=== PATIENT | female | born 1950 | race Caucasian/White ===

== ENCOUNTER 2019-03-13 02:39 | Inpatient (IN) | payer OTHER ==
--- NOTE | 2019-03-13 03:45 | PDOC ---
History of Present Illness - General Stated Complaint: FALL Time Seen by Provider: 03/13/19 03:44 History Source: Patient - History of Present Illness Initial Comments: 03/13/19 06:04 Ms. Song is a 68 y/o woman with hx MS, HTN, RA, presenting from [facility] after 2x falls from her wheelchair. She reports that for the last several weeks she has been increasingly "sleepy", to the point that she will fall asleep while eating and her head will hit the plate of food. She reports that today at approx 9:30pm she was sitting in her wheelchair when she fell asleep and slid out of the chair. She reports that she remembers hitting the ground. She denies any palpitations, confusion, weakness before or after the fall. She reports an identical second episode at approx 0200, at which point she was brought to the ED for further evaluation. She reports that during the second fall she injured her second digit on her L hand, as well as injured her L knee. She denies any fevers, chills, dysuria, polyuria, weakness, confusion. Past History - Past Medical History Allergies/Adverse Reactions: Allergies Allergy/AdvReac Type Severity Reaction Status Date / Time omeprazole Allergy Verified 03/13/19 06:01 Penicillins Allergy Verified 03/13/19 06:01 Home Medications: Ambulatory Orders Acetaminophen [Tylenol .Extra-Strength -] 500 mg PO Q6H 03/13/19 Albuterol Sulfate Inhaler - [Ventolin HFA Inhaler -] 1 - 2 inh PO QID 03/13/19 Aspirin [ASA -] 81 mg PO DAILY 03/13/19 Dexlansoprazole [Dexilant] 60 mg PO DAILY 03/13/19 Docusate Sodium [Colace -] 100 mg PO TID 03/13/19 Furosemide [Lasix -] 60 mg PO DAILY 03/13/19 Levothyroxine [Synthroid -] 150 mcg PO DAILY 03/13/19 Nadolol [Corgard -] 40 mg PO DAILY 03/13/19 Oxycodone HCl/Acetaminophen [Endocet 10-325 mg Tablet] 1 each PO TID 03/13/19 Ropinirole HCl [Ropinirole ER] 8 mg PO DAILY 03/13/19 Salmeterol/Fluticasone [Advair 100Mcg/50Mcg -] 1 inh PO BID 03/13/19 Sertraline HCl [Zoloft] 200 mg PO HS 03/13/19 Acetaminophen [Tylenol .Regular Strength -] 650 mg PO Q6H PRN tablet 03/15/19 Sulfamethoxazole/Trimethoprim [Bactrim DS -] 1 each PO BID #10 tablet 03/15/19 Heparin - 5,000 unit SQ BID vial 03/16/19 Review of Systems - Review of Systems Able to Perform ROS?: Yes Comments:: ROS: GENERAL/CONSTITUTIONAL: Fatigue. No fever or chills. No weakness. HEAD, EYES, EARS, NOSE AND THROAT: No change in vision. No ear pain or discharge. No sore throat. CARDIOVASCULAR: No chest pain or shortness of breath RESPIRATORY: No cough, wheezing, or hemoptysis. GASTROINTESTINAL: No nausea, vomiting, diarrhea or constipation. GENITOURINARY: No dysuria, frequency, or change in urination. MUSCULOSKELETAL: No joint or muscle swelling or pain. No neck or back pain. SKIN: No rash NEUROLOGIC: No headache, vertigo, loss of consciousness, or change in strength/ sensation. ENDOCRINE: No increased thirst. No abnormal weight change HEMATOLOGIC/LYMPHATIC: No anemia, easy bleeding, or history of blood clots. ALLERGIC/IMMUNOLOGIC: No hives or skin allergy. *Physical Exam - Physical Exam Comments: PE: GENERAL: Awake, alert, and fully oriented, in no acute distress HEAD: No signs of trauma, normocephalic, atraumatic EYES: PERRLA, EOMI, sclera anicteric, conjunctiva clear ENT: Auricles normal inspection, hearing grossly normal, nares patent, oropharynx clear without exudates. Moist mucosa NECK: Mild midline tenderness to palpation. Normal ROM, supple, no lymphadenopathy, JVD, or masses LUNGS: No distress, speaks full sentences, clear to auscultation bilaterally HEART: Regular rate and rhythm, normal S1 and S2, no murmurs, rubs or gallops, peripheral pulses normal and equal bilaterally. ABDOMEN: Soft, nontender, normoactive bowel sounds. No guarding, no rebound. No masses EXTREMITIES : Normal inspection, Normal range of motion, no edema. No clubbing or cyanosis NEUROLOGICAL: Cranial nerves II through XII grossly intact. Normal speech, normal gait, no focal sensorimotor deficits SKIN: Warm, Dry, normal turgor, no rashes or lesions noted ED Treatment Course - LABORATORY CBC & Chemistry Diagram: 03/15/19 06:55 03/15/19 06:55 Medical Decision Making - Medical Decision Making 68 F with hx MS, HTN, RA presenting after multiple falls from wheelchair at home , no LOC, palpitations, only pain is baseline cervical spine tenderness, but reports worsening fatigue over the last several weeks. Differential includes UTI , ACS, ICH, electrolye abnormality. Plan: CBC CMP Cardiac Profile EKG CXR CT Head, CT neck UA Urine culture Dispo: Pending labs, imaging --- CBC, CMP wnl Troponin - negative EKG - negative for acute process CXR - negative for acute process CT head - negative CT C-spine pending Likely discharge home --- Patient signed out to day team --- CT c-spine notable for "spiculated lung mass, benign vs malignant". Given several weeks of worsening fatigue, falls x2 and new mass, plan for discussion with Dr. Torres and admit to hospital for further workup. --- Patient admitted. Discharge - Discharge Information Problems reviewed: Yes Clinical Impression/Diagnosis: Multiple lung nodules Condition: Guarded - Admission Yes - Follow up/Referral - Patient Discharge Instructions - Post Discharge Activity
--- NOTE | 2019-03-13 04:54 | PDOC ---
Attending Attestation - Resident Resident Name: RaspayalfannyNaveed - ED Attending Attestation I have performed the following: I have examined & evaluated the patient, The case was reviewed & discussed with the resident, I agree w/resident's findings & plan - HPI HPI: 03/13/19 06:17 see resident hpi - Physicial Exam PE: 03/13/19 06:17 agree with resident exam - Medical Decision Making 03/13/19 06:18 68-year-old female for evaluation after sliding out of her chair Labs CT scan an EKG done due to patient stating she feels more tired than usual Plan to discharge home pending results
[2019-03-13 04:56] LABS: EOS % 5.3 % (0-4.5); HEMOGLOBIN 11.4 GM/dL (10.7-15.3); LYMPH % 43.3 % (8-40); MCHC 33.4 g/dl (32.0-36.0); MEAN CELL VOLUME 89.6 fl (80-96); MEAN PLT VOLUME 6.9 fl (7.5-11.1); MONO % 7.8 % (3.8-10.2); NEUT % 42.6 % (42.8-82.8); PLATELET COUNT 283 K/MM3 (134-434); RBC 3.79 M/mm3 (3.60-5.2); RDW 13.4 % (11.6-15.6); WHITE BLOOD COUNT 5.4 K/mm3 (4.0-10.0)
[2019-03-13 05:27] LABS: ALBUMIN 3.5 g/dl (3.4-5.0); ALK PHOS 105 U/L (45-117); ANION GAP 4 MMOL/L (8-16); BILIRUBIN,TOTAL 0.2 mg/dL (0.2-1); BLOOD UREA NITROGEN 15.3 mg/dL (7-18); CALCIUM 8.8 mg/dL (8.5-10.1); CHLORIDE 98 mmol/L (98-107); CO2 33 mmol/L (21-32); CREATININE 0.8 mg/dL (0.55-1.3); GLUCOSE,RANDOM 91 mg/dL (74-106); POTASSIUM 4.9 mmol/L (3.5-5.1); SGOT/AST 14 U/L (15-37); SGPT/ALT 17 U/L (13-61); SODIUM 134 mmol/L (136-145)
--- NOTE | 2019-03-13 07:56 | PDOC ---
*Physical Exam - Vital Signs Last Vital Signs Temp Pulse Resp BP Pulse Ox 97.4 F L 60 18 117/65 97 03/13/19 04:00 03/13/19 04:00 03/13/19 04:00 03/13/19 04:00 03/13/19 04:00 ED Treatment Course - LABORATORY CBC & Chemistry Diagram: 03/13/19 04:45 03/13/19 04:45 - ADDITIONAL ORDERS Additional order review: Laboratory Results 03/13/19 04:45 Sodium 134 L Potassium 4.9 Chloride 98 Carbon Dioxide 33 H Anion Gap 4 L BUN 15.3 Creatinine 0.8 Est GFR (CKD-EPI)AfAm 88.42 Est GFR (CKD-EPI)NonAf 76.29 Random Glucose 91 Calcium 8.8 Total Bilirubin 0.2 AST 14 L ALT 17 Alkaline Phosphatase 105 Creatine Kinase 130 Troponin I < 0.02 Total Protein 7.0 Albumin 3.5 03/13/19 04:45 RBC 3.79 MCV 89.6 MCHC 33.4 RDW 13.4 MPV 6.9 L Neutrophils % 42.6 L Lymphocytes % 43.3 H Monocytes % 7.8 Eosinophils % 5.3 H Basophils % 1.0 Medical Decision Making - Medical Decision Making 03/13/19 07:[address] Callahan. CT neck concerning for 0.9 X 0.7 cm left upper lobe and 1 X 0.8 cm spiculated left upper lobe masses. Called Dr. Torres' s office to discuss admitting patient for further workup vs pursuing outpatient workup, will await call back. 03/13/19 08:[address] Torres, will admit for further inpatient workup of lung masses and Dr. Torres will see her inpatient. Discharge - Discharge Information Problems reviewed: Yes Clinical Impression/Diagnosis: Multiple lung nodules Condition: Guarded - Admission Yes - Follow up/Referral - Patient Discharge Instructions - Post Discharge Activity
[2019-03-13] MEDS ORDERED: LORazepam 1 MG TABLET PO ONE (08:19)
[2019-03-13] MEDS ORDERED: LORazepam 0.5 MG TABLET ONE (08:44)
[2019-03-13 09:35] LABS: EPI CELLS 1.3 /HPF (0-5/HPF); HYALINE CASTS 5 /lpf (0-8); PH,URINE 7.5 (5.0-8.0); URINE APPEARANCE CLOUDY; URINE BACTERIA 1121.1 /hpf (NEGATIVE); URINE BILIRUBIN NEGATIVE (NEGATIVE); URINE COLOR YELLOW; URINE GLUCOSE (UA) NEGATIVE (NEGATIVE); URINE KETONE NEGATIVE (NEGATIVE); URINE LEUK ESTERASE 2+ (NEGATIVE); URINE NITRITE POSITIVE (NEGATIVE); URINE PROTEIN NEGATIVE (NEGATIVE); URINE RBC 3 /hpf (0-4); URINE UROBILINOGEN 0.2 mg/dL (0.2-1.0); URINE WBC 22 /hpf (0-5)
--- NOTE | 2019-03-13 10:02 | EKG ---
Test Reason : Blood Pressure : / mmHG Vent. Rate : 054 BPM Atrial Rate : 054 BPM P-R Int : 164 ms QRS Dur : 072 ms QT Int : 448 ms P-R-T Axes : 091 048 059 degrees QTc Int : 424 ms POOR DATA QUALITY, INTERPRETATION MAY BE ADVERSELY AFFECTED SINUS BRADYCARDIA SEPTAL INFARCT , AGE UNDETERMINED ABNORMAL ECG NO PREVIOUS ECGS AVAILABLE Confirmed by MD MART, BARB ([id number]) on 03/13/2019 10:01:52 AM Referred By: Confirmed By:BARB CEVALLOS MD
[2019-03-13] MEDS ORDERED: NADOLOL 40 MG TABLET (FP) PO SCH ×2 (10:15→22:34)
[2019-03-13] MEDS ORDERED: FUROSEMIDE 20 MG TABLET (FP) PO SCH (10:15)
[2019-03-13] MEDS ORDERED: ROPINIROLE HCL 8 MG PO SCH (10:15)
[2019-03-13] MEDS ORDERED: LEVOTHYROXINE NA 150 MCG TABLET PO SCH (10:15)
--- NOTE | 2019-03-13 12:07 | CON.PULM ---
Consult Consult Specialty:: PULM/CCM Referred by:: BATSHEVA Reason for Consultation:: Abnormal CT Chest - History of Present Illness Chief Complaint: S/P Fall History of Present Illness: 68 F, 1.5 PPD since teenager, MS, HTN, and RA. Admitted via the ER due to fall x 2. She reports over the past few weeks, she had increasing malaise and feeling sleepy. No CP or SOB. She does have some occasional cough. No hemoptysis or night sweats. CT of the spine ordered and on lung windows noted to have 2 lesions in the pleural lining in the Left Upper Lobe, 6.5 mm and 6 mm. No travel history or sick contacts. - History Source History Provided By: Patient Limitations to Obtaining History: No Limitations - Past Medical History Pulmonary: Yes: Bronchitis, COPD. No: Asthma, Cancer, O2 Dependent, Pneumonia, Previously Intubated, Pulmonary Embolus, Pulmonary Fibrosis, Sleep Apnea - Alcohol/Substance Use Hx Alcohol Use: No - Smoking History Smoking history: Never smoked Have you smoked in the past 12 months: No Home Medications - Allergies Allergies/Adverse Reactions: Allergies Allergy/AdvReac Type Severity Reaction Status Date / Time omeprazole Allergy Verified 03/13/19 06:01 Penicillins Allergy Verified 03/13/19 06:01 - Home Medications Home Medications: Ambulatory Orders Acetaminophen [Tylenol -] 500 mg PO Q6H 03/13/19 Albuterol Sulfate Inhaler - [Ventolin Hfa Inhaler -] 1 - 2 inh PO QID 03/13/19 Aspirin [ASA -] 81 mg PO DAILY 03/13/19 Dexlansoprazole [Dexilant] 60 mg PO DAILY 03/13/19 Docusate Sodium [Colace -] 100 mg PO TID 03/13/19 Furosemide [Lasix -] 60 mg PO DAILY 03/13/19 Levothyroxine [Synthroid -] 150 mcg PO DAILY 03/13/19 Nadolol [Corgard -] 40 mg PO DAILY 03/13/19 Oxycodone HCl/Acetaminophen [Endocet 10-325 mg Tablet] 1 each PO TID 03/13/19 Ropinirole HCl [Ropinirole ER] 8 mg PO DAILY 03/13/19 Salmeterol/Fluticasone [Advair 100Mcg/50Mcg -] 1 inh PO BID 03/13/19 Sertraline HCl [Zoloft] 200 mg PO HS 03/13/19 Review of Systems - Review of Systems Constitutional: reports: Lethargy, Malaise. denies: Chills, Fever, Night Sweats Eyes: reports: No Symptoms HENT: reports: No Symptoms Neck: reports: No Symptoms Cardiovascular: denies: Chest Pain, Edema, Palpitations, Shortness of Breath Respiratory: reports: No Symptoms Gastrointestinal: reports: No Symptoms Genitourinary: reports: No Symptoms Breasts: reports: No Symptoms Reported Musculoskeletal: reports: No Symptoms Integumentary: reports: No Symptoms Neurological: reports: No Symptoms Endocrine: reports: No Symptoms Hematology/Lymphatic: reports: No Symptoms Psychiatric: reports: No Symptoms Physical Exam Vital Sings: Vital Signs Temperature 97.4 F L 03/13/19 09:20 Pulse Rate 54 L 03/13/19 09:20 Respiratory Rate 20 03/13/19 09:20 Blood Pressure 122/63 03/13/19 09:20 O2 Sat by Pulse Oximetry (%) 96 03/13/19 09:24 Constitutional: Yes: Thin Eyes: Yes: Conjunctiva Clear, EOM Intact HENT: Yes: Atraumatic, Normocephalic Neck: Yes: Supple, Trachea Midline Cardiovascular: Yes: Regular Rate and Rhythm Respiratory: Yes: Cough, Diminished, On Nasal O2, Rales, SOB, SOB on Exertion. No: Accessory Muscle Use, Stridor, Tachypnea, Wheezes ...Inspection: Yes: Kyphosis ...Clubbing: No Gastrointestinal: Yes: Normal Bowel Sounds, Soft Renal/: Yes: WNL Musculoskeletal: Yes: WNL Extremities: Yes: WNL Edema: No Peripheral Pulses WNL: Yes Integumentary: Yes: WNL Neurological: Yes: WNL, Alert, Oriented ...Motor Strength: WNL Psychiatric: Yes: WNL, Alert, Oriented Labs: CBC, BMP 03/13/19 04:45 03/13/19 04:45 Imaging - Results Chest X-ray: Report Reviewed, Image Reviewed Cat Scan: Report Reviewed, Image Reviewed Problem List - Problems (1) COPD (chronic obstructive pulmonary disease) Code(s): J44.9 - CHRONIC OBSTRUCTIVE PULMONARY DISEASE, UNSPECIFIED (2) Smoker Code(s): F17.200 - NICOTINE DEPENDENCE, UNSPECIFIED, UNCOMPLICATED (3) Multiple lung nodules Code(s): R91.8 - OTHER NONSPECIFIC ABNORMAL FINDING OF LUNG FIELD (4) Fall Code(s): W19.XXXA - UNSPECIFIED FALL, INITIAL ENCOUNTER Assessment/Plan Dedicated Chest CT to be ordered O2 as needed PFTs after discharge Smoking cessation was counseled Do not suspect PNA or respiratory tract infection VTE prophylaxis If the dedicated Chest CT only reveals these 2 APARNA lesions, according to updated Fleluizner 2017: [address] scan is recommended. Lesions likely under the diagnostic threshold for PET imaging. Will follow. Thank you. Dr Hernandez
[2019-03-13] MEDS: ASPIRIN 81 MG CHEWABLE TABLETS PO SCH (12:52)
[2019-03-13] MEDS: ACETAMINOPHEN 500 MG TABLET (FP) PO SCH ×3 (12:57→23:20)
[2019-03-13] MEDS: FLUTICASONE/SALMETEROL 100 MCG/50 MCG DISKUS IH SCH (12:57)
[2019-03-13] MEDS: ALBUTEROL SO4 8 GM HFA INHALER IH SCH ×2 (12:58→18:03)
[2019-03-13] MEDS: DOCUSATE SODIUM 100 MG CAPSULE (FP) PO SCH ×2 (14:41→22:07)
[2019-03-13 15:35] VITALS: BMI 16.1
[2019-03-13] MEDS: oxyCODONE HCL 5 MG TABLET PO PRN (18:10)
[2019-03-13] MEDS: ACETAMINOPHEN 325 MG TABLET (FP) PO PRN (18:11)
--- NOTE | 2019-03-13 18:26 | HP ---
Admitting History and Physical - Primary Care Physician PCP: Oli Torres - Admission Chief Complaint: Fall. Lung nodules History of Present Illness: Pt with Hx/o fall from wheelchair, s/p neck trauma, head injury, fell from the wheelchair again last night ( X 2) while asleep; unclear if she hit her head; pt with left 2-nd finger and knee injury. 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: Other (restless leg Sd) Pulmonary: Yes: Bronchitis, COPD Gastrointestinal: Yes: GERD Musculoskeletal: Yes: Other (MS) Rheumatology: Yes: Rheumatoid Arthritis (refusing to take medication) - Smoking History Smoking history: Current every day smoker Have you smoked in the past 12 months: Yes Aproximately how many cigarettes per day: 7 - Alcohol/Substance Use Hx Alcohol Use: No - Social History Usual Living Arrangement: Yes: Assisted Living Home Medications - Allergies Allergies/Adverse Reactions: Allergies Allergy/AdvReac Type Severity Reaction Status Date / Time omeprazole Allergy Verified 03/13/19 06:01 Penicillins Allergy Verified 03/13/19 06:01 - Home Medications Home Medications: Ambulatory Orders Acetaminophen [Tylenol -] 500 mg PO Q6H 03/13/19 Albuterol Sulfate Inhaler - [Ventolin Hfa Inhaler -] 1 - 2 inh PO QID 03/13/19 Aspirin [ASA -] 81 mg PO DAILY 03/13/19 Dexlansoprazole [Dexilant] 60 mg PO DAILY 03/13/19 Docusate Sodium [Colace -] 100 mg PO TID 03/13/19 Furosemide [Lasix -] 60 mg PO DAILY 03/13/19 Levothyroxine [Synthroid -] 150 mcg PO DAILY 03/13/19 Nadolol [Corgard -] 40 mg PO DAILY 03/13/19 Oxycodone HCl/Acetaminophen [Endocet 10-325 mg Tablet] 1 each PO TID 03/13/19 Ropinirole HCl [Ropinirole ER] 8 mg PO DAILY 03/13/19 Salmeterol/Fluticasone [Advair 100Mcg/50Mcg -] 1 inh PO BID 03/13/19 Sertraline HCl [Zoloft] 200 mg PO HS 03/13/19 Review of Systems - Review of Systems Constitutional: reports: Fever, Weakness. denies: Chills Eyes: denies: Blurred Vision, Double Vision, Recent Change in Vision HENT: denies: Difficult Swallowing, Ear Discharge, Throat Pain Neck: reports: Pain on Movement (old). denies: Decreased ROM Cardiovascular: reports: Edema, Palpitations. denies: Chest Pain Respiratory: denies: Cough, SOB Gastrointestinal: denies: Abdominal Pain, Nausea, Vomiting Genitourinary: denies: Burning, Dysuria Musculoskeletal: reports: Back Pain, Joint Pain (multiples) Integumentary: reports: Wound (legs, 3-rd right toe) Neurological: denies: Change in LOC, Change in Speech, Confusion, Numbness Endocrine: reports: Intolerance to Cold. denies: Excessive Sweating Hematology/Lymphatic: reports: Excessive Bleeding. denies: Easily Bruised Psychiatric: denies: Anxiety, Depression Physical Examination Vital Signs: Vital Signs Temperature 97.6 F 03/13/19 13:44 Pulse Rate 60 03/13/19 13:44 Respiratory Rate 20 03/13/19 13:44 Blood Pressure 102/43 L 03/13/19 13:44 O2 Sat by Pulse Oximetry (%) 96 03/13/19 09:24 Constitutional: Yes: No Distress, Calm Eyes: Yes: Conjunctiva Clear, EOM Intact HENT: Yes: Normocephalic. No: Epistaxis, Rhinnorhea Neck: Yes: Trachea Midline. No: Lymphadenopathy Cardiovascular: Yes: Regular Rate and Rhythm, S1, S2 Respiratory: Yes: Regular, Other (coarse BS bilat) Gastrointestinal: Yes: Normal Bowel Sounds, Soft. No: Tenderness ...Rectal Exam: Yes: Deferred Renal/: Yes: CVA Tenderness - Left, CVA Tenderness - Right Breast(s): Yes: Other (deferred) Extremities: No: Cool, Cyanosis Edema: No Neurological: Yes: Alert, Oriented, Other (motor and sensoory examination is symmetric in UE/ LE/ face) Psychiatric: Yes: Alert, Oriented Labs: CBC, BMP 03/13/19 04:45 03/13/19 04:45 Imaging - Results X-ray: Report Reviewed Cat Scan: Report Reviewed Problem List - Problems (1) Recurrent falls Code(s): R29.6 - REPEATED FALLS (2) Rheumatoid arthritis Code(s): M06.9 - RHEUMATOID ARTHRITIS, UNSPECIFIED (3) Multiple sclerosis Code(s): G35 - MULTIPLE SCLEROSIS (4) Multiple lung nodules Code(s): R91.8 - OTHER NONSPECIFIC ABNORMAL FINDING OF LUNG FIELD (5) Smoker Code(s): F17.200 - NICOTINE DEPENDENCE, UNSPECIFIED, UNCOMPLICATED (6) Hyponatremia Assessment/Plan: borderline Code(s): E87.1 - HYPO-OSMOLALITY AND HYPONATREMIA Assessment/Plan To f/u UCX , to R/O UTI Chest CT to r/o lung CA Pulmonary consult. PT evaluation Monitor for fall AM labs
[2019-03-13] MEDS: PANTOPRAZOLE 40 MG TABLET (FP) PO SCH (18:46)
[2019-03-13] MEDS: rOPINIRole HCL 1 MG TABLET (FP) PO SCH ×2 (22:07→22:54)
[2019-03-13] MEDS: SERTRALINE HCL 50 MG TABLET (FP) PO SCH (22:07)
[2019-03-13] MEDS: LORazepam 1 MG TABLET PO SCH (22:48)
[2019-03-14] MEDS: oxyCODONE HCL 5 MG TABLET PO PRN ×4 (00:12→18:40)
[2019-03-14] MEDS: ACETAMINOPHEN 325 MG TABLET (FP) PO PRN ×4 (00:13→18:42)
[2019-03-14] MEDS: FLUTICASONE/SALMETEROL 100 MCG/50 MCG DISKUS IH SCH ×3 (00:20→21:24)
[2019-03-14] MEDS: ALBUTEROL SO4 8 GM HFA INHALER IH SCH ×5 (00:56→21:17)
[2019-03-14] MEDS: ACETAMINOPHEN 500 MG TABLET (FP) PO SCH ×4 (05:26→23:16)
[2019-03-14] MEDS: FUROSEMIDE 20 MG TABLET (FP) PO SCH (06:13)
[2019-03-14] MEDS: LORazepam 1 MG TABLET PO SCH ×3 (06:15→21:25)
[2019-03-14] MEDS: DOCUSATE SODIUM 100 MG CAPSULE (FP) PO SCH ×3 (06:15→21:25)
[2019-03-14] MEDS: LEVOTHYROXINE NA 75 MCG TABLET (FP) PO SCH (06:16)
[2019-03-14] MEDS: rOPINIRole HCL 1 MG TABLET (FP) PO SCH ×3 (06:16→13:31)
[2019-03-14 08:13] LABS: BASO % 0.9 % (0-2.0); EOS % 3.4 % (0-4.5); HEMATOCRIT 32.4 % (32.4-45.2); HEMOGLOBIN 10.8 GM/dL (10.7-15.3); LYMPH % 23.8 % (8-40); MCH 30.2 pg (25.7-33.7); MCHC 33.5 g/dl (32.0-36.0); MEAN CELL VOLUME 90.2 fl (80-96); MONO % 7.4 % (3.8-10.2); NEUT % 64.5 % (42.8-82.8); PLATELET COUNT 279 K/MM3 (134-434); RBC 3.59 M/mm3 (3.60-5.2); RDW 13.6 % (11.6-15.6); WHITE BLOOD COUNT 5.2 K/mm3 (4.0-10.0)
[2019-03-14 08:51] LABS: BLOOD UREA NITROGEN 14.6 mg/dL (7-18); CALCIUM 8.1 mg/dL (8.5-10.1); CREATININE 0.8 mg/dL (0.55-1.3); POTASSIUM 4.7 mmol/L (3.5-5.1)
[2019-03-14] MEDS ORDERED: FLU VACCINE QUAD 60 MCG/0.5 ML (MDV 19-20) IM ONE (10:00)
[2019-03-14] MEDS ORDERED: PT OWN MED DRAWER 7, Y5N ONE (10:17)
[2019-03-14] MEDS: PANTOPRAZOLE 40 MG TABLET (FP) PO SCH (11:11)
[2019-03-14] MEDS: ASPIRIN 81 MG CHEWABLE TABLETS PO SCH (11:14)
--- NOTE | 2019-03-14 13:07 | PN ---
Progress Note, Physician History of Present Illness: pulmonary alert,comfortable,breathing better - Current Medication List Current Medications: Active Medications Acetaminophen (Tylenol -) 500 mg PO Q6H [facility] Last Admin: 03/14/19 11:30 Dose: Not Given Acetaminophen (Tylenol -) 650 mg PO Q6H PRN PRN Reason: PAIN LEVEL 6-10 Last Admin: 03/14/19 12:29 Dose: 650 mg Albuterol Sulfate (Ventolin Hfa Inhaler -) 2 puff IH RQID [facility] Last Admin: 03/14/19 12:25 Dose: 2 puff Aspirin (Asa -) 81 mg PO DAILY [facility] Last Admin: 03/14/19 11:14 Dose: 81 mg Docusate Sodium (Colace -) 100 mg PO TID [facility] Last Admin: 03/14/19 06:15 Dose: 100 mg Furosemide (Lasix -) 60 mg PO DAILY [facility] Last Admin: 03/14/19 06:13 Dose: Not Given Levothyroxine Sodium (Synthroid -) 150 mcg PO DAILY@0700 [facility] Last Admin: 03/14/19 06:16 Dose: 150 mcg Lorazepam (Ativan -) 1 mg PO TID [facility] Last Admin: 03/14/19 06:15 Dose: 1 mg Lorazepam (Ativan -) 0.5 mg PO [facility] Nadolol (Corgard -) 40 mg PO DAILY [facility] Oxycodone HCl (Roxicodone -) 10 mg PO Q6H PRN PRN Reason: PAIN LEVEL 6-10 Last Admin: 03/14/19 12:25 Dose: 10 mg Pantoprazole Sodium (Protonix -) 40 mg PO DAILY [facility] Last Admin: 03/14/19 11:11 Dose: 40 mg Ropinirole HCl (Requip -) 2 mg PO QID [facility] Last Admin: 03/14/19 10:22 Dose: Not Given Fluticasone/Salmeterol (Advair 100mcg/50mcg -) 1 puff IH BID [facility] Last Admin: 03/14/19 12:25 Dose: 1 puff Sertraline HCl (Zoloft -) 200 mg PO HS [facility] Last Admin: 03/13/19 22:07 Dose: 200 mg - Objective Vital Signs: Vital Signs Temperature 98.3 F 03/14/19 05:49 Pulse Rate 56 L 10/02/19 05:49 Respiratory Rate 18 03/14/19 05:49 Blood Pressure 115/54 L 03/14/19 05:49 O2 Sat by Pulse Oximetry (%) 97 03/13/19 21:00 Constitutional: Yes: Calm, Cachectic Eyes: Yes: WNL HENT: Yes: WNL Neck: Yes: WNL Cardiovascular: Yes: Regular Rate and Rhythm, S1, S2 Respiratory: Yes: Diminished Gastrointestinal: Yes: Normal Bowel Sounds, Soft Extremities: Yes: WNL Edema: No Labs: CBC, BMP 03/14/19 07:45 03/14/19 07:45 - ....Imaging Cat Scan: Report Reviewed, Image Reviewed (no nodules) Assessment/Plan Problem List - Problems (1) COPD (chronic obstructive pulmonary disease) Code(s): J44.9 - CHRONIC OBSTRUCTIVE PULMONARY DISEASE, UNSPECIFIED (2) Smoker Code(s): F17.200 - NICOTINE DEPENDENCE, UNSPECIFIED, UNCOMPLICATED (3) Multiple lung nodules Code(s): R91.8 - OTHER NONSPECIFIC ABNORMAL FINDING OF LUNG FIELD (4) Fall Code(s): W19.XXXA - UNSPECIFIED FALL, INITIAL ENCOUNTER Assessment/Plan O2 as needed PFTs after discharge Smoking cessation was counseled Do not suspect PNA or respiratory tract infection VTE prophylaxis yearly low dose chest ct for lung cancer screening DR GONZALEZ
--- NOTE | 2019-03-14 16:24 | CONSULT ---
Consult - text type - Consultation Consultation Note: NEUROLOGY CONSULTATION GREATLY APPRECIATED: Events reviewed and discussed with Dr. Torres and TITI Huerta. Patient examined by me. Pt seen at personal request for medication review. Well-known to me with Chronic Multiple Sclerosis, chronic ataxia and falls, Migraine headaches, severe restless limbs syndrome. PMH sig for hypothyroidism, COPD (still a smoker), Osteoarthritis, s/p Left Total shoulder. Chronic neck and LB pain. Maintained on Nadolol 40 mg daily for migraine prophylaxis, and Requip 2mg QID and 2 mg HS for RLS Also treated for depression and anxiety with sertraline 200 mg Hs. Admitted after two falls. Head CT (reviewed): Mild posterior atrophy with scattered periventricular lucencies.. CT of C spine: Moderate, Diffuse DJD C4-C7. WBC= 5.2 TSH= 2.69 UA WBC= 22 + UC > 100,000 LF neg bacilli MARY: Cor reg. No bruit. Neg L'Hermitte's. Various scabs to right leg. No evidence of head trauma. Care to wound on bottom. Wearing diaper. NEURO: Awake, alert, responsive. Preservative speech/ circumlocutious CNII-CNXII: Few beats of conjugate nystagmus all directions. Full garber. No facial. Motor: No drift or tremor. Strength normal. Decreased ERENDIRA's. Reflexes brisk throughout. R Babinski. Coordination: No FTN dystaxia. Sensation: Reduced vibration toes. Gait: deferred. 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 RLS Depression Worsened by Toxic-Metabolic Encephalopathy (UTI) Suggest: Antibiotics and hydration per ID Continue nadolol 40 mg po daily for migraine prophylaxis Increase Requip to 2 mg QID AND 2 mg HS. Orthostatic BP's Consider gradual reduction of SSRI as may worsen RLS-related symptoms. Buproprion XL is good substitute for both mood and smoking cessation. Pt eval for gait safety with walker Thank you very much, Jose Luis Winslow MD
[2019-03-14] MEDS: rOPINIRole HCL 2 MG TABLET (FP) PO SCH ×2 (18:45→21:25)
[2019-03-14] MEDS: SERTRALINE HCL 50 MG TABLET (FP) PO SCH (21:25)
[2019-03-14] MEDS ORDERED: rOPINIRole HCL 2 MG TABLET (FP) PO SCH (22:00)
[2019-03-14] MEDS ORDERED: LORazepam 0.5 MG TABLET PO SCH (22:00)
--- NOTE | 2019-03-14 23:47 | PN ---
Progress Note, Physician History of Present Illness: pt ww/o fever, chills, SOB, CP, palpitations, abd pain - Current Medication List Current Medications: Active Medications Acetaminophen (Tylenol -) 500 mg PO Q6H [facility] Last Admin: 03/14/19 23:16 Dose: Not Given Acetaminophen (Tylenol -) 650 mg PO Q6H PRN PRN Reason: PAIN LEVEL 6-10 Last Admin: 03/14/19 18:42 Dose: 650 mg Albuterol Sulfate (Ventolin Hfa Inhaler -) 2 puff IH RQID [facility] Last Admin: 03/14/19 21:17 Dose: Not Given Aspirin (Asa -) 81 mg PO DAILY [facility] Last Admin: 03/14/19 11:14 Dose: 81 mg Docusate Sodium (Colace -) 100 mg PO TID [facility] Last Admin: 03/14/19 21:25 Dose: 100 mg Furosemide (Lasix -) 60 mg PO DAILY [facility] Last Admin: 03/14/19 06:13 Dose: Not Given Levothyroxine Sodium (Synthroid -) 150 mcg PO DAILY@0700 [facility] Last Admin: 03/14/19 06:16 Dose: 150 mcg Lorazepam (Ativan -) 1 mg PO TID [facility] Last Admin: 03/14/19 21:25 Dose: 1 mg Lorazepam (Ativan -) 0.5 mg PO [facility] Nadolol (Corgard -) 40 mg PO DAILY [facility] Oxycodone HCl (Roxicodone -) 10 mg PO Q6H PRN PRN Reason: PAIN LEVEL 6-10 Last Admin: 03/14/19 18:40 Dose: 10 mg Pantoprazole Sodium (Protonix -) 40 mg PO DAILY [facility] Last Admin: 03/14/19 11:11 Dose: 40 mg Ropinirole HCl (Requip -) 2 mg PO 5XD [facility] Last Admin: 03/14/19 21:25 Dose: 2 mg Fluticasone/Salmeterol (Advair 100mcg/50mcg -) 1 puff IH BID [facility] Last Admin: 03/14/19 21:24 Dose: 1 puff Sertraline HCl (Zoloft -) 200 mg PO HS [facility] Last Admin: 03/14/19 21:25 Dose: 200 mg - Objective Vital Signs: Vital Signs Temperature 98.3 F 03/14/19 21:22 Pulse Rate 57 L 03/14/19 21:22 Respiratory Rate 18 03/14/19 21:22 Blood Pressure 105/61 03/14/19 21:22 O2 Sat by Pulse Oximetry (%) 97 03/13/19 21:00 Constitutional: Yes: No Distress, Calm Cardiovascular: Yes: Regular Rate and Rhythm, S1, S2 Respiratory: Yes: Regular, CTA Bilaterally, Other (coarse BS) Gastrointestinal: Yes: Normal Bowel Sounds, Soft Edema: No Neurological: Yes: Alert, Oriented Labs: CBC, BMP 03/14/19 07:45 03/14/19 07:45 Problem List - Problems (1) Recurrent falls Code(s): R29.6 - REPEATED FALLS (2) Rheumatoid arthritis Code(s): M06.9 - RHEUMATOID ARTHRITIS, UNSPECIFIED (3) Multiple sclerosis Code(s): G35 - MULTIPLE SCLEROSIS (4) Multiple lung nodules Code(s): R91.8 - OTHER NONSPECIFIC ABNORMAL FINDING OF LUNG FIELD (5) Smoker Code(s): F17.200 - NICOTINE DEPENDENCE, UNSPECIFIED, UNCOMPLICATED (6) Hyponatremia Code(s): E87.1 - HYPO-OSMOLALITY AND HYPONATREMIA (7) UTI (urinary tract infection) Code(s): N39.0 - URINARY TRACT INFECTION, SITE NOT SPECIFIED Assessment/Plan Start Bactim, f/u UCX Chest CT negative for lung CA Pulmonary, Neuro consults are appreciated. Monitor for fall AM labs
[2019-03-15] MEDS: SULFAMETHOXAZOLE/TRIMETHOPRIM 800MG/160MG D.S. TABLET PO SCH ×3 (01:48→22:29)
[2019-03-15] MEDS: ACETAMINOPHEN 500 MG TABLET (FP) PO SCH ×5 (04:29→22:38)
[2019-03-15] MEDS: DOCUSATE SODIUM 100 MG CAPSULE (FP) PO SCH ×3 (05:51→22:30)
[2019-03-15] MEDS: LORazepam 1 MG TABLET PO SCH ×3 (05:51→22:28)
[2019-03-15] MEDS: rOPINIRole HCL 2 MG TABLET (FP) PO SCH ×5 (05:51→22:32)
[2019-03-15] MEDS: oxyCODONE HCL 5 MG TABLET PO PRN ×2 (06:10→15:12)
[2019-03-15] MEDS: LEVOTHYROXINE NA 75 MCG TABLET (FP) PO SCH (06:10)
[2019-03-15] MEDS: ACETAMINOPHEN 325 MG TABLET (FP) PO PRN (06:11)
[2019-03-15 07:38] LABS: HEMATOCRIT 32.8 % (32.4-45.2); HEMOGLOBIN 11.1 GM/dL (10.7-15.3); MCH 30.5 pg (25.7-33.7); MCHC 33.7 g/dl (32.0-36.0); MEAN CELL VOLUME 90.4 fl (80-96); MEAN PLT VOLUME 7.1 fl (7.5-11.1); PLATELET COUNT 285 K/MM3 (134-434); RBC 3.63 M/mm3 (3.60-5.2); WHITE BLOOD COUNT 7.1 K/mm3 (4.0-10.0)
[2019-03-15 08:18] LABS: BLOOD UREA NITROGEN 17.2 mg/dL (7-18); CALCIUM 8.5 mg/dL (8.5-10.1); CREATININE 0.7 mg/dL (0.55-1.3); POTASSIUM 4.8 mmol/L (3.5-5.1)
[2019-03-15] MEDS ORDERED: PNEUMOC 13-VAL CONJ-DIP CRM/PF 0.5 ML DISP.SYRIN IM ONE (09:00)
--- NOTE | 2019-03-15 10:07 | PN ---
Progress Note (short form) - Note Progress Note: Feels OK. No CP or SOB. CT: atelectasis and scarring in the [place] / emphysema Intake & Output 03/12/19 03/13/19 03/14/19 03/15/19 23:59 23:59 23:59 23:59 Intake Total 200 985 Balance 200 985 Weight 103 lb Last Vital Signs Temp Pulse Resp BP Pulse Ox 97.7 F 68 18 111/53 L 97 03/15/19 06:00 03/15/19 06:00 03/15/19 06:00 03/15/19 06:00 03/14/19 21:00 Active Medications Acetaminophen (Tylenol -) 500 mg PO Q6H [facility] Last Admin: 03/15/19 04:29 Dose: Not Given Acetaminophen (Tylenol -) 650 mg PO Q6H PRN PRN Reason: PAIN LEVEL 6-10 Last Admin: 03/15/19 06:11 Dose: 325 mg Albuterol Sulfate (Ventolin Hfa Inhaler -) 2 puff IH RQID [facility] Last Admin: 03/14/19 21:17 Dose: Not Given Aspirin (Asa -) 81 mg PO DAILY [facility] Last Admin: 03/14/19 11:14 Dose: 81 mg Docusate Sodium (Colace -) 100 mg PO TID [facility] Last Admin: 03/15/19 05:51 Dose: 100 mg Furosemide (Lasix -) 60 mg PO DAILY [facility] Last Admin: 03/14/19 06:13 Dose: Not Given Levothyroxine Sodium (Synthroid -) 150 mcg PO DAILY@0700 [facility] Last Admin: 03/15/19 06:10 Dose: 150 mcg Lorazepam (Ativan -) 1 mg PO TID [facility] Last Admin: 03/15/19 05:51 Dose: 1 mg Lorazepam (Ativan -) 0.5 mg PO HS [facility] Nadolol (Corgard -) 40 mg PO DAILY [facility] Oxycodone HCl (Roxicodone -) 10 mg PO Q6H PRN PRN Reason: PAIN LEVEL 6-10 Last Admin: 03/15/19 06:10 Dose: 10 mg Pantoprazole Sodium (Protonix -) 40 mg PO DAILY [facility] Last Admin: 03/14/19 11:11 Dose: 40 mg Ropinirole HCl (Requip -) 2 mg PO 5XD [facility] Last Admin: 03/15/19 05:51 Dose: 2 mg Fluticasone/Salmeterol (Advair 100mcg/50mcg -) 1 puff IH BID [facility] Last Admin: 03/14/19 21:24 Dose: 1 puff Sertraline HCl (Zoloft -) 200 mg PO HS [facility] Last Admin: 03/14/19 21:25 Dose: 200 mg Trimethoprim/Sulfamethoxazole (Bactrim Ds -) 1 each PO BID [facility] Last Admin: 03/15/19 01:48 Dose: 1 each Constitutional: Yes: NAD, Cachectic Eyes: Yes: WNL HENT: Yes: WNL Neck: Yes: WNL Cardiovascular: Yes: Regular Rate and Rhythm, S1, S2 Respiratory: Yes: Diminished Gastrointestinal: Yes: Normal Bowel Sounds, Soft Extremities: Yes: WNL Edema: No Labs: Laboratory Results - last 24 hr 03/15/19 03/15/19 06:55 06:55 WBC 7.1 RBC 3.63 Hgb 11.1 Hct 32.8 MCV 90.4 MCH 30.5 MCHC 33.7 RDW 14.0 Plt Count 285 MPV 7.1 L Sodium 137 Potassium 4.8 Chloride 99 Carbon Dioxide 32 Anion Gap 6 L BUN 17.2 Creatinine 0.7 Est GFR (CKD-EPI)AfAm 103.91 Est GFR (CKD-EPI)NonAf 89.65 Random Glucose 65 L Calcium 8.5 Assessment/Plan Problem List - Problems (1) COPD (chronic obstructive pulmonary disease) Code(s): J44.9 - CHRONIC OBSTRUCTIVE PULMONARY DISEASE, UNSPECIFIED (2) Smoker Code(s): F17.200 - NICOTINE DEPENDENCE, UNSPECIFIED, UNCOMPLICATED (3) Multiple lung nodules Code(s): R91.8 - OTHER NONSPECIFIC ABNORMAL FINDING OF LUNG FIELD (4) Fall Code(s): W19.XXXA - UNSPECIFIED FALL, INITIAL ENCOUNTER Assessment/Plan PFTs after discharge Smoking cessation was counseled Do not suspect PNA or respiratory tract infection VTE prophylaxis yearly low dose chest CT for lung cancer screening No Pulmonary contraindication for DC Dr Hernandez Problem List - Problems (1) COPD (chronic obstructive pulmonary disease) Code(s): J44.9 - CHRONIC OBSTRUCTIVE PULMONARY DISEASE, UNSPECIFIED (2) Smoker Code(s): F17.200 - NICOTINE DEPENDENCE, UNSPECIFIED, UNCOMPLICATED (3) Multiple lung nodules Code(s): R91.8 - OTHER NONSPECIFIC ABNORMAL FINDING OF LUNG FIELD (4) Fall Code(s): W19.XXXA - UNSPECIFIED FALL, INITIAL ENCOUNTER
[2019-03-15] MEDS: ALBUTEROL SO4 8 GM HFA INHALER IH SCH ×4 (10:08→22:28)
[2019-03-15] MEDS: NADOLOL 20 MG TABLET (FP) PO SCH (10:08)
[2019-03-15] MEDS: FUROSEMIDE 20 MG TABLET (FP) PO SCH (10:08)
[2019-03-15] MEDS: ASPIRIN 81 MG CHEWABLE TABLETS PO SCH (10:10)
[2019-03-15] MEDS: PANTOPRAZOLE 40 MG TABLET (FP) PO SCH (10:10)
[2019-03-15] MEDS ORDERED: PT OWN MED DRAWER 7, Y5N ONE ×3 (10:23→18:35)
[2019-03-15] MEDS: FLUTICASONE/SALMETEROL 100 MCG/50 MCG DISKUS IH SCH ×2 (10:24→22:26)
--- NOTE | 2019-03-15 12:06 | DS ---
Physical Examination Vital Signs: Vital Signs Temperature 97.7 F 03/15/19 06:00 Pulse Rate 68 03/15/19 06:00 Respiratory Rate 18 03/15/19 06:00 Blood Pressure 111/53 L 03/15/19 06:00 O2 Sat by Pulse Oximetry (%) 97 03/14/19 21:00 Findings/Remarks: feeling better but generally weak seen by neuro and pulm plan DC to [place] - pt also considering now SNF, wants to d/w CM Constitutional: Yes: No Distress, Calm Eyes: Yes: Conjunctiva Clear HENT: Yes: Atraumatic Neck: Yes: Supple Cardiovascular: Yes: Regular Rate and Rhythm Respiratory: Yes: CTA Bilaterally Gastrointestinal: Yes: Soft. No: Tenderness Renal/: No: Hematuria Musculoskeletal: No: Joint Stiffness, Joint Swelling Extremities: No: Cold, Cool Edema: No Integumentary: No: Rash, Venous Stasis Changes Neurological: Yes: WNL, Alert, Oriented, Unsteady Gait ...Motor Strength: WNL Psychiatric: Yes: WNL, Alert, Oriented. No: Agitated, Suicidal Ideation Labs: CBC, BMP 03/15/19 06:55 03/15/19 06:55 Discharge Summary Problems reviewed: Yes Reason For Visit: LUNG MASS Current Active Problems COPD (chronic obstructive pulmonary disease) (Acute) Fall (Acute) Hyponatremia (Acute) Multiple lung nodules (Acute) Multiple sclerosis (Acute) Recurrent falls (Acute) Rheumatoid arthritis (Acute) Smoker (Acute) UTI (urinary tract infection) (Acute) Procedures: Principal: 68 YOF HTN OA DJD MS smoker anxiety and chronic pain sd admitted s/p fall out of the Other Procedures: seen by neurology, meds adjusted Hospital Course: improved with above; found to have UTI - started on ATB; lung mass chronic heavy smoker seen by pulm - f.u outpt chest CT and f/u with pulmonary Plan of Treatment: po ATB for UTI; meds per neurology f/u PCP neurology and pulmonary in 2-4 weeks of DC; falls pfx; pt is on chronic ativan and percocet, dw pt to [employer] taperi g them to off and switch to alternative medications, consider pain management and psych eval outpt; pt aware of risks (like and not limited to) of fall tolerance dependence constipation associated with ativan and percocet. stop tob advised Condition: Guarded - Instructions Diet, Activity, Other Instructions: f/u PCP neurology and pulm as advised falls PFX take meds as ordered RTER if worse or recurrent Referrals: Oli Torres MD [Primary Care Provider] - Jose Luis Winslow MD [Staff Physician] - Norbert Hernandez MD [Staff Physician] - Disposition: [facility] - Home Medications Comprehensive Discharge Medication List: Ambulatory Orders Acetaminophen [Tylenol -] 500 mg PO Q6H 03/13/19 Albuterol Sulfate Inhaler - [Ventolin Hfa Inhaler -] 1 - 2 inh PO QID 03/13/19 Aspirin [ASA -] 81 mg PO DAILY 03/13/19 Dexlansoprazole [Dexilant] 60 mg PO DAILY 03/13/19 Docusate Sodium [Colace -] 100 mg PO TID 03/13/19 Furosemide [Lasix -] 60 mg PO DAILY 03/13/19 Levothyroxine [Synthroid -] 150 mcg PO DAILY 03/13/19 Nadolol [Corgard -] 40 mg PO DAILY 03/13/19 Oxycodone HCl/Acetaminophen [Endocet 10-325 mg Tablet] 1 each PO TID 03/13/19 Ropinirole HCl [Ropinirole ER] 8 mg PO DAILY 03/13/19 Salmeterol/Fluticasone [Advair 100Mcg/50Mcg -] 1 inh PO BID 03/13/19 Sertraline HCl [Zoloft] 200 mg PO HS 03/13/19
[2019-03-15] MEDS: SERTRALINE HCL 50 MG TABLET (FP) PO SCH (22:33)
[2019-03-16] MEDS: oxyCODONE HCL 5 MG TABLET PO PRN ×2 (02:24→08:28)
[2019-03-16] MEDS: ACETAMINOPHEN 500 MG TABLET (FP) PO SCH ×3 (06:17→16:20)
[2019-03-16] MEDS: LEVOTHYROXINE NA 75 MCG TABLET (FP) PO SCH (06:18)
[2019-03-16] MEDS: LORazepam 1 MG TABLET PO SCH ×2 (06:18→13:25)
[2019-03-16] MEDS: DOCUSATE SODIUM 100 MG CAPSULE (FP) PO SCH ×2 (06:18→13:25)
[2019-03-16] MEDS: rOPINIRole HCL 2 MG TABLET (FP) PO SCH ×3 (06:19→13:25)
--- NOTE | 2019-03-16 07:44 | PN ---
Progress Note, Physician Chief Complaint: OOB to chair still deciding about going to [place] vs SNF - now said she prefers SNF because she needs PT d/w CM MIKE sent awaiting decision - Current Medication List Current Medications: Active Medications Acetaminophen (Tylenol -) 500 mg PO Q6H [facility] Last Admin: 03/16/19 06:17 Dose: 500 mg Acetaminophen (Tylenol -) 650 mg PO Q6H PRN PRN Reason: PAIN LEVEL 6-10 Last Admin: 03/15/19 06:11 Dose: 325 mg Albuterol Sulfate (Ventolin Hfa Inhaler -) 2 puff IH RQID [facility] Last Admin: 03/15/19 22:28 Dose: Not Given Aspirin (Asa -) 81 mg PO DAILY [facility] Last Admin: 03/15/19 10:10 Dose: 81 mg Docusate Sodium (Colace -) 100 mg PO TID [facility] Last Admin: 03/16/19 06:18 Dose: 100 mg Furosemide (Lasix -) 60 mg PO DAILY [facility] Last Admin: 03/15/19 10:08 Dose: 60 mg Levothyroxine Sodium (Synthroid -) 150 mcg PO DAILY@0700 [facility] Last Admin: 03/16/19 06:18 Dose: 150 mcg Lorazepam (Ativan -) 1 mg PO TID [facility] Last Admin: 03/16/19 06:18 Dose: 1 mg Lorazepam (Ativan -) 0.5 mg PO [facility] Nadolol (Corgard -) 40 mg PO DAILY [facility] Last Admin: 03/15/19 10:08 Dose: 40 mg Oxycodone HCl (Roxicodone -) 10 mg PO Q6H PRN PRN Reason: PAIN LEVEL 6-10 Last Admin: 03/16/19 02:24 Dose: 10 mg Pantoprazole Sodium (Protonix -) 40 mg PO DAILY [facility] Last Admin: 03/15/19 10:10 Dose: 40 mg Ropinirole HCl (Requip -) 2 mg PO 5XD [facility] Last Admin: 03/16/19 06:19 Dose: 2 mg Fluticasone/Salmeterol (Advair 100mcg/50mcg -) 1 puff IH BID [facility] Last Admin: 03/15/19 22:26 Dose: 1 puff Sertraline HCl (Zoloft -) 200 mg PO HS [facility] Last Admin: 03/15/19 22:33 Dose: 200 mg Trimethoprim/Sulfamethoxazole (Bactrim Ds -) 1 each PO BID [facility] Last Admin: 03/15/19 22:29 Dose: 1 each - Objective Vital Signs: Vital Signs Temperature 98.8 F 03/16/19 06:12 Pulse Rate 56 L 03/16/19 06:12 Respiratory Rate 18 03/16/19 06:12 Blood Pressure 96/49 L 03/16/19 06:12 O2 Sat by Pulse Oximetry (%) 95 03/15/19 21:00 Constitutional: Yes: No Distress, Calm Eyes: Yes: Conjunctiva Clear HENT: Yes: Atraumatic Neck: Yes: Supple Cardiovascular: Yes: Regular Rate and Rhythm Respiratory: Yes: CTA Bilaterally Gastrointestinal: Yes: Soft Genitourinary: No: Hematuria Extremities: No: Cold, Cool Edema: No Integumentary: No: Rash, Venous Stasis Changes Neurological: Yes: WNL, Alert, Oriented ...Motor Strength: WNL Psychiatric: Yes: WNL, Alert, Oriented. No: Agitated Labs: CBC, BMP 03/15/19 06:55 03/15/19 06:55 - ....Imaging Other: Report Reviewed Assessment/Plan 68 YOF s/p fall out of WC seen by neurology, PT and pulm (lung nodules, heavy smoker) stable awaiting DC to SNF vs [place] - pt said she now prefers SNFd/w CM f.u as advised
[2019-03-16] MEDS: ALBUTEROL SO4 8 GM HFA INHALER IH SCH ×3 (08:44→16:20)
[2019-03-16] MEDS: NADOLOL 20 MG TABLET (FP) PO SCH (09:58)
[2019-03-16] MEDS: PANTOPRAZOLE 40 MG TABLET (FP) PO SCH (10:00)
[2019-03-16] MEDS: ASPIRIN 81 MG CHEWABLE TABLETS PO SCH (10:00)
[2019-03-16] MEDS: FUROSEMIDE 20 MG TABLET (FP) PO SCH (10:00)
[2019-03-16] MEDS ORDERED: HEPARIN NA (PORCINE) 5,000 UNITS/ML 1ML VIAL SQ SCH (10:00)
[2019-03-16] MEDS: SULFAMETHOXAZOLE/TRIMETHOPRIM 800MG/160MG D.S. TABLET PO SCH (10:03)
[2019-03-16] MEDS: FLUTICASONE/SALMETEROL 100 MCG/50 MCG DISKUS IH SCH (10:05)
[2019-03-16 13:45] VITALS: TEMP 98.1
[2019-03-16 17:40] VITALS: BP 95/52; PULSE 64
== END 2019-03-16 16:26 | DRG 689 ==
LOC: JER 02:39 → JERBED 07:48 → J5S 10:10
PROVIDERS: ADMIT Specialist; ATTEND Specialist
DX: N39.0 Urinary tract infection, site not specified (principal); G93.41 Metabolic encephalopathy; E87.1 Hypo-osmolality and hyponatremia; R64 Cachexia; Z68.1 Body mass index [BMI] 19.9 or less, adult; J98.11 Atelectasis; B96.20 Unspecified Escherichia coli [E. coli] as the cause of diseases classified elsewhere; G35 Multiple sclerosis; I10 Essential (primary) hypertension; M06.9 Rheumatoid arthritis, unspecified; J44.9 Chronic obstructive pulmonary disease, unspecified; F17.200 Nicotine dependence, unspecified, uncomplicated; R91.8 Other nonspecific abnormal finding of lung field; W05.0XXA Fall from non-moving wheelchair, initial encounter; G25.81 Restless legs syndrome; K21.9 Gastro-esophageal reflux disease without esophagitis; R29.6 Repeated falls; G43.909 Migraine, unspecified, not intractable, without status migrainosus; F41.8 Other specified anxiety disorders; G89.4 Chronic pain syndrome
CPT/HCPCS: 36415; 70450-TC; 71045-TC-FY; 71250-TC; 72125-TC; 73130-TC-LT-FY; 73630-TC-RT-FY; 80048; 80053; 81003; 82550; 84439; 84443; 84484; 85025; 85027; 87086; 87186; 90670; 93005; 93010; 97116-GP; 97162-GP; 99285-25; G0008; G0009; J1644; Q2036

== ENCOUNTER 2019-03-17 01:14 | Inpatient (IN) | payer OTHER ==
--- NOTE | 2019-03-17 01:32 | PDOC ---
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 [facility] called when pt arrived and stated they didn't have the proper paperwork from case management stating she was medically cleared to be there; contacted Dr Torres and discovered that paperwork was sent to Rehab instead of Assisted Living facility since that's where pt was initially sent (although Dr Torres had thought she was going to the Assisted Living facility); Assisted Living facility unable to accept now even if proper paperwork is sent because they don't have a bilingual patient support caseworker at this time. Pt given option to go to rehab or come here and pt chose to come here for admission. Informed Dr Torres and he accepted admission, requests no further calls. Pt is frustrated but denies any new complaints. 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 Pt states it was her decision to go to rehab to help her improve walking (can't ambulate, requires wheelchair), but when arrived, did not like how she was treated and how she had to wait for doctor to see her tomorrow before she got her medications. Pt states she got her ativan today at 1300 and percocet today at unknown time, but hasn't had some of her medications like her inhalers or restless leg syndrome medications. Pt instead wants to go home now. Pt admitted from 03/13/19-03/16/19 (today), d/c to rehab on bactrim for UTI with f/u CT chest and pulmonology in 2-4 weeks. Denies changes in condition , new sx, falls, head injury, or trauma since d/c today. Endorses chronic intermittent headaches in bright light, chronic constipation on colace, generalized weakness same as when d/c, chronic incontinence wearing diaper, chronic neck and LBP on percocets, dx UTI on bactrim, and frequent falls due to MS (no new falls since d/c). Denies fever, chills, dizziness, numbness/tingling , focal weakness, vision changes, shortness of breath, cough, chest pain, palpitations, leg swelling, abdominal pain, blood in stool, diarrhea, nausea, vomiting, dysuria, hematuria, confusion. PCP - Melissa Winslow <Alexandrea Shen - Last Filed: 03/17/19 06:58> - General Stated Complaint: URINARY TRACK INFECTION Time Seen by Provider: 03/17/19 01:26 Past History <Marlene Segal - Last Filed: 03/17/19 02:02> - Past Medical History COPD: Yes HTN: Yes - Psycho Social/Smoking Cessation Hx Smoking History: Current every day smoker Have you smoked in the past 12 months: Yes Number of Cigarettes Smoked Daily: 7 Cigars Per Day: 0 'Breaking Loose' booklet given: 03/13/19 Hx Alcohol Use: No Drug/Substance Use Hx: No Hx Substance Use Treatment: No <Alexandrea Shen - Last Filed: 03/17/19 06:58> - Past Medical History Allergies/Adverse Reactions: Allergies Allergy/AdvReac Type Severity Reaction Status Date / Time omeprazole Allergy Verified 03/17/19 01:35 Penicillins Allergy Verified 03/17/19 01:35 Home Medications: Ambulatory Orders Acetaminophen [Tylenol .Extra-Strength -] 500 mg PO Q6H 03/13/19 Albuterol Sulfate Inhaler - [Ventolin HFA Inhaler -] 1 - 2 inh PO QID 03/13/19 Aspirin [ASA -] 81 mg PO DAILY 03/13/19 Dexlansoprazole [Dexilant] 60 mg PO DAILY 03/13/19 Docusate Sodium [Colace -] 100 mg PO TID 03/13/19 Furosemide [Lasix -] 60 mg PO DAILY 03/13/19 Levothyroxine [Synthroid -] 150 mcg PO DAILY 03/13/19 Nadolol [Corgard -] 40 mg PO DAILY 03/13/19 Oxycodone HCl/Acetaminophen [Endocet 10-325 mg Tablet] 1 each PO TID 03/13/19 Ropinirole HCl [Ropinirole ER] 8 mg PO DAILY 03/13/19 Salmeterol/Fluticasone [Advair 100Mcg/50Mcg -] 1 inh PO BID 03/13/19 Sertraline HCl [Zoloft] 200 mg PO HS 03/13/19 Acetaminophen [Tylenol .Regular Strength -] 650 mg PO Q6H PRN tablet 03/15/19 Sulfamethoxazole/Trimethoprim [Bactrim DS -] 1 each PO BID #10 tablet 03/15/19 Heparin - 5,000 unit SQ BID vial 03/16/19 Review of Systems - Review of Systems Comments:: 03/17/19 01:32 Constitutional: Negative for chills, fever, fatigue, diaphoresis. HENT: Negative for sore throat, rhinorrhea, congestion. Eyes: Negative for visual disturbance. Respiratory: Negative for shortness of breath, cough, and wheezing. Cardiovascular: Negative for chest pain, palpitations, and leg swelling. Gastrointestinal: Positive for constipation. Negative for abdominal pain, blood in stool, diarrhea, nausea, and vomiting. Genitourinary: Positive for urinary incontinence. Negative for dysuria, flank pain, and hematuria. Musculoskeletal: Positive for back and neck pain. Negative for myalgias. Skin: Positive for ecchymoses. Negative for rash. Neurological: Positive for inability to ambulate requiring wheelchair, headache. Negative for light-headedness, dizziness, vertigo, syncope, focal weakness, numbness. Psychiatric/Behavioral: Positive for anxiety and depression. Negative for SI/HI/ AVH, confusion. <Alexandrea Shen - Last Filed: 03/17/19 06:58> *Physical Exam - Vital Signs Last Vital Signs Temp Pulse Resp BP Pulse Ox 97.1 F L 68 20 99/56 L 97 03/17/19 01:36 03/17/19 01:36 03/17/19 01:36 03/17/19 01:36 03/17/19 01:36 <Marlene Segal - Last Filed: 03/17/19 02:02> - Physical Exam Comments: 03/17/19 01:32 Gen: Alert, NAD, comfortable-appearing. HEENT: PERRL, EOMI, MMM, NCAT, +lump over R eyebrow, poor dentition. No conjunctival pallor. Sclera are non-icteric. Oropharynx is clear. CV: Regular rate and rhythm. No murmurs, rubs, or gallops. PULM: No resp distress. CTAB, no wheezes, rales, or rhonchi. ABD: soft, NT/ND, no rebound tenderness or guarding, no CVA tenderness. BACK: +TTP of midline and paraspinal c-spine. No TTP of t/l-spine. No step-offs or deformities. MSK: No bony deformities. 2+ pulses in all extremities. NEURO: AAOx3. PERRL. No gross CN deficits. Bidirectional nystagmus (pt states chronic; present in hospital admission). Strength and sensation grossly intact throughout. EXTREMITIES: No cyanosis. No clubbing. No edema. No calf tenderness. PSYCH: Anxious mood and normal thought pattern. SKIN: Warm and dry. Normal capillary refill. No rashes. Multiple ecchymoses and scabs. No jaundice. 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 [facility] called when pt arrived and stated they didn't have the proper paperwork from case management stating she was medically cleared to be there; contacted Dr Torres and discovered that paperwork was sent to Rehab instead of Assisted Living facility since that's where pt was initially sent (although Dr Torres had thought she was going to the Assisted Living facility); Assisted Living facility unable to accept now even if proper paperwork is sent because they don't have a bilingual patient support caseworker at this time. Pt given option to go to rehab or come here and pt chose to come here for admission. Informed Dr Torres and he accepted admission, requests no further calls. Pt is frustrated but denies any new complaints. 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 Pt states it was her decision to go to rehab to help her improve walking (can't ambulate, requires wheelchair), but when arrived, did not like how she was treated and how she had to wait for doctor to see her tomorrow before she got her medications. Pt states she got her ativan today at 1300 and percocet today at unknown time, but hasn't had some of her medications like her inhalers or restless leg syndrome medications. Pt instead wants to go home now. Pt admitted from 03/13/19-03/16/19 (today), d/c to rehab on bactrim for UTI with f/u CT chest and pulmonology in 2-4 weeks. Denies changes in condition , new sx, falls, head injury, or trauma since d/c today. Endorses chronic intermittent headaches in bright light, chronic constipation on colace, generalized weakness same as when d/c, chronic incontinence wearing diaper, chronic neck and LBP on percocets, dx UTI on bactrim, and frequent falls due to MS (no new falls since d/c). Denies fever, chills, dizziness, numbness/tingling , focal weakness, vision changes, shortness of breath, cough, chest pain, palpitations, leg swelling, abdominal pain, blood in stool, diarrhea, nausea, vomiting, dysuria, hematuria, confusion. Per conversation with Dr Torres, Dr Torres states medically she was cleared to go home to Assisted Living today at discharge, but she first stated she wanted to go to rehab so that is why she was going to go, but then Dr Torres received a call today from the nurse saying she wanted to go back to Assisted Living in the end which he approved of so Dr Torres states he is confused and unsure of why she was sent to Rehab in the first place. Dr Torres was in accordance with plan to d/c pt home to [facility]. Hemodynamically stable, hypotensive but at baseline, afebrile, no new complaints or exam findings concerning for emergent condition or new condition since d/c today. Admitted to Dr Torres. 03/17/19 01:45 No bactrim since this AM. No Percocet since this AM. Will give her prescribed doses now. Admitted to Dr Torres, who requested to not be called again when she arrived. 03/17/19 04:25 Pt sleeping comfortable. Ate food. 03/17/19 06:48 Pt sleeping comfortably. <Alexandrea Shen - Last Filed: 03/17/19 06:58> Discharge <Marlene Segal - Last Filed: 03/17/19 02:02> - Discharge Information Problems reviewed: Yes - Admission Yes <Alexandrea Shen - Last Filed: 03/17/19 06:58> - Discharge Information Clinical Impression/Diagnosis: UTI (urinary tract infection), Recurrent falls, Need for follow-up by social worker psychiatric, Unable to ambulate Condition: Stable
[2019-03-17] MEDS ORDERED: SULFAMETHOXAZOLE/TRIMETHOPRIM 800MG/160MG D.S. TABLET PO ONE (01:44)
[2019-03-17] MEDS ORDERED: SULFAMETHOXAZOLE/TRIMETHOPRIM 800MG/160MG D.S. TABLET ONE (01:56)
--- NOTE | 2019-03-17 02:06 | PDOC ---
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 She notes she wants to return to [facility], but there has been issue with her placement upon discharge and confusion with paperwork/medical release. Patient denies any acute complaints at this time. PMD: Dr. Torres 03/17/19 02:03 - Physicial Exam PE: 03/17/19 02:03 Agree with the resident's HPI and PE as documented in the electronic medical record. NAD, well appearing, thin elderly female, EOMI, PERRL, MMM, nl conjunctiva, anicteric; neck supple. lungs clear, RRR, abdomen soft nontender. Back nontender. BANUELOS x4, no focal neuro deficits. No peripheral edema. normal color for ethnicity, WWP. - Medical Decision Making 03/17/19 02:04 Vital Signs Temp Pulse Resp BP Pulse Ox 97.1 F L 68 20 99/56 L 97 03/17/19 01:36 03/17/19 01:36 03/17/19 01:36 03/17/19 01:36 03/17/19 01:36 VS reviewed, soft BP but baseline. per Dr Torres, med cleared for assisted living, but paperwork sent to rehab, but refusing rehab when transferred there on previous discharge tonight. now back, social admit due to fall risk, UTI currently, coordination of care and placement unsafe for discharge as now bounceback admit to Dr Torres, home meds given. bactrim for current UTI no indication for labs at this time, no complaints.
[2019-03-17] MEDS ORDERED: PANTOPRAZOLE 40 MG TABLET (FP) PO SCH ×2 (10:00)
[2019-03-17] MEDS ORDERED: rOPINIRole HCL 2 MG TABLET (FP) PO SCH ×3 (10:00→22:00)
[2019-03-17] MEDS ORDERED: ROPINIROLE HCL 8 MG PO SCH (10:00)
[2019-03-17] MEDS: FLUTICASONE/SALMETEROL 100 MCG/50 MCG DISKUS IH SCH ×2 (10:25→22:18)
[2019-03-17] MEDS: SULFAMETHOXAZOLE/TRIMETHOPRIM 800MG/160MG D.S. TABLET PO SCH ×2 (10:26→22:19)
[2019-03-17] MEDS: FUROSEMIDE 20 MG TABLET (FP) PO SCH (10:26)
[2019-03-17] MEDS: HEPARIN NA (PORCINE) 5,000 UNITS/ML 1ML VIAL SQ SCH ×2 (10:26→22:19)
[2019-03-17] MEDS: rOPINIRole HCL 2 MG TABLET (FP) PO SCH ×4 (10:26→22:19)
[2019-03-17] MEDS: ASPIRIN 81 MG CHEWABLE TABLETS PO SCH (10:26)
[2019-03-17] MEDS: PANTOPRAZOLE 40 MG TABLET (FP) PO SCH (10:26)
[2019-03-17] MEDS: NADOLOL 40 MG TABLET (FP) PO SCH (10:26)
--- NOTE | 2019-03-17 12:22 | HP ---
Admitting History and Physical - Primary Care Physician PCP: Oli Torres - Admission Chief Complaint: refusal for rehab History of Present Illness: Pt from [facility] was DC yesterday to Rehab facility (after pt wanted to go to Rehab and was accepted to Rehab); pt didn't want to stay at Rehab and Rehab sent her back to our ER via EMS in the evening; ER resident called me to check if pt is medically stable for transferring pt back to [facility] (where pt wanted to go); I confirmed that pt is medically stable to be transferred back to [facility]. I received few more calls from the same ER resident regarding Mrs Song, all regarding transferring procedure to assisting [facility]. I called [facility] while Mrs Song was there, this morning, talked with food checkers and cashiers supervisor about her acceptance to [facility]; logging crew supervisor told me that cannot accept Mrs Song as no paper where submitted for readmission from our hospital during the day time, to be reviewed by their admission office; logging crew supervisor also told me that their admission office would not be opened until Tuesday and that Mr Song cannot return to [facility] over the weekend; she said that explained this to Mrs Brewer and only options no, in the middle of the night, are for patient to return to Rehab facility or to ER, per pt decision (at this point she was waiting for pt to decide). I spoke again with ER resident about my discussion with [facility] supervisor; she wanted to find out what would happened if pt returns to ER; I told her to talk with and decided with her ER attending before calling me back. I was called in AM that pt returned to ER and would be admitted. History Source: Patient, Significant Other (ER resident, [facility] supervisor.) - Past Medical History [employer]: Yes: Other (restless leg Sd) Pulmonary: Yes: Bronchitis, COPD Gastrointestinal: Yes: GERD Musculoskeletal: Yes: Other (MS) Rheumatology: Yes: Rheumatoid Arthritis (refusing to take medication) - Smoking History Smoking history: Current every day smoker Have you smoked in the past 12 months: Yes Aproximately how many cigarettes per day: 7 - Alcohol/Substance Use Hx Alcohol Use: No Home Medications - Allergies Allergies/Adverse Reactions: Allergies Allergy/AdvReac Type Severity Reaction Status Date / Time omeprazole Allergy Verified 03/17/19 01:35 Penicillins Allergy Verified 03/17/19 01:35 - Home Medications Home Medications: Ambulatory Orders Acetaminophen [Tylenol .Extra-Strength -] 500 mg PO Q6H 03/13/19 Albuterol Sulfate Inhaler - [Ventolin HFA Inhaler -] 1 - 2 inh PO QID 03/13/19 Aspirin [ASA -] 81 mg PO DAILY 03/13/19 Dexlansoprazole [Dexilant] 60 mg PO DAILY 03/13/19 Docusate Sodium [Colace -] 100 mg PO TID 03/13/19 Furosemide [Lasix -] 60 mg PO DAILY 03/13/19 Levothyroxine [Synthroid -] 150 mcg PO DAILY 03/13/19 Nadolol [Corgard -] 40 mg PO DAILY 03/13/19 Oxycodone HCl/Acetaminophen [Endocet 10-325 mg Tablet] 1 each PO TID 03/13/19 Ropinirole HCl [Ropinirole ER] 8 mg PO DAILY 03/13/19 Salmeterol/Fluticasone [Advair 100Mcg/50Mcg -] 1 inh PO BID 03/13/19 Sertraline HCl [Zoloft] 200 mg PO HS 03/13/19 Acetaminophen [Tylenol .Regular Strength -] 650 mg PO Q6H PRN tablet 03/15/19 Sulfamethoxazole/Trimethoprim [Bactrim DS -] 1 each PO BID #10 tablet 03/15/19 Heparin - 5,000 unit SQ BID vial 03/16/19 Review of Systems - Review of Systems Constitutional: denies: Chills Eyes: denies: Double Vision, Photophobia HENT: denies: Nasal Congestion, Throat Pain Neck: reports: Tenderness (old,) Cardiovascular: denies: Chest Pain, Edema, Palpitations Respiratory: denies: Cough, SOB, Wheezing Gastrointestinal: denies: Abdominal Pain, Nausea Genitourinary: denies: Burning, Discharge Musculoskeletal: reports: Back Pain, Joint Pain (old) Integumentary: denies: Bruising, Rash Neurological: denies: Change in LOC, Change in Speech, Confusion Endocrine: denies: Excessive Sweating, Intolerance to Cold Hematology/Lymphatic: denies: Easily Bruised, Excessive Bleeding Psychiatric: denies: Anxiety, Depression Physical Examination Vital Signs: Vital Signs Temperature 98.1 F 03/17/19 10:24 Pulse Rate 64 03/17/19 10:24 Respiratory Rate 20 03/17/19 10:24 Blood Pressure 97/47 L 03/17/19 10:24 O2 Sat by Pulse Oximetry (%) 98 03/17/19 10:24 Constitutional: Yes: No Distress, Calm Eyes: Yes: Conjunctiva Clear, EOM Intact HENT: No: Pharyngeal Erythema, Rhinnorhea Neck: Yes: Trachea Midline. No: Lymphadenopathy Cardiovascular: Yes: Regular Rate and Rhythm, S1, S2 Respiratory: Yes: Regular, Other (coarse BS bilat) Gastrointestinal: Yes: Normal Bowel Sounds, Soft. No: Tenderness ...Rectal Exam: Yes: Deferred Renal/: No: CVA Tenderness - Left, CVA Tenderness - Right Breast(s): Yes: Other (deferred) Edema: No Neurological: Yes: Alert, Oriented, Other (motor and sensory exam is symmetric in UE/ LE/ face.) Psychiatric: Yes: Alert, Oriented Problem List - Problems (1) Need for follow-up by transition social worker Code(s): Z09 - ENCNTR FOR F/U EXAM AFT TRTMT FOR COND OTH THAN ARNULFO NEOPLM (2) Recurrent falls Code(s): R29.6 - REPEATED FALLS (3) UTI (urinary tract infection) Code(s): N39.0 - URINARY TRACT INFECTION, SITE NOT SPECIFIED (4) COPD (chronic obstructive pulmonary disease) Code(s): J44.9 - CHRONIC OBSTRUCTIVE PULMONARY DISEASE, UNSPECIFIED (5) Multiple sclerosis Code(s): G35 - MULTIPLE SCLEROSIS (6) Rheumatoid arthritis Code(s): M06.9 - RHEUMATOID ARTHRITIS, UNSPECIFIED (7) Restless leg syndrome Code(s): G25.81 - RESTLESS LEGS SYNDROME Assessment/Plan Continue current meds. BERNARDO f/u. I spoke with Tuesday hospital BERNARDO; she confirmed that pt needs to stay in our hospital until Tuesday ( when admission office from [facility] will open and readmission papers can be submitted). I told pt and ER nurse about my discussion with BERNARDO.
[2019-03-17] MEDS: ALBUTEROL SO4 8 GM HFA INHALER IH SCH ×3 (12:45→22:18)
[2019-03-17] MEDS ORDERED: PATIENT'S OWN MEDICATION (NON-FORMULARY) (Oxycodone Hcl/Acetaminophen [Endocet 10-325 Mg T PO SCH (14:00)
[2019-03-17] MEDS: ACETAMINOPHEN 325 MG TABLET (FP) PO SCH ×2 (15:16→22:22)
[2019-03-17] MEDS: DOCUSATE SODIUM 100 MG CAPSULE (FP) PO SCH ×2 (15:16→22:19)
[2019-03-17] MEDS: oxyCODONE HCL 5 MG TABLET PO SCH ×2 (15:18→22:20)
[2019-03-17] MEDS: SERTRALINE HCL 50 MG TABLET (FP) PO SCH (22:19)
[2019-03-17] MEDS ORDERED: LORazepam 1 MG TABLET PO ONE (22:39)
[2019-03-18] MEDS: LEVOTHYROXINE NA 150 MCG TABLET PO SCH (06:35)
[2019-03-18] MEDS: oxyCODONE HCL 5 MG TABLET PO SCH ×3 (06:35→22:49)
[2019-03-18] MEDS: LORazepam 1 MG TABLET PO SCH ×4 (06:35→20:42)
[2019-03-18] MEDS: DOCUSATE SODIUM 100 MG CAPSULE (FP) PO SCH ×3 (06:35→22:51)
[2019-03-18] MEDS: rOPINIRole HCL 2 MG TABLET (FP) PO SCH ×5 (06:35→22:55)
[2019-03-18] MEDS: ACETAMINOPHEN 325 MG TABLET (FP) PO SCH ×3 (06:36→22:48)
[2019-03-18] MEDS ORDERED: NADOLOL 20 MG TABLET (FP) ONE (09:33)
[2019-03-18] MEDS: FLUTICASONE/SALMETEROL 100 MCG/50 MCG DISKUS IH SCH ×2 (09:50→22:55)
[2019-03-18] MEDS: ALBUTEROL SO4 8 GM HFA INHALER IH SCH ×4 (09:50→20:43)
[2019-03-18] MEDS: PANTOPRAZOLE 40 MG TABLET (FP) PO SCH (09:51)
[2019-03-18] MEDS: ASPIRIN 81 MG CHEWABLE TABLETS PO SCH (09:51)
[2019-03-18] MEDS: SULFAMETHOXAZOLE/TRIMETHOPRIM 800MG/160MG D.S. TABLET PO SCH ×2 (09:51→22:51)
[2019-03-18] MEDS: FUROSEMIDE 20 MG TABLET (FP) PO SCH (09:52)
[2019-03-18] MEDS: NADOLOL 40 MG TABLET (FP) PO SCH (09:52)
[2019-03-18] MEDS: HEPARIN NA (PORCINE) 5,000 UNITS/ML 1ML VIAL SQ SCH ×2 (09:52→22:51)
--- NOTE | 2019-03-18 15:56 | PN ---
Progress Note, Physician History of Present Illness: Pt w/o fever, SOB, CP, abd pain - Current Medication List Current Medications: Active Medications Acetaminophen (Tylenol -) 650 mg PO TID [facility] Last Admin: 03/18/19 13:44 Dose: 325 mg Albuterol Sulfate (Ventolin Hfa Inhaler -) 2 puff IH RQID [facility] Last Admin: 03/18/19 13:45 Dose: 2 puff Aspirin (Asa -) 81 mg PO DAILY [facility] Last Admin: 03/18/19 09:51 Dose: 81 mg Docusate Sodium (Colace -) 100 mg PO TID [facility] Last Admin: 03/18/19 13:43 Dose: 100 mg Furosemide (Lasix -) 60 mg PO DAILY [facility] Last Admin: 03/18/19 09:52 Dose: Not Given Heparin Sodium (Porcine) (Heparin -) 5,000 unit SQ BID [facility] Last Admin: 03/18/19 09:52 Dose: 5,000 unit Levothyroxine Sodium (Synthroid -) 150 mcg PO AM [facility] Last Admin: 03/18/19 06:35 Dose: 150 mcg Lorazepam (Ativan -) 1 mg PO 0700,1100,1600,2000 [facility] Last Admin: 03/18/19 11:17 Dose: 1 mg Nadolol (Corgard -) 40 mg PO DAILY [facility] Last Admin: 03/18/19 09:52 Dose: Not Given Oxycodone HCl (Roxicodone -) 10 mg PO TID [facility] Last Admin: 03/18/19 13:43 Dose: 10 mg Pantoprazole Sodium (Protonix -) 40 mg PO DAILY [facility] Last Admin: 03/18/19 09:51 Dose: 40 mg Ropinirole HCl (Requip -) 2 mg PO 5XD [facility] Last Admin: 03/18/19 13:47 Dose: 2 mg Fluticasone/Salmeterol (Advair 100mcg/50mcg -) 1 puff IH BID [facility] Last Admin: 03/18/19 09:50 Dose: 1 puff Sertraline HCl (Zoloft -) 200 mg PO HS [facility] Last Admin: 03/17/19 22:19 Dose: 200 mg Trimethoprim/Sulfamethoxazole (Bactrim Ds -) 1 each PO BID [facility] Last Admin: 03/18/19 09:51 Dose: 1 each - Objective Vital Signs: Vital Signs Temperature 99.1 F 03/18/19 15:03 Pulse Rate 65 03/18/19 15:03 Respiratory Rate 18 03/18/19 15:03 Blood Pressure 94/54 L 03/18/19 15:03 O2 Sat by Pulse Oximetry (%) 98 03/18/19 09:00 Constitutional: Yes: No Distress, Calm Cardiovascular: Yes: Regular Rate and Rhythm, S1, S2 Respiratory: Yes: Regular, CTA Bilaterally. No: Rales Gastrointestinal: Yes: Normal Bowel Sounds, Soft. No: Tenderness Edema: No Neurological: Yes: Alert, Oriented Problem List - Problems (1) Need for follow-up by social science manager Code(s): Z09 - ENCNTR FOR F/U EXAM AFT TRTMT FOR COND OTH KG CALVERT (2) Recurrent falls Code(s): R29.6 - REPEATED FALLS (3) UTI (urinary tract infection) Code(s): N39.0 - URINARY TRACT INFECTION, SITE NOT SPECIFIED (4) COPD (chronic obstructive pulmonary disease) Code(s): J44.9 - CHRONIC OBSTRUCTIVE PULMONARY DISEASE, UNSPECIFIED (5) Multiple sclerosis Code(s): G35 - MULTIPLE SCLEROSIS (6) Rheumatoid arthritis Code(s): M06.9 - RHEUMATOID ARTHRITIS, UNSPECIFIED (7) Restless leg syndrome Code(s): G25.81 - RESTLESS LEGS SYNDROME Assessment/Plan Continue current meds. To f/u with SW tomorrow
[2019-03-18] MEDS: SERTRALINE HCL 50 MG TABLET (FP) PO SCH (22:51)
[2019-03-19] MEDS ORDERED: PT OWN MED DRAWER 7, Y5N ONE ×4 (05:30→21:23)
[2019-03-19] MEDS: ACETAMINOPHEN 325 MG TABLET (FP) PO SCH ×3 (05:49→21:27)
[2019-03-19] MEDS: oxyCODONE HCL 5 MG TABLET PO SCH ×3 (05:51→22:42)
[2019-03-19] MEDS: DOCUSATE SODIUM 100 MG CAPSULE (FP) PO SCH ×3 (05:52→21:27)
[2019-03-19] MEDS: rOPINIRole HCL 2 MG TABLET (FP) PO SCH ×5 (05:53→21:35)
[2019-03-19] MEDS: LORazepam 1 MG TABLET PO SCH ×4 (06:46→21:26)
[2019-03-19] MEDS: LEVOTHYROXINE NA 150 MCG TABLET PO SCH (06:46)
[2019-03-19] MEDS ORDERED: NADOLOL 20 MG TABLET (FP) ONE (09:13)
--- NOTE | 2019-03-19 09:27 | DS ---
Physical Examination Vital Signs: Vital Signs Temperature 97.7 F 03/18/19 22:00 Pulse Rate 60 03/18/19 22:00 Respiratory Rate 16 03/18/19 22:00 Blood Pressure 79/53 L 03/18/19 22:00 O2 Sat by Pulse Oximetry (%) 98 03/18/19 21:00 Findings/Remarks: Pt w/o CP, SOB, palpitations, abd pain. Asking about Requip XL; pt is aware that this form of medication is not available from our pharmacy and this is why Dr Winslow adjusted Requip 2mg tablet to scheduled X 5 /day dose, from pervious admission.. Constitutional: Yes: No Distress, Calm Cardiovascular: Yes: Regular Rate and Rhythm, S1, S2 Respiratory: Yes: Regular, Other (coarse BS) Gastrointestinal: Yes: Normal Bowel Sounds, Soft. No: Tenderness Edema: No Neurological: Yes: Alert, Oriented Psychiatric: Yes: Alert, Oriented Discharge Summary Problems reviewed: Yes Reason For Visit: NEED FOR FOLLOW-UP BY CHILD SUPPORT SPECIALIST Current Active Problems Need for follow-up by social sciences professor (Acute) Recurrent falls (Acute) Restless leg syndrome (Acute) UTI (urinary tract infection) (Acute) Unable to ambulate (Acute) Hospital Course: Pt was [facility] to [facility] but she didn't want to stay there and returned to ER Tuesday evening; at that time [facility] admission office was closed as was over the weekend. Pt to to be transferred back to assisted living. Condition: Stable - Instructions Diet, Activity, Other Instructions: Resume prior diet. Resume prior medications. Patient would benefit from rehab program, gait strengthening. Disposition: HOME - Home Medications Comprehensive Discharge Medication List: Ambulatory Orders See patient discharge instructions.
[2019-03-19] MEDS: FUROSEMIDE 20 MG TABLET (FP) PO SCH (10:17)
[2019-03-19] MEDS: PANTOPRAZOLE 40 MG TABLET (FP) PO SCH (10:18)
[2019-03-19] MEDS: HEPARIN NA (PORCINE) 5,000 UNITS/ML 1ML VIAL SQ SCH ×2 (10:18→21:27)
[2019-03-19] MEDS: ASPIRIN 81 MG CHEWABLE TABLETS PO SCH (10:18)
[2019-03-19] MEDS: ALBUTEROL SO4 8 GM HFA INHALER IH SCH ×4 (10:18→21:27)
[2019-03-19] MEDS: SULFAMETHOXAZOLE/TRIMETHOPRIM 800MG/160MG D.S. TABLET PO SCH ×2 (10:18→21:25)
[2019-03-19] MEDS: FLUTICASONE/SALMETEROL 100 MCG/50 MCG DISKUS IH SCH ×2 (10:19→21:28)
[2019-03-19] MEDS: NADOLOL 40 MG TABLET (FP) PO SCH (10:19)
[2019-03-19] MEDS ORDERED: INSULIN (NOVOLOG) ASPART 100 UNITS/ML 10ML VIAL ONE (18:25)
[2019-03-19] MEDS: SERTRALINE HCL 50 MG TABLET (FP) PO SCH (21:25)
[2019-03-20] MEDS: ACETAMINOPHEN 325 MG TABLET (FP) PO SCH ×3 (06:12→22:44)
[2019-03-20] MEDS: DOCUSATE SODIUM 100 MG CAPSULE (FP) PO SCH ×3 (06:13→22:47)
[2019-03-20] MEDS: rOPINIRole HCL 2 MG TABLET (FP) PO SCH ×5 (06:13→22:45)
[2019-03-20] MEDS: oxyCODONE HCL 5 MG TABLET PO SCH ×2 (06:13→14:54)
[2019-03-20] MEDS: LEVOTHYROXINE NA 150 MCG TABLET PO SCH (06:13)
[2019-03-20] MEDS: FUROSEMIDE 20 MG TABLET (FP) PO SCH ×2 (08:00→10:23)
[2019-03-20] MEDS: LORazepam 1 MG TABLET PO SCH ×4 (08:01→22:45)
[2019-03-20] MEDS ORDERED: PT OWN MED DRAWER 7, Y5N ONE ×2 (09:08→19:14)
[2019-03-20] MEDS: ALBUTEROL SO4 8 GM HFA INHALER IH SCH ×4 (09:11→22:35)
[2019-03-20] MEDS ORDERED: NADOLOL 20 MG TABLET (FP) ONE (10:13)
[2019-03-20] MEDS: ASPIRIN 81 MG CHEWABLE TABLETS PO SCH ×2 (10:22→10:26)
[2019-03-20] MEDS: NADOLOL 40 MG TABLET (FP) PO SCH (10:23)
[2019-03-20] MEDS: FLUTICASONE/SALMETEROL 100 MCG/50 MCG DISKUS IH SCH ×2 (10:23→22:47)
[2019-03-20] MEDS: PANTOPRAZOLE 40 MG TABLET (FP) PO SCH (10:23)
[2019-03-20] MEDS: SULFAMETHOXAZOLE/TRIMETHOPRIM 800MG/160MG D.S. TABLET PO SCH ×2 (10:23→22:46)
[2019-03-20] MEDS: HEPARIN NA (PORCINE) 5,000 UNITS/ML 1ML VIAL SQ SCH ×2 (10:24→22:47)
[2019-03-20] MEDS: FUROSEMIDE 40 MG TABLET (FP) PO SCH (12:49)
--- NOTE | 2019-03-20 16:32 | CONSULT ---
Consult - text type - Consultation Consultation Note: NEUROLOGY CONSULTATION GREATLY APPRECIATED: Events reviewed. Pt last seen 03/14/19 in evaluation of medication regimen and falls, found to have UTI and sent home with PO antibiotics. Well-known to me with Chronic Multiple Sclerosis, chronic ataxia and falls, Migraine headaches, severe restless limbs syndrome. PMH sig for hypothyroidism, COPD (still a smoker), Osteoarthritis, s/p Left Total shoulder. Chronic neck and LB pain. On Nadolol 40 mg daily for migraine prophylaxis, and Requip 2mg QID and 2 mg HS for RLS. Now reporting she takes an additional Requip 8 mg ER=18mg total. Also treated for depression and anxiety with sertraline 200 mg Hs and Ativan 1 mg TID. Separate pain management includes Roxicodone 10 mg TID. Now notably with lower BP's and did not receive nadolol, today presenting with headache. MARY: BP 80-90s/50s. Cor reg. No bruit. Neg L'Hermitte's. Various scabs to right leg. No evidence of head trauma. Wearing diaper. NEURO: Awake, alert, responsive. Preservative speech/ circumlocutious CNII-CNXII: Few beats of conjugate nystagmus all directions. Full garber. No facial. Motor: No drift or tremor. Strength normal. Decreased ERENDIRA's. Reflexes brisk throughout. L Babinski. Coordination: No FTN dystaxia. Sensation: Normal vibration. Gait: deferred. 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 Severre Restless Leimbs Syndrome (RLS) Depression Worsened by recent UTI Suggest: Resume antibiotic therapy and IV fluids to rehydrate. Both nadolol, pramipexole and opioid therapy can reduce BP. Would continue Ropinerole 2 mg q 6hrs for now. Can increase when BP has stabilized. Pt has refused Depakote for migraine prophylaxis but could revisit if hypotension persists. Thank you very much, Jose Luis Winslow MD
[2019-03-20 17:39] VITALS: BMI 16.7
--- NOTE | 2019-03-20 18:17 | PN ---
Progress Note, Physician History of Present Illness: Pt w/o fever, SOB, CP, dizziness, abd pain. - Current Medication List Current Medications: Active Medications Acetaminophen (Tylenol -) 650 mg PO TID [facility] Last Admin: 03/20/19 14:52 Dose: 650 mg Albuterol Sulfate (Ventolin Hfa Inhaler -) 2 puff IH RQID [facility] Last Admin: 03/20/19 17:00 Dose: Not Given Aspirin (Asa -) 81 mg PO DAILY [facility] Last Admin: 03/20/19 10:26 Dose: Not Given Docusate Sodium (Colace -) 100 mg PO TID [facility] Last Admin: 03/20/19 14:52 Dose: 100 mg Furosemide (Lasix -) 40 mg PO DAILY [facility] Last Admin: 03/20/19 12:49 Dose: Not Given Heparin Sodium (Porcine) (Heparin -) 5,000 unit SQ BID [facility] Last Admin: 03/20/19 10:24 Dose: Not Given Levothyroxine Sodium (Synthroid -) 150 mcg PO AM [facility] Last Admin: 03/20/19 06:13 Dose: 150 mcg Lorazepam (Ativan -) 1 mg PO 0700,1100,1600,2000 [facility] Last Admin: 03/20/19 17:00 Dose: Not Given Nadolol (Corgard -) 40 mg PO DAILY [facility] Last Admin: 03/20/19 10:23 Dose: Not Given Oxycodone HCl (Roxicodone -) 10 mg PO TID [facility] Last Admin: 03/20/19 14:54 Dose: 10 mg Pantoprazole Sodium (Protonix -) 40 mg PO DAILY [facility] Last Admin: 03/20/19 10:23 Dose: 40 mg Ropinirole HCl (Requip -) 2 mg PO 5XD [facility] Last Admin: 03/20/19 14:59 Dose: 2 mg Fluticasone/Salmeterol (Advair 100mcg/50mcg -) 1 puff IH BID [facility] Last Admin: 03/20/19 10:23 Dose: 1 puff Sertraline HCl (Zoloft -) 200 mg PO HS [facility] Last Admin: 03/19/19 21:25 Dose: 200 mg Trimethoprim/Sulfamethoxazole (Bactrim Ds -) 1 each PO BID [facility] Last Admin: 03/20/19 10:23 Dose: 1 each - Objective Vital Signs: Vital Signs Temperature 98.4 F 03/20/19 15:32 Pulse Rate 63 03/20/19 16:47 Respiratory Rate 20 03/20/19 16:47 Blood Pressure 82/52 L 03/20/19 16:47 O2 Sat by Pulse Oximetry (%) 94 L 03/19/19 21:00 Constitutional: Yes: No Distress, Calm Cardiovascular: Yes: Regular Rate and Rhythm, S1, S2 Respiratory: Yes: Regular, CTA Bilaterally, Rales Gastrointestinal: Yes: Normal Bowel Sounds, Soft, Tenderness Edema: No Neurological: Yes: Alert, Oriented Problem List - Problems (1) Need for follow-up by social service liaison Code(s): Z09 - ENCNTR FOR F/U EXAM AFT TRTMT FOR COND OTH THAN ARNULFO CALVERT (2) Recurrent falls Code(s): R29.6 - REPEATED FALLS (3) UTI (urinary tract infection) Code(s): N39.0 - URINARY TRACT INFECTION, SITE NOT SPECIFIED (4) COPD (chronic obstructive pulmonary disease) Code(s): J44.9 - CHRONIC OBSTRUCTIVE PULMONARY DISEASE, UNSPECIFIED (5) Multiple sclerosis Code(s): G35 - MULTIPLE SCLEROSIS (6) Rheumatoid arthritis Code(s): M06.9 - RHEUMATOID ARTHRITIS, UNSPECIFIED (7) Restless leg syndrome Code(s): G25.81 - RESTLESS LEGS SYNDROME Assessment/Plan Neurology and Cardiology consults are appreciated;low BP probable secondary to combination of meds Pt's condition was reviewed with Dr. Keller. To change pain medication to PRN, pt agrees.
[2019-03-20 20:18] LABS: COCAINE, UR NEGATIVE ng/ml (CUTOFF=300); METHADONE, UR NEGATIVE ng/ml (CUTOFF=300); OPIATES, URI NEGATIVE ng/ml (CUTOFF=300); PHENCYCLIDINE,URINE NEGATIVE ng/ml (CUTOFF=25); URINE AMPHETAMINES NEGATIVE ng/ml (CUTOFF=500); URINE BARBITURATES NEGATIVE ng/ml (CUTOFF=200); URINE BENZODIAZEPINES NEGATIVE ng/ml (CUTOFF=200)
[2019-03-20] MEDS: SERTRALINE HCL 50 MG TABLET (FP) PO SCH (22:43)
[2019-03-20] MEDS ORDERED: oxyCODONE HCL 5 MG TABLET PO PRN (23:37)
--- NOTE | 2019-03-20 23:56 | CON.CARD ---
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 She notes she wants to return to [facility] for [facility], but there has been issue with her placement upon discharge and confusion with paperwork/medical release. Patient denies any acute complaints at this time. PMD: Dr. Torres Neurologist: Dr. Jose Luis Winslow. - History Source History Provided By: Patient, Medical Record Limitations to Obtaining History: No Limitations - Past Medical History [employer]: Yes: Other (multiple sclerosis; restless leg syndrome) Pulmonary: Yes: Bronchitis, COPD Gastrointestinal: Yes: GERD Reproductive: Yes: Postmenopausal ...: No Musculoskeletal: Yes: Other (MS) Rheumatology: Yes: Rheumatoid Arthritis (refusing to take medication) - Alcohol/Substance Use Hx Alcohol Use: No - Smoking History Smoking history: Current every day smoker Have you smoked in the past 12 months: Yes Aproximately how many cigarettes per day: 7 Home Medications - Allergies Allergies/Adverse Reactions: Allergies Allergy/AdvReac Type Severity Reaction Status Date / Time omeprazole Allergy Verified 03/17/19 01:35 Penicillins Allergy Verified 03/17/19 01:35 - Home Medications Home Medications: Ambulatory Orders Albuterol Sulfate Inhaler - [Ventolin HFA Inhaler -] 1 - 2 inh PO QID 03/13/19 Aspirin [ASA -] 81 mg PO DAILY 03/13/19 Dexlansoprazole [Dexilant] 60 mg PO DAILY 03/13/19 Docusate Sodium [Colace -] 100 mg PO TID 03/13/19 Furosemide [Lasix -] 60 mg PO DAILY 03/13/19 Levothyroxine [Synthroid -] 150 mcg PO DAILY 03/13/19 Nadolol [Corgard -] 40 mg PO DAILY 03/13/19 Oxycodone HCl/Acetaminophen [Endocet 10-325 mg Tablet] 1 each PO QID PRN MDD 4 03/13/19 Ropinirole HCl [Ropinirole ER] 8 mg PO DAILY 03/13/19 Salmeterol/Fluticasone [Advair 100Mcg/50Mcg -] 1 inh PO BID 03/13/19 Sertraline HCl [Zoloft] 200 mg PO HS 03/13/19 Ativan 1 PO QID 03/17/19 Bacitracin 1 applic TP BID 03/17/19 Bacitracin - 1 applic TP DAILY 03/17/19 Chlorhexidine Gluconate PO BID 03/17/19 Gauze Bandage [Versalon] 1 applic 03/17/19 Mag Hydrox/Aluminum Hyd/Simeth [Amalia-Lanta Liquid] 10 ml PO BID PRN 03/17/19 Miralax 119 gm Btl - 17 grams PO PRN 03/17/19 Polyethylene Glycol 3350 17 PO DAILY PRN 03/17/19 Ropinirole HCl PO QID 03/17/19 Ropinirole HCl [Requip -] PO HS PRN 03/17/19 Saline Nasal [place] 1 spray BID 03/17/19 Triamcinolone 0.1% Cream [Aristocort 0.1% Cream -] 1 applic TP DAILY PRN Zinc Oxide 1 applic TP DAILY 03/17/19 Acetaminophen [Tylenol .Regular Strength -] 650 mg PO Q12H PRN #0 tablet Sulfamethoxazole/Trimethoprim [Bactrim DS -] 1 each PO BID #2 tablet MDD 2 03/19 Family Medical History Family History: Denies Vital Signs: Vital Signs Temperature 98.4 F 03/20/19 22:38 Pulse Rate 58 L 03/20/19 22:38 Respiratory Rate 18 03/20/19 22:38 Blood Pressure 115/54 L 03/20/19 22:38 O2 Sat by Pulse Oximetry (%) 95 03/20/19 10:15 Constitutional: Yes: Anxious, Thin Eyes: Yes: WNL HENT: Yes: WNL Neck: Yes: Decreased ROM, Tenderness Respiratory: Yes: WNL Gastrointestinal: Yes: WNL Renal/: No: Anuria Cardiovascular: Yes: Regular Rate and Rhythm Heart Sounds: Yes: S1, S2 Murmur: Yes: Systolic Murmur, Grade 1 Musculoskeletal: Yes: Joint Stiffness, Muscle Pain, Muscle Weakness Extremities: Yes: Cool Edema: No Peripheral Pulses WNL: Yes Integumentary: Yes: WNL Neurological: Yes: Alert, Oriented, Weakness Psychiatric: Yes: Alert, Oriented, Other - Other Data Ejection Fraction %: LVEF > or = 40 % Imaging - Results Chest X-ray: Image Reviewed EKG: Image Reviewed Problem List - Problems (1) Hypotension Assessment/Plan: Multiple contributors to decreased BP, including dehydration, cachexia, sedentary lifestyle, medications, multiple sclerosis, hypoalbuminemia. F/u Is and Os Orthostatic vital signs. Encourage hydration. discontinue furosemide (no acute pulmonary or cardiac process). Code(s): I95.9 - HYPOTENSION, UNSPECIFIED (2) Recurrent falls Code(s): R29.6 - REPEATED FALLS (3) COPD (chronic obstructive pulmonary disease) Code(s): J44.9 - CHRONIC OBSTRUCTIVE PULMONARY DISEASE, UNSPECIFIED (4) Hyponatremia Code(s): E87.1 - HYPO-OSMOLALITY AND HYPONATREMIA (5) Multiple lung nodules Code(s): R91.8 - OTHER NONSPECIFIC ABNORMAL FINDING OF LUNG FIELD (6) Multiple sclerosis Code(s): G35 - MULTIPLE SCLEROSIS (7) Rheumatoid arthritis Code(s): M06.9 - RHEUMATOID ARTHRITIS, UNSPECIFIED (8) Smoker Code(s): F17.200 - NICOTINE DEPENDENCE, UNSPECIFIED, UNCOMPLICATED
[2019-03-21] MEDS: oxyCODONE HCL 5 MG TABLET PO SCH (00:22)
[2019-03-21] MEDS: LORazepam 1 MG TABLET PO SCH ×4 (07:13→21:16)
[2019-03-21] MEDS: LEVOTHYROXINE NA 150 MCG TABLET PO SCH (07:13)
[2019-03-21] MEDS: ACETAMINOPHEN 325 MG TABLET (FP) PO SCH ×3 (07:13→21:08)
[2019-03-21] MEDS: DOCUSATE SODIUM 100 MG CAPSULE (FP) PO SCH ×3 (07:13→21:07)
[2019-03-21] MEDS: rOPINIRole HCL 2 MG TABLET (FP) PO SCH ×5 (07:14→21:18)
--- NOTE | 2019-03-21 09:26 | PN ---
Progress Note, Physician History of Present Illness: Pt w/o SOB, CP, dizziness, abd pain. - Current Medication List Current Medications: Active Medications Acetaminophen (Tylenol -) 650 mg PO TID [facility] Last Admin: 03/21/19 07:13 Dose: 650 mg Albuterol Sulfate (Ventolin Hfa Inhaler -) 2 puff IH RQID [facility] Last Admin: 03/20/19 22:35 Dose: Not Given Aspirin (Asa -) 81 mg PO DAILY [facility] Last Admin: 03/20/19 10:26 Dose: Not Given Docusate Sodium (Colace -) 100 mg PO TID [facility] Last Admin: 03/21/19 07:13 Dose: 100 mg Furosemide (Lasix -) 40 mg PO DAILY [facility] Last Admin: 03/20/19 12:49 Dose: Not Given Heparin Sodium (Porcine) (Heparin -) 5,000 unit SQ BID [facility] Last Admin: 03/20/19 22:47 Dose: 5,000 unit Levothyroxine Sodium (Synthroid -) 150 mcg PO AM [facility] Last Admin: 03/21/19 07:13 Dose: 150 mcg Lorazepam (Ativan -) 1 mg PO 0700,1100,1600,2000 [facility] Last Admin: 03/21/19 07:13 Dose: 1 mg Nadolol (Corgard -) 40 mg PO DAILY [facility] Last Admin: 03/20/19 10:23 Dose: Not Given Oxycodone HCl (Roxicodone -) 10 mg PO TID PRN PRN Reason: PAIN LEVEL 6-10 Last Admin: 03/21/19 04:18 Dose: 10 mg Pantoprazole Sodium (Protonix -) 40 mg PO DAILY [facility] Last Admin: 03/20/19 10:23 Dose: 40 mg Ropinirole HCl (Requip -) 2 mg PO 5XD [facility] Last Admin: 03/21/19 07:14 Dose: 2 mg Fluticasone/Salmeterol (Advair 100mcg/50mcg -) 1 puff IH BID [facility] Last Admin: 03/20/19 22:47 Dose: 1 puff Sertraline HCl (Zoloft -) 200 mg PO HS [facility] Last Admin: 03/20/19 22:43 Dose: 200 mg Trimethoprim/Sulfamethoxazole (Bactrim Ds -) 1 each PO BID [facility] Last Admin: 03/20/19 22:46 Dose: 1 each - Objective Vital Signs: Vital Signs Temperature 97.6 F 03/21/19 07:50 Pulse Rate 60 03/21/19 07:50 Respiratory Rate 18 03/21/19 07:50 Blood Pressure 124/45 L 03/21/19 07:50 O2 Sat by Pulse Oximetry (%) 95 03/20/19 21:00 Constitutional: Yes: No Distress, Calm Cardiovascular: Yes: Regular Rate and Rhythm, S1, S2 Respiratory: Yes: Regular, CTA Bilaterally, Rales Gastrointestinal: Yes: Normal Bowel Sounds, Soft, Tenderness Edema: No Neurological: Yes: Alert, Oriented Problem List - Problems (1) Need for follow-up by social security benefits interviewer Code(s): Z09 - ENCNTR FOR F/U EXAM AFT TRTMT FOR COND OTH KG CALVERT (2) Recurrent falls Code(s): R29.6 - REPEATED FALLS (3) UTI (urinary tract infection) Code(s): N39.0 - URINARY TRACT INFECTION, SITE NOT SPECIFIED (4) COPD (chronic obstructive pulmonary disease) Code(s): J44.9 - CHRONIC OBSTRUCTIVE PULMONARY DISEASE, UNSPECIFIED (5) Multiple sclerosis Code(s): G35 - MULTIPLE SCLEROSIS (6) Rheumatoid arthritis Code(s): M06.9 - RHEUMATOID ARTHRITIS, UNSPECIFIED (7) Restless leg syndrome Code(s): G25.81 - RESTLESS LEGS SYNDROME Assessment/Plan Neurology and Cardiology consults are appreciated;low BP probable secondary to combination of meds Pt for ECHO today; to f/u with Cardio about medication adjustment. To f/u BP
[2019-03-21] MEDS: HEPARIN NA (PORCINE) 5,000 UNITS/ML 1ML VIAL SQ SCH ×2 (11:42→21:17)
[2019-03-21] MEDS ORDERED: PT OWN MED DRAWER 7, Y5N ONE ×2 (11:53→12:27)
[2019-03-21] MEDS: SULFAMETHOXAZOLE/TRIMETHOPRIM 800MG/160MG D.S. TABLET PO SCH ×2 (11:54→21:06)
[2019-03-21] MEDS: oxyCODONE HCL 5 MG TABLET PO PRN ×2 (11:54→18:38)
[2019-03-21] MEDS: PANTOPRAZOLE 40 MG TABLET (FP) PO SCH (11:57)
[2019-03-21] MEDS: ASPIRIN 81 MG CHEWABLE TABLETS PO SCH (11:57)
[2019-03-21] MEDS: NADOLOL 40 MG TABLET (FP) PO SCH (11:57)
[2019-03-21] MEDS: ALBUTEROL SO4 8 GM HFA INHALER IH SCH ×4 (11:58→21:05)
[2019-03-21] MEDS: FLUTICASONE/SALMETEROL 100 MCG/50 MCG DISKUS IH SCH ×2 (11:58→21:06)
[2019-03-21] MEDS: FUROSEMIDE 40 MG TABLET (FP) PO SCH (11:59)
--- NOTE | 2019-03-21 12:38 | PN ---
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 She notes she wants to return to [facility] for Assisted and Independent [facility], but there has been issue with her placement upon discharge and confusion with paperwork/medical release. Patient denies any acute complaints at this time. PMD: Dr. Torres Neurologist: Dr. Jose Luis Winslow. - Current Medication List Current Medications: Active Medications Acetaminophen (Tylenol -) 650 mg PO TID [facility] Last Admin: 03/21/19 07:13 Dose: 650 mg Albuterol Sulfate (Ventolin Hfa Inhaler -) 2 puff IH RQID [facility] Last Admin: 03/21/19 11:58 Dose: 2 puff Aspirin (Asa -) 81 mg PO DAILY [facility] Last Admin: 03/21/19 11:57 Dose: 81 mg Docusate Sodium (Colace -) 100 mg PO TID [facility] Last Admin: 03/21/19 07:13 Dose: 100 mg Furosemide (Lasix -) 40 mg PO DAILY [facility] Last Admin: 03/21/19 11:59 Dose: Not Given Heparin Sodium (Porcine) (Heparin -) 5,000 unit SQ BID [facility] Last Admin: 03/21/19 11:42 Dose: Not Given Levothyroxine Sodium (Synthroid -) 150 mcg PO AM [facility] Last Admin: 03/21/19 07:13 Dose: 150 mcg Lorazepam (Ativan -) 1 mg PO 0700,1100,1600,2000 [facility] Last Admin: 03/21/19 07:13 Dose: 1 mg Nadolol (Corgard -) 40 mg PO DAILY [facility] Last Admin: 03/21/19 11:57 Dose: Not Given Oxycodone HCl (Roxicodone -) 10 mg PO Q6H PRN PRN Reason: PAIN LEVEL 6-10 Last Admin: 03/21/19 11:54 Dose: 10 mg Pantoprazole Sodium (Protonix -) 40 mg PO DAILY [facility] Last Admin: 03/21/19 11:57 Dose: 40 mg Ropinirole HCl (Requip -) 2 mg PO 5XD [facility] Last Admin: 03/21/19 11:59 Dose: 2 mg Fluticasone/Salmeterol (Advair 100mcg/50mcg -) 1 puff IH BID [facility] Last Admin: 03/21/19 11:58 Dose: 1 puff Sertraline HCl (Zoloft -) 200 mg PO HS [facility] Last Admin: 03/20/19 22:43 Dose: 200 mg Trimethoprim/Sulfamethoxazole (Bactrim Ds -) 1 each PO BID [facility] Last Admin: 03/21/19 11:54 Dose: 1 each - Objective Vital Signs: Vital Signs Temperature 97.6 F 03/21/19 07:50 Pulse Rate 60 03/21/19 07:50 Respiratory Rate 18 03/21/19 07:50 Blood Pressure 124/45 L 03/21/19 07:50 O2 Sat by Pulse Oximetry (%) 95 03/20/19 21:00 Eyes: Yes: WNL, Conjunctiva Clear, EOM Intact HENT: Yes: WNL, Atraumatic, Normocephalic Neck: Yes: WNL, Supple, Trachea Midline Cardiovascular: Yes: WNL, Regular Rate and Rhythm Respiratory: Yes: WNL, Regular, CTA Bilaterally Gastrointestinal: Yes: WNL, Normal Bowel Sounds Genitourinary: Yes: WNL Musculoskeletal: Yes: WNL Extremities: Yes: WNL Edema: No Integumentary: Yes: WNL Neurological: Yes: WNL, Alert, Oriented ...Motor Strength: WNL Psychiatric: Yes: WNL Assessment/Plan 68 y.o white female with PMH of MS, HTN, RA, restless leg syndrome, migraines, chronic neck and back pain, 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 Plan Echo/ekg cont present rx cardiac membreno stable.
--- NOTE | 2019-03-21 15:44 | EKG ---
Test Reason : Blood Pressure : / mmHG Vent. Rate : 065 BPM Atrial Rate : 065 BPM P-R Int : 162 ms QRS Dur : 082 ms QT Int : 426 ms P-R-T Axes : 077 046 069 degrees QTc Int : 443 ms NORMAL SINUS RHYTHM NORMAL ECG WHEN COMPARED WITH ECG OF 13-MAR-2019 06:53, CRITERIA FOR SEPTAL INFARCT ARE NO LONGER PRESENT Confirmed by ESME CRUZ, BLAS ([id number]) on 03/21/2019 3:44:35 PM Referred By: Danelle GUERRERO Confirmed By:BLAS VICTORIA MD
--- NOTE | 2019-03-21 16:15 | ECHO ---
Name: ADIEL SWAN Exam:Adult Echocardiogram Study Date: 03/21/2019 01:57 PM Age: 68 yrs Reason For Study: EVALUATE LVF PRE DC Height: 67 in Weight: 107 lb BSA: 1.6 m2 MMode/2D Measurements & Calculations IVSd: 0.75 cm Ao root diam: 2.4 cm LVIDd: 4.2 cm LA dimension: 2.6 cm LVIDs: 3.1 cm LVPWd: 0.75 cm EDV(Teich): 80.2 ml LVOT diam: 2.1 cm ESV(Teich): 38.0 ml Doppler Measurements & Calculations MV E max shaka: 85.2 cm/sec Ao V2 max: 120.2 cm/sec MV A max shaka: 68.3 cm/sec Ao max P.8 mmHg MV E/A: 1.2 MV dec time: 0.20 sec DESIREE(V,D): 3.1 cm2 LV V1 max P.3 mmHg TR max shaka: 212.3 cm/sec LV V1 max: 104.1 cm/sec TR max P.1 mmHg Procedure A two-dimensional transthoracic echocardiogram with color flow Doppler was performed. Left Ventricle The left ventricular size, thickness and function are normal. The left ventricular ejection fraction is normal. The left ventricular wall motion is normal. Right Ventricle The right ventricle is normal in size and function. Atria Normal left and right atrial size and function. Mitral Valve There is mild mitral valve thickening. There is no mitral valve stenosis. There is trace to mild mitr al regurgitation. Tricuspid Valve There is mild tricuspid valve thickening. There is no tricuspid stenosis. There is Trace to mild tric uspid regurgitation. Right ventricular systolic pressure is normal. Aortic Valve The aortic valve is not well visualized. Hemodynamically significant valvular aortic stenosis cannot be excluded. No aortic regurgitation is present. Pulmonic Valve The pulmonic valve is not well visualized. Great Vessels The aortic root is normal size. Pericardium/Pleura There is no pericardial effusion. Interpretation Summary The left ventricular size, thickness and function are normal The left ventricular ejection fraction is normal. The left ventricular wall motion is normal. There is trace to mild mitral regurgitation. There is Trace to mild tricuspid regurgitation. Right ventricular systolic pressure is normal. MD Jericho Laboy 03/21/2019 04:14 PM
[2019-03-21] MEDS: SERTRALINE HCL 50 MG TABLET (FP) PO SCH (21:07)
[2019-03-22] MEDS: oxyCODONE HCL 5 MG TABLET PO PRN ×3 (01:48→15:52)
[2019-03-22] MEDS: LORazepam 1 MG TABLET PO SCH ×3 (06:12→16:52)
[2019-03-22] MEDS: DOCUSATE SODIUM 100 MG CAPSULE (FP) PO SCH ×2 (06:12→15:53)
[2019-03-22] MEDS: rOPINIRole HCL 2 MG TABLET (FP) PO SCH ×4 (06:12→18:37)
[2019-03-22] MEDS: LEVOTHYROXINE NA 150 MCG TABLET PO SCH (06:12)
[2019-03-22] MEDS: ACETAMINOPHEN 325 MG TABLET (FP) PO SCH ×2 (08:26→15:50)
[2019-03-22] MEDS ORDERED: FUROSEMIDE 40 MG TABLET (FP) PO SCH (10:43)
[2019-03-22] MEDS: ASPIRIN 81 MG CHEWABLE TABLETS PO SCH (11:52)
[2019-03-22] MEDS: PANTOPRAZOLE 40 MG TABLET (FP) PO SCH (11:53)
[2019-03-22] MEDS: FLUTICASONE/SALMETEROL 100 MCG/50 MCG DISKUS IH SCH (11:53)
[2019-03-22] MEDS: SULFAMETHOXAZOLE/TRIMETHOPRIM 800MG/160MG D.S. TABLET PO SCH ×2 (11:53→13:03)
[2019-03-22] MEDS: ALBUTEROL SO4 8 GM HFA INHALER IH SCH ×3 (11:54→17:01)
[2019-03-22] MEDS: HEPARIN NA (PORCINE) 5,000 UNITS/ML 1ML VIAL SQ SCH (12:04)
[2019-03-22] MEDS: NADOLOL 40 MG TABLET (FP) PO SCH (12:05)
--- NOTE | 2019-03-22 12:53 | PN ---
Progress Note, Physician Chief Complaint: in bed no new c/o; has chronic anxiety and chronic pain sd on chronic meds had echo seen by cardiology no change in her regimen - lasix and nadolol held b/ o low BP. - Current Medication List Current Medications: Active Medications Acetaminophen (Tylenol -) 650 mg PO TID [facility] Last Admin: 03/22/19 08:26 Dose: 650 mg Albuterol Sulfate (Ventolin Hfa Inhaler -) 2 puff IH RQID [facility] Last Admin: 03/22/19 12:05 Dose: Not Given Aspirin (Asa -) 81 mg PO DAILY [facility] Last Admin: 03/22/19 11:52 Dose: 81 mg Docusate Sodium (Colace -) 100 mg PO TID [facility] Last Admin: 03/22/19 06:12 Dose: 100 mg Furosemide (Lasix -) 40 mg PO DAILY [facility] Heparin Sodium (Porcine) (Heparin -) 5,000 unit SQ BID [facility] Last Admin: 03/22/19 12:04 Dose: Not Given Levothyroxine Sodium (Synthroid -) 150 mcg PO AM [facility] Last Admin: 03/22/19 06:12 Dose: 150 mcg Lorazepam (Ativan -) 1 mg PO 0700,1100,1600,2000 [facility] Last Admin: 03/22/19 11:53 Dose: 1 mg Nadolol (Corgard -) 40 mg PO DAILY [facility] Last Admin: 03/22/19 12:05 Dose: Not Given Oxycodone HCl (Roxicodone -) 10 mg PO Q6H PRN PRN Reason: PAIN LEVEL 6-10 Last Admin: 03/22/19 08:27 Dose: 10 mg Pantoprazole Sodium (Protonix -) 40 mg PO DAILY [facility] Last Admin: 03/22/19 11:53 Dose: 40 mg Ropinirole HCl (Requip -) 2 mg PO 5XD [facility] Last Admin: 03/22/19 12:04 Dose: 2 mg Fluticasone/Salmeterol (Advair 100mcg/50mcg -) 1 puff IH BID [facility] Last Admin: 03/22/19 11:53 Dose: 1 puff Sertraline HCl (Zoloft -) 200 mg PO HS [facility] Last Admin: 03/21/19 21:07 Dose: 200 mg Trimethoprim/Sulfamethoxazole (Bactrim Ds -) 1 each PO BID [facility] Last Admin: 03/21/19 21:06 Dose: 1 each - Objective Vital Signs: Vital Signs Temperature 98.4 F 03/22/19 08:00 Pulse Rate 59 L 03/22/19 08:00 Respiratory Rate 20 03/22/19 08:00 Blood Pressure 93/47 L 03/22/19 08:00 O2 Sat by Pulse Oximetry (%) 97 03/21/19 21:00 Constitutional: Yes: No Distress, Calm Eyes: Yes: Conjunctiva Clear HENT: Yes: Atraumatic Neck: Yes: Supple Cardiovascular: Yes: Regular Rate and Rhythm Respiratory: Yes: CTA Bilaterally Gastrointestinal: Yes: Soft. No: Tenderness Genitourinary: No: Hematuria Musculoskeletal: Yes: Joint Stiffness (OA DJD generalized). No: Joint Swelling Extremities: No: Cold, Cool Edema: No Neurological: Yes: WNL, Alert, Oriented ...Motor Strength: WNL Psychiatric: Yes: WNL, Alert, Oriented. No: Agitated, Suicidal Ideation - ....Imaging Other: Report Reviewed Assessment/Plan 68 YOF OA DJD RA anxiety depression smoker restless legs sd migraine CAVAZOS low BP admitted here after a fall last week seen at that time by neurology cleared for DC; regarding the DC disposition pt changed her mind few times during that admission, between going back to [place] vs SN[place] but finally she wanted and she asked to go to Rehab SNF for PT - THERE WAS NO CONFUSION REGARDING HER DC FROM - and pt was transferred to SNF in [facility] per her wish; pt said that when she got to [facility] she did not like how they treated her and she felt threatened so she called the police and her cash register operator from SNF and the SNF sent her back to [facility] since they did not have the form to transfer to [place] (both forms for [place] and for SNF where done during that admission but only the SNF was faxed since pt was transferred to SNF; the [place] form remained with [facility] / [facility]) now awaiting to be tranferred back to [place] per pt's wish; lasix and nadolol held; cleared by cardiology for DC; she seems AxOx3 able to understand and answer appropriately and she wants to go to [place]; d/w CM to arrange transfer back to [place]; [place] form done with CM d/w pt and staff pt to f/u as advised; falls PFX; stop tobacco pt is aware of possible SE of percocet and valium or xanax like falls tolerance dependence low BP constipation gastroparesis, to try to taper them to off or to use minimum possible
[2019-03-22] MEDS: FUROSEMIDE 40 MG TABLET (FP) PO SCH (13:03)
--- NOTE | 2019-03-22 15:33 | PN ---
Progress Note, Physician Chief Complaint: Pt A&Ox3; anxious; no dizziness or chest pain. 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 She notes she wants to return to [facility], but there has been issue with her placement upon discharge and confusion with paperwork/medical release. Patient denies any acute complaints at this time. PMD: Dr. Torres Neurologist: Dr. Jose Luis Winslow. - Current Medication List Current Medications: Active Medications Acetaminophen (Tylenol -) 650 mg PO TID [facility] Last Admin: 03/22/19 08:26 Dose: 650 mg Albuterol Sulfate (Ventolin Hfa Inhaler -) 2 puff IH RQID [facility] Last Admin: 03/22/19 12:05 Dose: Not Given Aspirin (Asa -) 81 mg PO DAILY [facility] Last Admin: 03/22/19 11:52 Dose: 81 mg Docusate Sodium (Colace -) 100 mg PO TID [facility] Last Admin: 03/22/19 06:12 Dose: 100 mg Heparin Sodium (Porcine) (Heparin -) 5,000 unit SQ BID [facility] Last Admin: 03/22/19 12:04 Dose: Not Given Levothyroxine Sodium (Synthroid -) 150 mcg PO AM [facility] Last Admin: 03/22/19 06:12 Dose: 150 mcg Lorazepam (Ativan -) 1 mg PO 0700,1100,1600,2000 [facility] Last Admin: 03/22/19 11:53 Dose: 1 mg Nadolol (Corgard -) 40 mg PO DAILY [facility] Last Admin: 03/22/19 12:05 Dose: Not Given Oxycodone HCl (Roxicodone -) 10 mg PO Q6H PRN PRN Reason: PAIN LEVEL 6-10 Last Admin: 03/22/19 08:27 Dose: 10 mg Pantoprazole Sodium (Protonix -) 40 mg PO DAILY [facility] Last Admin: 03/22/19 11:53 Dose: 40 mg Ropinirole HCl (Requip -) 2 mg PO 5XD [facility] Last Admin: 03/22/19 12:04 Dose: 2 mg Fluticasone/Salmeterol (Advair 100mcg/50mcg -) 1 puff IH BID [facility] Last Admin: 03/22/19 11:53 Dose: 1 puff Sertraline HCl (Zoloft -) 200 mg PO HS [facility] Last Admin: 03/21/19 21:07 Dose: 200 mg - Objective Vital Signs: Vital Signs Temperature 98.4 F 03/22/19 08:00 Pulse Rate 59 L 03/22/19 08:00 Respiratory Rate 20 03/22/19 08:00 Blood Pressure 93/47 L 03/22/19 08:00 O2 Sat by Pulse Oximetry (%) 98 03/22/19 09:00 Constitutional: Yes: Anxious, Thin Eyes: Yes: WNL HENT: Yes: WNL Neck: Yes: WNL Cardiovascular: Yes: S1, S2 Respiratory: Yes: WNL Gastrointestinal: Yes: WNL ...Rectal Exam: Yes: Deferred Genitourinary: No: Anuria Breast(s): Yes: WNL Musculoskeletal: Yes: Joint Stiffness (s/p left shoulder surgery) Extremities: Yes: Cool Edema: No Peripheral Pulses WNL: Yes Neurological: Yes: Alert, Oriented, Weakness Psychiatric: Yes: Alert, Oriented, Other (anxiety/depression/panic) Problem List - Problems (1) Hypotension Assessment/Plan: Furosemide discontinued. ECHO: normal LVEF; EKG: NSR; normal study. I would also recommend nadolol be stopped (after first consulting with neurologist to see if an alternative agent can be given for her headaches). Maintain hydration (and increase ovefrall nutrition; encourage weight gain). Code(s): I95.9 - HYPOTENSION, UNSPECIFIED (2) Recurrent falls Code(s): R29.6 - REPEATED FALLS (3) COPD (chronic obstructive pulmonary disease) Code(s): J44.9 - CHRONIC OBSTRUCTIVE PULMONARY DISEASE, UNSPECIFIED (4) Multiple sclerosis Code(s): G35 - MULTIPLE SCLEROSIS (5) Rheumatoid arthritis Code(s): M06.9 - RHEUMATOID ARTHRITIS, UNSPECIFIED
--- NOTE | 2019-03-22 15:49 | PN ---
Progress Note (short form) - Note Progress Note: Pt didn't receive Lasix and Nadolol for the last couple of days secondary to low BP. Pt's case was D/w Dr. Meyers, no need for Lasix (to be DC'ed); also recommended to consider stopping Nadolol if OK with Dr. Winslow. Dr. Winslow agrees with stopping Nadolol. To DC pt to Assisting Living Problem List - Problems (1) Need for follow-up by social work supervisor Code(s): Z09 - ENCNTR FOR F/U EXAM AFT TRTMT FOR COND OTH THAN ARNULFO NEOPLM (2) Recurrent falls Code(s): R29.6 - REPEATED FALLS (3) UTI (urinary tract infection) Code(s): N39.0 - URINARY TRACT INFECTION, SITE NOT SPECIFIED (4) COPD (chronic obstructive pulmonary disease) Code(s): J44.9 - CHRONIC OBSTRUCTIVE PULMONARY DISEASE, UNSPECIFIED (5) Multiple sclerosis Code(s): G35 - MULTIPLE SCLEROSIS (6) Rheumatoid arthritis Code(s): M06.9 - RHEUMATOID ARTHRITIS, UNSPECIFIED (7) Restless leg syndrome Code(s): G25.81 - RESTLESS LEGS SYNDROME
--- NOTE | 2019-03-22 16:01 | DS ---
Physical Examination Vital Signs: Vital Signs Temperature 97.9 F 03/22/19 14:00 Pulse Rate 72 03/22/19 14:00 Respiratory Rate 20 03/22/19 14:00 Blood Pressure 127/43 L 03/22/19 14:00 O2 Sat by Pulse Oximetry (%) 98 03/22/19 09:00 Findings/Remarks: See Today Progress Note for HPI, ROS, PE. Discharge Summary Problems reviewed: Yes Reason For Visit: NEED FOR FOLLOW-UP BY FRAME HAND Current Active Problems Hypotension (Acute) Need for follow-up by social science research assistant (Acute) Recurrent falls (Acute) Restless leg syndrome (Acute) UTI (urinary tract infection) (Acute) Unable to ambulate (Acute) Procedures: Principal: ECHO. ECG Hospital Course: Pt was transferred to [facility] but she didn't want to stay there and returned to ER Tuesday evening ( the same day). Tuesday evening [facility] admission office was closed as was over the weekend; pt needed to wait until Tuesday before being transferred to Assisted Living and was admitted. Pt was noticed to be hypotensive, asymptomatic; Lasix and Nadolol were held, Neurology and Cardiology were consulted. Pt had ECG, ECHO (normal LVS and LVF, trace to mild MR and TR, normal RVF) ; Lasix and Nadolol were discontinued per Cardiology and Neurology. Pt to be DC'ed abck to Assisted Living. Condition: Fair - Instructions Diet, Activity, Other Instructions: Resume prior diet. Patient would benefit from rehab program, gait strengthening. Referrals: Oli Torres MD [Primary Care Provider] - (in 1-2 weeks) Jose Luis Winslow MD [Staff Physician] - (in 1-2 weeks) Disposition: HOME - Home Medications Comprehensive Discharge Medication List: Ambulatory Orders Albuterol Sulfate Inhaler - [Ventolin HFA Inhaler -] 1 - 2 inh PO QID 03/13/19 Aspirin [ASA -] 81 mg PO DAILY 03/13/19 Dexlansoprazole [Dexilant] 60 mg PO DAILY 03/13/19 Docusate Sodium [Colace -] 100 mg PO TID 03/13/19 Levothyroxine [Synthroid -] 150 mcg PO DAILY 03/13/19 Oxycodone HCl/Acetaminophen [Endocet 10-325 mg Tablet] 1 each PO QID PRN MDD 4 03/13/19 Ropinirole HCl [Ropinirole ER] 8 mg PO DAILY 03/13/19 Salmeterol/Fluticasone [Advair 100Mcg/50Mcg -] 1 inh PO BID 03/13/19 Sertraline HCl [Zoloft] 200 mg PO HS 03/13/19 Ativan 1 PO QID 03/17/19 Bacitracin 1 applic TP BID 03/17/19 Bacitracin - 1 applic TP DAILY 03/17/19 Chlorhexidine Gluconate PO BID 03/17/19 Gauze Bandage [Versalon] 1 applic 03/17/19 Mag Hydrox/Aluminum Hyd/Simeth [Amalia-Lanta Liquid] 10 ml PO BID PRN 03/17/19 Polyethylene Glycol 3350 17 PO DAILY PRN 03/17/19 Ropinirole HCl PO QID 03/17/19 Ropinirole HCl [Requip -] PO HS PRN 03/17/19 Saline Nasal [place] 1 spray BID 03/17/19 Triamcinolone 0.1% Cream [Aristocort 0.1% Cream -] 1 applic TP DAILY PRN Zinc Oxide 1 applic TP DAILY 03/17/19 Acetaminophen [Tylenol .Regular Strength -] 650 mg PO Q12H PRN #0 tablet
[2019-03-22] MEDS ORDERED: PT OWN MED DRAWER 7, Y5N ONE (16:03)
[2019-03-22 18:32] VITALS: BP 102/57; PULSE 66; TEMP 97.4
== END 2019-03-22 19:47 | disposition home or self-care (01) | DRG 314 ==
LOC: JER 01:14 → JERBED 01:22 → J5S 14:32 → OBSVTOIN 03-18 16:48
PROVIDERS: ADMIT Specialist; ATTEND Specialist
DX: I95.9 Hypotension, unspecified (principal); E43 Unspecified severe protein-calorie malnutrition; N39.0 Urinary tract infection, site not specified; R64 Cachexia; Z68.1 Body mass index [BMI] 19.9 or less, adult; F41.9 Anxiety disorder, unspecified; J44.9 Chronic obstructive pulmonary disease, unspecified; I10 Essential (primary) hypertension; M19.90 Unspecified osteoarthritis, unspecified site; E03.9 Hypothyroidism, unspecified; G25.81 Restless legs syndrome; K21.9 Gastro-esophageal reflux disease without esophagitis; G35 Multiple sclerosis; M81.0 Age-related osteoporosis without current pathological fracture; F32.9 Major depressive disorder, single episode, unspecified; R29.6 Repeated falls; M06.9 Rheumatoid arthritis, unspecified; Z09 Encounter for follow-up examination after completed treatment for conditions other than malignant neoplasm; Z88.0 Allergy status to penicillin
CPT/HCPCS: 80307; 93005; 93010; 93306-TC; 99282-25; 99284-25; G0378; J1644

== ENCOUNTER 2019-04-12 18:47 | Inpatient (IN) | payer OTHER ==
--- NOTE | 2019-04-12 18:51 | PDOC ---
Rapid Medical Evaluation Chief Complaint: Wound Time Seen by Provider: 04/12/19 18:49 Medical Evaluation: Allergies Allergy/AdvReac Type Severity Reaction Status Date / Time omeprazole Allergy Verified 03/17/19 01:35 Penicillins Allergy Verified 03/17/19 01:35 04/12/19 18:49 I have performed a brief in-person evaluation of this patient. The patient presents with a chief complaint of: sent by Dr. Charbel Luna , cellulitis to foot, requesting admission for IV abx and wound care Pertinent physical exam findings: n/a I have ordered the following: R foot x-ray, labs The patient will proceed to the ED for further evaluation. Discharge Disposition - Diagnosis Cellulitis - Discharge Dispostion Condition at time of disposition: Stable - Referrals - Patient Instructions - Post Discharge Activity
--- NOTE | 2019-04-12 21:09 | PDOC ---
History of Present Illness - General Chief Complaint: Wound Stated Complaint: INFECTION TO RT FOOT 2ND TOE Time Seen by Provider: 04/12/19 18:49 History Source: Patient Exam Limitations: No Limitations - History of Present Illness Initial Comments: 04/12/19 21:06 Source: Patient, rodolfo PCP: Dr. Oli Torres Podiatry: Dr. 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 Charbel Luna) for admission and IV ABX for 2nd toe debridement to bone. Denies history of diabetes, reports that her toe pain has been going on for over a month including while she was hospitalized but she did not think to mention it. No systemic symptoms, denies chest pain, SOB, fevers, chills, nausea, vomiting, dysuria. All: Omeprazole, Penicillins Meds: per chart PMH: as above PSH: per chart Past History - Travel Traveled outside of the country in the last 30 days: No Close contact w/someone who was outside of country & ill: No - Past Medical History Allergies/Adverse Reactions: Allergies Allergy/AdvReac Type Severity Reaction Status Date / Time omeprazole Allergy Verified 03/17/19 01:35 Penicillins Allergy Verified 03/17/19 01:35 Home Medications: Ambulatory Orders Albuterol Sulfate Inhaler - [Ventolin HFA Inhaler -] 1 - 2 inh PO QID 03/13/19 Aspirin [ASA -] 81 mg PO DAILY 03/13/19 Dexlansoprazole [Dexilant] 60 mg PO DAILY 03/13/19 Docusate Sodium [Colace -] 100 mg PO TID 03/13/19 Levothyroxine [Synthroid -] 150 mcg PO DAILY 03/13/19 Oxycodone HCl/Acetaminophen [Endocet 10-325 mg Tablet] 1 each PO QID PRN MDD 4 03/13/19 Ropinirole HCl [Ropinirole ER] 8 mg PO DAILY 03/13/19 Salmeterol/Fluticasone [Advair 100Mcg/50Mcg -] 1 inh PO BID 03/13/19 Sertraline HCl [Zoloft] 200 mg PO HS 03/13/19 Ativan 1 PO QID 03/17/19 Bacitracin 1 applic TP BID 03/17/19 Bacitracin - 1 applic TP DAILY 03/17/19 Chlorhexidine Gluconate PO BID 03/17/19 Gauze Bandage [Versalon] 1 applic 03/17/19 Mag Hydrox/Aluminum Hyd/Simeth [Amalia-Lanta Liquid] 10 ml PO BID PRN 03/17/19 Polyethylene Glycol 3350 17 PO DAILY PRN 03/17/19 Ropinirole HCl PO QID 03/17/19 Ropinirole HCl [Requip -] PO HS PRN 03/17/19 Saline Nasal [place] 1 spray BID 03/17/19 Triamcinolone 0.1% Cream [Aristocort 0.1% Cream -] 1 applic TP DAILY PRN Zinc Oxide 1 applic TP DAILY 03/17/19 Acetaminophen [Tylenol .Regular Strength -] 650 mg PO Q12H PRN #0 tablet COPD: Yes HTN: Yes Psychiatric Problems: Yes (anxiety,depression) - Immunization History Td Vaccination: Yes TDAP Vaccination: Yes Immunization Up to Date: Yes - Psycho Social/Smoking Cessation Hx Smoking History: Never smoked Have you smoked in the past 12 months: No Number of Cigarettes Smoked Daily: 7 Cigars Per Day: 0 Information on smoking cessation initiated: No 'Breaking Loose' booklet given: 03/17/19 Hx Alcohol Use: No Drug/Substance Use Hx: No Substance Use Type: None Hx Substance Use Treatment: No Review of Systems - Review of Systems Able to Perform ROS?: Yes Is the patient limited French proficient: Yes *Physical Exam - Vital Signs Last Vital Signs Temp Pulse Resp BP Pulse Ox 97.9 F 89 16 126/80 98 04/12/19 18:50 04/12/19 18:50 04/12/19 18:50 04/12/19 18:50 04/12/19 18:50 - Physical Exam Comments: 04/12/19 21:08 Vitals reviewed, AFVSS Elderly woman, intermittently cooperative, cantankerous, no acute distress MMM, EOMI, NCAT, Trachea midline RRR, nl s1s2, no murmurs CTABL, normal WOB, full sentences, no wheezes Soft, nontender, nondistended WWP, no clubbing / cyanosis / edema 2+ radial pulses Patient complains of pain in her right foot, refuses exam due to recently debrided and dressed wound at podiatry Alert and oriented, CN grossly intact, MAEE ED Treatment Course - LABORATORY CBC & Chemistry Diagram: 04/12/19 21:40 04/12/19 21:40 Medical Decision Making - Medical Decision Making 04/12/19 21:08 68yo F with PMH 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 Charbel Luna) who was sent in for IV antibiotics after wound debridement reached bone. Patient initially seen in [facility], Labs and Xray ordered: -CBC, CMP, Lactate, PT/INR, BCx, EKG -R Foot Xray -1g Vancomycin -1g IV Tylenol 04/12/19 22:35 -CBC without leukocytosis -Afebrile with stable vitals -Lactate 1.1 -Electrolytes notable for mild hyponatremia of 133 Dispo: Admission to Med/Surg 04/12/19 22:40 -Sign out given to Dr. Torres who will admit the patient to his service -Diet ordered per patients insistence -Will require further imaging to r/o osteomyleitis of 3rd proximal phalanx or R foot 04/12/19 23:29 -Given Ropinirole HCL 2mg -10mg Oxycodone (in addition to 1g IV Tylenol earlier) -100mg Docusate Sodium 04/13/19 00:05 -Patient refused EKG, requests home Ativan Discharge - Discharge Information Problems reviewed: Yes Clinical Impression/Diagnosis: Cellulitis Qualifiers: Site of cellulitis: extremity Site of cellulitis of extremity: toe Laterality: right Qualified Code(s): L03.031 - Cellulitis of right toe Condition: Stable - Admission Yes - Follow up/Referral - Patient Discharge Instructions - Post Discharge Activity
[2019-04-12 21:59] LABS: BASO % 0.5 % (0-2.0); EOS % 3.1 % (0-4.5); HEMATOCRIT 31.3 % (32.4-45.2); HEMOGLOBIN 10.9 GM/dL (10.7-15.3); LYMPH % 29.6 % (8-40); MCH 32.2 pg (25.7-33.7); MCHC 34.7 g/dl (32.0-36.0); MEAN CELL VOLUME 92.7 fl (80-96); MEAN PLT VOLUME 7.5 fl (7.5-11.1); MONO % 4.9 % (3.8-10.2); NEUT % 61.9 % (42.8-82.8); PLATELET COUNT 287 K/MM3 (134-434); RBC 3.38 M/mm3 (3.60-5.2); RDW 15.3 % (11.6-15.6); WHITE BLOOD COUNT 6.2 K/mm3 (4.0-10.0)
[2019-04-12 22:15] LABS: INR 0.99 (0.83-1.09); PROTHROMBIN TIME (PATIENT) 11.7 SEC (9.7-13.0)
[2019-04-12] MEDS ORDERED: VANCOMYCIN 1 GM in D5W (PRE-DOCKED) 1,000 MG/250 ML IVPB ONE (22:18)
[2019-04-12] MEDS ORDERED: ACETAMINOPHEN 1000 MG/100 ML VIAL (NON FORMULARY) IVPB ONE (22:19)
[2019-04-12 22:30] LABS: ALBUMIN 3.9 g/dl (3.4-5.0); BILIRUBIN,TOTAL 0.2 mg/dL (0.2-1); BLOOD UREA NITROGEN 9.3 mg/dL (7-18); CREATININE 0.7 mg/dL (0.55-1.3); TOT PROT 7.5 g/dl (6.4-8.2)
[2019-04-12] MEDS ORDERED: VANCOMYCIN 1 GRAM (PRE-DOCKED) 1,000 MG/250 ML BAG IVPB ONE (23:11)
[2019-04-12] MEDS ORDERED: ACETAMINOPHEN INJECTION 100 ML IVPB ONE (23:11)
--- NOTE | 2019-04-12 23:24 | PDOC ---
Documentation entered by Janes Chakraborty SCRIBE, acting as scribe for Bernadine Rodarte MD. Bernadine Rodarte MD: This documentation has been prepared by the Mylene angel Xhesika, SCRIBE, under my direction and personally reviewed by me in its entirety. I confirm that the documentation accurately reflects all work, treatment, procedures, and medical decision making performed by me. Attending Attestation - Resident Resident Name: ColeDwaine - ED Attending Attestation I have performed the following: I have examined & evaluated the patient, The case was reviewed & discussed with the resident, I agree w/resident's findings & plan, Exceptions are as noted - HPI HPI: 04/12/19 22:10 The patient is a 68 year old female with a significant PMH of MS, HTN, RA, restless leg syndrome, migraines, chronic neck and back pain, chronic ataxia and falls (2/2 MS), hypothyroidism, OA, COPD, GERD, depression, and anxiety who presents to the emergency department sent by Dr. Charbel Luna (lab nurse) for admission, IV antibiotics, and wound care for 2nd toe debridement all the way to her bone. The patient denies chest pain, shortness of breath, headache and dizziness. Denies fever, chills, cough, nausea, vomiting, diarrhea and constipation. Allergies: Omeprazole, Penicillins Past surgical history: Left total shoulder replacement Social history: Current everyday smoker. Resident at [facility]. No ETOH or drug use. PCP: Dr. Torres - Physicial Exam PE: 04/12/19 22:17 GENERAL: The patient is in no acute distress. LUNGS: Breath sounds equal, clear to auscultation bilaterally. No wheezes, and no crackles. HEART: Regular rate and rhythm, normal S1 and S2 without murmur, rub or gallop. ABDOMEN: Soft, nontender, normoactive bowel sounds. EXTREMITIES: REFUSED ASSESSMENT OF HER FOOT NEUROLOGICAL: Cranial nerves II through XII grossly intact. Normal speech. No focal neurological deficits. MUSCULOSKELETAL: Back non-tender to palpation, no CVA tenderness SKIN: UNKNOWN 04/12/19 23:18 - Medical Decision Making 04/12/19 23:22 68 yo F presenting to the ER from the lab nurse office due to deep debridement which goes to bone Per lab nurse, pt needs IV abx 04/12/19 23:24 Laboratory Tests 04/12/19 04/12/19 04/12/19 21:40 21:40 21:40 WBC 6.2 Hgb 10.9 Hct 31.3 L Plt Count 287 INR BUN 9.3 Creatinine 0.7 Lactic Acid 1.1 04/12/19 21:40 WBC Hgb Hct Plt Count INR 0.99 BUN Creatinine Lactic Acid Will give Vancomycin Will admit to PMD
[2019-04-12] MEDS ORDERED: oxyCODONE HCL 5 MG TABLET PO ONE (23:27)
[2019-04-12] MEDS ORDERED: DOCUSATE SODIUM 100 MG CAPSULE (FP) PO ONE ×2 (23:27→23:41)
[2019-04-12] MEDS ORDERED: oxyCODONE HCL 5 MG TABLET ONE (23:41)
[2019-04-12] MEDS ORDERED: rOPINIRole HCL 2 MG TABLET (FP) PO SCH (23:56)
[2019-04-12] MEDS ORDERED: LORazepam 1 MG TABLET PO ONE (23:56)
[2019-04-13] MEDS ORDERED: LORazepam 0.5 MG TABLET ONE (00:35)
[2019-04-13] MEDS ORDERED: ACETAMINOPHEN 325 MG TABLET (FP) PO PRN (00:37)
[2019-04-13] MEDS: LEVOTHYROXINE NA 150 MCG TABLET PO SCH (06:30)
[2019-04-13] MEDS: LORazepam 1 MG TABLET PO SCH ×4 (06:30→21:00)
[2019-04-13] MEDS: oxyCODONE HCL 5 MG TABLET PO PRN ×2 (06:32→15:23)
[2019-04-13 07:51] LABS: HEMATOCRIT 30.2 % (32.4-45.2); HEMOGLOBIN 10.2 GM/dL (10.7-15.3); MCH 31.1 pg (25.7-33.7); MCHC 33.8 g/dl (32.0-36.0); MEAN CELL VOLUME 91.9 fl (80-96); MEAN PLT VOLUME 6.9 fl (7.5-11.1); PLATELET COUNT 251 K/MM3 (134-434); RBC 3.29 M/mm3 (3.60-5.2); RDW 14.9 % (11.6-15.6); WHITE BLOOD COUNT 5.5 K/mm3 (4.0-10.0)
[2019-04-13 08:24] LABS: ALBUMIN 2.9 g/dl (3.4-5.0); BILIRUBIN,TOTAL 0.2 mg/dL (0.2-1); BLOOD UREA NITROGEN 8.5 mg/dL (7-18); CALCIUM 8.3 mg/dL (8.5-10.1); CREATININE 0.7 mg/dL (0.55-1.3); POTASSIUM 4.4 mmol/L (3.5-5.1); TOT PROT 6.1 g/dl (6.4-8.2)
[2019-04-13] MEDS: ALBUTEROL SO4 8 GM HFA INHALER IH PRN (11:29)
--- NOTE | 2019-04-13 14:27 | EKG ---
Test Reason : Blood Pressure : / mmHG Vent. Rate : 070 BPM Atrial Rate : 070 BPM P-R Int : 168 ms QRS Dur : 076 ms QT Int : 396 ms P-R-T Axes : 080 037 036 degrees QTc Int : 427 ms NORMAL SINUS RHYTHM CANNOT RULE OUT SEPTAL INFARCT ABNORMAL ECG Confirmed by MARQUIS DIAZ MD ([id number]) on 04/13/2019 2:27:21 PM Referred By: Confirmed By:MARQUIS DIAZ MD
--- NOTE | 2019-04-13 14:36 | CON.ID ---
Consult Consult Specialty:: infectious disease Referred by:: dr ghotra Reason for Consultation:: left toe infection - History of Present Illness Chief Complaint: left toe infection History of Present Illness: 68 yo female admitted from [facility] with infected toe she was seen at her podiatrists office and she reports she had an abscess drained- now with open wound, erythema, exposed bone tried to reach transverse abdominal muscle nurse dr mendosa- office is closed have called him - he has sent a culture that should be available on Tuesday she complains of a groin rash and wesars a diaper nonambulatory most of the time uses a walker it is unclear how long she has had the ulcer pen allergy from childhood- doesn't know what over ten years ago, was living in an [facility] and then moved to the assisted living center pmd dr ghotra neurologist dr moore - History Source History Provided By: Patient Limitations to Obtaining History: No Limitations - Past Medical History 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: Other (multiple sclerosis; restless leg syndrome) Pulmonary: Yes: Bronchitis, COPD Gastrointestinal: Yes: GERD Musculoskeletal: Yes: Other (MS) Rheumatology: Yes: Rheumatoid Arthritis (refusing to take medication) - Past Surgical History Past Surgical History: Yes: Tonsillectomy Additional Surgical History: left shoulder replacement - Alcohol/Substance Use Hx Alcohol Use: No - Smoking History Smoking history: Never smoked Have you smoked in the past 12 months: No Aproximately how many cigarettes per day: 7 - Social History Usual Living Arrangement: Assisted Living ADL: Support Services Occupation: Place of : [employer] [facility] History of Recent Travel: No Home Medications - Allergies Allergies/Adverse Reactions: Allergies Allergy/AdvReac Type Severity Reaction Status Date / Time omeprazole Allergy Verified 03/17/19 01:35 Penicillins Allergy Verified 03/17/19 01:35 - Home Medications Home Medications: Ambulatory Orders Albuterol Sulfate Inhaler - [Ventolin HFA Inhaler -] 1 - 2 inh PO QID 03/13/19 Aspirin [ASA -] 81 mg PO DAILY 03/13/19 Dexlansoprazole [Dexilant] 60 mg PO DAILY 03/13/19 Docusate Sodium [Colace -] 100 mg PO TID 03/13/19 Levothyroxine [Synthroid -] 150 mcg PO DAILY 03/13/19 Oxycodone HCl/Acetaminophen [Endocet 10-325 mg Tablet] 1 each PO QID PRN MDD 4 03/13/19 Ropinirole HCl [Ropinirole ER] 8 mg PO DAILY 03/13/19 Salmeterol/Fluticasone [Advair 100Mcg/50Mcg -] 1 inh PO BID 03/13/19 Sertraline HCl [Zoloft] 200 mg PO HS 03/13/19 Ativan 1 PO QID 03/17/19 Bacitracin 1 applic TP BID 03/17/19 Bacitracin - 1 applic TP DAILY 03/17/19 Chlorhexidine Gluconate PO BID 03/17/19 Gauze Bandage [Versalon] 1 applic 03/17/19 Mag Hydrox/Aluminum Hyd/Simeth [Amalia-Lanta Liquid] 10 ml PO BID PRN 03/17/19 Polyethylene Glycol 3350 17 PO DAILY PRN 03/17/19 Ropinirole HCl PO QID 03/17/19 Ropinirole HCl [Requip -] PO HS PRN 03/17/19 Saline Nasal [place] 1 spray BID 03/17/19 Triamcinolone 0.1% Cream [Aristocort 0.1% Cream -] 1 applic TP DAILY PRN Zinc Oxide 1 applic TP DAILY 03/17/19 Acetaminophen [Tylenol .Regular Strength -] 650 mg PO Q12H PRN #0 tablet Family Medical History Family History: Unremarkable Review of Systems - Review of Systems Constitutional: reports: No Symptoms. denies: Chills, Fever Eyes: reports: No Symptoms HENT: reports: No Symptoms Neck: reports: No Symptoms Cardiovascular: reports: No Symptoms. denies: Chest Pain Respiratory: denies: Cough, SOB Gastrointestinal: reports: No Symptoms Genitourinary: reports: No Symptoms Physical Exam Vital Signs: Vital Signs Temperature 98.5 F 04/13/19 02:53 Pulse Rate 75 04/13/19 02:53 Respiratory Rate 18 04/13/19 02:53 Blood Pressure 127/65 04/13/19 02:53 O2 Sat by Pulse Oximetry (%) 97 04/13/19 02:53 looks much older then stated age Constitutional: Yes: Well Nourished, Thin Eyes: Yes: Conjunctiva Clear HENT: Yes: Other (poor dentition) Neck: Yes: Supple Cardiovascular: Yes: Regular Rate and Rhythm Respiratory: Yes: Regular, CTA Bilaterally Gastrointestinal: Yes: Normal Bowel Sounds, Soft, Other (inguinal rash, perirectal erythema, no skin breakdown) ...Rectal Exam: Yes: Deferred Extremities: Yes: Other (seconde toe with ulcer to bone. +erythema, abrasions on knees from prior falls) Psychiatric: Yes: Alert, Oriented Labs: CBC, BMP 04/13/19 06:40 04/13/19 06:40 Problem List - Problems (1) Toe ulcer Code(s): L97.509 - NON-PRESSURE CHRONIC ULCER OTH PRT UNSP FOOT W UNSP SEVERITY (2) Nimo rash of groin Code(s): B37.89 - OTHER SITES OF CANDIDIASIS (3) Penicillin allergy Code(s): Z88.0 - ALLERGY STATUS TO PENICILLIN Assessment/Plan r/o osteomyelitis podiatry to see f/u cultures need to call transverse abdominal muscle nurse on Tuesday needs podiatry consult cellulitis pen allergy continue vancomycin adjusted for weight add cefepime until cultures are back esr/crp podiatry to see lotrimin rash
[2019-04-13] MEDS ORDERED: DEXTROSE 5%-WATER - 50 ML IVPB ONE ×2 (15:16→20:29)
[2019-04-13] MEDS ORDERED: CEFEPIME HCL 1 GM VIAL (RESTRICTED TO ID) ONE ×2 (15:16→20:29)
[2019-04-13] MEDS: CEFEPIME 1 GM in DEXTROSE 5%-WATER - 50 ML IVPB SCH ×2 (15:44→21:01)
[2019-04-13] MEDS ORDERED: TRIAMCINOLONE ACET 0.1% CREAM 15 GM TUBE TP PRN (15:47)
[2019-04-13] MEDS ORDERED: rOPINIRole HCL 2 MG TABLET (FP) PO PRN (15:47)
[2019-04-13 15:55] VITALS: BMI 16.5
[2019-04-13] MEDS: ASPIRIN 81 MG CHEWABLE TABLETS PO SCH (16:05)
[2019-04-13] MEDS: DOCUSATE SODIUM 100 MG CAPSULE (FP) PO SCH ×2 (16:06→21:00)
[2019-04-13] MEDS: ZINC OXIDE 20% TOPICAL OINTMENT 30 GM TUBE TP SCH (16:24)
[2019-04-13] MEDS ORDERED: PT OWN MED DRAWER 7, Y5N ONE (16:28)
[2019-04-13] MEDS: rOPINIRole HCL 2 MG TABLET (FP) PO PRN (17:33)
[2019-04-13] MEDS: VANCOMYCIN 750 MG in DEXTROSE 5%-WATER - 250 ML IVPB SCH (17:51)
[2019-04-13] MEDS ORDERED: rOPINIRole HCL 2 MG TABLET (FP) PO SCH ×2 (18:00→22:00)
[2019-04-13] MEDS ORDERED: rOPINIRole HCL 2 MG TABLET (FP) PO ONE (18:00)
--- NOTE | 2019-04-13 19:18 | HP ---
Admitting History and Physical - Primary Care Physician PCP: Oli Torres - Admission Chief Complaint: toe infection History of Present Illness: Pt was seen in the office by her regulatory product manager, Dr. Castle, had R 2-nd toe bebridement, noticed to be infected and was sent to ER for admission and IV abtx. 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: Other (multiple sclerosis; restless leg syndrome) Pulmonary: Yes: Bronchitis, COPD Gastrointestinal: Yes: GERD Musculoskeletal: Yes: Other (MS) Rheumatology: Yes: Rheumatoid Arthritis (refusing to take medication) - Past Surgical History Past Surgical History: Yes: Tonsillectomy - Smoking History Smoking history: Current every day smoker (6 cigarettes/day) Have you smoked in the past 12 months: Yes Aproximately how many cigarettes per day: 6 - Alcohol/Substance Use Hx Alcohol Use: No - Social History ADL: Support Services Occupation: History of Recent Travel: No Home Medications - Allergies Allergies/Adverse Reactions: Allergies Allergy/AdvReac Type Severity Reaction Status Date / Time omeprazole Allergy Verified 03/17/19 01:35 Penicillins Allergy Verified 03/17/19 01:35 - Home Medications Home Medications: Ambulatory Orders Albuterol Sulfate Inhaler - [Ventolin HFA Inhaler -] 1 - 2 inh PO PRN 03/13/19 Aspirin [ASA -] 81 mg PO DAILY 03/13/19 Docusate Sodium [Colace -] 300 mg PO TID 03/13/19 Levothyroxine [Synthroid -] 150 mcg PO DAILY 03/13/19 Oxycodone HCl/Acetaminophen [Endocet 10-325 mg Tablet] 1 each PO QID PRN MDD 4 03/13/19 Ropinirole HCl [Ropinirole ER] 8 mg PO HS 03/13/19 Salmeterol/Fluticasone [Advair 100Mcg/50Mcg -] 1 inh PO BID 03/13/19 Sertraline HCl [Zoloft] 200 mg PO HS 03/13/19 Ativan 1 mg PO QID 03/17/19 Mag Hydrox/Aluminum Hyd/Simeth [Amalia-Lanta Liquid] 10 ml PO BID PRN 03/17/19 Polyethylene Glycol 3350 17 grams PO DAILY PRN 03/17/19 Ropinirole HCl 2 mg PO QID 03/17/19 Ropinirole HCl [Requip -] 2 mg PO HS PRN 03/17/19 Saline Nasal [place] 1 spray BID 03/17/19 Triamcinolone 0.1% Cream [Aristocort 0.1% Cream -] 1 applic TP PRN PRN 03/17/19 Zinc Oxide 1 applic TP DAILY 03/17/19 Acetaminophen 500 mg PO QID 04/13/19 Review of Systems - Review of Systems Constitutional: denies: Chills, Fever Eyes: denies: Blurred Vision, Double Vision HENT: denies: Ear Discharge, Nasal Congestion, Throat Pain Neck: denies: Pain on Movement, Stiffness Cardiovascular: reports: Palpitations. denies: Chest Pain, Edema Respiratory: denies: Cough, Hemoptysis, Wheezing Gastrointestinal: reports: Vomiting. denies: Abdominal Pain, Nausea Genitourinary: denies: Burning, Discharge, Dysuria Musculoskeletal: reports: Back Pain, Joint Pain (multiple locations) Integumentary: reports: Other (right foot, 2-nd toe) Neurological: denies: Change in LOC, Change in Speech, Confusion Endocrine: denies: Excessive Sweating, Intolerance to Cold Hematology/Lymphatic: reports: Excessive Bleeding. denies: Easily Bruised Psychiatric: reports: Depression. denies: Altered Sleep Pattern Physical Examination Vital Signs: Vital Signs Temperature 98.8 F 04/13/19 18:18 Pulse Rate 96 H 04/13/19 18:18 Respiratory Rate 20 04/13/19 18:18 Blood Pressure 99/74 04/13/19 18:18 O2 Sat by Pulse Oximetry (%) 98 04/13/19 09:00 Constitutional: Yes: No Distress, Calm Eyes: Yes: Conjunctiva Clear, EOM Intact HENT: Yes: Normocephalic, Rhinnorhea. No: Pharyngeal Erythema Neck: Yes: Trachea Midline, Decreased ROM Cardiovascular: Yes: Regular Rate and Rhythm, S1, S2 Respiratory: Yes: Regular, Other (coarse BS bilat) Gastrointestinal: Yes: Normal Bowel Sounds, Soft. No: Hepatomegaly, Splenomegaly, Tenderness ...Rectal Exam: Yes: Deferred Renal/: Yes: CVA Tenderness - Right. No: CVA Tenderness - Left Musculoskeletal: Yes: Back Pain Extremities: Yes: Other (rifht 2-nd toe: + 4 mm ulcer, + pus, + expose bone) Edema: LLE: Trace, RLE: Trace Integumentary: Yes: Venous Stasis Changes Neurological: Yes: Alert, Oriented, Other (symmetric sensory and motor examination in UE/ LE) Psychiatric: Yes: Alert, Oriented Labs: CBC, BMP 04/13/19 06:40 04/13/19 06:40 Imaging - Results X-ray: Report Reviewed Problem List - Problems (1) Toe infection Code(s): L08.9 - LOCAL INFECTION OF THE SKIN AND SUBCUTANEOUS TISSUE, UNSP (2) Toe ulcer Code(s): L97.509 - NON-PRESSURE CHRONIC ULCER OTH PRT UNSP FOOT W UNSP SEVERITY (3) COPD (chronic obstructive pulmonary disease) Code(s): J44.9 - CHRONIC OBSTRUCTIVE PULMONARY DISEASE, UNSPECIFIED (4) Multiple sclerosis Code(s): G35 - MULTIPLE SCLEROSIS (5) Restless leg syndrome Code(s): G25.81 - RESTLESS LEGS SYNDROME (6) Rheumatoid arthritis Code(s): M06.9 - RHEUMATOID ARTHRITIS, UNSPECIFIED Assessment/Plan IV abtx. ID consult. Podiatry consult Neuro consult. AM labs
[2019-04-13] MEDS: PANTOPRAZOLE 40 MG TABLET (FP) PO SCH (20:58)
[2019-04-13] MEDS: SERTRALINE HCL 50 MG TABLET (FP) PO SCH (20:59)
[2019-04-13] MEDS: FLUTICASONE/SALMETEROL 100 MCG/50 MCG DISKUS IH SCH (21:00)
[2019-04-13] MEDS: MUPIROCIN 2% TOPICAL OINTMENT 22 GM TUBE TP SCH (21:00)
[2019-04-13] MEDS: CLOTRIMAZOLE 1% CREAM 15 GM TUBE TP SCH (21:04)
[2019-04-13] MEDS: rOPINIRole HCL 2 MG TABLET (FP) PO SCH (21:05)
[2019-04-13] MEDS: NYSTATIN 100,000 UNIT/GM TOPICAL CREAM 15 GM TUBE TP SCH (21:28)
[2019-04-13] MEDS: SODIUM CHLORIDE NASAL SPRAY 44 ML BOTTLE NS SCH (21:28)
[2019-04-14] MEDS: oxyCODONE HCL 5 MG TABLET PO PRN ×3 (01:00→18:45)
[2019-04-14] MEDS: DOCUSATE SODIUM 100 MG CAPSULE (FP) PO SCH ×3 (05:51→22:43)
[2019-04-14] MEDS: LORazepam 1 MG TABLET PO SCH ×4 (06:00→22:44)
[2019-04-14] MEDS: LEVOTHYROXINE NA 150 MCG TABLET PO SCH (06:00)
[2019-04-14 07:07] LABS: HEMATOCRIT 30.3 % (32.4-45.2); HEMOGLOBIN 10.1 GM/dL (10.7-15.3); MCH 30.7 pg (25.7-33.7); MCHC 33.4 g/dl (32.0-36.0); MEAN CELL VOLUME 91.8 fl (80-96); MEAN PLT VOLUME 6.9 fl (7.5-11.1); PLATELET COUNT 239 K/MM3 (134-434); RDW 14.7 % (11.6-15.6)
[2019-04-14 07:14] LABS: ALBUMIN 2.9 g/dl (3.4-5.0); BILIRUBIN,TOTAL 0.3 mg/dL (0.2-1); BLOOD UREA NITROGEN 13.9 mg/dL (7-18); CALCIUM 8.1 mg/dL (8.5-10.1); CREATININE 0.6 mg/dL (0.55-1.3); POTASSIUM 4.6 mmol/L (3.5-5.1)
--- NOTE | 2019-04-14 08:09 | CONSULT ---
Consult - text type - Consultation Consultation Note: Podiatry Consultation: 68 year old female presents for admission, sent by her Pricing Analyst, for cellulitis right second digit. Patient had debridement procedure done in the office by Dr. Luna, wound cx obtained, concern was for a cellulitis with possible exposed bone which prompted admission. Patient from [facility]. Denies F/V/N/C/SOB/CP. Does not recall how long the ulcer has been present. PMHx: bronchitis, COPD, MS, restless leg sx, rheumatoid arthritis, gerd, tobacco use Meds: noted ALL: omeprazole, PCN [place]: R foot: pedal pulses weakly palpable, TG wnl, CFT brisk to toes. There is a dorsal PIPJ pressure ulcer of the second digit, exposed proximal phalanx, tender to palpation, (++) digital erythema, digital edema, mild serous drainage , no deep purulence, no soft tissue crepitus. Severe contracture of second digit at PIPJ and MTPJ. Blood CX: pending Imp: 68 year old female with right second digit ulcer, cellulitis, evaluate for osteomyelitis 1. IV abx per infectious disease 2. Local care 3. Recommend MRI R foot to evaluate for osteomyelitis second digit 4. Recommend new DUDLEY/PVR vascular studies. Patient states that she has been patient of Dr. Plaza in the past, had vascular studies maybe one year ago or more. 5. If MRI (+) she would benefit from an arthroplasty of the second digit ( hammer toe repair) for bone biopsy. This would address the biomechanical deformity and be able to salvage the digit. I will reach out to Dr. Luna regarding tx options. 6. Will follow. Thank you for the courtesy of this consultation. Tay Higgins DPM
[2019-04-14] MEDS ORDERED: DEXTROSE 5%-WATER - 50 ML IVPB ONE ×2 (08:27→20:51)
[2019-04-14] MEDS ORDERED: CEFEPIME HCL 1 GM VIAL (RESTRICTED TO ID) ONE ×2 (08:27→20:51)
[2019-04-14 09:05] LABS: ERYTHROCYTE SEDIMENTATION RATE 20 mm/hr (0-30)
[2019-04-14] MEDS: CEFEPIME 1 GM in DEXTROSE 5%-WATER - 50 ML IVPB SCH ×2 (10:45→22:44)
[2019-04-14] MEDS: rOPINIRole HCL 2 MG TABLET (FP) PO SCH ×4 (10:46→22:45)
[2019-04-14] MEDS: PANTOPRAZOLE 40 MG TABLET (FP) PO SCH (10:46)
[2019-04-14] MEDS: ASPIRIN 81 MG CHEWABLE TABLETS PO SCH (10:46)
[2019-04-14] MEDS: FLUTICASONE/SALMETEROL 100 MCG/50 MCG DISKUS IH SCH ×2 (10:47→22:46)
[2019-04-14] MEDS: CLOTRIMAZOLE 1% CREAM 15 GM TUBE TP SCH ×2 (10:50→23:00)
[2019-04-14] MEDS: MUPIROCIN 2% TOPICAL OINTMENT 22 GM TUBE TP SCH ×2 (10:54→22:56)
[2019-04-14] MEDS: NYSTATIN 100,000 UNIT/GM TOPICAL CREAM 15 GM TUBE TP SCH ×2 (10:56→23:00)
[2019-04-14] MEDS: SODIUM CHLORIDE NASAL SPRAY 44 ML BOTTLE NS SCH ×2 (10:57→23:00)
[2019-04-14] MEDS: ZINC OXIDE 20% TOPICAL OINTMENT 30 GM TUBE TP SCH (10:58)
--- NOTE | 2019-04-14 13:15 | PN ---
Progress Note, Physician History of Present Illness: Pt w/o fever, chills, SOB, CP, abd pain. She feels that RLS is not controlled - Current Medication List Current Medications: Active Medications Acetaminophen (Tylenol -) 650 mg PO Q12H PRN PRN Reason: PAIN LEVEL 6-10 Albuterol Sulfate (Ventolin Hfa Inhaler -) 2 puff IH Q6H PRN PRN Reason: SHORTNESS OF BREATH Last Admin: 04/13/19 11:29 Dose: 2 puff Aspirin (Asa -) 81 mg PO DAILY [facility] Last Admin: 04/14/19 10:46 Dose: 81 mg Clotrimazole (Lotrimin 1% Cream -) 1 applic TP BID [facility] Last Admin: 04/14/19 10:50 Dose: 1 applic Docusate Sodium (Colace -) 300 mg PO TID [facility] Last Admin: 04/14/19 05:51 Dose: 300 mg Vancomycin HCl 750 mg/ (Dextrose) 250 mls @ 150 mls/hr IVPB Q24H [facility]; Protocol Last Admin: 04/13/19 17:51 Dose: 150 mls/hr Cefepime HCl 1 gm/ Dextrose 50 mls @ 100 mls/hr IVPB BID [facility]; Protocol Last Admin: 04/14/19 10:45 Dose: 100 mls/hr Levothyroxine Sodium (Synthroid -) 150 mcg PO DAILY@0700 [facility] Last Admin: 04/14/19 06:00 Dose: 150 mcg Lorazepam (Ativan -) 1 mg PO 0700,1100,1600,2200 [facility] Last Admin: 04/14/19 11:04 Dose: 1 mg Multi-Ingredient Ointment (Zinc Oxide) 1 applic TP DAILY [facility] Last Admin: 04/14/19 10:58 Dose: 1 appful Mupirocin (Bactroban 2% Ointment -) 1 applic TP BID [facility] Last Admin: 04/14/19 10:54 Dose: 1 applic Nystatin (Mycostatin Cream -) 1 applic TP BID [facility] Last Admin: 04/14/19 10:56 Dose: 1 applic Oxycodone HCl (Roxicodone -) 10 mg PO Q6H PRN PRN Reason: PAIN LEVEL 6-10 Last Admin: 04/14/19 11:03 Dose: 10 mg Pantoprazole Sodium (Protonix -) 40 mg PO DAILY [facility] Last Admin: 04/14/19 10:46 Dose: 40 mg Ropinirole HCl (Requip -) 2 mg PO QID [facility] Last Admin: 04/14/19 10:46 Dose: 2 mg Ropinirole HCl (Requip -) 2 mg PO HS PRN PRN Reason: restless legs Fluticasone/Salmeterol (Advair 100mcg/50mcg -) 1 puff IH BID [facility] Last Admin: 04/14/19 10:47 Dose: 1 puff Sertraline HCl (Zoloft -) 200 mg PO HS [facility] Last Admin: 04/13/19 20:59 Dose: 200 mg Sodium Chloride ([place] Nasal [place] -) 1 spray NS BID [facility] Last Admin: 04/14/19 10:57 Dose: 1 spray Triamcinolone Acetonide (Aristocort 0.1% Cream -) 1 applic TP DAILY PRN PRN Reason: FOR ITCHING - Objective Vital Signs: Vital Signs Temperature 99.2 F 04/14/19 10:00 Pulse Rate 82 04/14/19 10:00 Respiratory Rate 18 04/14/19 10:00 Blood Pressure 86/53 L 04/14/19 10:00 O2 Sat by Pulse Oximetry (%) 98 04/14/19 09:00 Constitutional: Yes: No Distress, Calm Cardiovascular: Yes: Regular Rate and Rhythm, S1, S2 Respiratory: Yes: Regular, CTA Bilaterally Gastrointestinal: Yes: Normal Bowel Sounds, Soft. No: Tenderness Extremities: Yes: Other (right 2-nd toe w clean dressing) Edema: No Labs: CBC, BMP 04/14/19 06:05 04/14/19 06:05 INR, PTT INR 0.99 (0.83-1.09) 04/12/19 21:40 Problem List - Problems (1) Toe infection Code(s): L08.9 - LOCAL INFECTION OF THE SKIN AND SUBCUTANEOUS TISSUE, UNSP (2) Toe ulcer Code(s): L97.509 - NON-PRESSURE CHRONIC ULCER OTH PRT UNSP FOOT W UNSP SEVERITY (3) COPD (chronic obstructive pulmonary disease) Code(s): J44.9 - CHRONIC OBSTRUCTIVE PULMONARY DISEASE, UNSPECIFIED (4) Multiple sclerosis Code(s): G35 - MULTIPLE SCLEROSIS (5) Restless leg syndrome Code(s): G25.81 - RESTLESS LEGS SYNDROME (6) Rheumatoid arthritis Code(s): M06.9 - RHEUMATOID ARTHRITIS, UNSPECIFIED Assessment/Plan IV abtx. ID, Podiatry consults are appreciated. Vasc Sx consult Readjust Requip Neuro consult. AM labs
--- NOTE | 2019-04-14 13:28 | PN ---
Progress Note (short form) - Note Progress Note: doing well no complaints Vital Signs Period Temp Pulse Resp BP Sys/Holman Pulse Ox Last 24 Hr 97.8 F-99.2 F 67-96 18-20 86-122/53-74 98-98 cor-rrr lungs clear abd soft,nt ext dressing on toe CBC, BMP 04/14/19 06:05 04/14/19 06:05 Microbiology 04/12/19 21:30 Blood - Peripheral Venous Blood Culture - Preliminary NO GROWTH OBTAINED AFTER 24 HOURS, INCUBATION TO CONTINUE FOR 4 DAYS. 04/12/19 21:30 Blood - Peripheral Venous Blood Culture - Preliminary NO GROWTH OBTAINED AFTER 24 HOURS, INCUBATION TO CONTINUE FOR 4 DAYS. Current Medications Acetaminophen (Tylenol -) 650 mg PO Q12H PRN PRN Reason: PAIN LEVEL 6-10 Albuterol Sulfate (Ventolin Hfa Inhaler -) 2 puff IH Q6H PRN PRN Reason: SHORTNESS OF BREATH Last Admin: 04/13/19 11:29 Dose: 2 puff Aspirin (Asa -) 81 mg PO DAILY [facility] Last Admin: 04/14/19 10:46 Dose: 81 mg Clotrimazole (Lotrimin 1% Cream -) 1 applic TP BID [facility] Last Admin: 04/14/19 10:50 Dose: 1 applic Docusate Sodium (Colace -) 300 mg PO TID [facility] Last Admin: 04/14/19 05:51 Dose: 300 mg Vancomycin HCl 750 mg/ (Dextrose) 250 mls @ 150 mls/hr IVPB Q24H [facility]; Protocol Last Admin: 04/13/19 17:51 Dose: 150 mls/hr Cefepime HCl 1 gm/ Dextrose 50 mls @ 100 mls/hr IVPB BID [facility]; Protocol Last Admin: 04/14/19 10:45 Dose: 100 mls/hr Levothyroxine Sodium (Synthroid -) 150 mcg PO DAILY@0700 [facility] Last Admin: 04/14/19 06:00 Dose: 150 mcg Lorazepam (Ativan -) 1 mg PO 0700,1100,1600,2200 [facility] Last Admin: 04/14/19 11:04 Dose: 1 mg Multi-Ingredient Ointment (Zinc Oxide) 1 applic TP DAILY [facility] Last Admin: 04/14/19 10:58 Dose: 1 appful Mupirocin (Bactroban 2% Ointment -) 1 applic TP BID [facility] Last Admin: 04/14/19 10:54 Dose: 1 applic Nystatin (Mycostatin Cream -) 1 applic TP BID [facility] Last Admin: 04/14/19 10:56 Dose: 1 applic Oxycodone HCl (Roxicodone -) 10 mg PO Q6H PRN PRN Reason: PAIN LEVEL 6-10 Last Admin: 04/14/19 11:03 Dose: 10 mg Pantoprazole Sodium (Protonix -) 40 mg PO DAILY [facility] Last Admin: 04/14/19 10:46 Dose: 40 mg Ropinirole HCl (Requip -) 2 mg PO QID [facility] Last Admin: 04/14/19 10:46 Dose: 2 mg Ropinirole HCl (Requip -) 2 mg PO HS PRN PRN Reason: restless legs Fluticasone/Salmeterol (Advair 100mcg/50mcg -) 1 puff IH BID [facility] Last Admin: 04/14/19 10:47 Dose: 1 puff Sertraline HCl (Zoloft -) 200 mg PO HS [facility] Last Admin: 04/13/19 20:59 Dose: 200 mg Sodium Chloride ([place] Nasal [place] -) 1 spray NS BID [facility] Last Admin: 04/14/19 10:57 Dose: 1 spray Triamcinolone Acetonide (Aristocort 0.1% Cream -) 1 applic TP DAILY PRN PRN Reason: FOR ITCHING a/p ulcer second toe- r/o osteo MRI will get cultures from housing property manager office on Tuesday continue vanco/cefepime fungal rash- continue antifungal cream penicillin allergy noted Problem List - Problems (1) Toe ulcer Code(s): L97.509 - NON-PRESSURE CHRONIC ULCER OTH PRT UNSP FOOT W UNSP SEVERITY (2) Nimo rash of groin Code(s): B37.89 - OTHER SITES OF CANDIDIASIS (3) Penicillin allergy Code(s): Z88.0 - ALLERGY STATUS TO PENICILLIN
[2019-04-14] MEDS ORDERED: rOPINIRole HCL 2 MG TABLET (FP) PO SCH ×3 (15:00→23:00)
[2019-04-14] MEDS ORDERED: PT OWN MED DRAWER 7, Y5N ONE ×2 (16:41→20:50)
--- NOTE | 2019-04-14 16:58 | CONSULT ---
Consult - text type - Consultation Consultation Note: NEUROLOGY CONSULTATION is greatly appreciated: This 68 yo RH woman with hypothyroidism, COPD, OA, depression and anxiety is well-known to me with chronic Multiple Sclerosis, ataxia, multiple falls migraine headaches and severe Restless Legs syndrome. Now in assisted living and essentially W/C bound. Incontinent of urine and recently hospitalized for hypotension and UTI. Now admitted for surgical correction of hammer toe. On requip 2 mg QID and 4 mg qhs for RLS and nadolol 40 mg for migraine prophylaxis. MARY: Neck supple. No external head trauma. Ecchymosis left knee. Bandage R toe. NEURO: MS/speech: Pressured but normal CN II-XII sig for gaze-directed nystagmus Motor: No drit. normal strength. Brisk reflexes. Left Babinski. No FTN dystaxia Reduced vibration to the ankles Transfers using bed, W/C IMP: Unchanged neuro exam c/w chronic MS Migraine headaches Severe RLS. Suggest: Continue nadolol 40 mg for migraine prophylaxis Continue Ropinerol 2 mg q 6hrs (resume prior dose upon discharge) Mobilize OOB to chair Check Fe++, TIBC, Ferritin Thank davidy very much, Jose Luis Winslow MD
[2019-04-14] MEDS: VANCOMYCIN 750 MG in DEXTROSE 5%-WATER - 250 ML IVPB SCH (17:45)
[2019-04-14] MEDS: SERTRALINE HCL 50 MG TABLET (FP) PO SCH (22:44)
[2019-04-14] MEDS: rOPINIRole HCL 2 MG TABLET (FP) PO PRN (22:45)
[2019-04-15] MEDS: oxyCODONE HCL 5 MG TABLET PO PRN ×3 (04:09→23:10)
[2019-04-15 06:09] LABS: HEMATOCRIT 30.7 % (32.4-45.2); HEMOGLOBIN 10.9 GM/dL (10.7-15.3); MCH 32.8 pg (25.7-33.7); MCHC 35.5 g/dl (32.0-36.0); MEAN CELL VOLUME 92.4 fl (80-96); MEAN PLT VOLUME 7.3 fl (7.5-11.1); PLATELET COUNT 257 K/MM3 (134-434); RBC 3.33 M/mm3 (3.60-5.2); RDW 14.9 % (11.6-15.6); WHITE BLOOD COUNT 5.1 K/mm3 (4.0-10.0)
[2019-04-15] MEDS: DOCUSATE SODIUM 100 MG CAPSULE (FP) PO SCH ×3 (06:52→22:23)
[2019-04-15] MEDS: LORazepam 1 MG TABLET PO SCH ×4 (06:52→22:23)
[2019-04-15] MEDS: LEVOTHYROXINE NA 150 MCG TABLET PO SCH (06:52)
[2019-04-15 07:18] LABS: ALBUMIN 3.1 g/dl (3.4-5.0); BILIRUBIN,TOTAL 0.6 mg/dL (0.2-1); BLOOD UREA NITROGEN 13.5 mg/dL (7-18); CALCIUM 8.5 mg/dL (8.5-10.1); CREATININE 0.6 mg/dL (0.55-1.3); POTASSIUM 4.3 mmol/L (3.5-5.1); TOT PROT 6.5 g/dl (6.4-8.2)
[2019-04-15] MEDS ORDERED: DEXTROSE 5%-WATER - 50 ML IVPB ONE ×2 (08:32→20:49)
[2019-04-15] MEDS ORDERED: CEFEPIME HCL 1 GM VIAL (RESTRICTED TO ID) ONE ×2 (08:32→20:49)
[2019-04-15] MEDS: CEFEPIME 1 GM in DEXTROSE 5%-WATER - 50 ML IVPB SCH ×2 (09:46→22:23)
[2019-04-15] MEDS: rOPINIRole HCL 2 MG TABLET (FP) PO SCH ×4 (09:46→22:22)
[2019-04-15] MEDS: ASPIRIN 81 MG CHEWABLE TABLETS PO SCH (09:47)
[2019-04-15] MEDS: PANTOPRAZOLE 40 MG TABLET (FP) PO SCH (09:47)
[2019-04-15] MEDS: NYSTATIN 100,000 UNIT/GM TOPICAL CREAM 15 GM TUBE TP SCH ×2 (09:48→23:13)
[2019-04-15] MEDS: ZINC OXIDE 20% TOPICAL OINTMENT 30 GM TUBE TP SCH (09:48)
[2019-04-15] MEDS: FLUTICASONE/SALMETEROL 100 MCG/50 MCG DISKUS IH SCH ×2 (09:49→22:35)
[2019-04-15] MEDS: SODIUM CHLORIDE NASAL SPRAY 44 ML BOTTLE NS SCH ×2 (09:49→22:35)
[2019-04-15] MEDS: CLOTRIMAZOLE 1% CREAM 15 GM TUBE TP SCH ×2 (09:50→23:13)
[2019-04-15] MEDS: MUPIROCIN 2% TOPICAL OINTMENT 22 GM TUBE TP SCH ×2 (09:50→22:23)
--- NOTE | 2019-04-15 13:44 | PN ---
Progress Note (short form) - Note Progress Note: c/o restless legs, reuqesting med adjustment Vital Signs Period Temp Pulse Resp BP Sys/Holman Pulse Ox Last 24 Hr 97.8 F-98.2 F 68-91 16-20 105-123/62-74 98 cor-rrr lungs clear abd soft,nt ext erythema of the toe resolved!, ulcer is clean CBC, BMP 04/15/19 05:33 04/15/19 05:33 Microbiology 04/12/19 21:30 Blood - Peripheral Venous Blood Culture - Preliminary NO GROWTH OBTAINED AFTER 48 HOURS, INCUBATION TO CONTINUE FOR 3 DAYS. 04/12/19 21:30 Blood - Peripheral Venous Blood Culture - Preliminary NO GROWTH OBTAINED AFTER 48 HOURS, INCUBATION TO CONTINUE FOR 3 DAYS. 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
--- NOTE | 2019-04-15 14:42 | CONSULT ---
Consult Consult Specialty:: Vascular Surgery - History of Present Illness History of Present Illness: 68 year old woman with MS, rheumatoid arthritis has wound of right 2nd te with possible bone involvement. She has no history of arterial disease. She does not walk much due to arthritis, neck pain and restless leg syndrome. 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; restless leg syndrome) Pulmonary: Yes: Bronchitis, COPD Gastrointestinal: Yes: GERD Musculoskeletal: Yes: Other (MS) Rheumatology: Yes: Rheumatoid Arthritis (refusing to take medication) - Past Surgical History Past Surgical History: Yes: Tonsillectomy Additional Surgical History: left shoulder replacement - Alcohol/Substance Use Hx Alcohol Use: No - Smoking History Smoking history: Current every day smoker (6 cigarettes/day) Have you smoked in the past 12 months: Yes Aproximately how many cigarettes per day: 6 - Social History Usual Living Arrangement: Assisted Living ADL: Support Services Occupation: History of Recent Travel: No Home Medications - Allergies Allergies/Adverse Reactions: Allergies Allergy/AdvReac Type Severity Reaction Status Date / Time omeprazole Allergy Verified 03/17/19 01:35 Penicillins Allergy Verified 03/17/19 01:35 - Home Medications Home Medications: Ambulatory Orders Albuterol Sulfate Inhaler - [Ventolin HFA Inhaler -] 1 - 2 inh PO PRN 03/13/19 Aspirin [ASA -] 81 mg PO DAILY 03/13/19 Docusate Sodium [Colace -] 300 mg PO TID 03/13/19 Levothyroxine [Synthroid -] 150 mcg PO DAILY 03/13/19 Oxycodone HCl/Acetaminophen [Endocet 10-325 mg Tablet] 1 each PO QID PRN MDD 4 03/13/19 Ropinirole HCl [Ropinirole ER] 8 mg PO HS 03/13/19 Salmeterol/Fluticasone [Advair 100Mcg/50Mcg -] 1 inh PO BID 03/13/19 Sertraline HCl [Zoloft] 200 mg PO HS 03/13/19 Ativan 1 mg PO QID 03/17/19 Mag Hydrox/Aluminum Hyd/Simeth [Amalia-Lanta Liquid] 10 ml PO BID PRN 03/17/19 Polyethylene Glycol 3350 17 grams PO DAILY PRN 03/17/19 Ropinirole HCl 2 mg PO QID 03/17/19 Ropinirole HCl [Requip -] 2 mg PO HS PRN 03/17/19 Saline Nasal [place] 1 spray BID 03/17/19 Triamcinolone 0.1% Cream [Aristocort 0.1% Cream -] 1 applic TP PRN PRN 03/17/19 Zinc Oxide 1 applic TP DAILY 03/17/19 Acetaminophen 500 mg PO QID 04/13/19 Physical Exam Vital Signs: Vital Signs Temperature 98.2 F 04/15/19 13:32 Pulse Rate 91 H 04/15/19 13:32 Respiratory Rate 20 04/15/19 13:32 Blood Pressure 123/74 04/15/19 13:32 O2 Sat by Pulse Oximetry (%) 98 04/14/19 21:00 Constitutional: Yes: Thin Extremities: Yes: Other (Feet warm, toes curled. Dry eschar right 2nd toe.) Edema: No Peripheral Pulses WNL: No (Palpable femoral, none distal) Labs: CBC, BMP 04/15/19 05:33 04/15/19 05:33 Problem List - Problems (1) Toe ulcer Assessment/Plan: Right toe ulcer at pressure point. Patient is smoker and lack of palpable pulses raises raises question of arterial disease. Arterial Duplex and Doppler studies ordered. Further recommendations after testing. Problems reviewed: Yes Code(s): L97.509 - NON-PRESSURE CHRONIC ULCER OTH PRT UNSP FOOT W UNSP SEVERITY Qualifiers: Laterality: right Non-pressure ulcer stage: with necrosis of bone Qualified Code(s): L97.514 - Non-pressure chronic ulcer of other part of right foot with necrosis of bone
--- NOTE | 2019-04-15 15:55 | PN ---
Progress Note, Physician History of Present Illness: Pt w/o fever, chills, SOB, CP, abd pain. - Current Medication List Current Medications: Active Medications Acetaminophen (Tylenol -) 650 mg PO Q12H PRN PRN Reason: PAIN LEVEL 6-10 Albuterol Sulfate (Ventolin Hfa Inhaler -) 2 puff IH Q6H PRN PRN Reason: SHORTNESS OF BREATH Last Admin: 04/13/19 11:29 Dose: 2 puff Aspirin (Asa -) 81 mg PO DAILY [facility] Last Admin: 04/15/19 09:47 Dose: 81 mg Clotrimazole (Lotrimin 1% Cream -) 1 applic TP BID [facility] Last Admin: 04/15/19 09:50 Dose: 1 applic Docusate Sodium (Colace -) 300 mg PO TID [facility] Last Admin: 04/15/19 13:44 Dose: 300 mg Vancomycin HCl 750 mg/ (Dextrose) 250 mls @ 150 mls/hr IVPB Q24H [facility]; Protocol Last Admin: 04/14/19 17:45 Dose: 150 mls/hr Cefepime HCl 1 gm/ Dextrose 50 mls @ 100 mls/hr IVPB BID [facility]; Protocol Last Admin: 04/15/19 09:46 Dose: 100 mls/hr Levothyroxine Sodium (Synthroid -) 150 mcg PO DAILY@0700 [facility] Last Admin: 04/15/19 06:52 Dose: 150 mcg Lorazepam (Ativan -) 1 mg PO 0700,1100,1600,2200 [facility] Last Admin: 04/15/19 12:17 Dose: 1 mg Multi-Ingredient Ointment (Zinc Oxide) 1 applic TP DAILY [facility] Last Admin: 04/15/19 09:48 Dose: 1 appful Mupirocin (Bactroban 2% Ointment -) 1 applic TP BID [facility] Last Admin: 04/15/19 09:50 Dose: 1 applic Nystatin (Mycostatin Cream -) 1 applic TP BID [facility] Last Admin: 04/15/19 09:48 Dose: 1 applic Oxycodone HCl (Roxicodone -) 10 mg PO Q6H PRN PRN Reason: PAIN LEVEL 6-10 Last Admin: 04/15/19 13:43 Dose: 10 mg Pantoprazole Sodium (Protonix -) 40 mg PO DAILY [facility] Last Admin: 04/15/19 09:47 Dose: 40 mg Ropinirole HCl (Requip -) 2 mg PO HS PRN PRN Reason: restless legs Last Admin: 04/14/19 22:45 Dose: 2 mg Ropinirole HCl (Requip -) 2 mg PO QID [facility] Last Admin: 04/15/19 13:40 Dose: 2 mg Fluticasone/Salmeterol (Advair 100mcg/50mcg -) 1 puff IH BID [facility] Last Admin: 04/15/19 09:49 Dose: 1 puff Sertraline HCl (Zoloft -) 200 mg PO HS [facility] Last Admin: 04/14/19 22:44 Dose: 200 mg Sodium Chloride ([place] Nasal [place] -) 1 spray NS BID [facility] Last Admin: 04/15/19 09:49 Dose: 1 spray Triamcinolone Acetonide (Aristocort 0.1% Cream -) 1 applic TP DAILY PRN PRN Reason: FOR ITCHING - Objective Vital Signs: Vital Signs Temperature 98.2 F 04/15/19 13:32 Pulse Rate 91 H 04/15/19 13:32 Respiratory Rate 20 04/15/19 13:32 Blood Pressure 123/74 04/15/19 13:32 O2 Sat by Pulse Oximetry (%) 98 04/15/19 09:00 Constitutional: Yes: No Distress, Calm Cardiovascular: Yes: Regular Rate and Rhythm, S1, S2 Respiratory: Yes: Regular, CTA Bilaterally. No: Rales Gastrointestinal: Yes: Normal Bowel Sounds, Soft. No: Tenderness Edema: No Neurological: Yes: Alert, Oriented Labs: CBC, BMP 04/15/19 05:33 04/15/19 05:33 INR, PTT INR 0.99 (0.83-1.09) 04/12/19 21:40 Problem List - Problems (1) Toe infection Code(s): L08.9 - LOCAL INFECTION OF THE SKIN AND SUBCUTANEOUS TISSUE, UNSP (2) Toe ulcer Code(s): L97.509 - NON-PRESSURE CHRONIC ULCER OTH PRT UNSP FOOT W UNSP SEVERITY Qualifiers: Laterality: right Non-pressure ulcer stage: with necrosis of bone Qualified Code(s): L97.514 - Non-pressure chronic ulcer of other part of right foot with necrosis of bone (3) COPD (chronic obstructive pulmonary disease) Code(s): J44.9 - CHRONIC OBSTRUCTIVE PULMONARY DISEASE, UNSPECIFIED (4) Multiple sclerosis Code(s): G35 - MULTIPLE SCLEROSIS (5) Restless leg syndrome Code(s): G25.81 - RESTLESS LEGS SYNDROME (6) Rheumatoid arthritis Code(s): M06.9 - RHEUMATOID ARTHRITIS, UNSPECIFIED (7) Hyponatremia Assessment/Plan: borderline; to monitor Code(s): E87.1 - HYPO-OSMOLALITY AND HYPONATREMIA Assessment/Plan IV abtx. ID, Podiatry,Neuro, Vascular Sx consults are appreciated. AM labs Pt's care was d/w pt's nurse.
[2019-04-15] MEDS ORDERED: PT OWN MED DRAWER 7, Y5N ONE ×2 (16:38→20:49)
[2019-04-15] MEDS: VANCOMYCIN 750 MG in DEXTROSE 5%-WATER - 250 ML IVPB SCH (17:14)
[2019-04-15] MEDS: SERTRALINE HCL 50 MG TABLET (FP) PO SCH (22:22)
[2019-04-15] MEDS: rOPINIRole HCL 2 MG TABLET (FP) PO PRN (22:22)
[2019-04-16] MEDS: ACETAMINOPHEN 325 MG TABLET (FP) PO PRN ×3 (06:00→18:22)
[2019-04-16] MEDS: oxyCODONE HCL 5 MG TABLET PO PRN ×3 (06:00→18:22)
[2019-04-16] MEDS: LEVOTHYROXINE NA 150 MCG TABLET PO SCH (06:01)
[2019-04-16] MEDS: DOCUSATE SODIUM 100 MG CAPSULE (FP) PO SCH ×3 (06:01→22:48)
[2019-04-16] MEDS: LORazepam 1 MG TABLET PO SCH ×4 (06:01→22:52)
[2019-04-16 07:58] LABS: BILIRUBIN,TOTAL 0.3 mg/dL (0.2-1); BLOOD UREA NITROGEN 18.8 mg/dL (7-18); CALCIUM 8.2 mg/dL (8.5-10.1); CREATININE 0.6 mg/dL (0.55-1.3); POTASSIUM 4.7 mmol/L (3.5-5.1); TOT PROT 6.2 g/dl (6.4-8.2)
--- NOTE | 2019-04-16 09:44 | PN ---
Progress Note (short form) - Note Progress Note: VASCULAR SURGERY Dr. Plaza's consult reviewed. No acute events per RN notes. Remains afebrile. AVSS. LE Arterial Duplex: moderate atherosclerotic disease with abnormal flow bilaterally. Problem List - Problems (1) Toe infection Assessment/Plan: 68 yo female with ulcer/eschar to right toe. Current everyday smoker. Lacks LE palpable pulses raises raises question of arterial disease. Arterial Doppler studies ordered 04/15 but not performed yet. Further recommendations when all imaging completed. Cont care per primary team Fall precautions per hospital policy (patient has been non-compliant) Above plan discussed with Dr. Plaza and agrees. Code(s): L08.9 - LOCAL INFECTION OF THE SKIN AND SUBCUTANEOUS TISSUE, UNSP (2) COPD (chronic obstructive pulmonary disease) Code(s): J44.9 - CHRONIC OBSTRUCTIVE PULMONARY DISEASE, UNSPECIFIED (3) Multiple sclerosis Code(s): G35 - MULTIPLE SCLEROSIS (4) Rheumatoid arthritis Code(s): M06.9 - RHEUMATOID ARTHRITIS, UNSPECIFIED (5) Unable to ambulate Code(s): R26.2 - DIFFICULTY IN WALKING, NOT ELSEWHERE CLASSIFIED (6) Restless leg syndrome Code(s): G25.81 - RESTLESS LEGS SYNDROME
[2019-04-16] MEDS ORDERED: CEFEPIME HCL 1 GM VIAL (RESTRICTED TO ID) ONE ×2 (10:12→21:09)
[2019-04-16] MEDS ORDERED: DEXTROSE 5%-WATER - 50 ML IVPB ONE ×2 (10:12→21:09)
[2019-04-16] MEDS ORDERED: PT OWN MED DRAWER 7, Y5N ONE ×2 (10:12→21:09)
[2019-04-16] MEDS: CEFEPIME 1 GM in DEXTROSE 5%-WATER - 50 ML IVPB SCH ×2 (10:13→22:48)
[2019-04-16] MEDS: ASPIRIN 81 MG CHEWABLE TABLETS PO SCH (10:14)
[2019-04-16] MEDS: PANTOPRAZOLE 40 MG TABLET (FP) PO SCH (10:14)
[2019-04-16] MEDS: rOPINIRole HCL 2 MG TABLET (FP) PO SCH ×4 (10:15→23:00)
[2019-04-16] MEDS: MUPIROCIN 2% TOPICAL OINTMENT 22 GM TUBE TP SCH ×3 (10:17→23:06)
[2019-04-16] MEDS: FLUTICASONE/SALMETEROL 100 MCG/50 MCG DISKUS IH SCH ×2 (10:17→22:55)
[2019-04-16] MEDS: CLOTRIMAZOLE 1% CREAM 15 GM TUBE TP SCH ×3 (10:18→22:47)
[2019-04-16] MEDS: NYSTATIN 100,000 UNIT/GM TOPICAL CREAM 15 GM TUBE TP SCH ×3 (10:18→22:49)
[2019-04-16] MEDS: SODIUM CHLORIDE NASAL SPRAY 44 ML BOTTLE NS SCH ×2 (10:19→22:54)
[2019-04-16] MEDS: ZINC OXIDE 20% TOPICAL OINTMENT 30 GM TUBE TP SCH ×2 (10:19→18:55)
--- NOTE | 2019-04-16 12:50 | PN ---
Progress Note (short form) - Note Progress Note: Podiatry F/U: Seen/evaluated at bedside NAD. Denies F/V/N/C/SOB/CP. Afebrile. MRI completed this am. AZ: R foot: pedal pulses nonpalpable, TG wnl. There is a right second digit pressure ulcer, bone palpated, no purulence, no fluctuance, improving digital erythema, moderate digital edema, no soft tissue crepitus, no streaking cellulitis, no lymphadenopathy. MRI R foot: pending report Imp: 68 year old PVD, active smoker with right second digit pressure ulcer, ? osteomyelitis 1. IV abx per infectious disease 2. Continue local care 3. Vascular workup in progress 4. May need 2nd digit arthroplasty with bone biopsy. Will be on standby. Tay Higgins DPM
--- NOTE | 2019-04-16 14:08 | PN ---
Progress Note (short form) - Note Progress Note: reviewed cultures from podiatry office- PRELIM- no culture results as of yet will call in am Vital Signs Period Temp Pulse Resp BP Sys/Holman Pulse Ox Last 24 Hr 98 F-98.8 F 78-86 16-18 92-128/52-72 98-98 less erythema of the toe, ulcer is dry CBC, BMP 04/15/19 05:33 04/16/19 06:15 Microbiology 04/12/19 21:30 Blood - Peripheral Venous Blood Culture - Preliminary NO GROWTH OBTAINED AFTER 72 HOURS, INCUBATION TO CONTINUE FOR 2 DAYS. 04/12/19 21:30 Blood - Peripheral Venous Blood Culture - Preliminary NO GROWTH OBTAINED AFTER 72 HOURS, INCUBATION TO CONTINUE FOR 2 DAYS. 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
[2019-04-16] MEDS: VANCOMYCIN 750 MG in DEXTROSE 5%-WATER - 250 ML IVPB SCH (17:14)
--- NOTE | 2019-04-16 18:51 | PN ---
Progress Note, Physician History of Present Illness: Pt w/o fever, chills, SOB, CP, abd pain, foot or toe pain. - Current Medication List Current Medications: Active Medications Acetaminophen (Tylenol -) 650 mg PO Q6H PRN PRN Reason: PAIN LEVEL 6-10 Last Admin: 04/16/19 18:22 Dose: 650 mg Albuterol Sulfate (Ventolin Hfa Inhaler -) 2 puff IH Q6H PRN PRN Reason: SHORTNESS OF BREATH Last Admin: 04/13/19 11:29 Dose: 2 puff Aspirin (Asa -) 81 mg PO DAILY [facility] Last Admin: 04/16/19 10:14 Dose: 81 mg Clotrimazole (Lotrimin 1% Cream -) 1 applic TP BID [facility] Last Admin: 04/16/19 10:18 Dose: 1 applic Docusate Sodium (Colace -) 300 mg PO TID [facility] Last Admin: 04/16/19 13:19 Dose: 300 mg Vancomycin HCl 750 mg/ (Dextrose) 250 mls @ 150 mls/hr IVPB Q24H [facility]; Protocol Last Admin: 04/16/19 17:14 Dose: 150 mls/hr Cefepime HCl 1 gm/ Dextrose 50 mls @ 100 mls/hr IVPB BID [facility]; Protocol Last Admin: 04/16/19 10:13 Dose: 100 mls/hr Levothyroxine Sodium (Synthroid -) 150 mcg PO DAILY@0700 [facility] Last Admin: 04/16/19 06:01 Dose: 150 mcg Lorazepam (Ativan -) 1 mg PO 0700,1100,1600,2200 [facility] Last Admin: 04/16/19 17:13 Dose: 1 mg Multi-Ingredient Ointment (Zinc Oxide) 1 applic TP DAILY [facility] Last Admin: 04/16/19 10:19 Dose: 1 appful Mupirocin (Bactroban 2% Ointment -) 1 applic TP BID [facility] Last Admin: 04/16/19 10:17 Dose: 1 applic Nystatin (Mycostatin Cream -) 1 applic TP BID [facility] Last Admin: 04/16/19 10:18 Dose: 1 applic Oxycodone HCl (Roxicodone -) 10 mg PO Q6H PRN PRN Reason: PAIN LEVEL 6-10 Last Admin: 04/16/19 18:22 Dose: 10 mg Pantoprazole Sodium (Protonix -) 40 mg PO DAILY [facility] Last Admin: 04/16/19 10:14 Dose: 40 mg Ropinirole HCl (Requip -) 2 mg PO HS PRN PRN Reason: restless legs Last Admin: 04/15/19 22:22 Dose: 2 mg Ropinirole HCl (Requip -) 2 mg PO QID [facility] Last Admin: 04/16/19 17:15 Dose: 2 mg Fluticasone/Salmeterol (Advair 100mcg/50mcg -) 1 puff IH BID [facility] Last Admin: 04/16/19 10:17 Dose: 1 puff Sertraline HCl (Zoloft -) 200 mg PO HS [facility] Last Admin: 04/15/19 22:22 Dose: 200 mg Sodium Chloride ([place] Nasal [place] -) 1 spray NS BID [facility] Last Admin: 04/16/19 10:19 Dose: 1 spray Triamcinolone Acetonide (Aristocort 0.1% Cream -) 1 applic TP DAILY PRN PRN Reason: FOR ITCHING - Objective Vital Signs: Vital Signs Temperature 97.5 F L 04/16/19 14:40 Pulse Rate 75 04/16/19 14:40 Respiratory Rate 20 04/16/19 14:40 Blood Pressure 111/63 04/16/19 14:40 O2 Sat by Pulse Oximetry (%) 98 04/16/19 08:49 Constitutional: Yes: No Distress, Calm Cardiovascular: Yes: Regular Rate and Rhythm, S1, S2 Respiratory: Yes: Regular, CTA Bilaterally. No: Rales Gastrointestinal: Yes: Normal Bowel Sounds, Soft. No: Tenderness Extremities: Yes: Other (right 2-nd toe: + 5 mm ulcer, no drainage) Edema: No Neurological: Yes: Alert, Oriented Labs: CBC, BMP 04/15/19 05:33 04/16/19 06:15 INR, PTT INR 0.99 (0.83-1.09) 04/12/19 21:40 - ....Imaging MRI: Report Reviewed Problem List - Problems (1) Toe infection Code(s): L08.9 - LOCAL INFECTION OF THE SKIN AND SUBCUTANEOUS TISSUE, UNSP (2) Toe ulcer Code(s): L97.509 - NON-PRESSURE CHRONIC ULCER OTH PRT UNSP FOOT W UNSP SEVERITY Qualifiers: Laterality: right Non-pressure ulcer stage: with necrosis of bone Qualified Code(s): L97.514 - Non-pressure chronic ulcer of other part of right foot with necrosis of bone (3) COPD (chronic obstructive pulmonary disease) Code(s): J44.9 - CHRONIC OBSTRUCTIVE PULMONARY DISEASE, UNSPECIFIED (4) Multiple sclerosis Code(s): G35 - MULTIPLE SCLEROSIS (5) Restless leg syndrome Code(s): G25.81 - RESTLESS LEGS SYNDROME (6) Rheumatoid arthritis Code(s): M06.9 - RHEUMATOID ARTHRITIS, UNSPECIFIED (7) Hyponatremia Code(s): E87.1 - HYPO-OSMOLALITY AND HYPONATREMIA Assessment/Plan IV abtx. ID, Podiatry,Neuro, Vascular Sx consults are appreciated. Probable OM of R 2-nd toe AM labs Pt's care was d/w pt's nurse.
[2019-04-16] MEDS: SERTRALINE HCL 50 MG TABLET (FP) PO SCH (22:48)
[2019-04-16] MEDS: rOPINIRole HCL 2 MG TABLET (FP) PO PRN (23:13)
[2019-04-17] MEDS: rOPINIRole HCL 2 MG TABLET (FP) PO PRN ×2 (00:55→23:15)
[2019-04-17] MEDS ORDERED: PANTOPRAZOLE 40 MG TABLET (FP) PO ONE (01:15)
[2019-04-17] MEDS: oxyCODONE HCL 5 MG TABLET PO PRN ×4 (01:43→20:32)
[2019-04-17] MEDS: ACETAMINOPHEN 325 MG TABLET (FP) PO PRN ×4 (01:44→20:34)
[2019-04-17] MEDS: LEVOTHYROXINE NA 150 MCG TABLET PO SCH (07:02)
[2019-04-17] MEDS: DOCUSATE SODIUM 100 MG CAPSULE (FP) PO SCH ×3 (07:02→21:58)
[2019-04-17] MEDS: LORazepam 1 MG TABLET PO SCH ×4 (07:08→22:00)
[2019-04-17 07:32] LABS: HEMATOCRIT 30.1 % (32.4-45.2); MCH 30.4 pg (25.7-33.7); MCHC 33.2 g/dl (32.0-36.0); MEAN CELL VOLUME 91.6 fl (80-96); PLATELET COUNT 259 K/MM3 (134-434); RBC 3.29 M/mm3 (3.60-5.2); WHITE BLOOD COUNT 3.9 K/mm3 (4.0-10.0)
[2019-04-17 07:48] LABS: ALBUMIN 2.9 g/dl (3.4-5.0); BILIRUBIN,TOTAL 0.3 mg/dL (0.2-1); BLOOD UREA NITROGEN 17.3 mg/dL (7-18); CALCIUM 8.3 mg/dL (8.5-10.1); CREATININE 0.6 mg/dL (0.55-1.3); POTASSIUM 4.5 mmol/L (3.5-5.1); TOT PROT 6.2 g/dl (6.4-8.2)
--- NOTE | 2019-04-17 08:00 | PN ---
Progress Note (short form) - Note Progress Note: awaiting doppler read, will follow.
[2019-04-17] MEDS ORDERED: CEFEPIME HCL 1 GM VIAL (RESTRICTED TO ID) ONE ×2 (09:36→21:28)
[2019-04-17] MEDS ORDERED: DEXTROSE 5%-WATER - 50 ML IVPB ONE ×2 (09:37→21:28)
[2019-04-17] MEDS: NYSTATIN 100,000 UNIT/GM TOPICAL CREAM 15 GM TUBE TP SCH ×2 (09:49→23:00)
[2019-04-17] MEDS: MUPIROCIN 2% TOPICAL OINTMENT 22 GM TUBE TP SCH ×2 (09:49→23:00)
[2019-04-17] MEDS: CLOTRIMAZOLE 1% CREAM 15 GM TUBE TP SCH ×2 (09:49→23:00)
[2019-04-17] MEDS: ZINC OXIDE 20% TOPICAL OINTMENT 30 GM TUBE TP SCH (09:49)
[2019-04-17] MEDS: CEFEPIME 1 GM in DEXTROSE 5%-WATER - 50 ML IVPB SCH ×2 (09:50→21:43)
[2019-04-17] MEDS: rOPINIRole HCL 2 MG TABLET (FP) PO SCH ×4 (09:51→21:59)
[2019-04-17] MEDS: FLUTICASONE/SALMETEROL 100 MCG/50 MCG DISKUS IH SCH ×2 (09:51→23:00)
[2019-04-17] MEDS: SODIUM CHLORIDE NASAL SPRAY 44 ML BOTTLE NS SCH ×2 (09:51→22:04)
[2019-04-17] MEDS: ASPIRIN 81 MG CHEWABLE TABLETS PO SCH (09:52)
[2019-04-17] MEDS: PANTOPRAZOLE 40 MG TABLET (FP) PO SCH (09:52)
--- NOTE | 2019-04-17 09:59 | PN ---
Progress Note (short form) - Note Progress Note: Arterial Doppler study shows normal flow in right leg with DUDLEY 0.9. There is evidence for left femoral artery occlusive disease with moderate flow deficit to ankle, DUDLEY 0.7. There is no indication for vascular intervention at this time. Podiatric wound care/surgery as needed. Problem List - Problems (1) Toe ulcer Code(s): L97.509 - NON-PRESSURE CHRONIC ULCER OTH PRT UNSP FOOT W UNSP SEVERITY Qualifiers: Laterality: right Non-pressure ulcer stage: with necrosis of bone Qualified Code(s): L97.514 - Non-pressure chronic ulcer of other part of right foot with necrosis of bone
[2019-04-17] MEDS ORDERED: PT OWN MED DRAWER 7, Y5N ONE (14:37)
--- NOTE | 2019-04-17 17:24 | PN ---
Progress Note (short form) - Note Progress Note: Podiatry F/U: Seen/evaluated at bedside NAD. Pain controlled, denies F/V/N/C/SOB/CP. Afebrile. MRI completed. AZ: R foot: pedal pulses nonpalpable, TG wnl. Dorsal 2nd digit PIPJ pressure ulcer with palpable bone, no purulence, digital erythema and edema noted, no soft tissue crepitus, no streaking cellulitis. Mild tenderness to palpation. MRI: (+) osteomyelitis 2nd proximal phalanx Imp: 68 year old female with right second digit pressure ulcer and osteomyelitis 1. IV abx per ID 2. Continue local care 3. Discussed treatment options with patient. May need second digit arthroplasty with bone biopsy. 4. Will follow Tay Higgins DPM
[2019-04-17] MEDS: VANCOMYCIN 750 MG in DEXTROSE 5%-WATER - 250 ML IVPB SCH (18:40)
--- NOTE | 2019-04-17 20:26 | PN ---
Progress Note, Physician History of Present Illness: Pt w/o fever, chills, SOB, CP, abd pain, foot or toe pain. - Current Medication List Current Medications: Active Medications Acetaminophen (Tylenol -) 650 mg PO Q6H PRN PRN Reason: PAIN LEVEL 6-10 Last Admin: 04/17/19 14:23 Dose: 650 mg Albuterol Sulfate (Ventolin Hfa Inhaler -) 2 puff IH Q6H PRN PRN Reason: SHORTNESS OF BREATH Last Admin: 04/13/19 11:29 Dose: 2 puff Aspirin (Asa -) 81 mg PO DAILY [facility] Last Admin: 04/17/19 09:52 Dose: 81 mg Clotrimazole (Lotrimin 1% Cream -) 1 applic TP BID [facility] Last Admin: 04/17/19 09:49 Dose: Not Given Docusate Sodium (Colace -) 300 mg PO TID [facility] Last Admin: 04/17/19 14:23 Dose: 300 mg Vancomycin HCl 750 mg/ (Dextrose) 250 mls @ 150 mls/hr IVPB Q24H [facility]; Protocol Last Admin: 04/17/19 18:40 Dose: 150 mls/hr Cefepime HCl 1 gm/ Dextrose 50 mls @ 100 mls/hr IVPB BID [facility]; Protocol Last Admin: 04/17/19 09:50 Dose: 100 mls/hr Levothyroxine Sodium (Synthroid -) 150 mcg PO DAILY@0700 [facility] Last Admin: 04/17/19 07:02 Dose: 150 mcg Lorazepam (Ativan -) 1 mg PO 0700,1100,1600,2200 [facility] Last Admin: 04/17/19 17:11 Dose: 1 mg Multi-Ingredient Ointment (Zinc Oxide) 1 applic TP DAILY [facility] Last Admin: 04/17/19 09:49 Dose: Not Given Mupirocin (Bactroban 2% Ointment -) 1 applic TP BID [facility] Last Admin: 04/17/19 09:49 Dose: Not Given Nystatin (Mycostatin Cream -) 1 applic TP BID [facility] Last Admin: 04/17/19 09:49 Dose: Not Given Oxycodone HCl (Roxicodone -) 10 mg PO Q6H PRN PRN Reason: PAIN LEVEL 6-10 Last Admin: 04/17/19 14:23 Dose: 10 mg Pantoprazole Sodium (Protonix -) 40 mg PO DAILY [facility] Last Admin: 04/17/19 09:52 Dose: 40 mg Ropinirole HCl (Requip -) 2 mg PO HS PRN PRN Reason: restless legs Last Admin: 04/17/19 00:55 Dose: 2 mg Ropinirole HCl (Requip -) 2 mg PO QID [facility] Last Admin: 04/17/19 17:12 Dose: 2 mg Fluticasone/Salmeterol (Advair 100mcg/50mcg -) 1 puff IH BID [facility] Last Admin: 04/17/19 09:51 Dose: 1 puff Sertraline HCl (Zoloft -) 200 mg PO HS [facility] Last Admin: 04/16/19 22:48 Dose: 200 mg Sodium Chloride ([place] Nasal [place] -) 1 spray NS BID [facility] Last Admin: 04/17/19 09:51 Dose: 1 spray Triamcinolone Acetonide (Aristocort 0.1% Cream -) 1 applic TP DAILY PRN PRN Reason: FOR ITCHING - Objective Vital Signs: Vital Signs Temperature 98 F 04/17/19 19:47 Pulse Rate 83 04/17/19 19:47 Respiratory Rate 18 04/17/19 19:47 Blood Pressure 113/64 04/17/19 19:47 O2 Sat by Pulse Oximetry (%) 99 04/17/19 09:00 Constitutional: Yes: No Distress, Calm Cardiovascular: Yes: Regular Rate and Rhythm, S1, S2 Respiratory: Yes: Regular, CTA Bilaterally. No: Rales Gastrointestinal: Yes: Normal Bowel Sounds, Soft. No: Tenderness Edema: No Neurological: Yes: Alert, Oriented Labs: CBC, BMP 04/17/19 06:50 04/17/19 06:30 INR, PTT INR 0.99 (0.83-1.09) 04/12/19 21:40 Problem List - Problems (1) Toe infection Code(s): L08.9 - LOCAL INFECTION OF THE SKIN AND SUBCUTANEOUS TISSUE, UNSP (2) Toe ulcer Code(s): L97.509 - NON-PRESSURE CHRONIC ULCER OTH PRT UNSP FOOT W UNSP SEVERITY Qualifiers: Laterality: right Non-pressure ulcer stage: with necrosis of bone Qualified Code(s): L97.514 - Non-pressure chronic ulcer of other part of right foot with necrosis of bone (3) COPD (chronic obstructive pulmonary disease) Code(s): J44.9 - CHRONIC OBSTRUCTIVE PULMONARY DISEASE, UNSPECIFIED (4) Multiple sclerosis Code(s): G35 - MULTIPLE SCLEROSIS (5) Restless leg syndrome Code(s): G25.81 - RESTLESS LEGS SYNDROME (6) Rheumatoid arthritis Code(s): M06.9 - RHEUMATOID ARTHRITIS, UNSPECIFIED (7) Hyponatremia Code(s): E87.1 - HYPO-OSMOLALITY AND HYPONATREMIA (8) Osteomyelitis Code(s): M86.9 - OSTEOMYELITIS, UNSPECIFIED Assessment/Plan IV abtx. ID, Podiatry,Neuro, Vascular Sx consults are appreciated. Would CX is pending; to f/u with ID id pt needs PICC line. To f/u with Podiatry is pt would be scheduled for surgery. AM labs Pt's care was d/w pt's nurse.
[2019-04-17] MEDS: SERTRALINE HCL 50 MG TABLET (FP) PO SCH (21:58)
[2019-04-18] MEDS: oxyCODONE HCL 5 MG TABLET PO PRN ×4 (03:33→23:02)
[2019-04-18] MEDS: ACETAMINOPHEN 325 MG TABLET (FP) PO PRN ×4 (03:34→23:03)
[2019-04-18] MEDS: DOCUSATE SODIUM 100 MG CAPSULE (FP) PO SCH ×3 (05:43→22:33)
[2019-04-18] MEDS: LORazepam 1 MG TABLET PO SCH ×4 (06:35→22:33)
[2019-04-18] MEDS: LEVOTHYROXINE NA 150 MCG TABLET PO SCH (06:35)
[2019-04-18 07:29] LABS: ALBUMIN 3.3 g/dl (3.4-5.0); BILIRUBIN,TOTAL 0.2 mg/dL (0.2-1); BLOOD UREA NITROGEN 18.3 mg/dL (7-18); CALCIUM 8.5 mg/dL (8.5-10.1); CREATININE 0.7 mg/dL (0.55-1.3); POTASSIUM 5.1 mmol/L (3.5-5.1)
[2019-04-18] MEDS ORDERED: CEFEPIME HCL 1 GM VIAL (RESTRICTED TO ID) ONE (08:24)
[2019-04-18] MEDS ORDERED: DEXTROSE 5%-WATER - 50 ML IVPB ONE (08:25)
[2019-04-18] MEDS: CLOTRIMAZOLE 1% CREAM 15 GM TUBE TP SCH ×2 (09:29→22:54)
[2019-04-18] MEDS: FLUTICASONE/SALMETEROL 100 MCG/50 MCG DISKUS IH SCH ×2 (09:29→22:39)
[2019-04-18] MEDS: ZINC OXIDE 20% TOPICAL OINTMENT 30 GM TUBE TP SCH (09:30)
[2019-04-18] MEDS: NYSTATIN 100,000 UNIT/GM TOPICAL CREAM 15 GM TUBE TP SCH ×2 (09:30→22:54)
[2019-04-18] MEDS: ALBUTEROL SO4 8 GM HFA INHALER IH PRN (09:31)
[2019-04-18] MEDS: SODIUM CHLORIDE NASAL SPRAY 44 ML BOTTLE NS SCH ×2 (09:31→22:59)
[2019-04-18] MEDS: PANTOPRAZOLE 40 MG TABLET (FP) PO SCH (09:32)
[2019-04-18] MEDS: ASPIRIN 81 MG CHEWABLE TABLETS PO SCH (09:32)
[2019-04-18] MEDS: CEFEPIME 1 GM in DEXTROSE 5%-WATER - 50 ML IVPB SCH (09:32)
[2019-04-18] MEDS: MUPIROCIN 2% TOPICAL OINTMENT 22 GM TUBE TP SCH ×2 (09:32→22:39)
[2019-04-18] MEDS: rOPINIRole HCL 2 MG TABLET (FP) PO SCH ×4 (09:33→22:33)
--- NOTE | 2019-04-18 16:50 | PN ---
Progress Note (short form) - Note Progress Note: Podiatry F/U: Seen/evaluated at bedside NAD. Pain controlled, denies F/V/N/C/SOB/CP. Afebrile. Discussed surgical intervention with the patient. AZ: R foot: pedal pulses nonpalpable, TG wnl. Dorsal 2nd digit PIPJ pressure ulcer with palpable bone, no purulence, digital erythema and edema noted, no soft tissue crepitus, no streaking cellulitis. Mild tenderness to palpation. MRI: (+) osteomyelitis 2nd proximal phalanx Imp: 68 year old female with right second digit pressure ulcer and osteomyelitis evaluated and reviewed Patient placed on schedule for tomorrow for OR for right 2nd digit arthroplasty ; biopsy; and closure of wound Will be NPO past midnight pending time in OR but likely around 2 PM if available discused with patient and she understands NPO past midnight OR tomorrow.
--- NOTE | 2019-04-18 17:16 | PN ---
Progress Note (short form) - Note Progress Note: podiatry note reviewed for OR in am antibioitcs held Vital Signs Period Temp Pulse Resp BP Sys/Holman Pulse Ox Last 24 Hr 98 F-98.8 F 80-88 18-22 93-115/55-64 99-99 toe ulcer is dry, no edema, minimal erythema CBC, BMP 04/17/19 06:50 04/18/19 06:30 Microbiology 04/12/19 21:30 Blood - Peripheral Venous Blood Culture - Final NO GROWTH AFTER 5 DAYS INCUBATION 04/12/19 21:30 Blood - Peripheral Venous Blood Culture - Final NO GROWTH AFTER 5 DAYS INCUBATION a/p ulcer second toe- r/o osteo mri c/w osteo of the toe called dr mendosa's office, they will fax abscess culture results in am fungal rash- continue antifungal cream-improving penicillin allergy noted Problem List - Problems (1) Toe ulcer Code(s): L97.509 - NON-PRESSURE CHRONIC ULCER OTH PRT UNSP FOOT W UNSP SEVERITY Qualifiers: Laterality: right Non-pressure ulcer stage: with necrosis of bone Qualified Code(s): L97.514 - Non-pressure chronic ulcer of other part of right foot with necrosis of bone (2) Nimo rash of groin Code(s): B37.89 - OTHER SITES OF CANDIDIASIS (3) Penicillin allergy Code(s): Z88.0 - ALLERGY STATUS TO PENICILLIN
--- NOTE | 2019-04-18 22:08 | PN ---
Progress Note, Physician History of Present Illness: Pt w/o fever, chills, runnong nose, sore throat, SOB, palpitations, CP, leg edema, nausea, vomiting, , abd pain, burning with urination, foot or toe pain. - Current Medication List Current Medications: Active Medications Acetaminophen (Tylenol -) 650 mg PO Q6H PRN PRN Reason: PAIN LEVEL 6-10 Last Admin: 04/18/19 17:17 Dose: 650 mg Albuterol Sulfate (Ventolin Hfa Inhaler -) 2 puff IH Q6H PRN PRN Reason: SHORTNESS OF BREATH Last Admin: 04/18/19 09:31 Dose: 2 puff Aspirin (Asa -) 81 mg PO DAILY [facility] Last Admin: 04/18/19 09:32 Dose: 81 mg Clotrimazole (Lotrimin 1% Cream -) 1 applic TP BID [facility] Last Admin: 04/18/19 09:29 Dose: 1 applic Docusate Sodium (Colace -) 300 mg PO TID [facility] Last Admin: 04/18/19 13:35 Dose: 300 mg Vancomycin HCl 750 mg/ (Dextrose) 250 mls @ 150 mls/hr IVPB Q24H [facility]; Protocol Last Admin: 04/17/19 18:40 Dose: 150 mls/hr Cefepime HCl 1 gm/ Dextrose 50 mls @ 100 mls/hr IVPB BID [facility]; Protocol Last Admin: 04/18/19 09:32 Dose: 100 mls/hr Levothyroxine Sodium (Synthroid -) 150 mcg PO DAILY@0700 [facility] Last Admin: 04/18/19 06:35 Dose: 150 mcg Lorazepam (Ativan -) 1 mg PO 0700,1100,1600,2200 [facility] Last Admin: 04/18/19 16:42 Dose: 1 mg Multi-Ingredient Ointment (Zinc Oxide) 1 applic TP DAILY [facility] Last Admin: 04/18/19 09:30 Dose: 1 appful Mupirocin (Bactroban 2% Ointment -) 1 applic TP BID [facility] Last Admin: 04/18/19 09:32 Dose: 1 applic Nystatin (Mycostatin Cream -) 1 applic TP BID [facility] Last Admin: 04/18/19 09:30 Dose: 1 applic Oxycodone HCl (Roxicodone -) 10 mg PO Q6H PRN PRN Reason: PAIN LEVEL 6-10 Last Admin: 04/18/19 17:18 Dose: 10 mg Pantoprazole Sodium (Protonix -) 40 mg PO DAILY [facility] Last Admin: 04/18/19 09:32 Dose: 40 mg Ropinirole HCl (Requip -) 2 mg PO HS PRN PRN Reason: restless legs Last Admin: 04/17/19 23:15 Dose: 2 mg Ropinirole HCl (Requip -) 2 mg PO QID [facility] Last Admin: 04/18/19 17:20 Dose: 2 mg Fluticasone/Salmeterol (Advair 100mcg/50mcg -) 1 puff IH BID [facility] Last Admin: 04/18/19 09:29 Dose: 1 puff Sertraline HCl (Zoloft -) 200 mg PO HS [facility] Last Admin: 04/17/19 21:58 Dose: 200 mg Sodium Chloride ([place] Nasal [place] -) 1 spray NS BID [facility] Last Admin: 04/18/19 09:31 Dose: 1 spray Triamcinolone Acetonide (Aristocort 0.1% Cream -) 1 applic TP DAILY PRN PRN Reason: FOR ITCHING - Objective Vital Signs: Vital Signs Temperature 97.9 F 04/18/19 18:00 Pulse Rate 83 04/18/19 18:00 Respiratory Rate 20 04/18/19 18:00 Blood Pressure 101/59 L 04/18/19 18:00 O2 Sat by Pulse Oximetry (%) 99 04/18/19 09:00 Constitutional: Yes: No Distress, Calm Eyes: Yes: Conjunctiva Clear, EOM Intact HENT: Yes: Normocephalic. No: Rhinnorhea Cardiovascular: Yes: Regular Rate and Rhythm, S1, S2 Respiratory: Yes: Regular, CTA Bilaterally. No: Rales Gastrointestinal: Yes: Normal Bowel Sounds, Soft. No: Hepatomegaly, Splenomegaly, Tenderness Extremities: Yes: Other (right 2-nd toe 6 mm ulcer) Edema: No Neurological: Yes: Alert, Oriented Labs: CBC, BMP 04/17/19 06:50 04/18/19 06:30 INR, PTT INR 0.99 (0.83-1.09) 04/12/19 21:40 Problem List - Problems (1) Toe infection Code(s): L08.9 - LOCAL INFECTION OF THE SKIN AND SUBCUTANEOUS TISSUE, UNSP (2) Toe ulcer Code(s): L97.509 - NON-PRESSURE CHRONIC ULCER OTH PRT UNSP FOOT W UNSP SEVERITY Qualifiers: Laterality: right Non-pressure ulcer stage: with necrosis of bone Qualified Code(s): L97.514 - Non-pressure chronic ulcer of other part of right foot with necrosis of bone (3) COPD (chronic obstructive pulmonary disease) Code(s): J44.9 - CHRONIC OBSTRUCTIVE PULMONARY DISEASE, UNSPECIFIED (4) Multiple sclerosis Code(s): G35 - MULTIPLE SCLEROSIS (5) Restless leg syndrome Code(s): G25.81 - RESTLESS LEGS SYNDROME (6) Rheumatoid arthritis Code(s): M06.9 - RHEUMATOID ARTHRITIS, UNSPECIFIED (7) Hyponatremia Code(s): E87.1 - HYPO-OSMOLALITY AND HYPONATREMIA (8) Osteomyelitis Code(s): M86.9 - OSTEOMYELITIS, UNSPECIFIED Assessment/Plan IV abtx. ID, Podiatry,Neuro, Vascular Sx consults are appreciated. Would CX is pending; to f/u with ID id pt needs PICC line. Pt's condition was reviewed w Dr Higgins today Pt is scheduled for foot Sx tomorrow. I reviewed pt's recent ECHO, c/w normal LV structure and function, no wall motion abnormalities, normal RVF. Pt w/o signs or symptoms for cardiac decompensation. Pt without absolute contraindication for foot surgery. NPO except meds; IVF AM labs Pt's care was d/w pt's nurse. Time spent for managing pt's care: over 40 minutes.
[2019-04-18] MEDS ORDERED: SODIUM CHLORIDE 1,000 ML IV SCH (22:30)
[2019-04-18] MEDS ORDERED: PT OWN MED DRAWER 7, Y5N ONE (22:31)
[2019-04-18] MEDS: SERTRALINE HCL 50 MG TABLET (FP) PO SCH (22:33)
[2019-04-18] MEDS: rOPINIRole HCL 2 MG TABLET (FP) PO PRN (22:34)
[2019-04-19] MEDS: ACETAMINOPHEN 325 MG TABLET (FP) PO PRN ×3 (06:15→22:01)
[2019-04-19] MEDS: oxyCODONE HCL 5 MG TABLET PO PRN ×3 (06:15→22:01)
[2019-04-19] MEDS: LEVOTHYROXINE NA 150 MCG TABLET PO SCH (06:16)
[2019-04-19] MEDS: LORazepam 1 MG TABLET PO SCH ×4 (06:16→22:00)
[2019-04-19] MEDS: DOCUSATE SODIUM 100 MG CAPSULE (FP) PO SCH ×4 (06:16→22:00)
[2019-04-19 08:04] LABS: HEMATOCRIT 29.2 % (32.4-45.2); HEMOGLOBIN 9.7 GM/dL (10.7-15.3); MCH 30.7 pg (25.7-33.7); MCHC 33.3 g/dl (32.0-36.0); MEAN CELL VOLUME 92.2 fl (80-96); MEAN PLT VOLUME 6.7 fl (7.5-11.1); PLATELET COUNT 255 K/MM3 (134-434); RBC 3.16 M/mm3 (3.60-5.2)
[2019-04-19 08:20] LABS: INR 1.02 (0.83-1.09)
[2019-04-19 08:22] LABS: ACTIVATED PTT 34.5 SECONDS (25.2-36.5)
[2019-04-19 09:16] LABS: ALBUMIN 3.1 g/dl (3.4-5.0); BILIRUBIN,TOTAL 0.2 mg/dL (0.2-1); BLOOD UREA NITROGEN 21.6 mg/dL (7-18); CALCIUM 8.5 mg/dL (8.5-10.1); CREATININE 0.7 mg/dL (0.55-1.3); POTASSIUM 5.3 mmol/L (3.5-5.1); TOT PROT 6.2 g/dl (6.4-8.2)
[2019-04-19] MEDS: CLOTRIMAZOLE 1% CREAM 15 GM TUBE TP SCH ×2 (10:12→22:07)
[2019-04-19] MEDS: ASPIRIN 81 MG CHEWABLE TABLETS PO SCH (10:13)
[2019-04-19] MEDS: PANTOPRAZOLE 40 MG TABLET (FP) PO SCH (10:13)
[2019-04-19] MEDS: ALBUTEROL SO4 8 GM HFA INHALER IH PRN (10:14)
[2019-04-19] MEDS: MUPIROCIN 2% TOPICAL OINTMENT 22 GM TUBE TP SCH ×2 (10:14→22:07)
[2019-04-19] MEDS: FLUTICASONE/SALMETEROL 100 MCG/50 MCG DISKUS IH SCH ×2 (10:14→22:06)
[2019-04-19] MEDS: SODIUM CHLORIDE NASAL SPRAY 44 ML BOTTLE NS SCH ×2 (10:15→22:07)
[2019-04-19] MEDS: ZINC OXIDE 20% TOPICAL OINTMENT 30 GM TUBE TP SCH (10:16)
[2019-04-19] MEDS: rOPINIRole HCL 2 MG TABLET (FP) PO SCH ×4 (10:17→22:00)
[2019-04-19] MEDS: NYSTATIN 100,000 UNIT/GM TOPICAL CREAM 15 GM TUBE TP SCH ×2 (10:18→22:07)
[2019-04-19] MEDS ORDERED: PROPOFOL 20 ML ONE (13:47)
[2019-04-19] MEDS ORDERED: MIDAZOLAM HCL 2 MG/2 ML SINGLE DOSE VIAL ONE (13:47)
[2019-04-19] MEDS ORDERED: ROCURONIUM BROMIDE 50 MG/5 ML SYRINGE ONE (13:51)
[2019-04-19] MEDS ORDERED: SUCCINYLCHOLINE CHLORIDE 200 MG/10 ML SYRINGE ONE (13:51)
[2019-04-19] MEDS ORDERED: LIDOCAINE HCL 2% (50ML VIAL) INF ONE (15:23)
[2019-04-19] MEDS ORDERED: BACITRACIN 15 GM TUBE TOPICAL OINTMENT ONE (15:49)
--- NOTE | 2019-04-19 16:03 | OP ---
Operative Note - Note: Operative Date: 04/19/19 Pre-Operative Diagnosis: Righ 2nd digit osteomyelitis Operation: Right 2nd digit arthroplasty // bone biopsy Findings: see dictation Post-Operative Diagnosis: Same as Pre-op Surgeon: Zafar Mayberry Anesthesia: Local, MAC Specimens Removed: 1) Wound culture. 2) 2nd digit phalanx head - Micro. 3) 2nd digit proximal margin - Micro. 4) 2nd digit proximal margin - path Estimated Blood Loss (mls): 0 Operative Report Dictated: No
[2019-04-19] MEDS ORDERED: SODIUM CHLORIDE 1,000 ML IV SCH (16:53)
[2019-04-19] MEDS ORDERED: TRIAMCINOLONE ACET 0.1% CREAM 15 GM TUBE TP PRN (16:53)
--- NOTE | 2019-04-19 17:03 | PN ---
Progress Note (short form) - Note Progress Note: podiatry note reviewed s/p second digit arthroplasty and bone biopsy Vital Signs Period Temp Pulse Resp BP Sys/Holman Pulse Ox Last 24 Hr 97.9 F-98.6 F 66-83 20-22 87-126/57-69 99-100 dressing intact on foot CBC, BMP 04/19/19 07:41 04/19/19 07:41 Microbiology 04/12/19 21:30 Blood - Peripheral Venous Blood Culture - Final NO GROWTH AFTER 5 DAYS INCUBATION 04/12/19 21:30 Blood - Peripheral Venous Blood Culture - Final NO GROWTH AFTER 5 DAYS INCUBATION a/p ulcer second toe- mri c/w osteo of the toe abscess culture with MRSA and pseudomonas resume vanco/cefepime await pathology suspect will need picc line and half-way iv antibiotics fungal rash- continue antifungal cream-improving penicillin allergy noted Problem List - Problems (1) Toe ulcer Code(s): L97.509 - NON-PRESSURE CHRONIC ULCER OTH PRT UNSP FOOT W UNSP SEVERITY Qualifiers: Laterality: right Non-pressure ulcer stage: with necrosis of bone Qualified Code(s): L97.514 - Non-pressure chronic ulcer of other part of right foot with necrosis of bone (2) Nimo rash of groin Code(s): B37.89 - OTHER SITES OF CANDIDIASIS (3) Penicillin allergy Code(s): Z88.0 - ALLERGY STATUS TO PENICILLIN
[2019-04-19] MEDS ORDERED: LORazepam 1 MG TABLET PO ONE (18:30)
--- NOTE | 2019-04-19 18:57 | PN ---
Progress Note, Physician History of Present Illness: Pt is s/p surgery Pt w/o fever, chills, SOB, palpitations, CP, abd pain. - Current Medication List Current Medications: Active Medications Acetaminophen (Tylenol -) 650 mg PO Q6H PRN PRN Reason: PAIN LEVEL 6-10 Albuterol Sulfate (Ventolin Hfa Inhaler -) 2 puff IH Q6H PRN PRN Reason: SHORTNESS OF BREATH Aspirin (Asa -) 81 mg PO DAILY [facility] Clotrimazole (Lotrimin 1% Cream -) 1 applic TP BID [facility] Docusate Sodium (Colace -) 300 mg PO TID [facility] Cefepime HCl 1 gm/ Dextrose 100 mls @ 100 mls/hr IVPB BID [facility]; Protocol Sodium Chloride (Normal Saline -) 1,000 mls @ 50 mls/hr IV ASDIR [facility] Stop: 04/19/19 22:17 Last Admin: 04/19/19 18:47 Dose: 50 mls/hr Vancomycin HCl 750 mg/ (Dextrose) 250 mls @ 166.667 mls/hr IVPB Q24H [facility]; Protocol Levothyroxine Sodium (Synthroid -) 150 mcg PO DAILY@0700 [facility] Lorazepam (Ativan -) 1 mg PO 0700,1100,1600,2200 [facility] Multi-Ingredient Ointment (Zinc Oxide) 1 applic TP DAILY [facility] Mupirocin (Bactroban 2% Ointment -) 1 applic TP BID [facility] Nystatin (Mycostatin Cream -) 1 applic TP BID [facility] Oxycodone HCl (Roxicodone -) 10 mg PO Q6H PRN PRN Reason: PAIN LEVEL 6-10 Pantoprazole Sodium (Protonix -) 40 mg PO DAILY [facility] Ropinirole HCl (Requip -) 2 mg PO HS PRN PRN Reason: restless legs Ropinirole HCl (Requip -) 2 mg PO QID [facility] Last Admin: 04/19/19 18:46 Dose: 2 mg Fluticasone/Salmeterol (Advair 100mcg/50mcg -) 1 puff IH BID [facility] Sertraline HCl (Zoloft -) 200 mg PO HS [facility] Sodium Chloride ([place] Nasal [place] -) 1 spray NS BID [facility] Triamcinolone Acetonide (Aristocort 0.1% Cream -) 1 applic TP DAILY PRN PRN Reason: FOR ITCHING - Objective Vital Signs: Vital Signs Temperature 97.5 F L 04/19/19 18:00 Pulse Rate 66 04/19/19 18:00 Respiratory Rate 20 04/19/19 18:00 Blood Pressure 115/55 L 04/19/19 18:00 O2 Sat by Pulse Oximetry (%) 100 04/19/19 09:00 Constitutional: Yes: No Distress, Calm Cardiovascular: Yes: Regular Rate and Rhythm, S1, S2 Respiratory: Yes: Regular, CTA Bilaterally. No: Rales Gastrointestinal: Yes: Normal Bowel Sounds, Soft. No: Tenderness Extremities: Yes: Other (right foot with clean dressing) Edema: No Neurological: Yes: Alert, Oriented Labs: CBC, BMP 04/19/19 07:41 04/19/19 07:41 INR, PTT INR 1.02 (0.83-1.09) 04/19/19 07:41 Problem List - Problems (1) Toe infection Code(s): L08.9 - LOCAL INFECTION OF THE SKIN AND SUBCUTANEOUS TISSUE, UNSP (2) Toe ulcer Code(s): L97.509 - NON-PRESSURE CHRONIC ULCER OTH PRT UNSP FOOT W UNSP SEVERITY Qualifiers: Laterality: right Non-pressure ulcer stage: with necrosis of bone Qualified Code(s): L97.514 - Non-pressure chronic ulcer of other part of right foot with necrosis of bone (3) COPD (chronic obstructive pulmonary disease) Code(s): J44.9 - CHRONIC OBSTRUCTIVE PULMONARY DISEASE, UNSPECIFIED (4) Multiple sclerosis Code(s): G35 - MULTIPLE SCLEROSIS (5) Restless leg syndrome Code(s): G25.81 - RESTLESS LEGS SYNDROME (6) Rheumatoid arthritis Code(s): M06.9 - RHEUMATOID ARTHRITIS, UNSPECIFIED (7) Hyponatremia Code(s): E87.1 - HYPO-OSMOLALITY AND HYPONATREMIA (8) Osteomyelitis Code(s): M86.9 - OSTEOMYELITIS, UNSPECIFIED (9) Leukopenia Assessment/Plan: to monitor Code(s): D72.819 - DECREASED WHITE BLOOD CELL COUNT, UNSPECIFIED (10) Hyperkalemia Assessment/Plan: borderline, to monitor in AM Code(s): E87.5 - HYPERKALEMIA Assessment/Plan IV abtx per ID ID, Podiatry,Neuro, Vascular Sx consults are appreciated. Resume PO meds AM labs Pt's care was d/w pt's nurse.
[2019-04-19] MEDS ORDERED: PT OWN MED DRAWER 7, Y5N ONE ×2 (19:42→21:27)
[2019-04-19] MEDS: VANCOMYCIN 750 MG in DEXTROSE 5%-WATER - 250 ML IVPB SCH (20:00)
[2019-04-19] MEDS ORDERED: DEXTROSE 5%-WATER 100 ML IVPB ONE (21:27)
[2019-04-19] MEDS ORDERED: CEFEPIME HCL 1 GM VIAL (RESTRICTED TO ID) ONE (21:27)
[2019-04-19] MEDS: rOPINIRole HCL 2 MG TABLET (FP) PO PRN (22:00)
[2019-04-19] MEDS: SERTRALINE HCL 50 MG TABLET (FP) PO SCH (22:00)
[2019-04-19] MEDS ORDERED: MORPHINE SULFATE 2 MG/ML VIAL IVPUSH PRN (22:01)
[2019-04-19] MEDS: CEFEPIME 1 GM in DEXTROSE 5%-WATER 100 ML IVPB SCH (22:58)
[2019-04-20] MEDS ORDERED: PT OWN MED DRAWER 7, Y5N ONE ×7 (00:28→20:58)
[2019-04-20] MEDS: DOCUSATE SODIUM 100 MG CAPSULE (FP) PO SCH ×3 (05:57→21:14)
[2019-04-20] MEDS: LORazepam 1 MG TABLET PO SCH ×4 (06:03→21:15)
[2019-04-20] MEDS: LEVOTHYROXINE NA 150 MCG TABLET PO SCH (06:03)
[2019-04-20] MEDS: ACETAMINOPHEN 325 MG TABLET (FP) PO PRN ×3 (06:05→22:34)
[2019-04-20] MEDS: oxyCODONE HCL 5 MG TABLET PO PRN ×3 (06:06→22:34)
[2019-04-20] MEDS: rOPINIRole HCL 2 MG TABLET (FP) PO PRN ×2 (06:12→21:14)
[2019-04-20 08:18] LABS: HEMATOCRIT 30.6 % (32.4-45.2); HEMOGLOBIN 10.2 GM/dL (10.7-15.3); MCH 30.9 pg (25.7-33.7); MCHC 33.5 g/dl (32.0-36.0); MEAN CELL VOLUME 92.2 fl (80-96); MEAN PLT VOLUME 6.9 fl (7.5-11.1); PLATELET COUNT 276 K/MM3 (134-434); RBC 3.31 M/mm3 (3.60-5.2); RDW 14.5 % (11.6-15.6); WHITE BLOOD COUNT 4.3 K/mm3 (4.0-10.0)
[2019-04-20 08:38] LABS: ALBUMIN 3.1 g/dl (3.4-5.0); BILIRUBIN,TOTAL 0.3 mg/dL (0.2-1); BLOOD UREA NITROGEN 16.1 mg/dL (7-18); CALCIUM 8.6 mg/dL (8.5-10.1); CREATININE 0.7 mg/dL (0.55-1.3); POTASSIUM 4.9 mmol/L (3.5-5.1); TOT PROT 6.6 g/dl (6.4-8.2)
[2019-04-20] MEDS ORDERED: DEXTROSE 5%-WATER 100 ML IVPB ONE ×2 (09:23→20:58)
[2019-04-20] MEDS ORDERED: CEFEPIME HCL 1 GM VIAL (RESTRICTED TO ID) ONE ×2 (09:23→20:58)
[2019-04-20] MEDS: CEFEPIME 1 GM in DEXTROSE 5%-WATER 100 ML IVPB SCH ×2 (09:29→21:19)
[2019-04-20] MEDS: ASPIRIN 81 MG CHEWABLE TABLETS PO SCH (09:31)
[2019-04-20] MEDS: PANTOPRAZOLE 40 MG TABLET (FP) PO SCH (09:31)
[2019-04-20] MEDS: FLUTICASONE/SALMETEROL 100 MCG/50 MCG DISKUS IH SCH ×2 (09:33→21:16)
[2019-04-20] MEDS: NYSTATIN 100,000 UNIT/GM TOPICAL CREAM 15 GM TUBE TP SCH ×2 (09:35→21:18)
[2019-04-20] MEDS: CLOTRIMAZOLE 1% CREAM 15 GM TUBE TP SCH ×2 (09:35→21:19)
[2019-04-20] MEDS: SODIUM CHLORIDE NASAL SPRAY 44 ML BOTTLE NS SCH ×2 (09:36→21:17)
[2019-04-20] MEDS: rOPINIRole HCL 2 MG TABLET (FP) PO SCH ×4 (09:37→21:20)
[2019-04-20] MEDS: ZINC OXIDE 20% TOPICAL OINTMENT 30 GM TUBE TP SCH ×2 (09:37→09:40)
[2019-04-20] MEDS: MUPIROCIN 2% TOPICAL OINTMENT 22 GM TUBE TP SCH ×2 (09:43→21:20)
--- NOTE | 2019-04-20 12:06 | PN ---
Progress Note (short form) - Note Progress Note: Podiatry F/U: Seen/evaluated at bedside NAD. One day s/p right 2nd digit arthrplasty and bone biopsy. AZ: R foot: pedal pulses nonpalpable, TG wnl. second digit with mild post op erythema noted, wound closed with sutures noted, no streaking, mild POP, no drainage MRI: (+) osteomyelitis 2nd proximal phalanx Imp: 68 year old female with right second digit pressure ulcer and osteomyelitis ; s/p 2nd digit arthroplasty evaluated and reviewed Follow cultures Will likely need intermediate project manager IV ax and PICC placed ; bone quality was very poor Wound dressing changed and can be left c/d/i will need f/u as outpatient wbat with surgical shoe stable from pod standpoint once cultures return.
--- NOTE | 2019-04-20 13:07 | OP ---
DATE OF OPERATION: 04/19/2019 PREOPERATIVE DIAGNOSES: 1. Right foot 2nd digit osteomyelitis. 2. Right foot 2nd digit hammer toe. POSTOPERATIVE DIAGNOSES: 1. Right foot 2nd digit osteomyelitis. 2. Right foot 2nd digit hammer toe. PROCEDURE PERFORMED: Right foot 2nd digit arthroplasty and bone biopsy. SURGEON: Zafar Mayberry DPM ANESTHESIA: IV sedation with local injections. INDICATIONS: This patient is a 68-year-old female with the above-mentioned diagnoses. Patient failed all forms of conservative treatment at this time and requires further surgical intervention for the conditions listed above. After careful explanation of risks and benefits for the procedure, the consent was signed. All concerns were addressed at this time , n.p.o. status was verified and preoperative antibiotics were given. OPERATIVE PROCEDURE: Patient was brought to the operating room. Placed on the operating table in supine position. Pneumatic ankle tourniquet was utilized at 250 mmHg in a supramalleolar position. After induction of IV sedation, a local injection of 13 mL of 2% lidocaine plain was injected into the patient's right 2nd digit in digital block-type fashion without complications. Following local anesthetic, her right foot was prepped and draped in the normal sterile manner and procedure began. PROCEDURE NUMBER 1: Right foot 2nd digit arthroplasty and bone biopsy. At this time, attention was directed to the dorsal aspect of the patient's right 2nd digit where there was noted to be a roughly 0.5 x 0.5-cm ulceration that had bone exposed. At this time, utilizing a number-15 blade, an ellipse-type incision was then made over the proximal interphalangeal joint of the 2nd digit, encompassing the width of the ulceration. The ulcer was then excised out and the skin was removed, exposing the proximal interphalangeal joint. It was noted that the extensor tendon had become ruptured from the infection that had been there prior, but there were some remnants left which allowed for repair in the end. At this time, the medial and collateral ligaments were freed from the head of the proximal phalanx. With the use of a sagittal saw, the head of the proximal phalanx was removed and passed from the operative field. This head of the proximal phalanx was sent for microbiology. At this time, a small section of bone proximal to this was then removed with the sagittal saw and was sectioned in two pieces, one for proximal margin microbiology and the other for proximal margin pathology. At this time, the wound was flushed with copious amounts of normal sterile saline. The extensor tendon was repaired with 4-0 Vicryl and the skin was closed with 4-0 nylon and the ulceration was closed in the end without complication. At this time, the attention was directed proximally to the extensor ferrer where utilizing a number-15 blade, a small stab incision was made and the extensor tendon was released to allow for de-contraction of the metatarsophalangeal joint and the hammering of the digit. This incision was then closed with one 4-0 nylon stitch without complications. POSTOPERATIVE CONDITION: Patient tolerated anesthesia and procedure well, was transferred to the recovery room with vital signs stable and neurovascular status intact to the right foot. This patient will be followed on the floor, as previously discussed with the patient. ANN BRADY/[id number]
[2019-04-20] MEDS: VANCOMYCIN 750 MG in DEXTROSE 5%-WATER - 250 ML IVPB SCH (16:37)
--- NOTE | 2019-04-20 19:33 | PN ---
Progress Note, Physician History of Present Illness: Pt w/o fever, chills, SOB, palpitations, CP, abd pain. - Current Medication List Current Medications: Active Medications Acetaminophen (Tylenol -) 650 mg PO Q6H PRN PRN Reason: PAIN LEVEL 6-10 Last Admin: 04/20/19 16:45 Dose: 650 mg Albuterol Sulfate (Ventolin Hfa Inhaler -) 2 puff IH Q6H PRN PRN Reason: SHORTNESS OF BREATH Aspirin (Asa -) 81 mg PO DAILY [facility] Last Admin: 04/20/19 09:31 Dose: 81 mg Clotrimazole (Lotrimin 1% Cream -) 1 applic TP BID [facility] Last Admin: 04/20/19 09:35 Dose: 1 applic Docusate Sodium (Colace -) 300 mg PO TID [facility] Last Admin: 04/20/19 13:16 Dose: 300 mg Cefepime HCl 1 gm/ Dextrose 100 mls @ 100 mls/hr IVPB BID [facility]; Protocol Last Admin: 04/20/19 09:29 Dose: 100 mls/hr Vancomycin HCl 750 mg/ (Dextrose) 250 mls @ 166.667 mls/hr IVPB Q24H [facility]; Protocol Last Admin: 04/20/19 16:37 Dose: 166.667 mls/hr Levothyroxine Sodium (Synthroid -) 150 mcg PO DAILY@0700 [facility] Last Admin: 04/20/19 06:03 Dose: 150 mcg Lorazepam (Ativan -) 1 mg PO 0700,1100,1600,2200 [facility] Last Admin: 04/20/19 16:37 Dose: 1 mg Morphine Sulfate (Morphine Sulfate) 2 mg IVPUSH ONCE PRN PRN Reason: PAIN LEVEL 6-10 Stop: 04/20/19 22:00 Last Admin: 04/20/19 13:45 Dose: 2 mg Multi-Ingredient Ointment (Zinc Oxide) 1 applic TP DAILY [facility] Last Admin: 04/20/19 09:40 Dose: 1 applic Mupirocin (Bactroban 2% Ointment -) 1 applic TP BID [facility] Last Admin: 04/20/19 09:43 Dose: Not Given Nystatin (Mycostatin Cream -) 1 applic TP BID [facility] Last Admin: 04/20/19 09:35 Dose: 1 applic Oxycodone HCl (Roxicodone -) 10 mg PO Q6H PRN PRN Reason: PAIN LEVEL 6-10 Last Admin: 04/20/19 16:36 Dose: 10 mg Pantoprazole Sodium (Protonix -) 40 mg PO DAILY [facility] Last Admin: 04/20/19 09:31 Dose: 40 mg Ropinirole HCl (Requip -) 2 mg PO HS PRN PRN Reason: restless legs Last Admin: 04/20/19 06:12 Dose: 2 mg Ropinirole HCl (Requip -) 2 mg PO QID [facility] Last Admin: 04/20/19 17:50 Dose: 2 mg Fluticasone/Salmeterol (Advair 100mcg/50mcg -) 1 puff IH BID [facility] Last Admin: 04/20/19 09:33 Dose: 1 puff Sertraline HCl (Zoloft -) 200 mg PO HS [facility] Last Admin: 04/19/19 22:00 Dose: 200 mg Sodium Chloride ([place] Nasal [place] -) 1 spray NS BID [facility] Last Admin: 04/20/19 09:36 Dose: 1 sprays Triamcinolone Acetonide (Aristocort 0.1% Cream -) 1 applic TP DAILY PRN PRN Reason: FOR ITCHING - Objective Vital Signs: Vital Signs Temperature 97.9 F 04/20/19 16:30 Pulse Rate 72 04/20/19 16:30 Respiratory Rate 18 04/20/19 16:30 Blood Pressure 120/75 04/20/19 16:30 O2 Sat by Pulse Oximetry (%) 99 04/20/19 09:00 Constitutional: Yes: No Distress, Calm Cardiovascular: Yes: Regular Rate and Rhythm, S1, S2 Respiratory: Yes: Regular, CTA Bilaterally. No: Rales Gastrointestinal: Yes: Normal Bowel Sounds, Soft. No: Tenderness Extremities: Yes: Other (clean dressing) Neurological: Yes: Alert, Oriented Labs: CBC, BMP 04/20/19 07:25 04/20/19 07:25 INR, PTT INR 1.02 (0.83-1.09) 04/19/19 07:41 Problem List - Problems (1) Toe infection Code(s): L08.9 - LOCAL INFECTION OF THE SKIN AND SUBCUTANEOUS TISSUE, UNSP (2) Toe ulcer Code(s): L97.509 - NON-PRESSURE CHRONIC ULCER OTH PRT UNSP FOOT W UNSP SEVERITY Qualifiers: Laterality: right Non-pressure ulcer stage: with necrosis of bone Qualified Code(s): L97.514 - Non-pressure chronic ulcer of other part of right foot with necrosis of bone (3) COPD (chronic obstructive pulmonary disease) Code(s): J44.9 - CHRONIC OBSTRUCTIVE PULMONARY DISEASE, UNSPECIFIED (4) Multiple sclerosis Code(s): G35 - MULTIPLE SCLEROSIS (5) Restless leg syndrome Code(s): G25.81 - RESTLESS LEGS SYNDROME (6) Rheumatoid arthritis Code(s): M06.9 - RHEUMATOID ARTHRITIS, UNSPECIFIED (7) Hyponatremia Code(s): E87.1 - HYPO-OSMOLALITY AND HYPONATREMIA (8) Osteomyelitis Code(s): M86.9 - OSTEOMYELITIS, UNSPECIFIED (9) Leukopenia Code(s): D72.819 - DECREASED WHITE BLOOD CELL COUNT, UNSPECIFIED (10) Hyperkalemia Assessment/Plan: normal Code(s): E87.5 - HYPERKALEMIA (11) Anemia Assessment/Plan: stable H/H Code(s): D64.9 - ANEMIA, UNSPECIFIED Assessment/Plan Post op day1 IV abtx per ID ID, Podiatry,Neuro, Vascular Sx consults are appreciated. To f/u CX AM labs Pt's care was d/w pt's nurse.
[2019-04-20] MEDS: SERTRALINE HCL 50 MG TABLET (FP) PO SCH (21:15)
[2019-04-21] MEDS ORDERED: PT OWN MED DRAWER 7, Y5N ONE ×4 (06:06→21:39)
[2019-04-21] MEDS: DOCUSATE SODIUM 100 MG CAPSULE (FP) PO SCH ×3 (06:13→22:04)
[2019-04-21] MEDS: LEVOTHYROXINE NA 150 MCG TABLET PO SCH (06:13)
[2019-04-21] MEDS: ACETAMINOPHEN 325 MG TABLET (FP) PO PRN ×2 (06:13→13:26)
[2019-04-21] MEDS: oxyCODONE HCL 5 MG TABLET PO PRN ×3 (06:14→22:05)
[2019-04-21] MEDS: LORazepam 1 MG TABLET PO SCH ×4 (06:14→22:06)
[2019-04-21 07:56] LABS: HEMATOCRIT 33.6 % (32.4-45.2); HEMOGLOBIN 11.1 GM/dL (10.7-15.3); MCH 30.6 pg (25.7-33.7); MCHC 32.9 g/dl (32.0-36.0); MEAN PLT VOLUME 7.1 fl (7.5-11.1); PLATELET COUNT 290 K/MM3 (134-434); RBC 3.61 M/mm3 (3.60-5.2); RDW 14.9 % (11.6-15.6); WHITE BLOOD COUNT 3.6 K/mm3 (4.0-10.0)
[2019-04-21 08:27] LABS: ALBUMIN 3.1 g/dl (3.4-5.0); BILIRUBIN,TOTAL 0.4 mg/dL (0.2-1); BLOOD UREA NITROGEN 17.3 mg/dL (7-18); CALCIUM 8.8 mg/dL (8.5-10.1); CREATININE 0.6 mg/dL (0.55-1.3); POTASSIUM 5.2 mmol/L (3.5-5.1); TOT PROT 6.6 g/dl (6.4-8.2)
[2019-04-21] MEDS ORDERED: DEXTROSE 5%-WATER 100 ML IVPB ONE ×2 (09:42→21:39)
[2019-04-21] MEDS ORDERED: CEFEPIME HCL 1 GM VIAL (RESTRICTED TO ID) ONE ×2 (09:42→21:39)
[2019-04-21] MEDS: CEFEPIME 1 GM in DEXTROSE 5%-WATER 100 ML IVPB SCH ×2 (09:47→22:07)
[2019-04-21] MEDS: ASPIRIN 81 MG CHEWABLE TABLETS PO SCH (09:48)
[2019-04-21] MEDS: rOPINIRole HCL 2 MG TABLET (FP) PO SCH ×4 (09:48→22:04)
[2019-04-21] MEDS: PANTOPRAZOLE 40 MG TABLET (FP) PO SCH (09:48)
[2019-04-21] MEDS: FLUTICASONE/SALMETEROL 100 MCG/50 MCG DISKUS IH SCH ×2 (10:42→22:06)
[2019-04-21] MEDS: SODIUM CHLORIDE NASAL SPRAY 44 ML BOTTLE NS SCH ×2 (10:44→22:07)
[2019-04-21] MEDS: MUPIROCIN 2% TOPICAL OINTMENT 22 GM TUBE TP SCH ×2 (10:45→22:06)
[2019-04-21] MEDS: NYSTATIN 100,000 UNIT/GM TOPICAL CREAM 15 GM TUBE TP SCH ×2 (10:46→22:07)
[2019-04-21] MEDS: ZINC OXIDE 20% TOPICAL OINTMENT 30 GM TUBE TP SCH (10:46)
[2019-04-21] MEDS: CLOTRIMAZOLE 1% CREAM 15 GM TUBE TP SCH ×2 (10:46→22:07)
--- NOTE | 2019-04-21 11:58 | PN ---
Progress Note, Physician Chief Complaint: in bed no pain no SOB afebrile - Current Medication List Current Medications: Active Medications Acetaminophen (Tylenol -) 650 mg PO Q6H PRN PRN Reason: PAIN LEVEL 6-10 Last Admin: 04/21/19 06:13 Dose: 650 mg Albuterol Sulfate (Ventolin Hfa Inhaler -) 2 puff IH Q6H PRN PRN Reason: SHORTNESS OF BREATH Aspirin (Asa -) 81 mg PO DAILY [facility] Last Admin: 04/21/19 09:48 Dose: 81 mg Clotrimazole (Lotrimin 1% Cream -) 1 applic TP BID [facility] Last Admin: 04/21/19 10:46 Dose: 1 applic Docusate Sodium (Colace -) 300 mg PO TID [facility] Last Admin: 04/21/19 06:13 Dose: 300 mg Cefepime HCl 1 gm/ Dextrose 100 mls @ 100 mls/hr IVPB BID [facility]; Protocol Last Admin: 04/21/19 09:47 Dose: 100 mls/hr Vancomycin HCl 750 mg/ (Dextrose) 250 mls @ 166.667 mls/hr IVPB Q24H [facility]; Protocol Last Admin: 04/20/19 16:37 Dose: 166.667 mls/hr Levothyroxine Sodium (Synthroid -) 150 mcg PO DAILY@0700 [facility] Last Admin: 04/21/19 06:13 Dose: 150 mcg Lorazepam (Ativan -) 1 mg PO 0700,1100,1600,2200 [facility] Last Admin: 04/21/19 10:47 Dose: 1 mg Multi-Ingredient Ointment (Zinc Oxide) 1 applic TP DAILY [facility] Last Admin: 04/21/19 10:46 Dose: 1 applic Mupirocin (Bactroban 2% Ointment -) 1 applic TP BID [facility] Last Admin: 04/21/19 10:45 Dose: 1 applic Nystatin (Mycostatin Cream -) 1 applic TP BID [facility] Last Admin: 04/21/19 10:46 Dose: 1 applic Oxycodone HCl (Roxicodone -) 10 mg PO Q6H PRN PRN Reason: PAIN LEVEL 6-10 Last Admin: 04/21/19 06:14 Dose: 10 mg Pantoprazole Sodium (Protonix -) 40 mg PO DAILY [facility] Last Admin: 04/21/19 09:48 Dose: 40 mg Ropinirole HCl (Requip -) 2 mg PO HS PRN PRN Reason: restless legs Last Admin: 04/20/19 21:14 Dose: 2 mg Ropinirole HCl (Requip -) 2 mg PO QID [facility] Last Admin: 04/21/19 09:48 Dose: 2 mg Fluticasone/Salmeterol (Advair 100mcg/50mcg -) 1 puff IH BID [facility] Last Admin: 04/21/19 10:42 Dose: 1 puff Sertraline HCl (Zoloft -) 200 mg PO HS [facility] Last Admin: 04/20/19 21:15 Dose: 200 mg Sodium Chloride ([place] Nasal [place] -) 1 spray NS BID [facility] Last Admin: 04/21/19 10:44 Dose: 1 sprays Triamcinolone Acetonide (Aristocort 0.1% Cream -) 1 applic TP DAILY PRN PRN Reason: FOR ITCHING - Objective Vital Signs: Vital Signs Temperature 98.4 F 04/21/19 07:54 Pulse Rate 64 04/21/19 07:54 Respiratory Rate 20 04/21/19 07:54 Blood Pressure 147/66 04/21/19 07:54 O2 Sat by Pulse Oximetry (%) 99 04/20/19 21:00 Constitutional: Yes: No Distress Eyes: Yes: Conjunctiva Clear HENT: Yes: Atraumatic Neck: Yes: Supple Cardiovascular: Yes: Regular Rate and Rhythm Respiratory: Yes: CTA Bilaterally Gastrointestinal: Yes: Soft. No: Tenderness Genitourinary: No: Hematuria Musculoskeletal: No: Joint Stiffness, Joint Swelling Extremities: Yes: Other (s/p R toe surgery). No: Cold, Cool Edema: No Integumentary: No: Rash, Venous Stasis Changes Neurological: Yes: Alert ...Motor Strength: WNL Psychiatric: Yes: Alert Labs: CBC, BMP 04/21/19 06:44 04/21/19 06:44 INR, PTT INR 1.02 (0.83-1.09) 04/19/19 07:41 - ....Imaging Other: Report Reviewed Assessment/Plan 68 YOF COPD anxiety depression OA DJD Parkinson WC bound s/p R r 2nd toe surgery for hammertoes / wounds, osteomyelitis IV ATB per ID podiatry f/u pain meds prn falls decubs DVT pfx d/w pt and staff
[2019-04-21] MEDS: VANCOMYCIN 750 MG in DEXTROSE 5%-WATER - 250 ML IVPB SCH (17:10)
[2019-04-21] MEDS: SERTRALINE HCL 50 MG TABLET (FP) PO SCH (22:04)
[2019-04-21] MEDS: rOPINIRole HCL 2 MG TABLET (FP) PO PRN (22:05)
[2019-04-22] MEDS: oxyCODONE HCL 5 MG TABLET PO PRN ×3 (03:30→16:57)
[2019-04-22] MEDS: LORazepam 1 MG TABLET PO SCH ×4 (06:00→21:29)
[2019-04-22] MEDS: LEVOTHYROXINE NA 150 MCG TABLET PO SCH (06:00)
[2019-04-22] MEDS: DOCUSATE SODIUM 100 MG CAPSULE (FP) PO SCH ×3 (06:00→21:30)
[2019-04-22] MEDS ORDERED: DEXTROSE 5%-WATER 100 ML IVPB ONE (08:43)
[2019-04-22] MEDS ORDERED: CEFEPIME HCL 1 GM VIAL (RESTRICTED TO ID) ONE (08:43)
--- NOTE | 2019-04-22 09:12 | PN ---
Progress Note, Physician Chief Complaint: has some neck pain woth moving, h/o LBP OA DJD no other c/o - Current Medication List Current Medications: Active Medications Acetaminophen (Tylenol -) 650 mg PO Q6H PRN PRN Reason: PAIN LEVEL 6-10 Last Admin: 04/21/19 13:26 Dose: 650 mg Albuterol Sulfate (Ventolin Hfa Inhaler -) 2 puff IH Q6H PRN PRN Reason: SHORTNESS OF BREATH Aspirin (Asa -) 81 mg PO DAILY [facility] Last Admin: 04/21/19 09:48 Dose: 81 mg Clotrimazole (Lotrimin 1% Cream -) 1 applic TP BID [facility] Last Admin: 04/21/19 22:07 Dose: 1 applic Docusate Sodium (Colace -) 300 mg PO TID [facility] Last Admin: 04/22/19 06:00 Dose: 300 mg Cefepime HCl 1 gm/ Dextrose 100 mls @ 100 mls/hr IVPB BID [facility]; Protocol Last Admin: 04/21/19 22:07 Dose: 100 mls/hr Vancomycin HCl 750 mg/ (Dextrose) 250 mls @ 166.667 mls/hr IVPB Q24H [facility]; Protocol Last Admin: 04/21/19 17:10 Dose: 166.667 mls/hr Levothyroxine Sodium (Synthroid -) 150 mcg PO DAILY@0700 [facility] Last Admin: 04/22/19 06:00 Dose: 150 mcg Lorazepam (Ativan -) 1 mg PO 0700,1100,1600,2200 [facility] Last Admin: 04/22/19 06:00 Dose: 1 mg Multi-Ingredient Ointment (Zinc Oxide) 1 applic TP DAILY [facility] Last Admin: 04/21/19 10:46 Dose: 1 applic Mupirocin (Bactroban 2% Ointment -) 1 applic TP BID [facility] Last Admin: 04/21/19 22:06 Dose: 1 applic Nystatin (Mycostatin Cream -) 1 applic TP BID [facility] Last Admin: 04/21/19 22:07 Dose: 1 applic Oxycodone HCl (Roxicodone -) 10 mg PO Q6H PRN PRN Reason: PAIN LEVEL 6-10 Last Admin: 04/22/19 03:30 Dose: 10 mg Pantoprazole Sodium (Protonix -) 40 mg PO DAILY [facility] Last Admin: 04/21/19 09:48 Dose: 40 mg Ropinirole HCl (Requip -) 2 mg PO HS PRN PRN Reason: restless legs Last Admin: 04/21/19 22:05 Dose: 2 mg Ropinirole HCl (Requip -) 2 mg PO QID [facility] Last Admin: 04/21/19 22:04 Dose: 2 mg Fluticasone/Salmeterol (Advair 100mcg/50mcg -) 1 puff IH BID [facility] Last Admin: 04/21/19 22:06 Dose: 1 puff Sertraline HCl (Zoloft -) 200 mg PO HS [facility] Last Admin: 04/21/19 22:04 Dose: 200 mg Sodium Chloride ([place] Nasal [place] -) 1 spray NS BID [facility] Last Admin: 04/21/19 22:07 Dose: 1 sprays Triamcinolone Acetonide (Aristocort 0.1% Cream -) 1 applic TP DAILY PRN PRN Reason: FOR ITCHING - Objective Vital Signs: Vital Signs Temperature 98.3 F 04/22/19 07:36 Pulse Rate 65 04/22/19 07:36 Respiratory Rate 20 04/22/19 07:36 Blood Pressure 182/70 H 04/22/19 07:36 O2 Sat by Pulse Oximetry (%) 99 04/21/19 09:00 Constitutional: Yes: No Distress Eyes: Yes: Conjunctiva Clear HENT: Yes: Atraumatic Neck: Yes: Supple Cardiovascular: Yes: Regular Rate and Rhythm Respiratory: Yes: CTA Bilaterally Gastrointestinal: Yes: Soft. No: Tenderness Genitourinary: No: Hematuria Musculoskeletal: No: Joint Stiffness, Joint Swelling Extremities: Yes: Other (R 2nd toe surgery wounds dressed). No: Cold, Cool Edema: No Integumentary: No: Rash, Venous Stasis Changes Neurological: Yes: Alert ...Motor Strength: WNL Psychiatric: Yes: Alert. No: Agitated, Suicidal Ideation Labs: CBC, BMP 04/21/19 06:44 04/21/19 06:44 INR, PTT INR 1.02 (0.83-1.09) 04/19/19 07:41 - ....Imaging Other: Report Reviewed Assessment/Plan 68 YOF COPD anxiety depression OA DJD Parkinson WC bound s/p R r 2nd toe surgery for hammertoes / wounds, osteomyelitis IV ATB per ID podiatry f/u pain meds prn falls decubs DVT pfx d/w pt and staff
[2019-04-22] MEDS: PANTOPRAZOLE 40 MG TABLET (FP) PO SCH (09:24)
[2019-04-22] MEDS: ASPIRIN 81 MG CHEWABLE TABLETS PO SCH (09:24)
[2019-04-22] MEDS: rOPINIRole HCL 2 MG TABLET (FP) PO SCH ×4 (09:25→21:30)
[2019-04-22] MEDS: FLUTICASONE/SALMETEROL 100 MCG/50 MCG DISKUS IH SCH ×2 (09:26→21:31)
[2019-04-22] MEDS: SODIUM CHLORIDE NASAL SPRAY 44 ML BOTTLE NS SCH ×2 (09:26→21:30)
[2019-04-22] MEDS: ALBUTEROL SO4 8 GM HFA INHALER IH PRN ×2 (09:27→21:31)
[2019-04-22] MEDS: MUPIROCIN 2% TOPICAL OINTMENT 22 GM TUBE TP SCH ×2 (09:27→21:29)
[2019-04-22] MEDS: CLOTRIMAZOLE 1% CREAM 15 GM TUBE TP SCH ×2 (09:28→21:30)
[2019-04-22] MEDS: CEFEPIME 1 GM in DEXTROSE 5%-WATER 100 ML IVPB SCH (09:28)
[2019-04-22] MEDS: NYSTATIN 100,000 UNIT/GM TOPICAL CREAM 15 GM TUBE TP SCH ×2 (09:29→21:30)
[2019-04-22] MEDS: ZINC OXIDE 20% TOPICAL OINTMENT 30 GM TUBE TP SCH (09:29)
[2019-04-22] MEDS: HEPARIN NA (PORCINE) 5,000 UNITS/ML 1ML VIAL SQ SCH ×2 (10:32→21:30)
[2019-04-22] MEDS: ACETAMINOPHEN 325 MG TABLET (FP) PO PRN ×2 (10:33→15:51)
--- NOTE | 2019-04-22 14:41 | PN ---
Progress Note (short form) - Note Progress Note: odiatry F/U: Seen/evaluated at bedside NAD. s/p right 2nd digit arthrplasty and bone biopsy. Complaint of neck pain. AZ: R foot: pedal pulses nonpalpable, TG wnl. second digit with no edema, erythema resolved, wound closed with sutures noted, no streaking, mild POP, no drainage, no signs of actue infection MRI: (+) osteomyelitis 2nd proximal phalanx path: MRSA on proximal margin Imp: 68 year old female with right second digit pressure ulcer and osteomyelitis ; s/p 2nd digit arthroplasty evaluated and reviewed Stable from surgical and podiatry standpoint for d/c planning Can keep dressing c/d/i will need f/u in the wound care center upon d/c With Dr. Ronaldo haji per ID; will need PICC likely will follow
[2019-04-22] MEDS: VANCOMYCIN 750 MG in DEXTROSE 5%-WATER - 250 ML IVPB SCH (16:58)
[2019-04-22] MEDS ORDERED: PT OWN MED DRAWER 7, Y5N ONE (20:59)
[2019-04-22] MEDS: SERTRALINE HCL 50 MG TABLET (FP) PO SCH (21:30)
[2019-04-22] MEDS: rOPINIRole HCL 2 MG TABLET (FP) PO PRN (21:31)
[2019-04-23] MEDS: ACETAMINOPHEN 325 MG TABLET (FP) PO PRN ×3 (07:05→21:31)
[2019-04-23] MEDS: DOCUSATE SODIUM 100 MG CAPSULE (FP) PO SCH ×3 (07:05→21:30)
[2019-04-23] MEDS: LORazepam 1 MG TABLET PO SCH ×4 (07:05→21:41)
[2019-04-23] MEDS: LEVOTHYROXINE NA 150 MCG TABLET PO SCH (07:05)
[2019-04-23] MEDS: oxyCODONE HCL 5 MG TABLET PO PRN ×3 (07:06→21:30)
[2019-04-23 08:06] LABS: BASO % 1.8 % (0-2.0); EOS % 7.8 % (0-4.5); HEMATOCRIT 30.8 % (32.4-45.2); HEMOGLOBIN 10.3 GM/dL (10.7-15.3); LYMPH % 38.7 % (8-40); MCH 30.8 pg (25.7-33.7); MCHC 33.5 g/dl (32.0-36.0); MEAN CELL VOLUME 91.8 fl (80-96); MEAN PLT VOLUME 7.1 fl (7.5-11.1); MONO % 9.8 % (3.8-10.2); NEUT % 41.9 % (42.8-82.8); PLATELET COUNT 313 K/MM3 (134-434); RBC 3.36 M/mm3 (3.60-5.2); RDW 14.9 % (11.6-15.6); WHITE BLOOD COUNT 3.3 K/mm3 (4.0-10.0)
[2019-04-23 08:43] LABS: ALBUMIN 3.1 g/dl (3.4-5.0); BILIRUBIN,TOTAL 0.2 mg/dL (0.2-1); BLOOD UREA NITROGEN 18.8 mg/dL (7-18); CALCIUM 8.6 mg/dL (8.5-10.1); CREATININE 0.6 mg/dL (0.55-1.3); TOT PROT 6.4 g/dl (6.4-8.2)
--- NOTE | 2019-04-23 09:18 | PN ---
Progress Note, Physician Chief Complaint: awake alert still with neck pain Xrays d/w pt OA DJD seen by neuro dr Winslow c/o restless legs sd; pt on long acting requip at home but here is on regulasr dose per H formulary, will ask neuro for input - Current Medication List Current Medications: Active Medications Acetaminophen (Tylenol -) 650 mg PO Q6H PRN PRN Reason: PAIN LEVEL 6-10 Last Admin: 04/23/19 07:05 Dose: 650 mg Albuterol Sulfate (Ventolin Hfa Inhaler -) 2 puff IH Q6H PRN PRN Reason: SHORTNESS OF BREATH Last Admin: 04/22/19 21:31 Dose: 2 puff Aspirin (Asa -) 81 mg PO DAILY [facility] Last Admin: 04/22/19 09:24 Dose: 81 mg Clotrimazole (Lotrimin 1% Cream -) 1 applic TP BID [facility] Last Admin: 04/22/19 21:30 Dose: 1 applic Docusate Sodium (Colace -) 300 mg PO TID [facility] Last Admin: 04/23/19 07:05 Dose: 300 mg Heparin Sodium (Porcine) (Heparin -) 5,000 unit SQ BID [facility] Last Admin: 04/22/19 21:30 Dose: 5,000 unit Vancomycin HCl 750 mg/ (Dextrose) 250 mls @ 166.667 mls/hr IVPB Q24H [facility]; Protocol Last Admin: 04/22/19 16:58 Dose: 166.667 mls/hr Levothyroxine Sodium (Synthroid -) 150 mcg PO DAILY@0700 [facility] Last Admin: 04/23/19 07:05 Dose: 150 mcg Lorazepam (Ativan -) 1 mg PO 0700,1100,1600,2200 [facility] Last Admin: 04/23/19 07:05 Dose: 1 mg Multi-Ingredient Ointment (Zinc Oxide) 1 applic TP DAILY [facility] Last Admin: 04/22/19 09:29 Dose: 1 applic Mupirocin (Bactroban 2% Ointment -) 1 applic TP BID [facility] Last Admin: 04/22/19 21:29 Dose: 1 applic Nystatin (Mycostatin Cream -) 1 applic TP BID [facility] Last Admin: 04/22/19 21:30 Dose: 1 applic Oxycodone HCl (Roxicodone -) 10 mg PO Q6H PRN PRN Reason: PAIN LEVEL 6-10 Last Admin: 04/23/19 07:06 Dose: 10 mg Pantoprazole Sodium (Protonix -) 40 mg PO DAILY [facility] Last Admin: 04/22/19 09:24 Dose: 40 mg Ropinirole HCl (Requip -) 2 mg PO HS PRN PRN Reason: restless legs Last Admin: 04/22/19 21:31 Dose: 2 mg Ropinirole HCl (Requip -) 2 mg PO QID [facility] Last Admin: 04/22/19 21:30 Dose: 2 mg Fluticasone/Salmeterol (Advair 100mcg/50mcg -) 1 puff IH BID [facility] Last Admin: 04/22/19 21:31 Dose: 1 puff Sertraline HCl (Zoloft -) 200 mg PO HS [facility] Last Admin: 04/22/19 21:30 Dose: 200 mg Sodium Chloride ([place] Nasal [place] -) 1 spray NS BID [facility] Last Admin: 04/22/19 21:30 Dose: 1 sprays Triamcinolone Acetonide (Aristocort 0.1% Cream -) 1 applic TP DAILY PRN PRN Reason: FOR ITCHING - Objective Vital Signs: Vital Signs Temperature 98.2 F 04/23/19 06:00 Pulse Rate 64 04/23/19 06:00 Respiratory Rate 20 04/23/19 08:44 Blood Pressure 118/66 04/23/19 06:00 O2 Sat by Pulse Oximetry (%) 97 04/23/19 08:44 Constitutional: Yes: Anxious Eyes: Yes: Conjunctiva Clear HENT: Yes: Atraumatic Neck: Yes: Supple Cardiovascular: Yes: Regular Rate and Rhythm Respiratory: Yes: Diminished Gastrointestinal: Yes: Soft. No: Tenderness Genitourinary: No: Hematuria Musculoskeletal: No: Joint Swelling Extremities: No: Cold, Cool Edema: No Integumentary: No: Rash, Venous Stasis Changes Wound/Incision: Yes: Dressing Dry and Intact (R foot) Neurological: Yes: WNL, Alert, Oriented ...Motor Strength: WNL Psychiatric: Yes: WNL, Alert, Oriented. No: Agitated, Suicidal Ideation Labs: CBC, BMP 04/23/19 06:40 04/23/19 06:40 INR, PTT INR 1.02 (0.83-1.09) 04/19/19 07:41 - ....Imaging Other: Report Reviewed Assessment/Plan 68 YOF COPD anxiety depression OA DJD Parkinson WC bound s/p R r 2nd toe surgery for hammertoes / wounds, osteomyelitis IV ATB per ID - further management per ID podiatry f/u wound care; neurology f/u for RLSd and neck pain pain meds prn falls decubs DVT pfx d/w pt and staff
[2019-04-23] MEDS: FLUTICASONE/SALMETEROL 100 MCG/50 MCG DISKUS IH SCH ×2 (10:12→21:32)
[2019-04-23] MEDS: SODIUM CHLORIDE NASAL SPRAY 44 ML BOTTLE NS SCH ×2 (10:12→21:33)
[2019-04-23] MEDS: CLOTRIMAZOLE 1% CREAM 15 GM TUBE TP SCH ×2 (10:13→21:35)
[2019-04-23] MEDS: ASPIRIN 81 MG CHEWABLE TABLETS PO SCH (10:14)
[2019-04-23] MEDS: HEPARIN NA (PORCINE) 5,000 UNITS/ML 1ML VIAL SQ SCH ×2 (10:14→21:37)
[2019-04-23] MEDS: MUPIROCIN 2% TOPICAL OINTMENT 22 GM TUBE TP SCH ×3 (10:14→21:35)
[2019-04-23] MEDS: PANTOPRAZOLE 40 MG TABLET (FP) PO SCH (10:14)
[2019-04-23] MEDS: NYSTATIN 100,000 UNIT/GM TOPICAL CREAM 15 GM TUBE TP SCH ×2 (10:15→21:35)
[2019-04-23] MEDS: ZINC OXIDE 20% TOPICAL OINTMENT 30 GM TUBE TP SCH (10:16)
[2019-04-23] MEDS: rOPINIRole HCL 2 MG TABLET (FP) PO SCH ×4 (10:16→21:32)
[2019-04-23] MEDS: VANCOMYCIN 750 MG in DEXTROSE 5%-WATER - 250 ML IVPB SCH (16:32)
--- NOTE | 2019-04-23 17:14 | PATH ---
Surgical Pathology Report Patient Name: ADIEL SWAN Med. Rec. #: [id number] /Age/Gender: 1950 (Age: 68) / F Account: [id number] Location: [facility] MED/SURG Taken: 04/19/2019 Received: 04/20/2019 Reported: 04/23/2019 Physicians: Maribel Gamino DPM Specimen(s) Received 2ND DIGIT PROXIMAL MARGIN, RIGHT FOOT Clinical History Osteomyelitis second digit right foot Final Diagnosis FOOT, RIGHT, SECOND DIGIT, PROXIMAL MARGIN, BONE BIOPSY: BONE WITH ACUTE AND CHRONIC OSTEOMYELITIS, FOCAL GRANULATION TISSUE FORMATION, BONE REMODELING, AND REACTIVE CHANGES. Electronically Signed Malinda Mullins M.D. Gross Description Received in formalin labeled "right foot second digit proximal margin," is a 0.9 x 0.4 x 0.1 cm ewing-yellow portion of bone. The specimen is submitted in toto in one cassette, following decalcification. /04/20/2019 [facility]04/20/2019
[2019-04-23] MEDS ORDERED: PT OWN MED DRAWER 7, Y5N ONE (21:09)
[2019-04-23] MEDS: SERTRALINE HCL 50 MG TABLET (FP) PO SCH (21:30)
[2019-04-23] MEDS: rOPINIRole HCL 2 MG TABLET (FP) PO PRN (21:32)
[2019-04-24] MEDS ORDERED: PT OWN MED DRAWER 7, Y5N ONE ×3 (06:07→14:45)
[2019-04-24] MEDS: ACETAMINOPHEN 325 MG TABLET (FP) PO PRN ×3 (06:25→21:58)
[2019-04-24] MEDS: LEVOTHYROXINE NA 150 MCG TABLET PO SCH (06:25)
[2019-04-24] MEDS: oxyCODONE HCL 5 MG TABLET PO PRN ×3 (06:26→22:01)
[2019-04-24] MEDS: DOCUSATE SODIUM 100 MG CAPSULE (FP) PO SCH ×3 (06:26→22:04)
[2019-04-24] MEDS: LORazepam 1 MG TABLET PO SCH ×4 (06:29→22:04)
[2019-04-24] MEDS: MUPIROCIN 2% TOPICAL OINTMENT 22 GM TUBE TP SCH ×2 (09:50→23:28)
[2019-04-24] MEDS: HEPARIN NA (PORCINE) 5,000 UNITS/ML 1ML VIAL SQ SCH ×2 (09:50→22:06)
[2019-04-24] MEDS: ASPIRIN 81 MG CHEWABLE TABLETS PO SCH (09:50)
[2019-04-24] MEDS: CLOTRIMAZOLE 1% CREAM 15 GM TUBE TP SCH ×2 (09:50→22:13)
[2019-04-24] MEDS: NYSTATIN 100,000 UNIT/GM TOPICAL CREAM 15 GM TUBE TP SCH ×2 (09:50→22:13)
[2019-04-24] MEDS: rOPINIRole HCL 2 MG TABLET (FP) PO SCH ×3 (09:51→17:01)
[2019-04-24] MEDS: ZINC OXIDE 20% TOPICAL OINTMENT 30 GM TUBE TP SCH (09:52)
[2019-04-24] MEDS: SODIUM CHLORIDE NASAL SPRAY 44 ML BOTTLE NS SCH ×2 (09:53→22:07)
[2019-04-24] MEDS: PANTOPRAZOLE 40 MG TABLET (FP) PO SCH (09:53)
[2019-04-24] MEDS: FLUTICASONE/SALMETEROL 100 MCG/50 MCG DISKUS IH SCH ×2 (09:54→22:07)
--- NOTE | 2019-04-24 11:53 | PN ---
Progress Note (short form) - Note Progress Note: NEUROLOGY PROGRESS: Events reviewed and discussed with Dr. Jasmin Torres. S/p second digit arthroplasty and bone biopsy and on empiric IV Vancomycin. Currently on Requip 2 mg QID, (first dose 10 am) and 2 mg Hs prn. Also on oxycodone 10 mg QID. Still complaining of "restlessness" fredis in early am hours and mid afternoon, requesting more requip. Chronic asymptomatic hypotension 90-100 systolic BP. Has been off nadolol 40 mg po qd since admission for migraine headache prophylaxis. Since C/O of radiating "sharp" neck pains from R neck into hemicranium. Some relief with use of "collar" and ROM per Wendie. Xray of C spine ordered and revealed arthritic changes. MARY: - LHermitte's. Sl reduced neck ROM. R foot in bandange with surrounding erythema. NEURO: Awake, responsive with preseverative speech. EOM's full without nystagmus. Strength normal. Decreased ERENDIRA's. Brisk reflexes throughout. Normal vibration. Impression: Chronic MS Severe Restless Limbs syndrome Migraine Headaches Cervical Spondylosis Suggest: Change ropinirole to 2 mg @ 6-10-2-6 and 4 mg at 10 PM standing. Continue oxycodone on PRN basis only. Orthostatic BP's Avoid constrictive device such as cervical collar. Provide bedside gentle ROM of neck. Suggest change nadolol 20 mg qd to depakote 250 mg HS for migraine prophylaxis Thank you very much, Jose Luis Winslow MD
--- NOTE | 2019-04-24 16:21 | PN ---
Progress Note (short form) - Note Progress Note: Podiatry F/U: Seen/evaluated at bedside NAD. Pain controlled, denies F/V/N/C/SOB/CP. Afebrile. S/p R 2nd digit arthroplasty with bone biopsy. Frustrated that she is still in the hospital. [place]: R foot: dressing C/D/I, no active bleeding, no bandage strikethrough. Sutures well coapted at second digit, no dehiscence noted. Resolving erythema and edema to the second digit. No purulent drainage, no fluctuance, no streaking cellulitis, no signs of active infection. No ischemic changes. Moderate tenderness to palpation of the second digit. OR Cx: MRSA OR Path: proximal margin (+) osteomyelitis Imp: 68 year old female s/p right second digit arthroplasty with bone biopsy 1. IV abx per infectious disease 2. DSD R foot 3. Continue local care 4. Will follow in wound healing center. Podiatry stable for discharge. Tay Higgins DPM
[2019-04-24] MEDS: VANCOMYCIN 750 MG in DEXTROSE 5%-WATER - 250 ML IVPB SCH (16:53)
[2019-04-24] MEDS ORDERED: INSULIN (NOVOLOG) ASPART 100 UNITS/ML 10ML VIAL ONE (17:10)
--- NOTE | 2019-04-24 20:38 | PN ---
Progress Note, Physician History of Present Illness: Pt w/o fever, chills, SOB, palpitations, CP, abd pain. - Current Medication List Current Medications: Active Medications Acetaminophen (Tylenol -) 650 mg PO Q6H PRN PRN Reason: PAIN LEVEL 6-10 Last Admin: 04/24/19 14:26 Dose: 650 mg Albuterol Sulfate (Ventolin Hfa Inhaler -) 2 puff IH Q6H PRN PRN Reason: SHORTNESS OF BREATH Last Admin: 04/22/19 21:31 Dose: 2 puff Aspirin (Asa -) 81 mg PO DAILY [facility] Last Admin: 04/24/19 09:50 Dose: 81 mg Clotrimazole (Lotrimin 1% Cream -) 1 applic TP BID [facility] Last Admin: 04/24/19 09:50 Dose: 1 applic Divalproex Sodium (Depakote *Er* -) 250 mg PO HS [facility] Docusate Sodium (Colace -) 300 mg PO TID [facility] Last Admin: 04/24/19 14:25 Dose: 300 mg Heparin Sodium (Porcine) (Heparin -) 5,000 unit SQ BID [facility] Last Admin: 04/24/19 09:50 Dose: 5,000 unit Vancomycin HCl 750 mg/ (Dextrose) 250 mls @ 166.667 mls/hr IVPB Q24H [facility]; Protocol Last Admin: 04/24/19 16:53 Dose: 166.667 mls/hr Levothyroxine Sodium (Synthroid -) 150 mcg PO DAILY@0700 [facility] Last Admin: 04/24/19 06:25 Dose: 150 mcg Lorazepam (Ativan -) 1 mg PO 0700,1100,1600,2200 [facility] Last Admin: 04/24/19 16:52 Dose: 1 mg Multi-Ingredient Ointment (Zinc Oxide) 1 applic TP DAILY [facility] Last Admin: 04/24/19 09:52 Dose: 1 applic Mupirocin (Bactroban 2% Ointment -) 1 applic TP BID [facility] Last Admin: 04/24/19 09:50 Dose: Not Given Nystatin (Mycostatin Cream -) 1 applic TP BID [facility] Last Admin: 04/24/19 09:50 Dose: 1 applic Oxycodone HCl (Roxicodone -) 10 mg PO Q6H PRN PRN Reason: PAIN LEVEL 6-10 Last Admin: 04/24/19 14:26 Dose: 10 mg Pantoprazole Sodium (Protonix -) 40 mg PO DAILY [facility] Last Admin: 04/24/19 09:53 Dose: 40 mg Ropinirole HCl (Requip -) 4 mg PO HS [facility] Ropinirole HCl (Requip -) 2 mg PO 0600,1000,1400,1800 [facility] Fluticasone/Salmeterol (Advair 100mcg/50mcg -) 1 puff IH BID [facility] Last Admin: 04/24/19 09:54 Dose: 1 puff Sertraline HCl (Zoloft -) 200 mg PO HS [facility] Last Admin: 04/23/19 21:30 Dose: 200 mg Sodium Chloride ([place] Nasal [place] -) 1 spray NS BID [facility] Last Admin: 04/24/19 09:53 Dose: 1 sprays Triamcinolone Acetonide (Aristocort 0.1% Cream -) 1 applic TP DAILY PRN PRN Reason: FOR ITCHING - Objective Vital Signs: Vital Signs Temperature 98.8 F 04/24/19 20:02 Pulse Rate 112 H 04/24/19 20:02 Respiratory Rate 22 H 04/24/19 20:02 Blood Pressure 106/66 04/24/19 20:02 O2 Sat by Pulse Oximetry (%) 99 04/24/19 19:15 Constitutional: Yes: No Distress, Calm Cardiovascular: Yes: Regular Rate and Rhythm, S1, S2 Respiratory: Yes: Regular, CTA Bilaterally. No: Rales Gastrointestinal: Yes: Normal Bowel Sounds, Soft. No: Tenderness Extremities: Yes: Other (clean dressing, no drainage) Edema: No Neurological: Yes: Alert, Oriented Labs: CBC, BMP 04/23/19 06:40 04/23/19 06:40 INR, PTT INR 1.02 (0.83-1.09) 04/19/19 07:41 Problem List - Problems (1) Toe infection Assessment/Plan: + MRSA Code(s): L08.9 - LOCAL INFECTION OF THE SKIN AND SUBCUTANEOUS TISSUE, UNSP (2) Toe ulcer Code(s): L97.509 - NON-PRESSURE CHRONIC ULCER OTH PRT UNSP FOOT W UNSP SEVERITY Qualifiers: Laterality: right Non-pressure ulcer stage: with necrosis of bone Qualified Code(s): L97.514 - Non-pressure chronic ulcer of other part of right foot with necrosis of bone (3) COPD (chronic obstructive pulmonary disease) Code(s): J44.9 - CHRONIC OBSTRUCTIVE PULMONARY DISEASE, UNSPECIFIED (4) Multiple sclerosis Code(s): G35 - MULTIPLE SCLEROSIS (5) Restless leg syndrome Code(s): G25.81 - RESTLESS LEGS SYNDROME (6) Rheumatoid arthritis Code(s): M06.9 - RHEUMATOID ARTHRITIS, UNSPECIFIED (7) Hyponatremia Code(s): E87.1 - HYPO-OSMOLALITY AND HYPONATREMIA (8) Osteomyelitis Code(s): M86.9 - OSTEOMYELITIS, UNSPECIFIED (9) Leukopenia Code(s): D72.819 - DECREASED WHITE BLOOD CELL COUNT, UNSPECIFIED (10) Hyperkalemia Code(s): E87.5 - HYPERKALEMIA (11) Anemia Code(s): D64.9 - ANEMIA, UNSPECIFIED Assessment/Plan IV abtx per ID; to f/u regarding further Rx ID, Podiatry,Neuro, Vascular Sx consults are appreciated. To f/u CX Pt's condition was discussed at large and pt's night nurse at bedside; all questions were answered. DC planning
[2019-04-24] MEDS ORDERED: DIVALPROEX NA *ER* EXTEND REL 250 MG TABLET.SA PO SCH (22:00)
[2019-04-24] MEDS ORDERED: rOPINIRole HCL 2 MG TABLET (FP) PO SCH (22:00)
[2019-04-24] MEDS: SERTRALINE HCL 50 MG TABLET (FP) PO SCH (22:03)
[2019-04-25] MEDS ORDERED: PT OWN MED DRAWER 7, Y5N ONE ×2 (06:16→09:22)
[2019-04-25] MEDS: DOCUSATE SODIUM 100 MG CAPSULE (FP) PO SCH ×2 (06:25→14:07)
[2019-04-25] MEDS: LORazepam 1 MG TABLET PO SCH ×3 (06:25→16:04)
[2019-04-25] MEDS: LEVOTHYROXINE NA 150 MCG TABLET PO SCH (06:25)
[2019-04-25] MEDS: rOPINIRole HCL 2 MG TABLET (FP) PO SCH ×4 (06:25→17:16)
[2019-04-25] MEDS: ACETAMINOPHEN 325 MG TABLET (FP) PO PRN ×2 (06:25→17:16)
[2019-04-25] MEDS: oxyCODONE HCL 5 MG TABLET PO PRN (06:26)
[2019-04-25] MEDS: MUPIROCIN 2% TOPICAL OINTMENT 22 GM TUBE TP SCH (09:26)
[2019-04-25] MEDS: HEPARIN NA (PORCINE) 5,000 UNITS/ML 1ML VIAL SQ SCH (09:28)
[2019-04-25] MEDS: PANTOPRAZOLE 40 MG TABLET (FP) PO SCH (09:28)
[2019-04-25] MEDS: ASPIRIN 81 MG CHEWABLE TABLETS PO SCH (09:28)
[2019-04-25] MEDS: FLUTICASONE/SALMETEROL 100 MCG/50 MCG DISKUS IH SCH (09:30)
[2019-04-25] MEDS: SODIUM CHLORIDE NASAL SPRAY 44 ML BOTTLE NS SCH (09:30)
--- NOTE | 2019-04-25 09:56 | PN ---
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- wound healing well s/p second digit arthroplasty and bone biopsy Vital Signs Period Temp Pulse Resp BP Sys/Holman Pulse Ox Last 24 Hr 97.7 F-98.8 F 65-112 20-22 98-123/55-69 99-99 cor-rrr lungs clear abd soft,nt ext dressing left foot CBC, BMP 04/23/19 06:40 04/23/19 06:40 Microbiology 04/19/19 15:58 Bone Gram Stain - Final 04/19/19 15:58 Bone Tissue Culture - Final Mr S Aureus Mr S Aureus#2 04/19/19 15:58 Bone Anaerobic Culture - Final 04/19/19 15:58 Foot - Right Gram Stain - Final 04/19/19 15:58 Foot - Right Wound Culture - Final Mr S Aureus 04/19/19 15:58 Bone Gram Stain - Final 04/19/19 15:58 Bone Tissue Culture - Final Presumptive Mrsa (Pbp2a Pos) 04/19/19 15:58 Bone Anaerobic Culture - Final NO ANAEROBES WERE ISOLATED 04/12/19 21:30 Blood - Peripheral Venous Blood Culture - Final NO GROWTH AFTER 5 DAYS INCUBATION 04/12/19 21:30 Blood - Peripheral Venous Blood Culture - Final NO GROWTH AFTER 5 DAYS INCUBATION a/p osteomyelitis MRSA ulcer second toe- s/p arthroplasty mri c/w osteo of the toe bone biopsy with postivie lmargins still wants to smoke bone culture MRSA will need 5 more weeks of vancomycin- needs picc line will need weekly labs and vancomycin level monitoring at the SNF d/w patient d/w podiatry penicillin allergy noted Problem List - Problems (1) Toe ulcer Code(s): L97.509 - NON-PRESSURE CHRONIC ULCER OTH PRT UNSP FOOT W UNSP SEVERITY Qualifiers: Laterality: right Non-pressure ulcer stage: with necrosis of bone Qualified Code(s): L97.514 - Non-pressure chronic ulcer of other part of right foot with necrosis of bone (2) Nimo rash of groin Code(s): B37.89 - OTHER SITES OF CANDIDIASIS (3) Penicillin allergy Code(s): Z88.0 - ALLERGY STATUS TO PENICILLIN
[2019-04-25] MEDS: CLOTRIMAZOLE 1% CREAM 15 GM TUBE TP SCH (11:24)
[2019-04-25] MEDS: NYSTATIN 100,000 UNIT/GM TOPICAL CREAM 15 GM TUBE TP SCH (11:24)
[2019-04-25] MEDS: ZINC OXIDE 20% TOPICAL OINTMENT 30 GM TUBE TP SCH (11:24)
[2019-04-25] MEDS ORDERED: oxyCODONE HCL 5 MG TABLET PO PRN (11:38)
[2019-04-25] MEDS ORDERED: ACETAMINOPHEN 325 MG TABLET (FP) PO PRN (11:38)
--- NOTE | 2019-04-25 13:37 | DS ---
Physical Examination Vital Signs: Vital Signs Temperature 97.7 F 04/25/19 07:17 Pulse Rate 70 04/25/19 07:17 Respiratory Rate 20 04/25/19 07:17 Blood Pressure 123/69 04/25/19 07:17 O2 Sat by Pulse Oximetry (%) 99 04/24/19 22:30 Findings/Remarks: Pt w/o fever. cough, CP, abd pain. diarrhea Constitutional: Yes: No Distress, Calm Cardiovascular: Yes: Regular Rate and Rhythm, S1, S2 Respiratory: Yes: Regular, CTA Bilaterally. No: Rales Gastrointestinal: Yes: Normal Bowel Sounds, Soft. No: Tenderness Extremities: Yes: Other (clean dressing) Edema: No Neurological: Yes: Alert, Oriented Labs: CBC, BMP 04/23/19 06:40 04/23/19 06:40 Discharge Summary Problems reviewed: Yes Reason For Visit: CELLULITIS/WOUND ABSCESS Current Active Problems Anemia (Acute) Nimo rash of groin (Acute) Cellulitis (Acute) Hyperkalemia (Acute) Hyponatremia (Acute) Leukopenia (Acute) Osteomyelitis (Acute) Penicillin allergy (Acute) Toe infection (Acute) Toe ulcer (Acute) Procedures: Principal: Right foot MRI. Right leg arterial US. C spine XR (+ slight forward subluxation of C3-C4, DJD) Hospital Course: Pt with known COPD, MS, Restless leg syndrome, RA( refusing Rheum follow-up and treatment) was sent from Resource Conservation [facility] office for infection in the 2-nd toe of right leg. Pt was started on IV abtx; Pt was seen by ID ( Dr Cabrera/ [place]), Podiatry ( Dr Higgins/ [place]), Vascular Sx (Dr Plaza). Pt underwent right foot surgery with Dr Mayberry; Biopsy returned + for MRSA; ID recommended Vanco for 5 more weeks. Pt to be DC'ed to Rehab. Plan of Treatment: IV Vanco Weekly CBC, CMP Follow up with Dr Higgins at Wound care center next week Condition: Stable - Instructions Referrals: Oli Torres MD [Primary Care Provider] - - Home Medications Comprehensive Discharge Medication List: Ambulatory Orders Albuterol Sulfate Inhaler - [Ventolin HFA Inhaler -] 1 - 2 inh PO PRN 03/13/19 Aspirin [ASA -] 81 mg PO DAILY 03/13/19 Docusate Sodium [Colace -] 300 mg PO TID 03/13/19 Levothyroxine [Synthroid -] 150 mcg PO DAILY 03/13/19 Oxycodone HCl/Acetaminophen [Endocet 10-325 mg Tablet] 1 each PO QID PRN MDD 4 03/13/19 Ropinirole HCl [Ropinirole ER] 8 mg PO HS 03/13/19 Salmeterol/Fluticasone [Advair 100Mcg/50Mcg -] 1 inh PO BID 03/13/19 Sertraline HCl [Zoloft] 200 mg PO HS 03/13/19 Ativan 1 mg PO QID 03/17/19 Mag Hydrox/Aluminum Hyd/Simeth [Amalia-L[place] Liquid] 10 ml PO BID PRN 03/17/19 Polyethylene Glycol 3350 17 grams PO DAILY PRN 03/17/19 Ropinirole HCl 2 mg PO QID 03/17/19 Ropinirole HCl [Requip -] 2 mg PO HS PRN 03/17/19 Saline Nasal Solo 1 spray BID 03/17/19 Triamcinolone 0.1% Cream [Aristocort 0.1% Cream -] 1 applic TP PRN PRN 03/17/19 Zinc Oxide 1 applic TP DAILY 03/17/19 Acetaminophen 500 mg PO QID 04/13/19
[2019-04-25] MEDS ORDERED: VANCOMYCIN 1 GM in D5W (PRE-DOCKED) 1,000 MG/250 ML IVPB SCH (15:00)
[2019-04-25 17:40] VITALS: BP 101/68; PULSE 87; TEMP 98
== END 2019-04-25 18:08 | DRG 579 ==
LOC: JER 18:47 → JERBED 22:53 → J7W 04-13 02:08 → J8W 04-19 22:28
PROVIDERS: ADMIT Specialist; ATTEND Specialist
PROC: 0QBQ0ZX Excision of Right Toe Phalanx, Open Approach, Diagnostic (ICD-10-PCS; 2019-04-19)
PROC: 0SQP0ZZ Repair Right Toe Phalangeal Joint, Open Approach (ICD-10-PCS; principal; 2019-04-19 12:30)
PROC: 02HV33Z Insertion of Infusion Device into Superior Vena Cava, Percutaneous Approach (ICD-10-PCS; 2019-04-25)
PROC: B548ZZA Ultrasonography of Superior Vena Cava, Guidance (ICD-10-PCS; 2019-04-25)
DX: L03.031 Cellulitis of right toe (principal); E43 Unspecified severe protein-calorie malnutrition; E87.1 Hypo-osmolality and hyponatremia; B37.89 Other sites of candidiasis; M86.8X7 Other osteomyelitis, ankle and foot; L97.519 Non-pressure chronic ulcer of other part of right foot with unspecified severity; R27.0 Ataxia, unspecified; J44.9 Chronic obstructive pulmonary disease, unspecified; I10 Essential (primary) hypertension; F41.9 Anxiety disorder, unspecified; M54.5 Low back pain; Z88.0 Allergy status to penicillin; M54.2 Cervicalgia; G25.81 Restless legs syndrome; G43.909 Migraine, unspecified, not intractable, without status migrainosus; E03.9 Hypothyroidism, unspecified; K21.9 Gastro-esophageal reflux disease without esophagitis; F32.9 Major depressive disorder, single episode, unspecified; F17.210 Nicotine dependence, cigarettes, uncomplicated; L97.509 Non-pressure chronic ulcer of other part of unspecified foot with unspecified severity; G35 Multiple sclerosis; M06.9 Rheumatoid arthritis, unspecified; I73.9 Peripheral vascular disease, unspecified; M20.41 Other hammer toe(s) (acquired), right foot; E87.5 Hyperkalemia; M47.892 Other spondylosis, cervical region; D64.9 Anemia, unspecified; B95.62 Methicillin resistant Staphylococcus aureus infection as the cause of diseases classified elsewhere
CPT/HCPCS: 36415; 36569; 72050-TC-FY; 73630-TC-RT-FY; 73718-TC-RT; 77001-TC-FY; 80053; 83605; 85025; 85027; 85610; 85651; 85730; 86140; 87040; 87070; 87075; 87186; 87205; 88305-TC; 88311-TC; 93005; 93010; 93923; 93925-TC; 99283-25; C1751; G0480; J0131; J1644; J7030

== ENCOUNTER → 2019-05-07 | Day surgery (SDC) | payer OTHER | END | disposition home or self-care (01) | LOC: JRADIR 13:11 | PROVIDERS: ATTEND Internal Medicine | PROC: 02HV33Z Insertion of Infusion Device into Superior Vena Cava, Percutaneous Approach (ICD-10-PCS; principal; 2019-05-07) | PROC: B518ZZA Fluoroscopy of Superior Vena Cava, Guidance (ICD-10-PCS; 2019-05-07) | DX: M86.9 Osteomyelitis, unspecified (principal) | CPT/HCPCS: 36569; 36573; 75820-TC-FY; 75827-TC-FY; 77001-TC-FY; C1751 ==

== ENCOUNTER 2019-07-16 00:59 | Emergency (ER) | payer OTHER ==
[2019-07-16 02:08] VITALS: BMI 17.5
--- NOTE | 2019-07-16 02:30 | PDOC ---
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 Pt reports she was sitting in her wheelchair with her legs crossed at the ankles and fell forward. She landed on her knees and hit her arm and mid back but is unsure what she hit them on. She denies dizziness, LOC, or head injury. She was able to crawl to an emergency button and help arrived soon after. She reports another fall a week ago, hitting her left knee. She has chronic neck pain from arthritis and reports it does not feel worse than usual. She denies fever, chills, shortness of breath, or chest pain. PCP: Oli Torres Neuro: Goldy <Marge Moore - Last Filed: 07/16/19 06:32> <Micki Dunaway - Last Filed: 07/16/19 06:38> - General Chief Complaint: Pain, Acute Stated Complaint: FALL Time Seen by Provider: 07/16/19 01:41 Past History - Past Medical History Anemia: No Cancer: No Cardiac Disorders: No CVA: No COPD: Yes CHF: No Dementia: No Diabetes: No GI Disorders: No Disorders: No HTN: No Liver Disease: No Psychiatric Problems: Yes (anxiety,depression) Seizures: No Thyroid Disease: No Other medical history: MS, OA, RA - Surgical History Abdominal Surgery: No Appendectomy: No Cardiac Surgery: No Cholecystectomy: No - Immunization History Td Vaccination: Yes TDAP Vaccination: Yes Immunization Up to Date: Yes - Psycho Social/Smoking Cessation Hx Smoking History: Current every day smoker Have you smoked in the past 12 months: Yes Number of Cigarettes Smoked Daily: 7 Cigars Per Day: 0 Information on smoking cessation initiated: No 'Breaking Loose' booklet given: 03/17/19 Hx Alcohol Use: No Drug/Substance Use Hx: No Substance Use Type: None Hx Substance Use Treatment: No <Marge Moore - Last Filed: 07/16/19 06:32> <Micki Dunaway - Last Filed: 07/16/19 06:38> - Past Medical History Allergies/Adverse Reactions: Allergies Allergy/AdvReac Type Severity Reaction Status Date / Time omeprazole Allergy Verified 03/17/19 01:35 Penicillins Allergy Verified 03/17/19 01:35 Home Medications: Ambulatory Orders Albuterol Sulfate Inhaler - [Ventolin HFA Inhaler -] 1 - 2 inh PO PRN 03/13/19 Aspirin [ASA -] 81 mg PO DAILY 03/13/19 Levothyroxine [Synthroid -] 125 mcg PO DAILY 03/13/19 Salmeterol/Fluticasone [Advair 100Mcg/50Mcg -] 1 inh PO BID 03/13/19 Ativan 1 mg PO QID PRN 03/17/19 Acetaminophen [Tylenol .Regular Strength -] 650 mg PO Q6H PRN tablet 04/25/19 Ropinirole HCl [Requip -] 2 mg PO 0600,1000,1400,1800 tablet 04/25/19 Ropinirole HCl [Requip -] 4 mg PO HS tablet 04/25/19 oxyCODONE HCL [Roxicodone -] 10 mg PO Q6H PRN 7 Days #28 tablet MDD 4 04/25/19 Famotidine [Pepcid -] 40 mg PO DAILY 07/16/19 Sertraline HCl 100 mg PO DAILY 07/16/19 Review of Systems - Review of Systems Constitutional: No: Chills, Fever HEENTM: No: Blurred Vision Respiratory: No: Shortness of Breath Cardiac (ROS): No: Chest Pain ABD/GI: No: Nausea, Vomiting Musculoskeletal: Yes: Back Pain, Joint Pain, Neck Pain Neurological: No: Headache, Dizziness <Cheramie,Marge - Last Filed: 07/16/19 06:32> *Physical Exam - Vital Signs Last Vital Signs Temp Pulse Resp BP Pulse Ox 97.8 F 79 16 108/97 97 07/16/19 01:25 07/16/19 01:25 07/16/19 01:25 07/16/19 01:25 07/16/19 01:25 - Physical Exam General Appearance: Yes: Appropriately Dressed, Thin. No: Apparent Distress HEENT: positive: EOMI, EMILY, Other (wears glasses) Neck: positive: Trachea midline Respiratory/Chest: positive: Wheezing (b/l anterior expiratory). negative: Chest Tender Cardiovascular: positive: Regular Rhythm, Regular Rate Gastrointestinal/Abdominal: positive: Normal Bowel Sounds. negative: Tender Musculoskeletal: positive: Other (no tenderness to palpation on back). negative : Vertebral Tenderness Extremity: positive: Tender (b/l knee tenderness to palpation anteriorly with abrasions at distal aspect of knees, scab on proximal aspect of left knee), Other (pelvis stable, extensor mechanisms intact b/l knees) Integumentary: positive: Dry, Warm, Erythema (right lower extremity) Neurologic: positive: Fully Oriented, Alert, Normal Mood/Affect, Motor Strength 5/5 (shell grader strength, shoulder abduction, elbow flexion and extension; knee flexion and extension, plantar and dorsiflexion) <Marge Moore - Last Filed: 07/16/19 06:32> - Vital Signs Last Vital Signs Temp Pulse Resp BP Pulse Ox 97.7 F 74 18 111/64 95 07/16/19 05:55 07/16/19 05:55 07/16/19 05:55 07/16/19 05:55 07/16/19 05:55 <Micki Dunaway - Last Filed: 07/16/19 06:38> ED Treatment Course - Medications Given in the ED: ED Medications Discontinued Medications Generic Name Dose Route Start Last Admin Trade Name Freq PRN Reason Stop Dose Admin Acetaminophen 1,000 mg 07/16/19 02:47 07/16/19 03:36 Ofirmev Injection - IVPB 07/16/19 02:48 Not Given ONCE ONE Acetaminophen 975 mg 07/16/19 03:31 07/16/19 03:49 Tylenol - PO 07/16/19 03:32 975 mg ONCE ONE Administration Oxycodone HCl 10 mg 07/16/19 03:01 07/16/19 03:48 Roxicodone - PO 07/16/19 03:02 10 mg ONCE ONE Administration <Micki Dunaway - Last Filed: 07/16/19 06:38> Medical Decision Making - Medical Decision Making 07/16/19 03:10 Pt is a 68y/o female with RA, OA, MS, hypothyroidism, anxiety, depression, and 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 Pt reports she was sitting in her wheelchair with her legs crossed at the ankles and fell forward. She landed on her knees and hit her arm and mid back but is unsure what she hit them on. ddx: mechanical fall orders: Ofirmev, oxycodone 10mg 07/16/19 06:32 d/c with return to home by ambulette <Marge Moore - Last Filed: 07/16/19 06:32> Discharge - Discharge Information Problems reviewed: Yes <TeresaMarge - Last Filed: 07/16/19 06:32> <Micki Dunaway - Last Filed: 07/16/19 06:38> - Discharge Information Clinical Impression/Diagnosis: Knee abrasion Qualifiers: Encounter type: initial encounter Laterality: right Qualified Code(s): S80.211A - Abrasion, right knee, initial encounter Fall Qualifiers: Encounter type: initial encounter Qualified Code(s): W19.XXXA - Unspecified fall, initial encounter Disposition: HOME - Follow up/Referral Referrals: Alcon Rosales MD [Primary Care Provider] - - Patient Discharge Instructions Patient Printed Discharge Instructions: How to Prevent Falls Additional Instructions: You were seen in the emergency room after a fall. You were given medication to help with your pain. You are stable and may return home. Please follow up with Dr. Torres if your knee pain does not improve. You may use ice on your knees to help with pain. Use ice 10 minutes every hour while you are awake. Continue to take your pain medication. Return to the Emergency Department for any new/worsening/concerning symptoms. - Post Discharge Activity
[2019-07-16] MEDS ORDERED: ACETAMINOPHEN 1000 MG/100 ML VIAL (NON FORMULARY) IVPB ONE (02:47)
[2019-07-16] MEDS ORDERED: oxyCODONE HCL 5 MG TABLET PO ONE (03:01)
[2019-07-16] MEDS ORDERED: ACETAMINOPHEN 500 MG TABLET (FP) PO ONE (03:31)
[2019-07-16] MEDS ORDERED: oxyCODONE HCL 5 MG TABLET ONE (03:38)
[2019-07-16] MEDS ORDERED: ACETAMINOPHEN 325 MG TABLET (FP) ONE (03:38)
--- NOTE | 2019-07-16 05:12 | PDOC ---
Attending Attestation - Resident Resident Name: Marge Moore - ED Attending Attestation I have performed the following: I have examined & evaluated the patient, The case was reviewed & discussed with the resident, I agree w/resident's findings & plan, Exceptions are as noted - HPI HPI: 07/16/19 05:09 68yoF hx of MS, RA presnets after fall out of wheelchair. Pt states that she often almost falls, but today actually fell because her legs were crossed and she could not get them uncrossed. Denies head strike, no LOC. - Physicial Exam PE: 07/16/19 05:11 nad, well appearing RRR ctabl soft ntnd from all joints,+ abrasion to R knee. A&O x 3 - Medical Decision Making 07/16/19 05:11 68yoF w/ fall out of wheelchair, no e/o acute traumatic injuries. - ekg - pain control - reeval and dispo
[2019-07-16 06:03] VITALS: BP 111/64; PULSE 74; TEMP 97.7
== END 2019-07-16 06:45 | disposition home or self-care (01) ==
LOC: JER 00:59
PROC: 3E033GC Introduction of Other Therapeutic Substance into Peripheral Vein, Percutaneous Approach (ICD-10-PCS; principal; 2019-07-16)
DX: S80.211A Abrasion, right knee, initial encounter (principal); W05.0XXA Fall from non-moving wheelchair, initial encounter; Z91.81 History of falling; Y93.89 Activity, other specified; Y92.122 Bedroom in nursing home as the place of occurrence of the external cause; Y99.8 Other external cause status; M06.9 Rheumatoid arthritis, unspecified; G35 Multiple sclerosis; F41.9 Anxiety disorder, unspecified; F32.9 Major depressive disorder, single episode, unspecified; M19.90 Unspecified osteoarthritis, unspecified site; Z86.14 Personal history of Methicillin resistant Staphylococcus aureus infection; Z88.0 Allergy status to penicillin; Z88.8 Allergy status to other drugs, medicaments and biological substances
CPT/HCPCS: 96374; 99282-25

== ENCOUNTER 2019-07-19 14:03 | Emergency (ER) | payer OTHER ==
[2019-07-19 14:18] VITALS: BP 113/63; PULSE 83; TEMP 98.5; BMI 18.6
--- NOTE | 2019-07-19 14:53 | PDOC ---
History of Present Illness - General Chief Complaint: Injury Stated Complaint: FALL Time Seen by Provider: 07/19/19 14:43 - History of Present Illness Initial Comments: Wendie Song is a 68yo woman with a PMH of RA, OA, MS, hypothyroidism, anxiety, depression, and MRSA right foot osteomyelitis who presents with left rib pain and left hip pain after two falls earlier in the week. She states that she has frequent mechanical falls "every 2 days" and usually uses a walker or wheelchair. On Tuesday, she had a fall that she states was her typical mechanical fall. Tuesday, she fell but says that she does not remember the fall. She was talking to her sister on the phone, and she says that the last thing she remember before the fall is eating a sandwich while talking. She does not remember falling and is not sure if she might have fainted. Since then, she has had pain in the left lateral hip and left posterior ribs. She says that "no one did anything" at her facility, but she went to her PT session today and the therapist was concerned about her symptoms. Other than the pain, she denies any focal neurological deficits, inability to stand/ambulate, cough, difficulty breathing, or other symptoms. She takes percocet daily but has not needed any additional pain medications this week. Past History - Past Medical History Allergies/Adverse Reactions: Allergies Allergy/AdvReac Type Severity Reaction Status Date / Time omeprazole Allergy Verified 07/19/19 14:18 Penicillins Allergy Verified 07/19/19 14:18 Home Medications: Ambulatory Orders Albuterol Sulfate Inhaler - [Ventolin HFA Inhaler -] 1 - 2 inh PO PRN 03/13/19 Aspirin [ASA -] 81 mg PO DAILY 03/13/19 Levothyroxine [Synthroid -] 125 mcg PO DAILY 03/13/19 Salmeterol/Fluticasone [Advair 100Mcg/50Mcg -] 1 inh PO BID 03/13/19 Ativan 1 mg PO QID PRN 03/17/19 Acetaminophen [Tylenol .Regular Strength -] 650 mg PO Q6H PRN tablet 04/25/19 Ropinirole HCl [Requip -] 2 mg PO 0600,1000,1400,1800 tablet 04/25/19 Ropinirole HCl [Requip -] 4 mg PO HS tablet 04/25/19 oxyCODONE HCL [Roxicodone -] 10 mg PO Q6H PRN 7 Days #28 tablet MDD 4 04/25/19 Famotidine [Pepcid -] 40 mg PO DAILY 07/16/19 Sertraline HCl 100 mg PO DAILY 07/16/19 Anemia: No Cancer: No Cardiac Disorders: No CVA: No COPD: Yes CHF: No Dementia: No Diabetes: No GI Disorders: No Disorders: No HTN: No Liver Disease: No Psychiatric Problems: Yes (anxiety,depression) Seizures: No Thyroid Disease: No - Surgical History Abdominal Surgery: No Appendectomy: No Cardiac Surgery: No Cholecystectomy: No - Immunization History Td Vaccination: Yes TDAP Vaccination: Yes Immunization Up to Date: Yes - Psycho Social/Smoking Cessation Hx Smoking History: Never smoked Have you smoked in the past 12 months: Yes Number of Cigarettes Smoked Daily: 7 Cigars Per Day: 0 'Breaking Loose' booklet given: 03/17/19 Hx Alcohol Use: No Drug/Substance Use Hx: No Substance Use Type: None Hx Substance Use Treatment: No Review of Systems - Review of Systems Comments:: General: No fevers, no chills, no weight or appetite change, no malaise HEENT: No changes in vision, no changes in hearing, no congestion, no sore throat CV: No chest pain, no palpitations, no LE edema Pulm: No SOB, no cough, no wheezing GI: No nausea or vomiting, no change in bowel habits, no melena : No frequency, no urgency, no dysuria Musc: See HPI, frequent falls Skin: No rash, no lesions, no erythema Endo: No excessive thirst, no heat/cold intolerance Heme: No unusual bruising or bleeding, no swollen glands Neuro: ? syncope, no numbness/tingling, no focal weakness Vasc: No claudication Psych: No recent change in mood, no SI or HI *Physical Exam - Vital Signs Last Vital Signs Temp Pulse Resp BP Pulse Ox 98.5 F 83 16 113/63 99 07/19/19 14:16 07/19/19 14:16 07/19/19 14:16 07/19/19 14:16 07/19/19 14:16 - Physical Exam General: Comfortable, no acute distress HEENT: Atraumatic, PERRL, EOMI, MMM, voice normal, normal neck ROM. No posterior neck tenderness Cards: RRR, no murmur appreciated. Left posterior rib tenderness Pulm: Comfortable on room air, clear to auscultation bilaterally Back: No midline tenderness, no step-offs or deformities Abd: Soft, nontender, nondistended Ext: Atraumatic. No LE edema. ROM intact. Moves all extremities, strength equal bilaterally Skin: Normal color, no rashes or lesions. No erythema, edema, or bruising Neuro: A&Ox3, CN grossly intact, normal speech, motor/sensory grossly intact and symmetric Psych: Mood appropriate to situation ED Treatment Course - LABORATORY CBC & Chemistry Diagram: 07/19/19 15:30 07/19/19 15:30 Medical Decision Making - Medical Decision Making 07/19/19 14:53 Wendie Song is a 68yo woman with a PMH of RA, OA, MS, hypothyroidism, anxiety, depression, and MRSA right foot osteomyelitis who presents with left rib pain and left hip pain after two falls earlier in the week. The fall on Tuesday she reports was mechanical, but she is not sure whether she fainted on Tuesday as she does not remember the fall. - Rib and hip pain, no visible injury on exam but TTP. Most likely injuries secondary to recurrent falls. Unlikely that hip is fractured as pt is still able to stand. Possible rib fracture v contusion - CT head and CT c-spine due to multiple falls. Eval for fracture or bleed - Unclear whether pt had syncopal event. CBC, CMP, trop, EKG to evaluate 07/19/19 18:00 - Labs reviewed. No concerning abnormalities - Xrays and CT's completed. Xrays note chronic trauma, chronically deformed hip. No acute fractures or injury noted on any imaging - EKG w/ HR 73, normal axis, normal intervals, no t-wave or ST changes. - Plan to d/c home to follow up with her PMD. Discussed with Dr Maurilio Martinez PGY2 Discharge - Discharge Information Problems reviewed: Yes Clinical Impression/Diagnosis: Recurrent falls, Rib pain on left side Condition: Stable Disposition: HOME - Admission No - Follow up/Referral Referrals: Oli Torres MD [Primary Care Provider] - - Patient Discharge Instructions Additional Instructions: Discharge Instructions: You were seen in the emergency department for rib pain following a fall. You do not have any broken bones. Your blood tests and EKG did not show any concerns. You did not take your evening medications. Make sure you take any medications that you normally take in the afternoon or at night. Home Care and Follow Up: - You may use over the counter medications as needed for pain at home. 650- 1000mg acetaminophen (Tylenol) or 600mg ibuprofen (Motrin or Advil) can be used every 6-8 hours. If needed for continued pain, these medications may be alternated every 3-4 hours. For example, if you take ibuprofen at 9am, you may take acetaminophen at noon, ibuprofen at 3pm, etc. - It is strongly recommended that you take ibuprofen with food to help prevent stomach irritation. - You may buy a numbing patch that contains lidocaine (the patch is 4-5% lidocaine) that can be placed over the areas of greatest pain. The lidocaine patch may be placed for 12 hours then removed for 12 hours. - Try using an ice pack for 20 minutes every hour or a heating pad for additional pain control. These should NOT be used over the lidocaine patch, but you may place them over the areas of pain while the patch is off. - Do not stop moving around. As much as you can tolerate, continue to do light exercise and stretching exercises. Increase your activity level as much as you can tolerate daily. - Your xray showed constipation. Make sure you are using your colace and Miralax at home 1-2 times per day. - If your pain does not improve over the next week, please see your regular doctor for follow up. - Seek immediate medical care if you have significant worsening of your symptoms , you are unable to stand, you have redness or swelling over your injuries, you develop a cough or fever, you have shortness of breath, or you have any other medical emergency. - Post Discharge Activity
[2019-07-19] MEDS ORDERED: LIDOCAINE 5% TOPICAL PATCH TP ONE (15:06)
[2019-07-19 15:44] LABS: BASO % 1.3 % (0-2.0); EOS % 5.6 % (0-4.5); HEMATOCRIT 32.7 % (32.4-45.2); HEMOGLOBIN 10.7 GM/dL (10.7-15.3); LYMPH % 22.2 % (8-40); MCH 30.3 pg (25.7-33.7); MCHC 32.8 g/dl (32.0-36.0); MEAN CELL VOLUME 92.3 fl (80-96); MEAN PLT VOLUME 7.4 fl (7.5-11.1); NEUT % 62.9 % (42.8-82.8); PLATELET COUNT 235 K/MM3 (134-434); RBC 3.54 M/mm3 (3.60-5.2); RDW 13.6 % (11.6-15.6); WHITE BLOOD COUNT 5.8 K/mm3 (4.0-10.0)
[2019-07-19 16:13] LABS: ALBUMIN 3.3 g/dl (3.4-5.0); ALK PHOS 86 U/L (45-117); ANION GAP 4 MMOL/L (8-16); BILIRUBIN,TOTAL 0.2 mg/dL (0.2-1); BLOOD UREA NITROGEN 17.1 mg/dL (7-18); CALCIUM 8.6 mg/dL (8.5-10.1); CHLORIDE 100 mmol/L (98-107); CO2 31 mmol/L (21-32); CREATININE 0.8 mg/dL (0.55-1.3); GLUCOSE,RANDOM 92 mg/dL (74-106); POTASSIUM 4.7 mmol/L (3.5-5.1); SGOT/AST 17 U/L (15-37); SGPT/ALT 14 U/L (13-61); SODIUM 135 mmol/L (136-145); TOT PROT 7.2 g/dl (6.4-8.2)
--- NOTE | 2019-07-19 16:19 | PDOC ---
Documentation entered by Pavithra Pascal SCRIBE, acting as scribe for Medhat Thorpe MD. Medhat Thorpe MD: This documentation has been prepared by the Naida angel Brenda, SCRIBE, under my direction and personally reviewed by me in its entirety. I confirm that the documentation accurately reflects all work, treatment, procedures, and medical decision making performed by me. Attending Attestation - Resident Resident Name: MichelleImani - ED Attending Attestation I have performed the following: I have examined & evaluated the patient, The case was reviewed & discussed with the resident, I agree w/resident's findings & plan, Exceptions are as noted - HPI HPI: 07/19/19 15:40 The patient is a 68 year old female with a significant PMH of RA, OA, MS, hypothyroidism, anxiety, depression, osetomyelitis and MRSA on right foot (s/p amputation) who presents to the ED from [facility] for evaluation of unwitnessed fall. Patient reports that the last thing she remembers was taking a bite out of her sandwich, then she was on the floor. Patient reports initially no pain and no symptoms. She now states that is having left rib pain along with right hip pain. She notes that she usually falls , and she fell twice this week however, in her prior falls she has been able to remember, on the contrary she does not remember this one. The patient denies chest pain, shortness of breath, headache and dizziness. Denies fever, chills, nausea, vomiting, diarrhea and constipation. Denies dysuria, frequency, urgency and hematuria. Allergies: amoprazole and penicillins Social history: No reported hx of tobacco use, alcohol use or illicit drug use. - Physicial Exam PE: 07/19/19 15:47 Vitals: Triage Vital signs reviewed General Appearance: no acute distress, well nourished well developed, Head: Atraumatic, normocephalic Eyes: Pupils equal reactive round, extraocular movement intact Neck: Supple;No Nuchal rigidity Chest Wall: Nontender Cardiac: Regular rate and rhythm, no murmurs, no rubs, no gallops, Lungs: Clear to auscultation bilateral, good air movement bilaterally, Abdomen: (+) Left hip tenderness. Soft, nondistended, normal bowel sounds, nontender to palpation Rectal: Exam deferred Extremities: (+) Left hip tenderness. No cyanosis, clubbing, or edema Skin: Warm and dry, no rashes or lesions, no petechiae Neuro: AOX3; Cranial Nerves 2-12 grossly c intact, Strength intact to all extremities, Sensation intact to all extremities Psych: normal mood, normal affect - Medical Decision Making 07/19/19 18:36 History of multiple falls fall the other day with hip and rib pain Imaging negative for acute pathology labs within normal limits Findings, need for follow-up and strict return instructions discussed with patient.
[2019-07-19] MEDS ORDERED: LIDOCAINE 5% TOPICAL PATCH ONE (16:52)
[2019-07-19] MEDS ORDERED: LIDOCAINE PATCH REMOVAL MC SCH (22:00)
--- NOTE | 2019-07-20 15:38 | EKG ---
Test Reason : Blood Pressure : / mmHG Vent. Rate : 073 BPM Atrial Rate : 073 BPM P-R Int : 168 ms QRS Dur : 070 ms QT Int : 400 ms P-R-T Axes : 080 -14 046 degrees QTc Int : 440 ms NORMAL SINUS RHYTHM WHEN COMPARED WITH ECG OF 13-APR-2019 01:37, CRITERIA FOR SEPTAL INFARCT ARE NO LONGER PRESENT Confirmed by MARQUIS DIAZ MD ([id number]) on 07/20/2019 3:38:24 PM Referred By: Confirmed By:MARQUIS DIAZ MD
== END 2019-07-19 21:47 | disposition home or self-care (01) ==
LOC: JER 14:03
DX: R07.81 Pleurodynia (principal); M06.9 Rheumatoid arthritis, unspecified; E03.9 Hypothyroidism, unspecified; F41.8 Other specified anxiety disorders; Z86.14 Personal history of Methicillin resistant Staphylococcus aureus infection
CPT/HCPCS: 36415; 70450-TC; 71101-TC-LT-FY; 72125-TC; 73523-TC-FY; 80053; 82550; 84484; 85025; 93005; 93010; 99283-25

== ENCOUNTER 2019-08-18 02:37 | Emergency (ER) | payer OTHER ==
[2019-08-18 02:48] VITALS: BP 127/77; PULSE 73; TEMP 97.2; BMI 17.4
--- NOTE | 2019-08-18 02:50 | PDOC ---
History of Present Illness - General Chief Complaint: Back Pain Stated Complaint: BACK PAIN Time Seen by Provider: 08/18/19 02:47 - History of Present Illness Initial Comments: 08/18/19 02:48 68 yo F with h/o RA, OA, MS, hypothyroidism, anxiety, depression, r foot osetomyelitis who p/w right frontal head injury s/p mechanical fall. Patient arrives EMS from [facility] for right head injury following fall from wheelchair 1 hour [employer]. Patient states that she fell asleep in wheelchair and slid out of wheelchair onto carpeted floor, hitting the right side of her head with absent LOC. Denies CAVAZOS. On ground for minutes before up with assistance to wheelchair. Karen AC Patient denies CAVAZOS, vision change, palpitations, cough, wheezing, orthopena, PND, leg swelling/pain, N/V, F,C, CP, SOB, urinary complaints, hematuria, BPR, abdominal pain, diarrhea, constipation, lightheadedness, weakness, sensory changes. PMHx: as noted above ROS: as noted SHx: Denies Etoh, IVDA. + tobacco use Allergies: PCN Past History - Past Medical History Allergies/Adverse Reactions: Allergies Allergy/AdvReac Type Severity Reaction Status Date / Time omeprazole Allergy Verified 08/18/19 02:46 Penicillins Allergy Verified 08/18/19 02:46 Home Medications: Ambulatory Orders Albuterol Sulfate Inhaler - [Ventolin HFA Inhaler -] 1 - 2 inh PO PRN 03/13/19 Aspirin [ASA -] 81 mg PO DAILY 03/13/19 Levothyroxine [Synthroid -] 125 mcg PO DAILY 03/13/19 Salmeterol/Fluticasone [Advair 100Mcg/50Mcg -] 1 inh PO BID 03/13/19 Ativan 1 mg PO QID PRN 03/17/19 Acetaminophen [Tylenol .Regular Strength -] 650 mg PO Q6H PRN tablet 04/25/19 Ropinirole HCl [Requip -] 2 mg PO 0600,1000,1400,1800 tablet 04/25/19 Ropinirole HCl [Requip -] 4 mg PO HS tablet 04/25/19 oxyCODONE HCL [Roxicodone -] 10 mg PO Q6H PRN 7 Days #28 tablet MDD 4 04/25/19 Famotidine [Pepcid -] 40 mg PO DAILY 07/16/19 Sertraline HCl 100 mg PO DAILY 07/16/19 Anemia: No Cancer: No Cardiac Disorders: No CVA: No COPD: Yes CHF: No Dementia: No Diabetes: No GI Disorders: No Disorders: No HTN: No Liver Disease: No Psychiatric Problems: Yes (anxiety,depression) Seizures: No Thyroid Disease: No - Surgical History Abdominal Surgery: No Appendectomy: No Cardiac Surgery: No Cholecystectomy: No - Immunization History Td Vaccination: Yes TDAP Vaccination: Yes Immunization Up to Date: Yes - Psycho Social/Smoking Cessation Hx Smoking History: Never smoked Have you smoked in the past 12 months: Yes Number of Cigarettes Smoked Daily: 7 Cigars Per Day: 0 'Breaking Loose' booklet given: 03/17/19 Hx Alcohol Use: No Drug/Substance Use Hx: No Substance Use Type: None Hx Substance Use Treatment: No Review of Systems - Review of Systems Comments:: 08/18/19 02:49 GENERAL/CONSTITUTIONAL: No fever or chills. No weakness. HEAD, EYES, EARS, NOSE AND THROAT: No change in vision. No ear pain or di scharge. No sore throat. CARDIOVASCULAR: No chest pain or shortness of breath RESPIRATORY: No cough, wheezing, or hemoptysis. GASTROINTESTINAL: No nausea, vomiting, diarrhea or constipation. GENITOURINARY: No dysuria, frequency, or change in urination. MUSCULOSKELETAL: No joint or muscle swelling or pain. No neck or back pain. SKIN: No rash NEUROLOGIC: No headache, vertigo, loss of consciousness, or change in strength/sensation. ENDOCRINE: No increased thirst. No abnormal weight change HEMATOLOGIC/LYMPHATIC: No anemia, easy bleeding, or history of blood clots. ALLERGIC/IMMUNOLOGIC: No hives or skin allergy. *Physical Exam - Physical Exam 08/18/19 02:49 GENERAL: Awake, alert, and fully oriented, in no acute distress HEAD: No signs of trauma, normocephalic, atraumatic EYES: PERRLA, EOMI, sclera anicteric, conjunctiva clear ENT: Auricles normal inspection, hearing grossly normal, nares patent, oropharynx clear without exudates. Moist mucosa NECK: Normal ROM, supple, no lymphadenopathy, JVD, or masses LUNGS: No distress, speaks full sentences, clear to auscultation bilaterally HEART: Regular rate and rhythm, normal S1 and S2, no murmurs, rubs or gallops, peripheral pulses normal and equal bilaterally. ABDOMEN: Soft, nontender, normoactive bowel sounds. No guarding, no rebound. No masses EXTREMITIES : Normal inspection, Normal range of motion, no edema. No clubbing or cyanosis NEUROLOGICAL: Cranial nerves II through XII grossly intact. Normal speech, no focal sensorimotor deficits SKIN: Warm, Dry, normal turgor, no rashes or lesions noted BACK: Neg midline or paraspinal ttp, step-off, or bony deformity ED Treatment Course - RADIOLOGY Radiology Studies Ordered: 08/18/19 05:08 Patient Information: : 1950 Order Type: Preliminary Name: SOSA CHUN Sex: F Study Description: CT HEAD Modality: CT Location: [facility] Referring Physician: DAISY BANKS Comments: Dorita Romero MD wrote on Aug 18, 2019 at 04:57 AM: Referring Physician: DAISY BANKS Patient Name: ADIEL SWAN THIS IS A PRELIMINARY REPORT FROM [facility] DATE OF SERVICE: 2019-08-18 04:09:11 IMAGES: [id number] EXAM: HEAD CT WITHOUT CONTRAST HISTORY: Fall. COMPARISON: CT head of 03/13/2019. FINDINGS: Stable intracranial volume loss, again seen most prominently in the parietal lobes. No midline shift. Stable mild chronic microangiopathic ischemic changes in the white matter. No evidence of intracranial hemorrhage or any obvious signs of acute infarction. No abnormal acute extra-axial fluid collections. Stable intracranial atherosclerosis. Intact osseous calvarium. Clear mastoids and middle ear cavities. Stable minimal mucosal thickening in the right maxillary sinus. CONFIDENTIALITY NOTICE: This information is intended only for the use of the recipient(s) named above. If you are not the intended recipient, or a person responsible for delivering it to the intended recipient, you are hereby notified that any disclosure, copying, distribution or use of any of the information contained in or attached to this transmission is STRICTLY PROHIBITED. If you have received this transmission in error, please immediately notify Imaging [employer] and destroy the original transmission and its attachments wit hout saving them in any manner [address] [facility] [employer] [facility] [address] [place] [address] Phone: [phone] Fax: Email: [email or web address] Web: [email or web address] Patient Information: : 1950 Order Type: Preliminary Name: SOSA CHUN Sex: F Study Description: CT HEAD Modality: CT Location: [facility] Referring Physician: DAISY BANKS IMPRESSION: No acute traumatic intracranial or osseous abnormality. Stable findings as noted above. One or more of the following dose reduction techniques were used: automated exposure control, adjustment of the mA and/or kV according to patient size, use of iterative reconstructive technique. THIS DOCUMENT HAS BEEN ELECTRONICALLY SIGNED Dorita Romero MD 08/18/2019 04:55 EST MMissyD. Please call Imaging [employer] [phone] with questions. Dorita Romero MD Clinicians - Please contact Imaging [employer] with further questions at [phone] Patients - Please contact your Ordering Provider with questions Patient Information: : 1950 Order Type: Preliminary Name: SOSA CHUN Sex: F Study Description: CT CERVICAL SPINE Modality: CT Location: [facility] Referring Physician: DAISY BANKS Comments: Dorita Romero MD wrote on Aug 18, 2019 at 05:03 AM: Referring Physician: DAISY BANKS Patient Name: ADIEL SWAN THIS IS A PRELIMINARY REPORT FROM [facility] DATE OF SERVICE: 2019-08-18 03:56:39 IMAGES: [id number] EXAM: CERVICAL SPINE CT W/O CONTR HISTORY: Fall. COMPARISON: CT cervical spine without contrast of 03/13/2019. FINDINGS: No acute fractures or dislocations. Mild anterolisthesis of C3 over C4 again seen. Multilevel degenerative changes with stenosis again seen. Evaluation of intraspinal contents limited on CT scan. Prevertebral soft tissues within normal limits. Patent airway. Atherosclerotic calcifications in the carotids again noted. Biapical pleural/parenchymal scarring again seen. CONFIDENTIALITY NOTICE: This information is intended only for the use of the recipient(s) named above. If you are not the intended recipient, or a person responsible for delivering it to the intended recipient, you are hereby notified that any disclosure, copying, distribution or use of any of the information contained in or attached to this transmission is STRICTLY PROHIBITED. If you have received this transmission in error, please immediately notify Imaging [employer] Developer and destroy the original transmission and its attachments without saving them in any manner [address] [facility] [address] [place] [address] Phone: [phone] Fax: Email: [email or web address] Web: [email or web address] Patient Information: : 1950 Order Type: Preliminary Name: SOSA CHUN Sex: F Study Description: CT CERVICAL SPINE Modality: CT Location: [facility] Referring Physician: DAISY BANKS IMPRESSION: No acute traumatic osseous abnormality. Stable findings as noted above. One or more of the following dose reduction techniques were used: automated exposure control, adjustment of the mA and/or kV according to patient size, use of iterative reconstructive technique. THIS DOCUMENT HAS BEEN ELECTRONICALLY SIGNED Dorita Romero MD 08/18/2019 05:02 COLEEN Jarvis. Please call Imaging [employer] Developer [phone] with questions. Dorita Romero MD Clinicians - Please contact Imaging [employer] Developer with further questions at [phone] Patients - Please contact your Ordering Provider with questions. Medical Decision Making - Medical Decision Making 08/18/19 03:31 68 yo F with h/o RA, OA, MS, hypothyroidism, anxiety, depression, r foot osetomyelitis BIBEMs with right frontal head injury s/p mechanical fall from wheelchair onto carpeted floor, with absent LOC. Vitals wnl, AF, A&Ox3, GCS 15. Physical exam unremarkable. Patient neurologically intact. Absent evidence basilar skull frx. C-spine non tender. No obvious bony deformity or ttp necessitating emergent imaging. Denies AC use. CTH r/o hemmorhage, hematoma, or skull frx. Will reassess. ED course: 08/18/19 05:08 CTH, CT C-SPINE: Unremarkable 08/18/19 05:09 Stable for d/c to facility Discharge - Discharge Information Problems reviewed: Yes Clinical Impression/Diagnosis: Closed head injury Qualifiers: Encounter type: initial encounter Qualified Code(s): S09.90XA - Unspecified injury of head, initial encounter Condition: Stable - Admission No - Follow up/Referral Referrals: Alcon Rosales MD [Primary Care Provider] - - Patient Discharge Instructions Patient Printed Discharge Instructions: DI for Closed Head Injury Additional Instructions: Please return to the emergency department with any new or worsening symptoms or concerns. Please follow up with your primary care physician within 72 hours. You can take Acetaminophen 650 mg every 6-8 hours as needed for pain - Post Discharge Activity
--- NOTE | 2019-08-18 04:04 | PDOC ---
Attending Attestation - Resident Resident Name: Tom Majanoson - ED Attending Attestation I have performed the following: I have examined & evaluated the patient, The case was reviewed & discussed with the resident, I agree w/resident's findings & plan - HPI HPI: 08/19/19 01:04 68 yo F with h/o RA, OA, MS, hypothyroidism, anxiety, depression, r foot osetomyelitis who p/w right frontal head injury s/p mechanical fall. Patient arrives EMS from [facility] for right head injury following fall from wheelchair 1 hour [employer]. Patient states that she fell asleep in wheelchair and slid out of wheelchair onto carpeted floor, hitting the right side of her head with absent LOC. Denies CAVAZOS. On ground for minutes before up with assistance to wheelchair. Karen AC Patient denies CAVAZOS, vision change, palpitations, cough, wheezing, orthopena, PND, leg swelling/pain, N/V, F,C, CP, SOB, urinary complaints, hematuria, BPR, abdominal pain, diarrhea, constipation, lightheadedness, weakness, sensory changes. PMHx: as noted above ROS: as noted SHx: Denies Etoh, IVDA. + tobacco use Allergies: PCN - Physicial Exam PE: 08/19/19 01:05 Agree with resident exam. - Medical Decision Making 08/18/19 05:07 Patient Name: ADIEL SWAN THIS IS A PRELIMINARY REPORT FROM [facility] DATE OF SERVICE: 2019-08-18 03:56:39 IMAGES: [id number] EXAM: CERVICAL SPINE CT W/O CONTR HISTORY: Fall. COMPARISON: CT cervical spine without contrast of 03/13/2019. FINDINGS: No acute fractures or dislocations. Mild anterolisthesis of C3 over C4 again seen. Multilevel degenerative changes with stenosis again seen. Patient Name: ADIEL SWAN THIS IS A PRELIMINARY REPORT FROM [facility] DATE OF SERVICE: 2019-08-18 04:09:11 IMAGES: [id number] EXAM: HEAD CT WITHOUT CONTRAST HISTORY: Fall. COMPARISON: CT head of 03/13/2019. FINDINGS: Stable intracranial volume loss, again seen most prominently in the parietal lobes. No midline shift. Stable mild chronic microangiopathic ischemic changes in the white matter. No ev idence of intracranial hemorrhage or any obvious signs of acute infarction. No abnormal acute extra-axial fluid collections. Stable intracranial atherosclerosis. Intact osseous calvarium. Clear mastoids and middle ear cavities. Stable minimal mucosal thickening in the right maxillary sinus
== END 2019-08-18 06:13 | disposition home or self-care (01) ==
LOC: JER 02:37
DX: S09.8XXA Other specified injuries of head, initial encounter (principal); W05.0XXA Fall from non-moving wheelchair, initial encounter; Y93.89 Activity, other specified; Y92.128 Other place in nursing home as the place of occurrence of the external cause; Y99.8 Other external cause status; J44.9 Chronic obstructive pulmonary disease, unspecified; M06.9 Rheumatoid arthritis, unspecified; M19.90 Unspecified osteoarthritis, unspecified site; G35 Multiple sclerosis; F41.9 Anxiety disorder, unspecified; F32.9 Major depressive disorder, single episode, unspecified; M86.9 Osteomyelitis, unspecified; Z88.0 Allergy status to penicillin; Z88.8 Allergy status to other drugs, medicaments and biological substances
CPT/HCPCS: 70450-TC; 72125-TC; 99284-25

== ENCOUNTER 2020-01-15 02:26 | Emergency (ER) | payer OTHER ==
[2020-01-15 02:45] VITALS: BMI 17.2
--- NOTE | 2020-01-15 02:46 | PDOC ---
History of Present Illness - General Chief Complaint: Injury Stated Complaint: FALL Time Seen by Provider: 01/15/20 02:42 History Source: Patient Exam Limitations: No Limitations - History of Present Illness Initial Comments: 01/15/20 02:43 This is a 69-year-old female who comes in from a local prison after she fell. Patient hit her head when she fell. Patient was transferring from her wheelchair to the bed when she fell. Patient denies any other injuries. Allergies: as per nursing notes Past Medical History: none Social history: Patient is retired, lives in a prison Surgical history: None General: No fevers or chills, no weakness, no weight loss HEENT: No change in vision. No sore throat,. No ear pain CardioVascular: no chest discomfort. No shortness of breath Respiratory:No cough, or wheezing. Gastrointestinal: no nausea, vomiting, diarrhea or constipation, No rectal bleeding Genitourinary: No dysuria, hematuria, or frequency Musculoskeletal rheumatoid arthritis with chronic pain Neurologic: No headache, vertigo, dizziness or loss of consciousness Psychiatric: nor depression Skin: No rashes or easy bruising Endocrine: no increased thirst or abnormal weight change Allergic: no skin or latex allergy All other systems reviewed and normal Exam: General: Well-nourished well-developed individual, no acute distress HEENT: Throat: Normal, tonsils normal, no erythema or exudate Neck: Supple, no meningeal signs, no lymphadenopathy Eyes::Pupils equal reactive and round, extraocular motion intact Chest: Nontender to palpation Cardiac: S1-S2 normal, regular rate and rhythm, no murmurs rubs or gallops Respiratory: Lungs clear to auscultation bilateral Abdomen: Soft, nondistended, normal bowel sounds, there is no tenderness on palpation diffusely Extremities: Warm, dry, no cyanosis, clubbing, or edema Skin: No rashes Neuro: Alert and oriented x3, CN II - XII intact, nonfocal exam with normal strength, normal sensation, normal reflexes, normal gait, Psych: Normal mood and affect 01/15/20 02:45 Assessment and plan: This is a 69-year-old female brought in from a prison who fell and hit her head. Patient had a head CT that was negative for any acute pathology chest CT was via verbal report from the imaging on-call radiologist. He said he had not received all of the images but all of the axial images did not show any acute pathology so patient was discharged home. Past History - Medical History Allergies/Adverse Reactions: Allergies Allergy/AdvReac Type Severity Reaction Status Date / Time omeprazole Allergy Verified 01/15/20 02:30 Penicillins Allergy Verified 01/15/20 02:30 Home Medications: Ambulatory Orders Aspirin 81 mg PO DAILY 01/15/20 Divalproex Sodium [Depakote] 500 mg PO BID 01/15/20 Docusate Sodium [Colace] 300 mg PO DAILY 01/15/20 Levothyroxine [Synthroid -] 150 mcg PO DAILY 01/15/20 Lorazepam [Ativan] 1 mg PO QID 01/15/20 Mag Hydrox/Aluminum Hyd/Simeth [Almacone-2 Liquid] 200 ml PO TID 01/15/20 Oxycodone HCl/Acetaminophen [Endocet 10-325 mg Tablet] 1 each PO QID 01/15/20 Pantoprazole Sodium [Protonix] 40 mg PO DAILY 01/15/20 Polyethylene Glycol 3350 [Miralax (For Daily Use) -] 17 gm PO DAILY 01/15/20 Ropinirole HCl [Ropinirole ER] 2 mg PO QID 01/15/20 Ropinirole HCl [Ropinirole ER] 4 mg PO HS 01/15/20 Salmeterol/Fluticasone [Advair 100Mcg/50Mcg -] 1 inh PO BID 01/15/20 Sertraline HCl 200 mg PO HS 01/15/20 Anemia: No Cancer: No Cardiac Disorders: No CVA: No COPD: Yes CHF: No Dementia: No Diabetes: No GI Disorders: No Disorders: No HTN: No Liver Disease: No Psychiatric Problems: Yes (anxiety,depression) Seizures: No Thyroid Disease: No - Surgical History Abdominal Surgery: No Appendectomy: No Cardiac Surgery: No Cholecystectomy: No - Immunization History Td Vaccination: Yes TDAP Vaccination: Yes Immunization Up to Date: Yes - Psycho-Social/Smoking History Smoking History: Never smoked Have you smoked in the past 12 months: Yes Number of Cigarettes Smoked Daily: 7 Cigars Per Day: 0 'Breaking Loose' booklet given: 03/17/19 Discharge - Discharge Information Problems reviewed: Yes Clinical Impression/Diagnosis: Recurrent falls Fall Qualifiers: Encounter type: initial encounter Qualified Code(s): W19.XXXA - Unspecified fall, initial encounter Condition: Stable Disposition: HOME - Admission No - Follow up/Referral Referrals: Oli Torres MD [Primary Care Provider] - - Patient Discharge Instructions Additional Instructions: Return to the emergency department immediately with ANY new, persistent or worsening symptoms. Continue any medications as previously prescribed by your physician. You should follow up with your primary doctor as soon as possible regarding today's emergency department visit. . Please make sure your doctor reviews the results of your emergency evaluation. Thank you for coming to the Emergency Department today for your care. It was a pleasure to see you today. Please note that your evaluation is INCOMPLETE until you follow-up with your doctor. - Post Discharge Activity
[2020-01-15 02:50] VITALS: TEMP 97.7
[2020-01-15 05:44] VITALS: BP 156/86; PULSE 76
== END 2020-01-15 05:52 | disposition home or self-care (01) ==
LOC: FER 02:26
DX: R29.6 Repeated falls (principal); W19.XXXA Unspecified fall, initial encounter
CPT/HCPCS: 70450-TC; 99284-25

== ENCOUNTER 2020-07-30 09:22 | Day surgery (SDC) | payer OTHER ==
[2020-07-29 10:32] VITALS: BMI 16.4
[2020-07-30] MEDS ORDERED: PROPOFOL 20 ML ONE ×2 (12:11)
[2020-07-30 13:22] VITALS: PULSE 70; TEMP 97.8
[2020-07-30 14:01] VITALS: BP 121/65
== END 2020-07-30 14:04 | disposition home or self-care (01) ==
LOC: FASU-ENDO 09:22
PROVIDERS: ATTEND Internal Medicine Gastroenterology
PROC: 0DBL8ZX Excision of Transverse Colon, Via Natural or Artificial Opening Endoscopic, Diagnostic (ICD-10-PCS; 2020-07-30)
PROC: 0DBP8ZX Excision of Rectum, Via Natural or Artificial Opening Endoscopic, Diagnostic (ICD-10-PCS; principal; 2020-07-30 12:30)
DX: D12.3 Benign neoplasm of transverse colon (principal); D12.8 Benign neoplasm of rectum; K64.1 Second degree hemorrhoids; K64.8 Other hemorrhoids
CPT/HCPCS: 88305-TC

== ENCOUNTER 2021-01-07 10:31 | Emergency (ER) | payer OTHER ==
[2021-01-07 10:57] VITALS: TEMP 97.9; BMI 17.5
[2021-01-07 13:40] VITALS: BP 111/60; PULSE 68
== END 2021-01-07 15:29 | disposition home or self-care (01) ==
LOC: JER 10:31
DX: S50.311A Abrasion of right elbow, initial encounter (principal); S40.211A Abrasion of right shoulder, initial encounter; W06.XXXA Fall from bed, initial encounter; Y92.122 Bedroom in nursing home as the place of occurrence of the external cause
CPT/HCPCS: 70450-TC; 72125-TC; 99284-25

== ENCOUNTER 2021-06-18 18:06 | Inpatient (IN) | payer OTHER ==
[2021-06-18] MEDS ORDERED: ACETAMINOPHEN 1000 MG/100 ML BAG IVPB ONE (19:14)
[2021-06-18] MEDS ORDERED: ACETAMINOPHEN INJECTION 100 ML IVPB ONE (19:37)
[2021-06-18] MEDS ORDERED: DEXAMETHASONE SOD PHOSPHATE 10 MG/1 ML VIAL IVPUSH ONE (20:49)
[2021-06-18] MEDS ORDERED: ALBUTEROL SO4 2.5/IPRATROPIUM 0.5 INH SOL 3 ML VIAL.NEB. NEB ONE ×2 (20:57→21:00)
[2021-06-18 20:59] LABS: BASO % 0.1 % (0-2.0); EOS % 0.1 % (0-4.5); HEMATOCRIT 36.5 % (32.4-45.2); HEMOGLOBIN 12.1 GM/dL (10.7-15.3); LYMPH % 5.1 % (8-40); MCH 31.6 pg (25.7-33.7); MCHC 33.1 g/dl (32.0-36.0); MEAN CELL VOLUME 95.3 fl (80-96); MEAN PLT VOLUME 8.2 fl (7.5-11.1); MONO % 5.4 % (3.8-10.2); NEUT % 89.3 % (42.8-82.8); PLATELET COUNT 131 10^3/uL (134-434); RBC 3.83 M/mm3 (3.60-5.2); RDW 13.5 % (11.6-15.6); WHITE BLOOD COUNT 7.7 K/mm3 (4.0-10.0)
[2021-06-18] MEDS ORDERED: DEXAMETHASONE SOD PHOSPHATE 10 MG/1 ML VIAL ONE (21:00)
[2021-06-18 21:15] LABS: CHLORIDE 103 mmol/L (98-107); SODIUM 139 mmol/L (136-145)
[2021-06-18 21:16] LABS: INR 1.09 (0.83-1.09); PROTHROMBIN TIME (PATIENT) 12.6 SEC (9.7-13.0)
[2021-06-18 21:17] LABS: ALBUMIN 3.2 g/dl (3.4-5.0); ANION GAP 5 MMOL/L (8-16); BLOOD UREA NITROGEN 18.7 mg/dL (7-18); CALCIUM 8.7 mg/dL (8.5-10.1); CO2 31 mmol/L (21-32)
[2021-06-18 21:18] LABS: GLUCOSE,RANDOM 94 mg/dL (74-106)
[2021-06-18 21:19] LABS: ACTIVATED PTT 31.1 SECONDS (25.2-36.5)
[2021-06-18 21:20] LABS: SGPT/ALT 15 U/L (13-61)
[2021-06-18 21:21] LABS: CREATININE 0.8 mg/dL (0.55-1.3); SGOT/AST 15 U/L (15-37)
[2021-06-18 21:22] LABS: BILIRUBIN,TOTAL 0.3 mg/dL (0.2-1); TOT PROT 7.3 g/dl (6.4-8.2)
[2021-06-18 21:23] LABS: ALK PHOS 76 U/L (45-117)
[2021-06-18 22:08] LABS: VENOUS BASE EXCESS 6.8 mmol/L (-2-2); VENOUS O2 SATURATION 67.8 % (70-80); VENOUS PCO2 47.8 mmHg (38-52); VENOUS PH 7.446 (7.310-7.410)
[2021-06-18] MEDS ORDERED: AZITHROMYCIN 500 MG TABLET PO ONE (22:40)
[2021-06-18] MEDS ORDERED: AZITHROMYCIN 250 MG TABLET ONE (22:56)
[2021-06-18] MEDS ORDERED: SODIUM CHLORIDE 0.9% 500 ML INFUS.BAG IV ONE (23:25)
[2021-06-19 00:50] LABS: EPI CELLS >36 /uL (0-25.1); HYALINE CASTS 2 /uL (0-3.1); URINE APPEARANCE CLEAR; URINE BACTERIA >9,000 /uL (0-1359); URINE BILIRUBIN NEGATIVE (NEGATIVE); URINE COLOR YELLOW; URINE GLUCOSE (UA) NEGATIVE (NEGATIVE); URINE KETONE NEGATIVE (NEGATIVE); URINE LEUK ESTERASE 1+ (NEGATIVE); URINE NITRITE POSITIVE (NEGATIVE); URINE PROTEIN NEGATIVE (NEGATIVE); URINE RBC 17 /uL (0-23.9); URINE UROBILINOGEN 0.2 mg/dL (0.2-1.0); URINE WBC 41 /uL (0-25.8)
[2021-06-19] MEDS ORDERED: ALBUTEROL SO4 HFA INHALER IH PRN (01:12)
[2021-06-19] MEDS ORDERED: SODIUM CHLORIDE 1,000 ML IV SCH (01:30)
[2021-06-19] MEDS ORDERED: LEVOTHYROXINE NA 150 MCG TABLET PO SCH (07:00)
[2021-06-19 07:55] LABS: BASO % 0.1 % (0-2.0); HEMOGLOBIN 10.1 GM/dL (10.7-15.3); LYMPH % 10.4 % (8-40); MCH 31.3 pg (25.7-33.7); MCHC 32.7 g/dl (32.0-36.0); MEAN CELL VOLUME 95.9 fl (80-96); MEAN PLT VOLUME 8.5 fl (7.5-11.1); MONO % 5.9 % (3.8-10.2); NEUT % 83.6 % (42.8-82.8); PLATELET COUNT 115 10^3/uL (134-434); RBC 3.24 M/mm3 (3.60-5.2); RDW 13.3 % (11.6-15.6); WHITE BLOOD COUNT 11.4 K/mm3 (4.0-10.0)
[2021-06-19 08:23] LABS: CHLORIDE 109 mmol/L (98-107); SODIUM 142 mmol/L (136-145)
[2021-06-19 08:30] LABS: CALCIUM 8.2 mg/dL (8.5-10.1)
[2021-06-19 08:31] LABS: ALBUMIN 2.6 g/dl (3.4-5.0); ANION GAP 5 MMOL/L (8-16); BLOOD UREA NITROGEN 16.8 mg/dL (7-18); CO2 28 mmol/L (21-32); GLUCOSE,RANDOM 95 mg/dL (74-106)
[2021-06-19 08:34] LABS: CREATININE 0.7 mg/dL (0.55-1.3); SGOT/AST 9 U/L (15-37); SGPT/ALT 13 U/L (13-61)
[2021-06-19 08:35] LABS: BILIRUBIN,TOTAL 0.4 mg/dL (0.2-1); TOT PROT 6.1 g/dl (6.4-8.2)
[2021-06-19 08:37] LABS: ALK PHOS 60 U/L (45-117)
[2021-06-19] MEDS ORDERED: PT OWN MED DRAWER 7, Y5N ONE ×3 (09:31→23:00)
[2021-06-19] MEDS: DOCUSATE SODIUM 100 MG CAPSULE (FP) PO SCH (09:36)
[2021-06-19] MEDS: ASCORBIC ACID 500 MG TABLET (FP) PO SCH (09:37)
[2021-06-19] MEDS: ASPIRIN COATED 81 MG TABLET.EC PO SCH (09:37)
[2021-06-19] MEDS: FAMOTIDINE 20 MG TABLET PO SCH ×2 (09:37→22:54)
[2021-06-19] MEDS ORDERED: PATIENT'S OWN MEDICATION (NON-FORMULARY) (Oxycodone Hcl/Acetaminophen [Endocet 10-325 Mg T PO PRN (09:59)
[2021-06-19] MEDS ORDERED: POLYETHYLENE GLYCOL (HEALTHYLAX) 3350 17 GM PACKET PO PRN (09:59)
[2021-06-19] MEDS ORDERED: ALUMINUM HYD PO PRN (09:59)
[2021-06-19] MEDS ORDERED: MAG HYDROX PO PRN (09:59)
[2021-06-19] MEDS ORDERED: [UNRECOGNIZED DRUG - OTHER] PO PRN (09:59)
[2021-06-19] MEDS ORDERED: SIMETH PO PRN (09:59)
[2021-06-19] MEDS ORDERED: FLUTICASONE/SALMETEROL 100 MCG/50 MCG DISKUS IH SCH (10:00)
[2021-06-19] MEDS: oxyCODONE HCL 5 MG TABLET PO PRN ×3 (10:13→22:57)
[2021-06-19] MEDS: DIVALPROEX SODIUM 500 MG TABLET E.C. PO SCH ×2 (10:16→22:54)
[2021-06-19] MEDS: SILVER SULFADIAZINE 1% TOP CREAM 400 GM JAR TP SCH ×2 (10:16→22:55)
[2021-06-19] MEDS ORDERED: MAG HYDROX/AL HYDROX/SIMETH 30 ML UNIT-DOSE CUP PO PRN (10:32)
[2021-06-19] MEDS: BUDESONIDE/FORMETEROL FUMARATE 160/4.5 mcg INHALER IH SCH ×2 (13:54→22:55)
[2021-06-19] MEDS: PANTOPRAZOLE 40 MG TABLET PO SCH (13:55)
[2021-06-19] MEDS: ALBUTEROL SO4 HFA INHALER IH SCH ×2 (16:08→22:54)
[2021-06-19] MEDS: LORazepam 1 MG TABLET PO PRN ×2 (16:09→22:54)
[2021-06-19] MEDS ORDERED: LABETALOL HCL 5 MG/1 ML (100MG/20 ML VIAL) IVPUSH ONE (16:50)
[2021-06-19] MEDS ORDERED: LABETALOL HCL 5 MG/1 ML (100MG/20 ML VIAL) ONE (16:51)
[2021-06-19] MEDS ORDERED: ROPINIROLE HCL 4 MG PO SCH (22:00)
[2021-06-19] MEDS ORDERED: ROPINIROLE HCL 2 MG PO SCH (22:00)
[2021-06-19] MEDS ORDERED: rOPINIRole HCL 2 MG TABLET (FP) PO ONE (22:00)
[2021-06-19] MEDS: HEPARIN NA (PORCINE) 5,000 UNITS/ML 1ML VIAL SQ SCH (22:54)
[2021-06-19] MEDS: SERTRALINE HCL 50 MG TABLET (FP) PO SCH (22:55)
[2021-06-19] MEDS: ACETAMINOPHEN 325 MG TABLET (FP) PO PRN (22:57)
[2021-06-20 07:03] LABS: BASO % 0.1 % (0-2.0); EOS % 0.2 % (0-4.5); HEMATOCRIT 32.7 % (32.4-45.2); HEMOGLOBIN 11.2 GM/dL (10.7-15.3); LYMPH % 18.1 % (8-40); MCH 32.8 pg (25.7-33.7); MCHC 34.2 g/dl (32.0-36.0); MEAN CELL VOLUME 95.8 fl (80-96); MEAN PLT VOLUME 8.5 fl (7.5-11.1); MONO % 6.6 % (3.8-10.2); PLATELET COUNT 113 10^3/uL (134-434); RBC 3.42 M/mm3 (3.60-5.2); RDW 13.6 % (11.6-15.6); WHITE BLOOD COUNT 7.5 K/mm3 (4.0-10.0)
[2021-06-20 07:15] LABS: ALBUMIN 2.4 g/dl (3.4-5.0); CALCIUM 7.9 mg/dL (8.5-10.1)
[2021-06-20 07:16] LABS: CHOLESTEROL 154 mg/dL (50-200); TRIGLYCERIDES 93 mg/dL (0-150)
[2021-06-20 07:17] LABS: LDL CHOLESTEROL (ONLY SJRH) 89 mg/dL (5-100)
[2021-06-20 07:19] LABS: BLOOD UREA NITROGEN 16.2 mg/dL (7-18); CREATININE 0.9 mg/dL (0.55-1.3); HDL CHOLESTEROL 42 mg/dL (40-60)
[2021-06-20 07:20] LABS: BILIRUBIN,TOTAL 0.3 mg/dL (0.2-1)
[2021-06-20] MEDS: LEVOTHYROXINE NA 125 MCG TABLET (FP) PO SCH (07:30)
[2021-06-20] MEDS: ALBUTEROL SO4 HFA INHALER IH SCH ×4 (08:55→22:06)
[2021-06-20] MEDS: DOCUSATE SODIUM 100 MG CAPSULE (FP) PO SCH (09:32)
[2021-06-20] MEDS: ASCORBIC ACID 500 MG TABLET (FP) PO SCH (09:33)
[2021-06-20] MEDS: ASPIRIN COATED 81 MG TABLET.EC PO SCH (09:33)
[2021-06-20] MEDS: FAMOTIDINE 20 MG TABLET PO SCH ×2 (09:33→22:07)
[2021-06-20] MEDS: PANTOPRAZOLE 40 MG TABLET PO SCH (09:33)
[2021-06-20] MEDS: HEPARIN NA (PORCINE) 5,000 UNITS/ML 1ML VIAL SQ SCH ×2 (09:33→22:08)
[2021-06-20] MEDS: DIVALPROEX SODIUM 500 MG TABLET E.C. PO SCH ×2 (09:34→22:07)
[2021-06-20] MEDS: SILVER SULFADIAZINE 1% TOP CREAM 400 GM JAR TP SCH ×2 (09:35→22:07)
[2021-06-20] MEDS: BUDESONIDE/FORMETEROL FUMARATE 160/4.5 mcg INHALER IH SCH ×2 (09:35→22:07)
[2021-06-20] MEDS: LORazepam 1 MG TABLET PO PRN ×3 (11:32→22:07)
[2021-06-20] MEDS: oxyCODONE HCL 5 MG TABLET PO PRN (16:02)
[2021-06-20] MEDS: ACETAMINOPHEN 325 MG TABLET (FP) PO PRN (16:03)
[2021-06-20] MEDS ORDERED: PT OWN MED DRAWER 7, Y5N ONE (22:05)
[2021-06-20] MEDS: SERTRALINE HCL 50 MG TABLET (FP) PO SCH (22:07)
[2021-06-21] MEDS: oxyCODONE HCL 5 MG TABLET PO PRN ×2 (03:38→10:57)
[2021-06-21] MEDS: ACETAMINOPHEN 325 MG TABLET (FP) PO PRN (03:38)
[2021-06-21] MEDS: guaiFENesin 200 MG/10 ML 10 ML UNIT-DOSE CUPS PO PRN ×2 (03:39→13:57)
[2021-06-21] MEDS ORDERED: PT OWN MED DRAWER 7, Y5N ONE ×4 (05:53→19:02)
[2021-06-21] MEDS: LORazepam 1 MG TABLET PO PRN ×2 (06:01→10:59)
[2021-06-21] MEDS: LEVOTHYROXINE NA 125 MCG TABLET (FP) PO SCH (06:01)
[2021-06-21 07:22] LABS: BASO % 0.2 % (0-2.0); EOS % 0.8 % (0-4.5); HEMATOCRIT 31.2 % (32.4-45.2); HEMOGLOBIN 10.7 GM/dL (10.7-15.3); LYMPH % 27.2 % (8-40); MCH 32.7 pg (25.7-33.7); MCHC 34.3 g/dl (32.0-36.0); MEAN CELL VOLUME 95.2 fl (80-96); MEAN PLT VOLUME 8.1 fl (7.5-11.1); NEUT % 63.8 % (42.8-82.8); PLATELET COUNT 126 10^3/uL (134-434); RBC 3.28 M/mm3 (3.60-5.2); RDW 13.3 % (11.6-15.6); WHITE BLOOD COUNT 5.7 K/mm3 (4.0-10.0)
[2021-06-21 08:02] LABS: ALBUMIN 2.5 g/dl (3.4-5.0); BLOOD UREA NITROGEN 20.2 mg/dL (7-18); CALCIUM 8.1 mg/dL (8.5-10.1)
[2021-06-21 08:05] LABS: CREATININE 0.7 mg/dL (0.55-1.3)
[2021-06-21 08:07] LABS: BILIRUBIN,TOTAL 0.5 mg/dL (0.2-1)
[2021-06-21] MEDS: BUDESONIDE/FORMETEROL FUMARATE 160/4.5 mcg INHALER IH SCH ×2 (09:00→21:40)
[2021-06-21] MEDS: ALBUTEROL SO4 HFA INHALER IH SCH ×4 (09:00→20:41)
[2021-06-21] MEDS: DOCUSATE SODIUM 100 MG CAPSULE (FP) PO SCH (10:42)
[2021-06-21] MEDS: DIVALPROEX SODIUM 500 MG TABLET E.C. PO SCH ×2 (10:43→21:51)
[2021-06-21] MEDS: HEPARIN NA (PORCINE) 5,000 UNITS/ML 1ML VIAL SQ SCH ×2 (10:43→21:51)
[2021-06-21] MEDS: ASPIRIN COATED 81 MG TABLET.EC PO SCH (10:43)
[2021-06-21] MEDS: MULTIVITAMINS (DAILY MVI) TABLET (FP) PO SCH (10:44)
[2021-06-21] MEDS: ASCORBIC ACID 500 MG TABLET (FP) PO SCH (10:44)
[2021-06-21] MEDS: PANTOPRAZOLE 40 MG TABLET PO SCH (10:44)
[2021-06-21] MEDS: SILVER SULFADIAZINE 1% TOP CREAM 400 GM JAR TP SCH ×2 (10:50→21:35)
[2021-06-21] MEDS: FAMOTIDINE 20 MG TABLET PO SCH ×2 (12:40→21:51)
[2021-06-21] MEDS: SERTRALINE HCL 50 MG TABLET (FP) PO SCH (21:51)
[2021-06-22] MEDS: LEVOTHYROXINE NA 125 MCG TABLET (FP) PO SCH (06:54)
[2021-06-22] MEDS: FAMOTIDINE 20 MG TABLET PO SCH ×2 (10:03→21:53)
[2021-06-22] MEDS: ALBUTEROL SO4 HFA INHALER IH SCH ×4 (10:03→21:53)
[2021-06-22] MEDS: ASCORBIC ACID 500 MG TABLET (FP) PO SCH (10:03)
[2021-06-22] MEDS: HEPARIN NA (PORCINE) 5,000 UNITS/ML 1ML VIAL SQ SCH ×2 (10:03→21:53)
[2021-06-22] MEDS: MULTIVITAMINS (DAILY MVI) TABLET (FP) PO SCH (10:03)
[2021-06-22] MEDS: PANTOPRAZOLE 40 MG TABLET PO SCH (10:03)
[2021-06-22] MEDS: ASPIRIN COATED 81 MG TABLET.EC PO SCH (10:03)
[2021-06-22] MEDS: BUDESONIDE/FORMETEROL FUMARATE 160/4.5 mcg INHALER IH SCH ×2 (10:04→21:53)
[2021-06-22] MEDS: SILVER SULFADIAZINE 1% TOP CREAM 400 GM JAR TP SCH ×2 (10:04→21:53)
[2021-06-22] MEDS: DIVALPROEX SODIUM 500 MG TABLET E.C. PO SCH ×2 (10:04→21:53)
[2021-06-22] MEDS: DOCUSATE SODIUM 100 MG CAPSULE (FP) PO SCH (10:24)
[2021-06-22] MEDS: oxyCODONE HCL 5 MG TABLET PO PRN ×2 (15:18→21:54)
[2021-06-22] MEDS: LORazepam 1 MG TABLET PO PRN ×2 (17:55→21:53)
[2021-06-22] MEDS ORDERED: PT OWN MED DRAWER 7, Y5N ONE (21:03)
[2021-06-22] MEDS: SERTRALINE HCL 50 MG TABLET (FP) PO SCH (21:53)
[2021-06-22] MEDS: guaiFENesin 200 MG/10 ML 10 ML UNIT-DOSE CUPS PO PRN (21:53)
[2021-06-23] MEDS: LEVOTHYROXINE NA 125 MCG TABLET (FP) PO SCH (07:10)
[2021-06-23] MEDS: oxyCODONE HCL 5 MG TABLET PO PRN ×3 (07:11→21:32)
[2021-06-23] MEDS: ALBUTEROL SO4 HFA INHALER IH SCH ×4 (08:00→21:31)
[2021-06-23] MEDS ORDERED: PT OWN MED DRAWER 7, Y5N ONE ×4 (09:16→17:14)
[2021-06-23] MEDS: HEPARIN NA (PORCINE) 5,000 UNITS/ML 1ML VIAL SQ SCH ×2 (10:06→21:31)
[2021-06-23] MEDS: guaiFENesin 200 MG/10 ML 10 ML UNIT-DOSE CUPS PO PRN ×2 (10:07→21:33)
[2021-06-23] MEDS: LORazepam 1 MG TABLET PO PRN ×2 (10:07→15:16)
[2021-06-23] MEDS: MULTIVITAMINS (DAILY MVI) TABLET (FP) PO SCH (10:07)
[2021-06-23] MEDS: PANTOPRAZOLE 40 MG TABLET PO SCH (10:07)
[2021-06-23] MEDS: FAMOTIDINE 20 MG TABLET PO SCH ×2 (10:07→21:31)
[2021-06-23] MEDS: ASPIRIN COATED 81 MG TABLET.EC PO SCH (10:08)
[2021-06-23] MEDS: ASCORBIC ACID 500 MG TABLET (FP) PO SCH (10:08)
[2021-06-23] MEDS: SILVER SULFADIAZINE 1% TOP CREAM 400 GM JAR TP SCH ×2 (10:08→21:32)
[2021-06-23] MEDS: DOCUSATE SODIUM 100 MG CAPSULE (FP) PO SCH (10:09)
[2021-06-23] MEDS: BUDESONIDE/FORMETEROL FUMARATE 160/4.5 mcg INHALER IH SCH ×2 (10:09→21:32)
[2021-06-23] MEDS: DIVALPROEX SODIUM 500 MG TABLET E.C. PO SCH ×2 (10:26→21:31)
[2021-06-23] MEDS: rOPINIRole HCL 2 MG TABLET (FP) PO SCH ×3 (15:16→21:32)
[2021-06-23] MEDS: SERTRALINE HCL 50 MG TABLET (FP) PO SCH (21:32)
[2021-06-24] MEDS: oxyCODONE HCL 5 MG TABLET PO PRN ×3 (06:33→21:20)
[2021-06-24] MEDS: LEVOTHYROXINE NA 125 MCG TABLET (FP) PO SCH (06:33)
[2021-06-24 07:28] LABS: BASO % 0.3 % (0-2.0); EOS % 3.5 % (0-4.5); HEMATOCRIT 32.7 % (32.4-45.2); HEMOGLOBIN 10.8 GM/dL (10.7-15.3); LYMPH % 35.5 % (8-40); MCH 31.7 pg (25.7-33.7); MEAN PLT VOLUME 7.9 fl (7.5-11.1); MONO % 10.9 % (3.8-10.2); NEUT % 49.8 % (42.8-82.8); PLATELET COUNT 221 10^3/uL (134-434); RBC 3.41 M/mm3 (3.60-5.2); RDW 13.1 % (11.6-15.6); WHITE BLOOD COUNT 5.2 K/mm3 (4.0-10.0)
[2021-06-24 07:40] LABS: CALCIUM 8.6 mg/dL (8.5-10.1)
[2021-06-24 07:41] LABS: ALBUMIN 2.5 g/dl (3.4-5.0); BLOOD UREA NITROGEN 26.5 mg/dL (7-18)
[2021-06-24 07:44] LABS: CREATININE 0.7 mg/dL (0.55-1.3)
[2021-06-24 07:45] LABS: BILIRUBIN,TOTAL 0.3 mg/dL (0.2-1)
[2021-06-24 07:46] LABS: TOT PROT 6.4 g/dl (6.4-8.2)
[2021-06-24] MEDS: ALBUTEROL SO4 HFA INHALER IH SCH ×4 (09:18→20:15)
[2021-06-24] MEDS: HEPARIN NA (PORCINE) 5,000 UNITS/ML 1ML VIAL SQ SCH ×2 (09:19→21:20)
[2021-06-24] MEDS: ASPIRIN COATED 81 MG TABLET.EC PO SCH (09:19)
[2021-06-24] MEDS: DOCUSATE SODIUM 100 MG CAPSULE (FP) PO SCH (09:19)
[2021-06-24] MEDS: rOPINIRole HCL 2 MG TABLET (FP) PO SCH ×4 (09:20→21:20)
[2021-06-24] MEDS: SILVER SULFADIAZINE 1% TOP CREAM 400 GM JAR TP SCH ×2 (09:20→21:20)
[2021-06-24] MEDS: FAMOTIDINE 20 MG TABLET PO SCH ×2 (09:20→21:20)
[2021-06-24] MEDS: ASCORBIC ACID 500 MG TABLET (FP) PO SCH (09:20)
[2021-06-24] MEDS: BUDESONIDE/FORMETEROL FUMARATE 160/4.5 mcg INHALER IH SCH ×2 (09:20→21:20)
[2021-06-24] MEDS: MULTIVITAMINS (DAILY MVI) TABLET (FP) PO SCH (09:20)
[2021-06-24] MEDS: PANTOPRAZOLE 40 MG TABLET PO SCH (09:20)
[2021-06-24] MEDS: DIVALPROEX SODIUM 500 MG TABLET E.C. PO SCH ×2 (09:21→21:20)
[2021-06-24] MEDS: LORazepam 1 MG TABLET PO PRN ×2 (12:36→21:20)
[2021-06-24 13:17] VITALS: BMI 17.5
[2021-06-24] MEDS: predniSONE 20 MG TABLET (UD) PO SCH (13:56)
[2021-06-24] MEDS: guaiFENesin 200 MG/10 ML 10 ML UNIT-DOSE CUPS PO PRN ×2 (13:56→21:20)
[2021-06-24] MEDS: SERTRALINE HCL 50 MG TABLET (FP) PO SCH (21:20)
[2021-06-24] MEDS: ACETAMINOPHEN 325 MG TABLET (FP) PO PRN (21:21)
[2021-06-25] MEDS: LEVOTHYROXINE NA 125 MCG TABLET (FP) PO SCH (06:49)
[2021-06-25] MEDS: guaiFENesin 200 MG/10 ML 10 ML UNIT-DOSE CUPS PO PRN (06:50)
[2021-06-25] MEDS: oxyCODONE HCL 5 MG TABLET PO PRN ×2 (06:50→14:26)
[2021-06-25 06:52] LABS: BASO % 0.3 % (0-2.0); EOS % 0.8 % (0-4.5); HEMATOCRIT 31.7 % (32.4-45.2); HEMOGLOBIN 10.4 GM/dL (10.7-15.3); MCH 31.5 pg (25.7-33.7); MCHC 32.8 g/dl (32.0-36.0); MEAN CELL VOLUME 95.9 fl (80-96); MEAN PLT VOLUME 7.6 fl (7.5-11.1); MONO % 7.4 % (3.8-10.2); NEUT % 58.5 % (42.8-82.8); PLATELET COUNT 218 10^3/uL (134-434); RBC 3.31 M/mm3 (3.60-5.2); RDW 13.1 % (11.6-15.6); WHITE BLOOD COUNT 5.2 K/mm3 (4.0-10.0)
[2021-06-25 07:14] LABS: CALCIUM 8.5 mg/dL (8.5-10.1)
[2021-06-25 07:15] LABS: ALBUMIN 2.2 g/dl (3.4-5.0); BLOOD UREA NITROGEN 31.5 mg/dL (7-18)
[2021-06-25 07:18] LABS: CREATININE 0.9 mg/dL (0.55-1.3)
[2021-06-25 07:20] LABS: BILIRUBIN,TOTAL 0.3 mg/dL (0.2-1); TOT PROT 6.1 g/dl (6.4-8.2)
[2021-06-25] MEDS: predniSONE 20 MG TABLET (UD) PO SCH (09:51)
[2021-06-25] MEDS: PANTOPRAZOLE 40 MG TABLET PO SCH (09:51)
[2021-06-25] MEDS: ALBUTEROL SO4 HFA INHALER IH SCH ×4 (09:51→22:49)
[2021-06-25] MEDS: DOCUSATE SODIUM 100 MG CAPSULE (FP) PO SCH (09:52)
[2021-06-25] MEDS: DIVALPROEX SODIUM 500 MG TABLET E.C. PO SCH ×2 (09:52→22:45)
[2021-06-25] MEDS: HEPARIN NA (PORCINE) 5,000 UNITS/ML 1ML VIAL SQ SCH ×2 (09:52→22:46)
[2021-06-25] MEDS: BUDESONIDE/FORMETEROL FUMARATE 160/4.5 mcg INHALER IH SCH ×2 (09:53→22:50)
[2021-06-25] MEDS: ASCORBIC ACID 500 MG TABLET (FP) PO SCH (09:53)
[2021-06-25] MEDS: SILVER SULFADIAZINE 1% TOP CREAM 400 GM JAR TP SCH ×2 (09:53→22:45)
[2021-06-25] MEDS: ASPIRIN COATED 81 MG TABLET.EC PO SCH (09:54)
[2021-06-25] MEDS: FAMOTIDINE 20 MG TABLET PO SCH ×2 (09:54→22:49)
[2021-06-25] MEDS: rOPINIRole HCL 2 MG TABLET (FP) PO SCH ×4 (09:55→22:46)
[2021-06-25] MEDS: MULTIVITAMINS (DAILY MVI) TABLET (FP) PO SCH (10:00)
[2021-06-25] MEDS: LORazepam 1 MG TABLET PO PRN (12:16)
[2021-06-25] MEDS: SERTRALINE HCL 50 MG TABLET (FP) PO SCH (22:45)
[2021-06-26] MEDS: ACETAMINOPHEN 325 MG TABLET (FP) PO PRN ×2 (03:06→10:19)
[2021-06-26] MEDS: LEVOTHYROXINE NA 125 MCG TABLET (FP) PO SCH (06:39)
[2021-06-26] MEDS: ALBUTEROL SO4 HFA INHALER IH SCH ×4 (08:40→22:56)
[2021-06-26] MEDS: DOCUSATE SODIUM 100 MG CAPSULE (FP) PO SCH (10:11)
[2021-06-26] MEDS: predniSONE 20 MG TABLET (UD) PO SCH (10:13)
[2021-06-26] MEDS: DIVALPROEX SODIUM 500 MG TABLET E.C. PO SCH ×2 (10:16→22:56)
[2021-06-26] MEDS: HEPARIN NA (PORCINE) 5,000 UNITS/ML 1ML VIAL SQ SCH ×2 (10:17→22:56)
[2021-06-26] MEDS: PANTOPRAZOLE 40 MG TABLET PO SCH (10:17)
[2021-06-26] MEDS: FAMOTIDINE 20 MG TABLET PO SCH ×2 (10:17→22:55)
[2021-06-26] MEDS: BUDESONIDE/FORMETEROL FUMARATE 160/4.5 mcg INHALER IH SCH ×2 (10:18→23:17)
[2021-06-26] MEDS: MULTIVITAMINS (DAILY MVI) TABLET (FP) PO SCH (10:18)
[2021-06-26] MEDS: rOPINIRole HCL 2 MG TABLET (FP) PO SCH ×4 (10:18→22:56)
[2021-06-26] MEDS: SILVER SULFADIAZINE 1% TOP CREAM 400 GM JAR TP SCH ×2 (10:18→22:54)
[2021-06-26] MEDS: ASCORBIC ACID 500 MG TABLET (FP) PO SCH (10:19)
[2021-06-26] MEDS: guaiFENesin 200 MG/10 ML 10 ML UNIT-DOSE CUPS PO PRN (10:20)
[2021-06-26] MEDS: ASPIRIN COATED 81 MG TABLET.EC PO SCH (10:25)
[2021-06-26] MEDS ORDERED: ACETAMINOPHEN 325 MG TABLET (FP) PO PRN (12:52)
[2021-06-26] MEDS: oxyCODONE HCL 5 MG TABLET PO PRN ×2 (14:32→23:00)
[2021-06-26] MEDS: LORazepam 1 MG TABLET PO PRN (18:09)
[2021-06-26] MEDS: SERTRALINE HCL 50 MG TABLET (FP) PO SCH (22:55)
[2021-06-27] MEDS: LORazepam 1 MG TABLET PO PRN ×2 (06:33→13:12)
[2021-06-27] MEDS: LEVOTHYROXINE NA 125 MCG TABLET (FP) PO SCH (06:33)
[2021-06-27] MEDS: ALBUTEROL SO4 HFA INHALER IH SCH ×2 (07:50→12:00)
[2021-06-27 08:31] VITALS: TEMP 98.7
[2021-06-27] MEDS: oxyCODONE HCL 5 MG TABLET PO PRN (10:45)
[2021-06-27] MEDS: DOCUSATE SODIUM 100 MG CAPSULE (FP) PO SCH (10:48)
[2021-06-27] MEDS: predniSONE 20 MG TABLET (UD) PO SCH (10:48)
[2021-06-27] MEDS: HEPARIN NA (PORCINE) 5,000 UNITS/ML 1ML VIAL SQ SCH (10:49)
[2021-06-27] MEDS: DIVALPROEX SODIUM 500 MG TABLET E.C. PO SCH (10:49)
[2021-06-27] MEDS: ASPIRIN COATED 81 MG TABLET.EC PO SCH (10:49)
[2021-06-27] MEDS: rOPINIRole HCL 2 MG TABLET (FP) PO SCH ×2 (10:50→13:12)
[2021-06-27] MEDS: FAMOTIDINE 20 MG TABLET PO SCH (10:50)
[2021-06-27] MEDS: PANTOPRAZOLE 40 MG TABLET PO SCH (10:50)
[2021-06-27] MEDS: ASCORBIC ACID 500 MG TABLET (FP) PO SCH (10:51)
[2021-06-27] MEDS: BUDESONIDE/FORMETEROL FUMARATE 160/4.5 mcg INHALER IH SCH (10:51)
[2021-06-27] MEDS: MULTIVITAMINS (DAILY MVI) TABLET (FP) PO SCH (10:51)
[2021-06-27] MEDS: SILVER SULFADIAZINE 1% TOP CREAM 400 GM JAR TP SCH (10:51)
[2021-06-27 13:21] VITALS: BP 99/63; PULSE 82
== END 2021-06-27 14:30 | DRG 178 ==
LOC: JER 18:06 → JERBED 22:41 → J2W 06-19 04:58 → OBSVTOIN 06-19 08:43
PROVIDERS: ADMIT Specialist; ATTEND Specialist
DX: U07.1 COVID-19 (principal); J44.1 Chronic obstructive pulmonary disease with (acute) exacerbation; J98.11 Atelectasis; R64 Cachexia; Z68.1 Body mass index [BMI] 19.9 or less, adult; N39.0 Urinary tract infection, site not specified; G35 Multiple sclerosis; M06.9 Rheumatoid arthritis, unspecified; I10 Essential (primary) hypertension; E03.9 Hypothyroidism, unspecified; G25.81 Restless legs syndrome; K21.9 Gastro-esophageal reflux disease without esophagitis; F17.200 Nicotine dependence, unspecified, uncomplicated; E87.5 Hyperkalemia; D64.9 Anemia, unspecified; F41.8 Other specified anxiety disorders; M79.18 Myalgia, other site; R26.2 Difficulty in walking, not elsewhere classified; R26.9 Unspecified abnormalities of gait and mobility; B96.20 Unspecified Escherichia coli [E. coli] as the cause of diseases classified elsewhere; Z96.612 Presence of left artificial shoulder joint
CPT/HCPCS: 36415; 71045-TC-FY; 80053; 80061; 81003; 82550; 82728; 82803; 83605; 84439; 84443; 84484; 85025; 85379; 85610; 85730; 86140; 86769; 87040; 87081; 87086; 87186; 87804; 87807; 93005; 93010; 94761; 97116-GP; 97162-GP; 99285-25; C9803; G0378; J0131; J1100; J1644; U0003; U0005

== ENCOUNTER 2021-10-17 14:46 | Inpatient (IN) | payer OTHER ==
[2021-10-17] MEDS ORDERED: SODIUM CHLORIDE 0.9% 500 ML INFUS.BAG IV ONE (15:30)
[2021-10-17 16:25] LABS: BASO % 0.3 % (0-2.0); HEMOGLOBIN 11.9 GM/dL (10.7-15.3); LYMPH % 8.5 % (8-40); MCH 32.6 pg (25.7-33.7); MEAN CELL VOLUME 95.7 fl (80-96); MEAN PLT VOLUME 8.6 fl (7.5-11.1); MONO % 8.4 % (3.8-10.2); NEUT % 82.8 % (42.8-82.8); PLATELET COUNT 95 10^3/uL (134-434); RBC 3.65 M/mm3 (3.60-5.2); RDW 14.2 % (11.6-15.6); WHITE BLOOD COUNT 7.1 K/mm3 (4.0-10.0)
[2021-10-17 16:28] LABS: INR 1.2 (0.83-1.09); PROTHROMBIN TIME (PATIENT) 13.8 SEC (9.7-13.0)
[2021-10-17 16:30] LABS: ACTIVATED PTT 34.4 SECONDS (25.2-36.5); EPI CELLS 2 /uL (0-25.1); HYALINE CASTS 2 /uL (0-3.1); PH,URINE 6.5 (5.0-8.0); URINE APPEARANCE TURBID; URINE BACTERIA >9,000 /uL (0-1359); URINE BILIRUBIN NEGATIVE (NEGATIVE); URINE COLOR YELLOW; URINE GLUCOSE (UA) NEGATIVE (NEGATIVE); URINE KETONE 1+ (NEGATIVE); URINE LEUK ESTERASE 3+ (NEGATIVE); URINE NITRITE NEGATIVE (NEGATIVE); URINE PROTEIN 2+ (NEGATIVE); URINE WBC 1135 /uL (0-25.8)
[2021-10-17 16:39] LABS: CALCIUM 8.7 mg/dL (8.5-10.1)
[2021-10-17 16:40] LABS: ALBUMIN 3.1 g/dl (3.4-5.0); BLOOD UREA NITROGEN 25.1 mg/dL (7-18)
[2021-10-17 16:43] LABS: CREATININE 0.9 mg/dL (0.55-1.3)
[2021-10-17 16:45] LABS: BILIRUBIN,TOTAL 0.5 mg/dL (0.2-1); TOT PROT 7.1 g/dl (6.4-8.2)
[2021-10-17] MEDS ORDERED: CEFTRIAXONE 1 GM in DEXTROSE 5%-WATER - 100 ML IVPB ONE (16:46)
[2021-10-17] MEDS ORDERED: CEFTRIAXONE 1 GM/50 ML BAG ONE (17:12)
[2021-10-17 18:11] LABS: URINE RBC 92.9 /uL (0-23.9)
[2021-10-17] MEDS ORDERED: guaiFENesin 200 MG/10 ML 10 ML UNIT-DOSE CUPS PO PRN (22:29)
[2021-10-17] MEDS ORDERED: PATIENT'S OWN MEDICATION (NON-FORMULARY) (Oxycodone Hcl/Acetaminophen [Endocet 10-325 Mg T PO PRN (22:29)
[2021-10-17] MEDS ORDERED: LORazepam 1 MG TABLET PO PRN (22:29)
[2021-10-17] MEDS ORDERED: ACETAMINOPHEN 325 MG TABLET (FP) PO PRN (22:29)
[2021-10-17] MEDS ORDERED: ALBUTEROL SO4 HFA INHALER IH PRN (22:29)
[2021-10-18] MEDS ORDERED: ACETAMINOPHEN 325 MG TABLET (FP) PO PRN (00:20)
[2021-10-18] MEDS: LEVOTHYROXINE NA 125 MCG TABLET (FP) PO SCH (06:12)
[2021-10-18] MEDS ORDERED: predniSONE 5 MG TABLET (UD) PO SCH (10:00)
[2021-10-18] MEDS ORDERED: cefTRIAXone SODIUM 1 GM VIAL ONE (10:11)
[2021-10-18] MEDS ORDERED: DEXTROSE 5%-WATER - 50 ML IVPB ONE (10:11)
[2021-10-18] MEDS: predniSONE 10 MG TABLET (UD) PO SCH (10:18)
[2021-10-18] MEDS: ASCORBIC ACID 500 MG TABLET (FP) PO SCH (10:18)
[2021-10-18] MEDS: rOPINIRole HCL 1 MG TABLET (FP) PO SCH ×4 (10:18→22:19)
[2021-10-18] MEDS: DOCUSATE SODIUM 100 MG CAPSULE (FP) PO SCH (10:18)
[2021-10-18] MEDS: ASPIRIN COATED 81 MG TABLET.EC PO SCH (10:18)
[2021-10-18] MEDS: MULTIVITAMINS (DAILY MVI) TABLET (FP) PO SCH (10:18)
[2021-10-18] MEDS: CEFTRIAXONE 1 GM in DEXTROSE 5%-WATER - 50 ML IVPB SCH (10:18)
[2021-10-18] MEDS: DIVALPROEX SODIUM 500 MG TABLET E.C. PO SCH ×2 (10:19→22:30)
[2021-10-18] MEDS: HEPARIN NA (PORCINE) 5,000 UNITS/ML 1ML VIAL SQ SCH ×2 (10:21→22:18)
[2021-10-18] MEDS: SILVER SULFADIAZINE 1% TOP CREAM 400 GM JAR TP SCH ×2 (11:33→23:23)
[2021-10-18] MEDS: FLUTICASONE/SALMETEROL 100 MCG/50 MCG DISKUS IH SCH ×2 (12:00→22:30)
[2021-10-18] MEDS: SERTRALINE HCL 50 MG TABLET (FP) PO SCH (22:20)
[2021-10-19] MEDS: LEVOTHYROXINE NA 125 MCG TABLET (FP) PO SCH (06:22)
[2021-10-19] MEDS: oxyCODONE HCL 5 MG TABLET PO PRN ×2 (06:27→15:32)
[2021-10-19] MEDS ORDERED: cefTRIAXone SODIUM 1 GM VIAL ONE (10:13)
[2021-10-19] MEDS: ASCORBIC ACID 500 MG TABLET (FP) PO SCH (10:18)
[2021-10-19] MEDS: rOPINIRole HCL 1 MG TABLET (FP) PO SCH ×4 (10:18→21:49)
[2021-10-19] MEDS: DOCUSATE SODIUM 100 MG CAPSULE (FP) PO SCH (10:18)
[2021-10-19] MEDS: MULTIVITAMINS (DAILY MVI) TABLET (FP) PO SCH (10:18)
[2021-10-19] MEDS: ASPIRIN COATED 81 MG TABLET.EC PO SCH (10:18)
[2021-10-19] MEDS: FLUTICASONE/SALMETEROL 100 MCG/50 MCG DISKUS IH SCH ×2 (10:18→21:50)
[2021-10-19] MEDS: predniSONE 10 MG TABLET (UD) PO SCH (10:18)
[2021-10-19] MEDS: CEFTRIAXONE 1 GM in DEXTROSE 5%-WATER - 50 ML IVPB SCH (10:19)
[2021-10-19] MEDS: SILVER SULFADIAZINE 1% TOP CREAM 400 GM JAR TP SCH ×2 (10:20→21:50)
[2021-10-19] MEDS: DIVALPROEX SODIUM 500 MG TABLET E.C. PO SCH ×2 (10:20→21:49)
[2021-10-19] MEDS: HEPARIN NA (PORCINE) 5,000 UNITS/ML 1ML VIAL SQ SCH ×2 (10:20→21:49)
[2021-10-19] MEDS ORDERED: SODIUM CHLORIDE 1,000 ML IV SCH (13:00)
[2021-10-19 20:21] VITALS: BMI 18.3
[2021-10-19] MEDS: SERTRALINE HCL 50 MG TABLET (FP) PO SCH (21:49)
[2021-10-20] MEDS: oxyCODONE HCL 5 MG TABLET PO PRN ×3 (06:07→22:25)
[2021-10-20] MEDS: LEVOTHYROXINE NA 125 MCG TABLET (FP) PO SCH (06:07)
[2021-10-20 08:56] LABS: BASO % 0.1 % (0-2.0); EOS % 0.2 % (0-4.5); HEMATOCRIT 28.6 % (32.4-45.2); HEMOGLOBIN 9.8 GM/dL (10.7-15.3); LYMPH % 28.3 % (8-40); MCH 32.7 pg (25.7-33.7); MCHC 34.3 g/dl (32.0-36.0); MEAN CELL VOLUME 95.4 fl (80-96); MEAN PLT VOLUME 8.7 fl (7.5-11.1); NEUT % 63.4 % (42.8-82.8); PLATELET COUNT 93 10^3/uL (134-434); RDW 13.9 % (11.6-15.6); WHITE BLOOD COUNT 6.3 K/mm3 (4.0-10.0)
[2021-10-20 09:10] LABS: CALCIUM 7.8 mg/dL (8.5-10.1)
[2021-10-20 09:11] LABS: BLOOD UREA NITROGEN 30.2 mg/dL (7-18)
[2021-10-20 09:14] LABS: CREATININE 0.7 mg/dL (0.55-1.3)
[2021-10-20 09:16] LABS: TOT PROT 5.5 g/dl (6.4-8.2)
[2021-10-20 09:18] LABS: ALBUMIN 2.1 g/dl (3.4-5.0); BILIRUBIN,TOTAL 0.5 mg/dL (0.2-1)
[2021-10-20] MEDS: SILVER SULFADIAZINE 1% TOP CREAM 400 GM JAR TP SCH (10:00)
[2021-10-20] MEDS ORDERED: cefTRIAXone SODIUM 1 GM VIAL ONE (10:44)
[2021-10-20] MEDS: CEFTRIAXONE 1 GM in DEXTROSE 5%-WATER - 50 ML IVPB SCH (10:56)
[2021-10-20] MEDS: ASCORBIC ACID 500 MG TABLET (FP) PO SCH (10:57)
[2021-10-20] MEDS: predniSONE 5 MG TABLET (UD) PO SCH (10:57)
[2021-10-20] MEDS: ASPIRIN COATED 81 MG TABLET.EC PO SCH (10:57)
[2021-10-20] MEDS: MULTIVITAMINS (DAILY MVI) TABLET (FP) PO SCH (10:57)
[2021-10-20] MEDS: DIVALPROEX SODIUM 500 MG TABLET E.C. PO SCH ×2 (10:58→22:22)
[2021-10-20] MEDS: HEPARIN NA (PORCINE) 5,000 UNITS/ML 1ML VIAL SQ SCH ×2 (10:58→22:22)
[2021-10-20] MEDS: rOPINIRole HCL 1 MG TABLET (FP) PO SCH ×4 (10:58→22:22)
[2021-10-20] MEDS: DOCUSATE SODIUM 100 MG CAPSULE (FP) PO SCH (11:04)
[2021-10-20] MEDS: FLUTICASONE/SALMETEROL 100 MCG/50 MCG DISKUS IH SCH ×2 (11:05→22:23)
[2021-10-20] MEDS: FAMOTIDINE 20 MG TABLET PO SCH (14:32)
[2021-10-20] MEDS: SERTRALINE HCL 50 MG TABLET (FP) PO SCH (22:22)
[2021-10-21] MEDS: LEVOTHYROXINE NA 125 MCG TABLET (FP) PO SCH (06:15)
[2021-10-21] MEDS ORDERED: DEXTROSE 5%-WATER - 50 ML IVPB ONE (09:34)
[2021-10-21] MEDS ORDERED: cefTRIAXone SODIUM 1 GM VIAL ONE (09:34)
[2021-10-21] MEDS: oxyCODONE HCL 5 MG TABLET PO PRN ×2 (09:38→17:24)
[2021-10-21] MEDS: rOPINIRole HCL 1 MG TABLET (FP) PO SCH ×4 (09:39→21:31)
[2021-10-21] MEDS: FAMOTIDINE 20 MG TABLET PO SCH (09:39)
[2021-10-21] MEDS: MULTIVITAMINS (DAILY MVI) TABLET (FP) PO SCH (09:39)
[2021-10-21] MEDS: DOCUSATE SODIUM 100 MG CAPSULE (FP) PO SCH (09:39)
[2021-10-21] MEDS: predniSONE 5 MG TABLET (UD) PO SCH (09:39)
[2021-10-21] MEDS: ASPIRIN COATED 81 MG TABLET.EC PO SCH (09:39)
[2021-10-21] MEDS: ASCORBIC ACID 500 MG TABLET (FP) PO SCH (09:39)
[2021-10-21] MEDS: FLUTICASONE/SALMETEROL 100 MCG/50 MCG DISKUS IH SCH ×2 (09:40→21:32)
[2021-10-21] MEDS: CEFTRIAXONE 1 GM in DEXTROSE 5%-WATER - 50 ML IVPB SCH (09:40)
[2021-10-21] MEDS: DIVALPROEX SODIUM 500 MG TABLET E.C. PO SCH ×2 (09:40→21:30)
[2021-10-21] MEDS: HEPARIN NA (PORCINE) 5,000 UNITS/ML 1ML VIAL SQ SCH ×2 (09:40→21:31)
[2021-10-21] MEDS ORDERED: SODIUM CHLORIDE 1,000 ML IV SCH (17:30)
[2021-10-21] MEDS: SERTRALINE HCL 50 MG TABLET (FP) PO SCH (21:31)
[2021-10-21] MEDS: MAG HYDROX/AL HYDROX/SIMETH 30 ML UNIT-DOSE CUP PO PRN (22:17)
[2021-10-22] MEDS: oxyCODONE HCL 5 MG TABLET PO PRN ×4 (05:42→21:16)
[2021-10-22] MEDS: LEVOTHYROXINE NA 125 MCG TABLET (FP) PO SCH (06:10)
[2021-10-22] MEDS: FAMOTIDINE 20 MG TABLET PO SCH ×2 (07:09→10:06)
[2021-10-22] MEDS ORDERED: cefTRIAXone SODIUM 1 GM VIAL ONE (09:48)
[2021-10-22] MEDS ORDERED: DEXTROSE 5%-WATER - 50 ML IVPB ONE (09:48)
[2021-10-22] MEDS: CEFTRIAXONE 1 GM in DEXTROSE 5%-WATER - 50 ML IVPB SCH (09:54)
[2021-10-22] MEDS: POLYETHYLENE GLYCOL (HEALTHYLAX) 3350 17 GM PACKET PO PRN (09:55)
[2021-10-22] MEDS: DOCUSATE SODIUM 100 MG CAPSULE (FP) PO SCH (10:02)
[2021-10-22] MEDS: ASPIRIN COATED 81 MG TABLET.EC PO SCH (10:03)
[2021-10-22] MEDS: predniSONE 10 MG TABLET (UD) PO SCH (10:03)
[2021-10-22] MEDS: DIVALPROEX SODIUM 500 MG TABLET E.C. PO SCH ×2 (10:04→21:08)
[2021-10-22] MEDS: rOPINIRole HCL 1 MG TABLET (FP) PO SCH ×4 (10:06→21:07)
[2021-10-22] MEDS: HEPARIN NA (PORCINE) 5,000 UNITS/ML 1ML VIAL SQ SCH ×2 (10:06→21:08)
[2021-10-22] MEDS: MULTIVITAMINS (DAILY MVI) TABLET (FP) PO SCH (10:06)
[2021-10-22] MEDS: FLUTICASONE/SALMETEROL 100 MCG/50 MCG DISKUS IH SCH ×2 (10:08→21:09)
[2021-10-22] MEDS: ASCORBIC ACID 500 MG TABLET (FP) PO SCH (10:08)
[2021-10-22] MEDS: SODIUM CHLORIDE 1,000 ML IV SCH (13:43)
[2021-10-22] MEDS: MAG HYDROX/AL HYDROX/SIMETH 30 ML UNIT-DOSE CUP PO PRN ×2 (13:43→21:25)
[2021-10-22] MEDS: SERTRALINE HCL 50 MG TABLET (FP) PO SCH (21:08)
[2021-10-23] MEDS: SODIUM CHLORIDE 1,000 ML IV SCH (01:01)
[2021-10-23] MEDS: THIAMINE HCL 200 MG/2 ML VIAL IVPB SCH ×3 (03:30→17:12)
[2021-10-23] MEDS: LEVOTHYROXINE NA 125 MCG TABLET (FP) PO SCH (06:52)
[2021-10-23] MEDS: predniSONE 10 MG TABLET (UD) PO SCH (09:28)
[2021-10-23] MEDS: MULTIVITAMINS (DAILY MVI) TABLET (FP) PO SCH (09:28)
[2021-10-23] MEDS: DOCUSATE SODIUM 100 MG CAPSULE (FP) PO SCH (09:28)
[2021-10-23] MEDS: ASCORBIC ACID 500 MG TABLET (FP) PO SCH (09:28)
[2021-10-23] MEDS: ASPIRIN COATED 81 MG TABLET.EC PO SCH (09:28)
[2021-10-23] MEDS: HEPARIN NA (PORCINE) 5,000 UNITS/ML 1ML VIAL SQ SCH ×2 (09:29→22:21)
[2021-10-23] MEDS: FAMOTIDINE 20 MG TABLET PO SCH (09:29)
[2021-10-23] MEDS: FLUTICASONE/SALMETEROL 100 MCG/50 MCG DISKUS IH SCH ×2 (09:29→22:21)
[2021-10-23] MEDS: DIVALPROEX SODIUM 500 MG TABLET E.C. PO SCH ×2 (09:30→22:21)
[2021-10-23] MEDS: POLYETHYLENE GLYCOL (HEALTHYLAX) 3350 17 GM PACKET PO PRN (09:30)
[2021-10-23] MEDS: rOPINIRole HCL 1 MG TABLET (FP) PO SCH ×4 (09:30→22:20)
[2021-10-23] MEDS: oxyCODONE HCL 5 MG TABLET PO PRN ×3 (09:31→17:13)
[2021-10-23] MEDS ORDERED: DEXTROSE 5%-WATER - 50 ML IVPB ONE (10:44)
[2021-10-23] MEDS ORDERED: cefTRIAXone SODIUM 1 GM VIAL ONE (10:44)
[2021-10-23] MEDS: CEFTRIAXONE 1 GM in DEXTROSE 5%-WATER - 50 ML IVPB SCH (10:45)
[2021-10-23 13:20] LABS: BASO % 0.4 % (0-2.0); EOS % 0.6 % (0-4.5); HEMATOCRIT 28.8 % (32.4-45.2); HEMOGLOBIN 9.6 GM/dL (10.7-15.3); LYMPH % 13.1 % (8-40); MCH 32.1 pg (25.7-33.7); MCHC 33.5 g/dl (32.0-36.0); MEAN CELL VOLUME 95.8 fl (80-96); MEAN PLT VOLUME 8.4 fl (7.5-11.1); MONO % 7.9 % (3.8-10.2); PLATELET COUNT 139 10^3/uL (134-434); RBC 3.01 M/mm3 (3.60-5.2); RDW 14.2 % (11.6-15.6); WHITE BLOOD COUNT 6.6 K/mm3 (4.0-10.0)
[2021-10-23 13:40] LABS: BLOOD UREA NITROGEN 22.2 mg/dL (7-18); CALCIUM 8.3 mg/dL (8.5-10.1)
[2021-10-23 13:41] LABS: ALBUMIN 2.2 g/dl (3.4-5.0)
[2021-10-23 13:44] LABS: CREATININE 0.7 mg/dL (0.55-1.3)
[2021-10-23 13:45] LABS: BILIRUBIN,TOTAL 0.9 mg/dL (0.2-1); TOT PROT 5.6 g/dl (6.4-8.2)
[2021-10-23] MEDS: ACETAMINOPHEN 325 MG TABLET (FP) PO PRN ×2 (14:42→17:14)
[2021-10-23] MEDS: SERTRALINE HCL 50 MG TABLET (FP) PO SCH (22:19)
[2021-10-23] MEDS: LORazepam 1 MG TABLET PO PRN (22:25)
[2021-10-24] MEDS: THIAMINE HCL 200 MG/2 ML VIAL IVPB SCH ×3 (02:20→17:39)
[2021-10-24] MEDS: LEVOTHYROXINE NA 125 MCG TABLET (FP) PO SCH (06:46)
[2021-10-24] MEDS: rOPINIRole HCL 1 MG TABLET (FP) PO SCH ×4 (10:02→22:43)
[2021-10-24] MEDS: HEPARIN NA (PORCINE) 5,000 UNITS/ML 1ML VIAL SQ SCH ×2 (10:28→22:40)
[2021-10-24] MEDS: ASPIRIN COATED 81 MG TABLET.EC PO SCH (10:28)
[2021-10-24] MEDS: predniSONE 5 MG TABLET (UD) PO SCH (10:28)
[2021-10-24] MEDS: MULTIVITAMINS (DAILY MVI) TABLET (FP) PO SCH (10:28)
[2021-10-24] MEDS: ASCORBIC ACID 500 MG TABLET (FP) PO SCH (10:29)
[2021-10-24] MEDS: DOCUSATE SODIUM 100 MG CAPSULE (FP) PO SCH (10:29)
[2021-10-24] MEDS: FAMOTIDINE 20 MG TABLET PO SCH (10:29)
[2021-10-24] MEDS: DIVALPROEX SODIUM 500 MG TABLET E.C. PO SCH ×2 (10:32→22:40)
[2021-10-24] MEDS: FLUTICASONE/SALMETEROL 100 MCG/50 MCG DISKUS IH SCH ×2 (10:39→22:43)
[2021-10-24] MEDS: oxyCODONE HCL 5 MG TABLET PO PRN ×3 (10:45→22:51)
[2021-10-24] MEDS: LORazepam 1 MG TABLET PO PRN (14:00)
[2021-10-24] MEDS: SERTRALINE HCL 50 MG TABLET (FP) PO SCH (22:40)
[2021-10-24] MEDS: MAG HYDROX/AL HYDROX/SIMETH 30 ML UNIT-DOSE CUP PO PRN (22:52)
[2021-10-25] MEDS: THIAMINE HCL 200 MG/2 ML VIAL IVPB SCH ×3 (00:41→17:13)
[2021-10-25] MEDS: LEVOTHYROXINE NA 125 MCG TABLET (FP) PO SCH (06:06)
[2021-10-25] MEDS: oxyCODONE HCL 5 MG TABLET PO PRN ×3 (06:09→21:16)
[2021-10-25] MEDS: HEPARIN NA (PORCINE) 5,000 UNITS/ML 1ML VIAL SQ SCH ×2 (09:50→21:10)
[2021-10-25] MEDS: ASCORBIC ACID 500 MG TABLET (FP) PO SCH (09:50)
[2021-10-25] MEDS: ASPIRIN COATED 81 MG TABLET.EC PO SCH (09:50)
[2021-10-25] MEDS: DOCUSATE SODIUM 100 MG CAPSULE (FP) PO SCH (09:50)
[2021-10-25] MEDS: MULTIVITAMINS (DAILY MVI) TABLET (FP) PO SCH (09:50)
[2021-10-25] MEDS: FAMOTIDINE 20 MG TABLET PO SCH (09:50)
[2021-10-25] MEDS: predniSONE 5 MG TABLET (UD) PO SCH (09:50)
[2021-10-25] MEDS: rOPINIRole HCL 1 MG TABLET (FP) PO SCH ×4 (09:51→21:09)
[2021-10-25] MEDS: DIVALPROEX SODIUM 500 MG TABLET E.C. PO SCH ×2 (09:51→21:09)
[2021-10-25] MEDS: FLUTICASONE/SALMETEROL 100 MCG/50 MCG DISKUS IH SCH ×2 (09:57→21:11)
[2021-10-25] MEDS: SERTRALINE HCL 50 MG TABLET (FP) PO SCH (21:09)
[2021-10-26] MEDS: THIAMINE HCL 200 MG/2 ML VIAL IVPB SCH (01:08)
[2021-10-26] MEDS: LEVOTHYROXINE NA 125 MCG TABLET (FP) PO SCH (06:15)
[2021-10-26] MEDS: HEPARIN NA (PORCINE) 5,000 UNITS/ML 1ML VIAL SQ SCH ×2 (09:08→21:49)
[2021-10-26] MEDS: ASCORBIC ACID 500 MG TABLET (FP) PO SCH (09:08)
[2021-10-26] MEDS: LORazepam 1 MG TABLET PO PRN ×2 (09:08→23:10)
[2021-10-26] MEDS: MULTIVITAMINS (DAILY MVI) TABLET (FP) PO SCH (09:08)
[2021-10-26] MEDS: ASPIRIN COATED 81 MG TABLET.EC PO SCH (09:08)
[2021-10-26] MEDS: DOCUSATE SODIUM 100 MG CAPSULE (FP) PO SCH (09:08)
[2021-10-26] MEDS: rOPINIRole HCL 1 MG TABLET (FP) PO SCH ×4 (09:08→21:50)
[2021-10-26] MEDS: FAMOTIDINE 20 MG TABLET PO SCH (09:08)
[2021-10-26] MEDS: FLUTICASONE/SALMETEROL 100 MCG/50 MCG DISKUS IH SCH ×2 (09:09→21:49)
[2021-10-26] MEDS: DIVALPROEX SODIUM 500 MG TABLET E.C. PO SCH ×2 (09:09→21:49)
[2021-10-26] MEDS: oxyCODONE HCL 5 MG TABLET PO PRN ×3 (10:29→23:09)
[2021-10-26 10:41] LABS: INR 1.06 (0.83-1.09); PROTHROMBIN TIME (PATIENT) 12.2 SEC (9.7-13.0)
[2021-10-26 11:15] LABS: ALBUMIN 2.3 g/dl (3.4-5.0); BLOOD UREA NITROGEN 32.2 mg/dL (7-18); CALCIUM 8.6 mg/dL (8.5-10.1)
[2021-10-26 11:19] LABS: CREATININE 0.9 mg/dL (0.55-1.3)
[2021-10-26 11:21] LABS: BILIRUBIN,TOTAL 0.3 mg/dL (0.2-1); TOT PROT 5.9 g/dl (6.4-8.2)
[2021-10-26 11:24] LABS: BASO % 0.4 % (0-2.0); EOS % 2.1 % (0-4.5); HEMOGLOBIN 9.2 GM/dL (10.7-15.3); LYMPH % 34.9 % (8-40); MCH 32.2 pg (25.7-33.7); MCHC 32.9 g/dl (32.0-36.0); MEAN CELL VOLUME 97.7 fl (80-96); MEAN PLT VOLUME 8.2 fl (7.5-11.1); MONO % 10.6 % (3.8-10.2); PLATELET COUNT 200 10^3/uL (134-434); RBC 2.87 M/mm3 (3.60-5.2); RDW 14.4 % (11.6-15.6); WHITE BLOOD COUNT 6.9 K/mm3 (4.0-10.0)
[2021-10-26] MEDS: SERTRALINE HCL 50 MG TABLET (FP) PO SCH (21:50)
[2021-10-27] MEDS: LEVOTHYROXINE NA 125 MCG TABLET (FP) PO SCH (06:21)
[2021-10-27] MEDS: oxyCODONE HCL 5 MG TABLET PO PRN (09:59)
[2021-10-27] MEDS: rOPINIRole HCL 1 MG TABLET (FP) PO SCH ×3 (09:59→17:22)
[2021-10-27] MEDS: FAMOTIDINE 20 MG TABLET PO SCH (09:59)
[2021-10-27] MEDS: MULTIVITAMINS (DAILY MVI) TABLET (FP) PO SCH (09:59)
[2021-10-27] MEDS: ASCORBIC ACID 500 MG TABLET (FP) PO SCH (09:59)
[2021-10-27] MEDS: LORazepam 1 MG TABLET PO PRN (09:59)
[2021-10-27] MEDS: ASPIRIN COATED 81 MG TABLET.EC PO SCH (09:59)
[2021-10-27] MEDS: FLUTICASONE/SALMETEROL 100 MCG/50 MCG DISKUS IH SCH (10:00)
[2021-10-27] MEDS: HEPARIN NA (PORCINE) 5,000 UNITS/ML 1ML VIAL SQ SCH (10:00)
[2021-10-27] MEDS: DOCUSATE SODIUM 100 MG CAPSULE (FP) PO SCH (10:00)
[2021-10-27] MEDS: DIVALPROEX SODIUM 500 MG TABLET E.C. PO SCH (10:01)
[2021-10-27 13:12] LABS: SARS-CoV-2 NAA Not Detected (Not Detected)
[2021-10-27 14:13] VITALS: BP 91/46; PULSE 75; TEMP 98.2
== END 2021-10-27 17:44 | DRG 689 ==
LOC: JER 14:46 → JERBED 17:21 → J6S 21:31
PROVIDERS: ADMIT Internal Medicine; ATTEND Internal Medicine
DX: N39.0 Urinary tract infection, site not specified (principal); E43 Unspecified severe protein-calorie malnutrition; G92.9 Unspecified toxic encephalopathy; Z68.1 Body mass index [BMI] 19.9 or less, adult; G95.9 Disease of spinal cord, unspecified; H46.8 Other optic neuritis; J44.9 Chronic obstructive pulmonary disease, unspecified; G35 Multiple sclerosis; M06.9 Rheumatoid arthritis, unspecified; E03.9 Hypothyroidism, unspecified; K21.9 Gastro-esophageal reflux disease without esophagitis; E86.0 Dehydration; R91.1 Solitary pulmonary nodule; F41.8 Other specified anxiety disorders; G25.81 Restless legs syndrome; G43.909 Migraine, unspecified, not intractable, without status migrainosus
CPT/HCPCS: 36415; 70450-TC; 70551-TC; 71045-TC-FY; 71250-TC; 73502-TC-LT-FY; 73552-TC-LT-FY; 80053; 81003; 82607; 82728; 82747; 82962; 83540; 83550; 84439; 84443; 84481; 84484; 85014; 85025; 85610; 85730; 86850; 86900; 86901; 87086; 87804; 93005; 93010; 97116-GP; 97162-GP; 99285-25; C9803-CS; J1644; U0003; U0005

== ENCOUNTER 2021-11-23 13:57 | Emergency (ER) | payer OTHER ==
[2021-11-23 14:53] VITALS: TEMP 98.1; BMI 24.9
[2021-11-23 20:07] LABS: BASO % 0.6 % (0-2.0); EOS % 3.3 % (0-4.5); HEMATOCRIT 36.9 % (32.4-45.2); HEMOGLOBIN 12.2 GM/dL (10.7-15.3); LYMPH % 53.8 % (8-40); MCH 33.5 pg (25.7-33.7); MEAN CELL VOLUME 101.5 fl (80-96); MEAN PLT VOLUME 7.3 fl (7.5-11.1); MONO % 5.3 % (3.8-10.2); PLATELET COUNT 214 10^3/uL (134-434); RBC 3.63 M/mm3 (3.60-5.2); RDW 14.7 % (11.6-15.6); WHITE BLOOD COUNT 4.5 K/mm3 (4.0-10.0)
[2021-11-23 20:40] LABS: CALCIUM 9.2 mg/dL (8.5-10.1)
[2021-11-23 20:41] LABS: ALBUMIN 3.7 g/dl (3.4-5.0); BLOOD UREA NITROGEN 23.9 mg/dL (7-18)
[2021-11-23 20:44] LABS: CREATININE 0.8 mg/dL (0.55-1.3)
[2021-11-23 20:45] LABS: BILIRUBIN,TOTAL 0.4 mg/dL (0.2-1)
[2021-11-23 20:46] LABS: TOT PROT 8.3 g/dl (6.4-8.2)
[2021-11-24 02:24] VITALS: BP 103/63; PULSE 72
== END 2021-11-24 02:22 | disposition home or self-care (01) ==
LOC: JER 13:57
DX: I73.9 Peripheral vascular disease, unspecified (principal)
CPT/HCPCS: 36415; 80053; 85025; 93970-TC; 99284-25

== ENCOUNTER 2021-12-13 18:04 | Inpatient (IN) | payer OTHER ==
[2021-12-13] MEDS ORDERED: VANCOMYCIN 1 GM in D5W (PRE-DOCKED) 1,000 MG/250 ML IVPB ONE (18:37)
[2021-12-13 19:03] LABS: BASO % 0.8 % (0-2.0); EOS % 1.2 % (0-4.5); HEMATOCRIT 32.3 % (32.4-45.2); HEMOGLOBIN 11.2 GM/dL (10.7-15.3); LYMPH % 29.9 % (8-40); MCH 33.8 pg (25.7-33.7); MCHC 34.6 g/dl (32.0-36.0); MEAN CELL VOLUME 97.8 fl (80-96); MEAN PLT VOLUME 7.6 fl (7.5-11.1); NEUT % 58.1 % (42.8-82.8); PLATELET COUNT 177 10^3/uL (134-434); RDW 13.7 % (11.6-15.6); WHITE BLOOD COUNT 5.4 K/mm3 (4.0-10.0)
[2021-12-13] MEDS ORDERED: VANCOMYCIN 1 GRAM (PRE-DOCKED) 1,000 MG/250 ML BAG IVPB ONE (19:45)
[2021-12-13 19:58] LABS: CALCIUM 8.6 mg/dL (8.5-10.1)
[2021-12-13 19:59] LABS: ALBUMIN 3.1 g/dl (3.4-5.0); MAGNESIUM 2.2 mg/dL (1.8-2.4)
[2021-12-13 20:02] LABS: CREATININE 0.9 mg/dL (0.55-1.3)
[2021-12-13 20:04] LABS: TOT PROT 7.1 g/dl (6.4-8.2)
[2021-12-13] MEDS ORDERED: DIPHTH,PERTUSS(ACELL),TET 0.5 ML DISP.SYRIN IM ONE ×2 (20:06→21:31)
[2021-12-13 20:18] LABS: BLOOD UREA NITROGEN 26.2 mg/dL (7-18)
[2021-12-13 20:26] LABS: BILIRUBIN,TOTAL 0.3 mg/dL (0.2-1)
[2021-12-13] MEDS ORDERED: rOPINIRole HCL 2 MG TABLET (FP) PO SCH (22:00)
[2021-12-13] MEDS ORDERED: PATIENT'S OWN MEDICATION (NON-FORMULARY) (Oxycodone Hcl/Acetaminophen [Endocet 10-325 Mg T PO PRN (23:50)
[2021-12-13] MEDS ORDERED: ALBUTEROL SO4 HFA INHALER IH PRN (23:50)
[2021-12-13] MEDS ORDERED: POLYETHYLENE GLYCOL (HEALTHYLAX) 3350 17 GM PACKET PO PRN (23:50)
[2021-12-14] MEDS: oxyCODONE HCL 5 MG TABLET PO PRN ×3 (02:52→18:29)
[2021-12-14] MEDS: ACETAMINOPHEN 325 MG TABLET (FP) PO PRN ×2 (02:53→22:00)
[2021-12-14] MEDS: LEVOTHYROXINE NA 125 MCG TABLET (FP) PO SCH (06:55)
[2021-12-14 10:22] LABS: BASO % 0.6 % (0-2.0); EOS % 2.1 % (0-4.5); HEMATOCRIT 31.9 % (32.4-45.2); HEMOGLOBIN 10.9 GM/dL (10.7-15.3); LYMPH % 29.9 % (8-40); MCH 33.9 pg (25.7-33.7); MCHC 34.2 g/dl (32.0-36.0); MEAN CELL VOLUME 99.1 fl (80-96); MEAN PLT VOLUME 7.8 fl (7.5-11.1); MONO % 8.1 % (3.8-10.2); NEUT % 59.3 % (42.8-82.8); PLATELET COUNT 160 10^3/uL (134-434); RBC 3.22 M/mm3 (3.60-5.2); RDW 13.5 % (11.6-15.6); WHITE BLOOD COUNT 4.9 K/mm3 (4.0-10.0)
[2021-12-14] MEDS: HEPARIN NA (PORCINE) 5,000 UNITS/ML 1ML VIAL SQ SCH ×2 (10:39→22:33)
[2021-12-14] MEDS: DIVALPROEX SODIUM 500 MG TABLET E.C. PO SCH ×2 (10:39→22:31)
[2021-12-14] MEDS: MULTIVITAMINS (DAILY MVI) TABLET (FP) PO SCH (10:39)
[2021-12-14] MEDS: ASCORBIC ACID 500 MG TABLET (FP) PO SCH (10:40)
[2021-12-14] MEDS: FAMOTIDINE 20 MG TABLET PO SCH ×2 (10:40→22:31)
[2021-12-14] MEDS: FLUTICASONE/SALMETEROL 100 MCG/50 MCG DISKUS IH SCH ×2 (10:40→22:39)
[2021-12-14] MEDS: ASPIRIN COATED 81 MG TABLET.EC PO SCH (10:40)
[2021-12-14] MEDS: rOPINIRole HCL 2 MG TABLET (FP) PO SCH ×4 (10:41→22:39)
[2021-12-14 10:52] LABS: CALCIUM 8.5 mg/dL (8.5-10.1)
[2021-12-14 10:53] LABS: ALBUMIN 2.7 g/dl (3.4-5.0); BLOOD UREA NITROGEN 22.7 mg/dL (7-18)
[2021-12-14 10:55] LABS: CREATININE 0.8 mg/dL (0.55-1.3)
[2021-12-14 10:57] LABS: TOT PROT 6.4 g/dl (6.4-8.2)
[2021-12-14 11:08] LABS: BILIRUBIN,TOTAL 0.3 mg/dL (0.2-1)
[2021-12-14] MEDS: CEFAZOLIN 1 GM in DEXTROSE 5%-WATER - 50 ML IVPB SCH ×2 (12:44→17:20)
[2021-12-14] MEDS ORDERED: ceFAZolin SODIUM 1 GM VIAL ONE (17:08)
[2021-12-14] MEDS ORDERED: DEXTROSE 5%-WATER - 50 ML IVPB ONE (17:08)
[2021-12-14] MEDS: SERTRALINE HCL 50 MG TABLET (FP) PO SCH (22:32)
[2021-12-15] MEDS ORDERED: ceFAZolin SODIUM 1 GM VIAL ONE ×2 (01:15→09:06)
[2021-12-15] MEDS ORDERED: DEXTROSE 5%-WATER - 50 ML IVPB ONE ×2 (01:15→09:06)
[2021-12-15] MEDS: oxyCODONE HCL 5 MG TABLET PO PRN ×3 (01:22→18:24)
[2021-12-15] MEDS: CEFAZOLIN 1 GM in DEXTROSE 5%-WATER - 50 ML IVPB SCH ×2 (01:22→09:57)
[2021-12-15] MEDS: LEVOTHYROXINE NA 125 MCG TABLET (FP) PO SCH (06:47)
[2021-12-15 08:58] LABS: BASO % 0.3 % (0-2.0); EOS % 2.9 % (0-4.5); HEMATOCRIT 32.8 % (32.4-45.2); HEMOGLOBIN 11.1 GM/dL (10.7-15.3); LYMPH % 33.9 % (8-40); MCH 33.7 pg (25.7-33.7); MEAN CELL VOLUME 99.2 fl (80-96); MEAN PLT VOLUME 8.1 fl (7.5-11.1); MONO % 8.6 % (3.8-10.2); NEUT % 54.3 % (42.8-82.8); PLATELET COUNT 166 10^3/uL (134-434); RDW 13.5 % (11.6-15.6); WHITE BLOOD COUNT 4.8 K/mm3 (4.0-10.0)
[2021-12-15 09:24] LABS: ALBUMIN 2.7 g/dl (3.4-5.0); BLOOD UREA NITROGEN 17.3 mg/dL (7-18); CALCIUM 8.2 mg/dL (8.5-10.1)
[2021-12-15 09:28] LABS: CREATININE 0.7 mg/dL (0.55-1.3)
[2021-12-15 09:29] LABS: TOT PROT 6.4 g/dl (6.4-8.2)
[2021-12-15] MEDS: ASCORBIC ACID 500 MG TABLET (FP) PO SCH (09:57)
[2021-12-15] MEDS: MULTIVITAMINS (DAILY MVI) TABLET (FP) PO SCH (09:57)
[2021-12-15] MEDS: DIVALPROEX SODIUM 500 MG TABLET E.C. PO SCH ×2 (09:58→21:14)
[2021-12-15] MEDS: ASPIRIN COATED 81 MG TABLET.EC PO SCH (09:58)
[2021-12-15] MEDS: HEPARIN NA (PORCINE) 5,000 UNITS/ML 1ML VIAL SQ SCH ×2 (09:58→21:13)
[2021-12-15] MEDS: FAMOTIDINE 20 MG TABLET PO SCH ×2 (09:58→21:14)
[2021-12-15] MEDS: rOPINIRole HCL 2 MG TABLET (FP) PO SCH ×4 (09:59→21:13)
[2021-12-15] MEDS: FLUTICASONE/SALMETEROL 100 MCG/50 MCG DISKUS IH SCH ×2 (10:00→21:13)
[2021-12-15] MEDS: VANCOMYCIN 1 GRAM (PRE-DOCKED) 1,000 MG/250 ML BAG IVPB SCH (18:08)
[2021-12-15] MEDS: SERTRALINE HCL 50 MG TABLET (FP) PO SCH (21:14)
[2021-12-16] MEDS: oxyCODONE HCL 5 MG TABLET PO PRN ×3 (06:37→20:19)
[2021-12-16] MEDS: LEVOTHYROXINE NA 125 MCG TABLET (FP) PO SCH (06:37)
[2021-12-16] MEDS: HEPARIN NA (PORCINE) 5,000 UNITS/ML 1ML VIAL SQ SCH ×2 (10:18→22:47)
[2021-12-16] MEDS: FAMOTIDINE 20 MG TABLET PO SCH ×2 (10:18→22:47)
[2021-12-16] MEDS: DIVALPROEX SODIUM 500 MG TABLET E.C. PO SCH ×2 (10:18→22:47)
[2021-12-16] MEDS: ASPIRIN COATED 81 MG TABLET.EC PO SCH (10:18)
[2021-12-16] MEDS: MULTIVITAMINS (DAILY MVI) TABLET (FP) PO SCH (10:19)
[2021-12-16] MEDS: rOPINIRole HCL 2 MG TABLET (FP) PO SCH ×4 (10:19→22:47)
[2021-12-16] MEDS: ASCORBIC ACID 500 MG TABLET (FP) PO SCH (10:19)
[2021-12-16] MEDS: FLUTICASONE/SALMETEROL 100 MCG/50 MCG DISKUS IH SCH ×2 (10:22→22:47)
[2021-12-16] MEDS: VANCOMYCIN 1 GRAM (PRE-DOCKED) 1,000 MG/250 ML BAG IVPB SCH (18:12)
[2021-12-16] MEDS: SERTRALINE HCL 50 MG TABLET (FP) PO SCH (22:47)
[2021-12-17] MEDS: LEVOTHYROXINE NA 125 MCG TABLET (FP) PO SCH (06:07)
[2021-12-17] MEDS: DIVALPROEX SODIUM 500 MG TABLET E.C. PO SCH ×2 (10:30→21:46)
[2021-12-17] MEDS: ASCORBIC ACID 500 MG TABLET (FP) PO SCH (10:30)
[2021-12-17] MEDS: HEPARIN NA (PORCINE) 5,000 UNITS/ML 1ML VIAL SQ SCH ×2 (10:30→21:46)
[2021-12-17] MEDS: ASPIRIN COATED 81 MG TABLET.EC PO SCH (10:30)
[2021-12-17] MEDS: MULTIVITAMINS (DAILY MVI) TABLET (FP) PO SCH (10:30)
[2021-12-17] MEDS: FAMOTIDINE 20 MG TABLET PO SCH ×2 (10:30→21:46)
[2021-12-17] MEDS: rOPINIRole HCL 2 MG TABLET (FP) PO SCH ×4 (10:31→21:45)
[2021-12-17] MEDS: FLUTICASONE/SALMETEROL 100 MCG/50 MCG DISKUS IH SCH ×2 (10:33→21:45)
[2021-12-17] MEDS ORDERED: oxyCODONE HCL 5 MG TABLET PO PRN (11:00)
[2021-12-17] MEDS ORDERED: ACETAMINOPHEN 325 MG TABLET (FP) PO PRN (11:00)
[2021-12-17] MEDS: ACETAMINOPHEN 325 MG TABLET (FP) PO PRN (12:35)
[2021-12-17] MEDS: oxyCODONE HCL 5 MG TABLET PO PRN ×2 (17:31→23:54)
[2021-12-17] MEDS: VANCOMYCIN 1 GRAM (PRE-DOCKED) 1,000 MG/250 ML BAG IVPB SCH (17:33)
[2021-12-17] MEDS: SERTRALINE HCL 50 MG TABLET (FP) PO SCH (21:46)
[2021-12-18] MEDS: oxyCODONE HCL 5 MG TABLET PO PRN ×2 (06:12→18:58)
[2021-12-18] MEDS: LEVOTHYROXINE NA 125 MCG TABLET (FP) PO SCH (06:13)
[2021-12-18] MEDS: ASPIRIN COATED 81 MG TABLET.EC PO SCH (09:21)
[2021-12-18] MEDS: MULTIVITAMINS (DAILY MVI) TABLET (FP) PO SCH (09:21)
[2021-12-18] MEDS: ASCORBIC ACID 500 MG TABLET (FP) PO SCH (09:21)
[2021-12-18] MEDS: DIVALPROEX SODIUM 500 MG TABLET E.C. PO SCH ×2 (09:21→21:58)
[2021-12-18] MEDS: FAMOTIDINE 20 MG TABLET PO SCH ×2 (09:21→21:58)
[2021-12-18] MEDS: rOPINIRole HCL 2 MG TABLET (FP) PO SCH ×4 (09:22→21:58)
[2021-12-18] MEDS: HEPARIN NA (PORCINE) 5,000 UNITS/ML 1ML VIAL SQ SCH ×2 (09:22→21:58)
[2021-12-18] MEDS: FLUTICASONE/SALMETEROL 100 MCG/50 MCG DISKUS IH SCH ×2 (09:24→21:58)
[2021-12-18] MEDS: VANCOMYCIN 1 GRAM (PRE-DOCKED) 1,000 MG/250 ML BAG IVPB SCH (17:13)
[2021-12-18] MEDS: SERTRALINE HCL 50 MG TABLET (FP) PO SCH (21:58)
[2021-12-19] MEDS: oxyCODONE HCL 5 MG TABLET PO PRN ×3 (04:05→17:28)
[2021-12-19 10:08] LABS: BASO % 0.5 % (0-2.0); EOS % 3.5 % (0-4.5); HEMOGLOBIN 11.4 GM/dL (10.7-15.3); LYMPH % 25.6 % (8-40); MCH 33.1 pg (25.7-33.7); MCHC 33.7 g/dl (32.0-36.0); MEAN CELL VOLUME 98.3 fl (80-96); MEAN PLT VOLUME 7.5 fl (7.5-11.1); MONO % 5.4 % (3.8-10.2); PLATELET COUNT 225 10^3/uL (134-434); RBC 3.46 M/mm3 (3.60-5.2); RDW 13.5 % (11.6-15.6); WHITE BLOOD COUNT 4.7 K/mm3 (4.0-10.0)
[2021-12-19 10:25] LABS: ALBUMIN 2.7 g/dl (3.4-5.0); CALCIUM 8.6 mg/dL (8.5-10.1)
[2021-12-19 10:26] LABS: BLOOD UREA NITROGEN 31.8 mg/dL (7-18)
[2021-12-19 10:29] LABS: CREATININE 0.8 mg/dL (0.55-1.3)
[2021-12-19 10:30] LABS: BILIRUBIN,TOTAL 0.3 mg/dL (0.2-1); TOT PROT 6.5 g/dl (6.4-8.2)
[2021-12-19] MEDS: FAMOTIDINE 20 MG TABLET PO SCH ×2 (10:57→21:14)
[2021-12-19] MEDS: ASPIRIN COATED 81 MG TABLET.EC PO SCH (10:57)
[2021-12-19] MEDS: MULTIVITAMINS (DAILY MVI) TABLET (FP) PO SCH (10:57)
[2021-12-19] MEDS: DIVALPROEX SODIUM 500 MG TABLET E.C. PO SCH ×2 (10:57→21:14)
[2021-12-19] MEDS: rOPINIRole HCL 2 MG TABLET (FP) PO SCH ×4 (10:57→21:18)
[2021-12-19] MEDS: ASCORBIC ACID 500 MG TABLET (FP) PO SCH (10:57)
[2021-12-19] MEDS: FLUTICASONE/SALMETEROL 100 MCG/50 MCG DISKUS IH SCH ×2 (10:58→21:17)
[2021-12-19] MEDS: HEPARIN NA (PORCINE) 5,000 UNITS/ML 1ML VIAL SQ SCH ×2 (11:09→21:15)
[2021-12-19] MEDS: LEVOTHYROXINE NA 125 MCG TABLET (FP) PO SCH (14:07)
[2021-12-19] MEDS ORDERED: ACETAMINOPHEN 325 MG TABLET (FP) PO PRN (15:14)
[2021-12-19 20:24] VITALS: BMI 17.4
[2021-12-19] MEDS: SERTRALINE HCL 50 MG TABLET (FP) PO SCH (21:14)
[2021-12-20] MEDS: rOPINIRole HCL 2 MG TABLET (FP) PO SCH ×4 (09:22→22:07)
[2021-12-20] MEDS: MULTIVITAMINS (DAILY MVI) TABLET (FP) PO SCH (09:24)
[2021-12-20] MEDS: FAMOTIDINE 20 MG TABLET PO SCH ×2 (09:24→22:07)
[2021-12-20] MEDS: DIVALPROEX SODIUM 500 MG TABLET E.C. PO SCH ×2 (09:24→22:08)
[2021-12-20] MEDS: ASCORBIC ACID 500 MG TABLET (FP) PO SCH (09:24)
[2021-12-20] MEDS: ASPIRIN COATED 81 MG TABLET.EC PO SCH (09:24)
[2021-12-20] MEDS: FLUTICASONE/SALMETEROL 100 MCG/50 MCG DISKUS IH SCH ×2 (09:30→22:09)
[2021-12-20] MEDS: HEPARIN NA (PORCINE) 5,000 UNITS/ML 1ML VIAL SQ SCH ×2 (09:34→22:08)
[2021-12-20] MEDS: oxyCODONE HCL 5 MG TABLET PO PRN ×2 (09:47→17:20)
[2021-12-20] MEDS ORDERED: VANCOMYCIN 1 GM in D5W (PRE-DOCKED) 1,000 MG/250 ML IVPB ONE (10:00)
[2021-12-20] MEDS: DOXYCYCLINE HYCLATE 100 MG CAPSULE PO SCH (17:13)
[2021-12-20] MEDS: SERTRALINE HCL 50 MG TABLET (FP) PO SCH (22:07)
[2021-12-21] MEDS: LEVOTHYROXINE NA 125 MCG TABLET (FP) PO SCH (06:42)
[2021-12-21] MEDS: oxyCODONE HCL 5 MG TABLET PO PRN ×3 (06:48→22:31)
[2021-12-21] MEDS: VANCOMYCIN 1 GRAM (PRE-DOCKED) 1,000 MG/250 ML BAG IVPB SCH (10:32)
[2021-12-21] MEDS: ASPIRIN COATED 81 MG TABLET.EC PO SCH (10:36)
[2021-12-21] MEDS: FLUTICASONE/SALMETEROL 100 MCG/50 MCG DISKUS IH SCH ×2 (10:36→22:10)
[2021-12-21] MEDS: ASCORBIC ACID 500 MG TABLET (FP) PO SCH (10:37)
[2021-12-21] MEDS: DIVALPROEX SODIUM 500 MG TABLET E.C. PO SCH ×2 (10:37→22:11)
[2021-12-21] MEDS: MULTIVITAMINS (DAILY MVI) TABLET (FP) PO SCH (10:37)
[2021-12-21] MEDS: FAMOTIDINE 20 MG TABLET PO SCH ×2 (10:37→22:11)
[2021-12-21] MEDS: DOXYCYCLINE HYCLATE 100 MG CAPSULE PO SCH ×2 (10:37→19:40)
[2021-12-21] MEDS: HEPARIN NA (PORCINE) 5,000 UNITS/ML 1ML VIAL SQ SCH ×2 (10:40→22:11)
[2021-12-21] MEDS: rOPINIRole HCL 2 MG TABLET (FP) PO SCH ×4 (10:40→22:11)
[2021-12-21] MEDS: SERTRALINE HCL 50 MG TABLET (FP) PO SCH (22:11)
[2021-12-22] MEDS: LEVOTHYROXINE NA 125 MCG TABLET (FP) PO SCH (06:00)
[2021-12-22] MEDS: rOPINIRole HCL 2 MG TABLET (FP) PO SCH ×2 (09:53→14:45)
[2021-12-22] MEDS: DIVALPROEX SODIUM 500 MG TABLET E.C. PO SCH (09:54)
[2021-12-22] MEDS: FAMOTIDINE 20 MG TABLET PO SCH (09:54)
[2021-12-22] MEDS: DOXYCYCLINE HYCLATE 100 MG CAPSULE PO SCH (09:54)
[2021-12-22] MEDS: ASCORBIC ACID 500 MG TABLET (FP) PO SCH (09:54)
[2021-12-22] MEDS: MULTIVITAMINS (DAILY MVI) TABLET (FP) PO SCH (09:54)
[2021-12-22] MEDS: ASPIRIN COATED 81 MG TABLET.EC PO SCH (09:54)
[2021-12-22] MEDS: HEPARIN NA (PORCINE) 5,000 UNITS/ML 1ML VIAL SQ SCH (09:55)
[2021-12-22] MEDS: oxyCODONE HCL 5 MG TABLET PO PRN ×2 (10:02→14:55)
[2021-12-22] MEDS: FLUTICASONE/SALMETEROL 100 MCG/50 MCG DISKUS IH SCH (13:27)
[2021-12-22 15:10] VITALS: BP 104/61; PULSE 70; TEMP 98.2
== END 2021-12-22 15:28 | disposition home or self-care (01) | DRG 603 ==
LOC: JER 18:04 → JERBED 21:02 → J5S 12-14 00:20
PROVIDERS: ADMIT Internal Medicine; ATTEND Internal Medicine
DX: L03.116 Cellulitis of left lower limb (principal); E46 Unspecified protein-calorie malnutrition; Z68.1 Body mass index [BMI] 19.9 or less, adult; L03.115 Cellulitis of right lower limb; G35 Multiple sclerosis; J44.9 Chronic obstructive pulmonary disease, unspecified; G43.909 Migraine, unspecified, not intractable, without status migrainosus; I73.9 Peripheral vascular disease, unspecified; E03.9 Hypothyroidism, unspecified; F41.8 Other specified anxiety disorders; F17.210 Nicotine dependence, cigarettes, uncomplicated; K21.9 Gastro-esophageal reflux disease without esophagitis; G25.81 Restless legs syndrome; S81.002A Unspecified open wound, left knee, initial encounter; W18.39XA Other fall on same level, initial encounter; M06.8A Other specified rheumatoid arthritis, other specified site; Z99.3 Dependence on wheelchair; Y92.098 Other place in other non-institutional residence as the place of occurrence of the external cause
CPT/HCPCS: 36415; 73560-TC-RT-FY; 73562-TC-LT-FY; 73610-TC-LT-FY; 73610-TC-RT-FY; 73630-TC-LT; 73630-TC-RT-FY; 80053; 83605; 83735; 85025; 87040; 90715; 93005; 93010; 93970-TC; 93971-TC; 97116-GP; 97162-GP; 99285-25; C9803-CS; G0480; J1644; U0003; U0005

== ENCOUNTER 2022-01-12 13:37 | Inpatient (IN) | payer OTHER ==
[2022-01-12 13:58] VITALS: BMI 18.2
[2022-01-12] MEDS ORDERED: SODIUM CHLORIDE 1,633 ML IV ONE (14:33)
[2022-01-12] MEDS ORDERED: PIPERACILLIN/TAZOB 4.5 GM 4.5 GM in DEXTROSE 5%-WATER 100 ML IVPB ONE (15:01)
[2022-01-12] MEDS ORDERED: VANCOMYCIN 1 GM in D5W (PRE-DOCKED) 1,000 MG/250 ML IVPB ONE (15:03)
[2022-01-12] MEDS ORDERED: PATIENT'S OWN MEDICATION (NON-FORMULARY) (Oxycodone Hcl/Acetaminophen [Endocet 10-325 Mg T PO PRN (15:13)
[2022-01-12] MEDS ORDERED: LACTATED RINGERS SOLUTION 1000 ML INFUS.BAG IV ONE (15:13)
[2022-01-12] MEDS ORDERED: ALBUTEROL SO4 HFA INHALER IH PRN (15:13)
[2022-01-12] MEDS ORDERED: POLYETHYLENE GLYCOL (HEALTHYLAX) 3350 17 GM PACKET PO PRN (15:13)
[2022-01-12] MEDS ORDERED: ACETAMINOPHEN 325 MG TABLET (FP) PO PRN (16:00)
[2022-01-12] MEDS ORDERED: oxyCODONE HCL 5 MG TABLET ONE ×2 (16:04→16:07)
[2022-01-12] MEDS: oxyCODONE HCL 5 MG TABLET PO PRN ×2 (16:10→23:50)
[2022-01-12] MEDS ORDERED: VANCOMYCIN/WATER FOR INJ (PEG) 1,000 MG/200 ML BAG IVPB ONE (16:46)
[2022-01-12] MEDS ORDERED: PIPERACILLIN/TAZOB 4.5 GM 4.5 GM/100 ML BAG IVPB ONE (16:46)
[2022-01-12] MEDS ORDERED: SODIUM CHLORIDE 0.9% 500 ML INFUS.BAG IV ONE (16:58)
[2022-01-12 17:01] LABS: VENOUS O2 SATURATION 47.6 % (70-80); VENOUS PCO2 53.1 mmHg (38-52); VENOUS PH 7.362 (7.310-7.410)
[2022-01-12 17:04] LABS: BASO % 0.4 % (0-2.0); HEMATOCRIT 36.3 % (32.4-45.2); HEMOGLOBIN 12.3 GM/dL (10.7-15.3); LYMPH % 20.2 % (8-40); MCH 32.6 pg (25.7-33.7); MCHC 33.8 g/dl (32.0-36.0); MEAN CELL VOLUME 96.5 fl (80-96); MEAN PLT VOLUME 8.1 fl (7.5-11.1); MONO % 8.9 % (3.8-10.2); NEUT % 69.5 % (42.8-82.8); PLATELET COUNT 150 10^3/uL (134-434); RBC 3.77 M/mm3 (3.60-5.2); RDW 13.5 % (11.6-15.6); WHITE BLOOD COUNT 8.8 K/mm3 (4.0-10.0)
[2022-01-12 17:08] LABS: INR 1.12 (0.83-1.09); PROTHROMBIN TIME (PATIENT) 12.9 SEC (9.7-13.0)
[2022-01-12 17:19] LABS: CHLORIDE 102 mmol/L (98-107); SODIUM 140 mmol/L (136-145)
[2022-01-12 17:21] LABS: CALCIUM 8.5 mg/dL (8.5-10.1)
[2022-01-12 17:22] LABS: ANION GAP 8 MMOL/L (8-16); BLOOD UREA NITROGEN 15.5 mg/dL (7-18); CO2 30 mmol/L (21-32); GLUCOSE,RANDOM 78 mg/dL (74-106)
[2022-01-12 17:25] LABS: CREATININE 0.8 mg/dL (0.55-1.3); SGOT/AST 17 U/L (15-37); SGPT/ALT 17 U/L (13-61)
[2022-01-12 17:27] LABS: BILIRUBIN,TOTAL 0.3 mg/dL (0.2-1); LACTIC ACID 2.3 mmol/L (0.4-2.0); TOT PROT 7.2 g/dl (6.4-8.2)
[2022-01-12 17:28] LABS: ALK PHOS 72 U/L (45-117)
[2022-01-12] MEDS ORDERED: rOPINIRole HCL 2 MG TABLET (FP) PO SCH (18:00)
[2022-01-12] MEDS ORDERED: rOPINIRole HCL 1 MG TABLET (FP) PO SCH (22:17)
[2022-01-12] MEDS: FLUTICASONE/SALMETEROL 100 MCG/50 MCG DISKUS IH SCH (22:57)
[2022-01-12] MEDS: rOPINIRole HCL 2 MG TABLET (FP) PO SCH (22:58)
[2022-01-12] MEDS: SERTRALINE HCL 50 MG TABLET (FP) PO SCH (22:58)
[2022-01-12] MEDS: HEPARIN NA (PORCINE) 5,000 UNITS/ML 1ML VIAL SQ SCH (22:59)
[2022-01-12] MEDS: DIVALPROEX SODIUM 500 MG TABLET E.C. PO SCH (23:50)
[2022-01-12] MEDS: FAMOTIDINE 20 MG TABLET PO SCH (23:50)
[2022-01-13] MEDS: LEVOTHYROXINE NA 125 MCG TABLET (FP) PO SCH (06:01)
[2022-01-13 07:34] LABS: BASO % 0.8 % (0-2.0); EOS % 2.9 % (0-4.5); HEMATOCRIT 32.3 % (32.4-45.2); HEMOGLOBIN 11.2 GM/dL (10.7-15.3); MCH 33.1 pg (25.7-33.7); MCHC 34.5 g/dl (32.0-36.0); MEAN CELL VOLUME 95.8 fl (80-96); MEAN PLT VOLUME 8.3 fl (7.5-11.1); MONO % 9.3 % (3.8-10.2); PLATELET COUNT 133 10^3/uL (134-434); RBC 3.38 M/mm3 (3.60-5.2); RDW 12.9 % (11.6-15.6); WHITE BLOOD COUNT 6.2 K/mm3 (4.0-10.0)
[2022-01-13 07:57] LABS: ALBUMIN 2.5 g/dl (3.4-5.0); CALCIUM 8.2 mg/dL (8.5-10.1)
[2022-01-13 07:58] LABS: BLOOD UREA NITROGEN 11.8 mg/dL (7-18)
[2022-01-13 08:01] LABS: CREATININE 0.6 mg/dL (0.55-1.3)
[2022-01-13 08:02] LABS: BILIRUBIN,TOTAL 0.3 mg/dL (0.2-1); TOT PROT 5.8 g/dl (6.4-8.2)
[2022-01-13] MEDS: ASCORBIC ACID 500 MG TABLET (FP) PO SCH (09:55)
[2022-01-13] MEDS: ASPIRIN COATED 81 MG TABLET.EC PO SCH (09:55)
[2022-01-13] MEDS: FAMOTIDINE 20 MG TABLET PO SCH ×2 (09:55→21:41)
[2022-01-13] MEDS: MULTIVITAMINS (DAILY MVI) TABLET (FP) PO SCH (09:55)
[2022-01-13] MEDS: HEPARIN NA (PORCINE) 5,000 UNITS/ML 1ML VIAL SQ SCH ×2 (09:55→21:41)
[2022-01-13] MEDS: DIVALPROEX SODIUM 500 MG TABLET E.C. PO SCH ×2 (09:58→22:02)
[2022-01-13] MEDS: rOPINIRole HCL 2 MG TABLET (FP) PO SCH ×4 (09:59→21:41)
[2022-01-13] MEDS: oxyCODONE HCL 5 MG TABLET PO PRN ×2 (10:00→17:40)
[2022-01-13] MEDS: FLUTICASONE/SALMETEROL 100 MCG/50 MCG DISKUS IH SCH ×2 (10:02→22:02)
[2022-01-13 19:07] LABS: PH,URINE 6.5 (5.0-8.0); URINE APPEARANCE CLEAR; URINE BILIRUBIN NEGATIVE (NEGATIVE); URINE COLOR YELLOW; URINE GLUCOSE (UA) NEGATIVE (NEGATIVE); URINE KETONE NEGATIVE (NEGATIVE); URINE LEUK ESTERASE NEGATIVE (NEGATIVE); URINE NITRITE NEGATIVE (NEGATIVE); URINE PROTEIN NEGATIVE (NEGATIVE); URINE UROBILINOGEN 0.2 mg/dL (0.2-1.0)
[2022-01-13] MEDS: SERTRALINE HCL 50 MG TABLET (FP) PO SCH (21:41)
[2022-01-14] MEDS: oxyCODONE HCL 5 MG TABLET PO PRN ×3 (03:30→21:35)
[2022-01-14] MEDS: LEVOTHYROXINE NA 125 MCG TABLET (FP) PO SCH (06:32)
[2022-01-14 07:38] LABS: BASO % 0.6 % (0-2.0); EOS % 3.6 % (0-4.5); HEMATOCRIT 33.2 % (32.4-45.2); HEMOGLOBIN 11.4 GM/dL (10.7-15.3); MCH 32.8 pg (25.7-33.7); MCHC 34.1 g/dl (32.0-36.0); MEAN CELL VOLUME 96.1 fl (80-96); MEAN PLT VOLUME 8.2 fl (7.5-11.1); MONO % 9.1 % (3.8-10.2); NEUT % 46.7 % (42.8-82.8); PLATELET COUNT 140 10^3/uL (134-434); RBC 3.46 M/mm3 (3.60-5.2); RDW 13.3 % (11.6-15.6); WHITE BLOOD COUNT 4.9 K/mm3 (4.0-10.0)
[2022-01-14 07:56] LABS: CALCIUM 8.1 mg/dL (8.5-10.1)
[2022-01-14 07:57] LABS: ALBUMIN 2.4 g/dl (3.4-5.0); BLOOD UREA NITROGEN 15.1 mg/dL (7-18)
[2022-01-14 08:00] LABS: CREATININE 0.6 mg/dL (0.55-1.3)
[2022-01-14 08:02] LABS: BILIRUBIN,TOTAL 0.4 mg/dL (0.2-1); TOT PROT 5.8 g/dl (6.4-8.2)
[2022-01-14] MEDS: rOPINIRole HCL 2 MG TABLET (FP) PO SCH ×4 (09:34→21:34)
[2022-01-14] MEDS: ASPIRIN COATED 81 MG TABLET.EC PO SCH (09:35)
[2022-01-14] MEDS: MULTIVITAMINS (DAILY MVI) TABLET (FP) PO SCH (09:35)
[2022-01-14] MEDS: HEPARIN NA (PORCINE) 5,000 UNITS/ML 1ML VIAL SQ SCH ×2 (09:35→21:33)
[2022-01-14] MEDS: ASCORBIC ACID 500 MG TABLET (FP) PO SCH (09:35)
[2022-01-14] MEDS: FAMOTIDINE 20 MG TABLET PO SCH ×2 (09:35→21:33)
[2022-01-14] MEDS: DIVALPROEX SODIUM 500 MG TABLET E.C. PO SCH ×2 (09:36→21:32)
[2022-01-14] MEDS: FLUTICASONE/SALMETEROL 100 MCG/50 MCG DISKUS IH SCH ×2 (09:37→21:30)
[2022-01-14] MEDS: SERTRALINE HCL 50 MG TABLET (FP) PO SCH (21:34)
[2022-01-15] MEDS: LEVOTHYROXINE NA 125 MCG TABLET (FP) PO SCH (07:31)
[2022-01-15 07:54] LABS: BASO % 0.6 % (0-2.0); HEMATOCRIT 33.5 % (32.4-45.2); HEMOGLOBIN 11.5 GM/dL (10.7-15.3); LYMPH % 40.6 % (8-40); MCH 32.8 pg (25.7-33.7); MCHC 34.4 g/dl (32.0-36.0); MEAN CELL VOLUME 95.2 fl (80-96); MEAN PLT VOLUME 7.5 fl (7.5-11.1); MONO % 9.5 % (3.8-10.2); NEUT % 45.3 % (42.8-82.8); PLATELET COUNT 163 10^3/uL (134-434); RBC 3.52 M/mm3 (3.60-5.2); RDW 13.2 % (11.6-15.6); WHITE BLOOD COUNT 4.5 K/mm3 (4.0-10.0)
[2022-01-15 08:23] LABS: CALCIUM 8.4 mg/dL (8.5-10.1)
[2022-01-15 08:24] LABS: ALBUMIN 2.5 g/dl (3.4-5.0); BLOOD UREA NITROGEN 18.2 mg/dL (7-18)
[2022-01-15 08:27] LABS: CREATININE 0.7 mg/dL (0.55-1.3)
[2022-01-15 08:28] LABS: TOT PROT 6.3 g/dl (6.4-8.2)
[2022-01-15 08:29] LABS: BILIRUBIN,TOTAL 0.3 mg/dL (0.2-1)
[2022-01-15] MEDS: oxyCODONE HCL 5 MG TABLET PO PRN ×2 (10:30→17:07)
[2022-01-15] MEDS: ASPIRIN COATED 81 MG TABLET.EC PO SCH (10:30)
[2022-01-15] MEDS: FAMOTIDINE 20 MG TABLET PO SCH ×2 (10:31→21:18)
[2022-01-15] MEDS: ASCORBIC ACID 500 MG TABLET (FP) PO SCH (10:31)
[2022-01-15] MEDS: MULTIVITAMINS (DAILY MVI) TABLET (FP) PO SCH (10:31)
[2022-01-15] MEDS: HEPARIN NA (PORCINE) 5,000 UNITS/ML 1ML VIAL SQ SCH ×2 (10:31→21:21)
[2022-01-15] MEDS: DIVALPROEX SODIUM 500 MG TABLET E.C. PO SCH ×2 (10:32→21:18)
[2022-01-15] MEDS: rOPINIRole HCL 2 MG TABLET (FP) PO SCH ×4 (10:32→21:19)
[2022-01-15] MEDS: FLUTICASONE/SALMETEROL 100 MCG/50 MCG DISKUS IH SCH ×2 (10:33→21:23)
[2022-01-15] MEDS: SERTRALINE HCL 50 MG TABLET (FP) PO SCH (21:18)
[2022-01-16] MEDS: LEVOTHYROXINE NA 125 MCG TABLET (FP) PO SCH (06:27)
[2022-01-16] MEDS: oxyCODONE HCL 5 MG TABLET PO PRN ×3 (08:13→22:14)
[2022-01-16] MEDS: ACETAMINOPHEN 325 MG TABLET (FP) PO PRN ×3 (08:14→22:15)
[2022-01-16] MEDS: MULTIVITAMINS (DAILY MVI) TABLET (FP) PO SCH (09:42)
[2022-01-16] MEDS: FAMOTIDINE 20 MG TABLET PO SCH ×2 (09:42→21:44)
[2022-01-16] MEDS: ASPIRIN COATED 81 MG TABLET.EC PO SCH (09:42)
[2022-01-16] MEDS: ASCORBIC ACID 500 MG TABLET (FP) PO SCH (09:42)
[2022-01-16] MEDS: HEPARIN NA (PORCINE) 5,000 UNITS/ML 1ML VIAL SQ SCH ×2 (09:42→21:43)
[2022-01-16] MEDS: rOPINIRole HCL 2 MG TABLET (FP) PO SCH ×4 (09:43→21:44)
[2022-01-16] MEDS: DIVALPROEX SODIUM 500 MG TABLET E.C. PO SCH ×2 (09:44→21:43)
[2022-01-16] MEDS: FLUTICASONE/SALMETEROL 100 MCG/50 MCG DISKUS IH SCH ×2 (09:44→21:45)
[2022-01-16] MEDS: SERTRALINE HCL 50 MG TABLET (FP) PO SCH (21:44)
[2022-01-17] MEDS: LEVOTHYROXINE NA 125 MCG TABLET (FP) PO SCH (06:05)
[2022-01-17 07:05] LABS: BASO % 0.8 % (0-2.0); EOS % 4.5 % (0-4.5); HEMATOCRIT 34.2 % (32.4-45.2); HEMOGLOBIN 11.8 GM/dL (10.7-15.3); LYMPH % 49.6 % (8-40); MCH 32.8 pg (25.7-33.7); MCHC 34.4 g/dl (32.0-36.0); MEAN CELL VOLUME 95.5 fl (80-96); MEAN PLT VOLUME 7.5 fl (7.5-11.1); MONO % 9.7 % (3.8-10.2); NEUT % 35.4 % (42.8-82.8); PLATELET COUNT 197 10^3/uL (134-434); RBC 3.59 M/mm3 (3.60-5.2); RDW 13.5 % (11.6-15.6)
[2022-01-17 07:27] LABS: ALBUMIN 2.6 g/dl (3.4-5.0); BLOOD UREA NITROGEN 23.5 mg/dL (7-18); CALCIUM 8.7 mg/dL (8.5-10.1)
[2022-01-17 07:31] LABS: CREATININE 0.9 mg/dL (0.55-1.3)
[2022-01-17 07:32] LABS: BILIRUBIN,TOTAL 0.2 mg/dL (0.2-1); TOT PROT 6.4 g/dl (6.4-8.2)
[2022-01-17] MEDS: FAMOTIDINE 20 MG TABLET PO SCH ×2 (09:29→21:24)
[2022-01-17] MEDS: HEPARIN NA (PORCINE) 5,000 UNITS/ML 1ML VIAL SQ SCH ×2 (09:29→21:24)
[2022-01-17] MEDS: ASCORBIC ACID 500 MG TABLET (FP) PO SCH (09:29)
[2022-01-17] MEDS: DIVALPROEX SODIUM 500 MG TABLET E.C. PO SCH ×2 (09:29→21:23)
[2022-01-17] MEDS: rOPINIRole HCL 2 MG TABLET (FP) PO SCH ×4 (09:29→21:24)
[2022-01-17] MEDS: ASPIRIN COATED 81 MG TABLET.EC PO SCH (09:29)
[2022-01-17] MEDS: FLUTICASONE/SALMETEROL 100 MCG/50 MCG DISKUS IH SCH ×2 (09:30→21:59)
[2022-01-17] MEDS: MULTIVITAMINS (DAILY MVI) TABLET (FP) PO SCH (09:34)
[2022-01-17] MEDS: oxyCODONE HCL 5 MG TABLET PO PRN ×2 (09:34→17:57)
[2022-01-17] MEDS: ACETAMINOPHEN 325 MG TABLET (FP) PO PRN ×2 (09:35→17:57)
[2022-01-17] MEDS: SERTRALINE HCL 50 MG TABLET (FP) PO SCH (21:24)
[2022-01-18] MEDS: oxyCODONE HCL 5 MG TABLET PO PRN ×2 (05:41→20:08)
[2022-01-18] MEDS: ACETAMINOPHEN 325 MG TABLET (FP) PO PRN (05:42)
[2022-01-18] MEDS: LEVOTHYROXINE NA 125 MCG TABLET (FP) PO SCH (06:03)
[2022-01-18] MEDS: ASPIRIN COATED 81 MG TABLET.EC PO SCH (10:26)
[2022-01-18] MEDS: rOPINIRole HCL 2 MG TABLET (FP) PO SCH ×4 (10:26→22:00)
[2022-01-18] MEDS: FLUTICASONE/SALMETEROL 100 MCG/50 MCG DISKUS IH SCH ×2 (10:26→22:02)
[2022-01-18] MEDS: HEPARIN NA (PORCINE) 5,000 UNITS/ML 1ML VIAL SQ SCH ×2 (10:26→22:01)
[2022-01-18] MEDS: ASCORBIC ACID 500 MG TABLET (FP) PO SCH (10:26)
[2022-01-18] MEDS: DIVALPROEX SODIUM 500 MG TABLET E.C. PO SCH ×2 (10:26→21:59)
[2022-01-18] MEDS: FAMOTIDINE 20 MG TABLET PO SCH ×2 (10:26→22:02)
[2022-01-18] MEDS: MULTIVITAMINS (DAILY MVI) TABLET (FP) PO SCH (10:26)
[2022-01-18] MEDS: SERTRALINE HCL 50 MG TABLET (FP) PO SCH (22:01)
[2022-01-19] MEDS: LEVOTHYROXINE NA 125 MCG TABLET (FP) PO SCH (06:19)
[2022-01-19] MEDS: HEPARIN NA (PORCINE) 5,000 UNITS/ML 1ML VIAL SQ SCH (09:22)
[2022-01-19] MEDS: rOPINIRole HCL 2 MG TABLET (FP) PO SCH ×4 (09:23→21:25)
[2022-01-19] MEDS: DIVALPROEX SODIUM 500 MG TABLET E.C. PO SCH ×2 (09:23→21:24)
[2022-01-19] MEDS: ASPIRIN COATED 81 MG TABLET.EC PO SCH (09:23)
[2022-01-19] MEDS: MULTIVITAMINS (DAILY MVI) TABLET (FP) PO SCH (09:23)
[2022-01-19] MEDS: ASCORBIC ACID 500 MG TABLET (FP) PO SCH (09:23)
[2022-01-19] MEDS: FLUTICASONE/SALMETEROL 100 MCG/50 MCG DISKUS IH SCH ×2 (09:24→21:25)
[2022-01-19] MEDS: oxyCODONE HCL 5 MG TABLET PO PRN ×3 (09:41→22:41)
[2022-01-19] MEDS: FAMOTIDINE 20 MG TABLET PO SCH ×2 (09:43→21:24)
[2022-01-19] MEDS: SERTRALINE HCL 50 MG TABLET (FP) PO SCH (21:24)
[2022-01-20] MEDS: LEVOTHYROXINE NA 125 MCG TABLET (FP) PO SCH (06:17)
[2022-01-20] MEDS: FAMOTIDINE 20 MG TABLET PO SCH (09:40)
[2022-01-20] MEDS: ASCORBIC ACID 500 MG TABLET (FP) PO SCH (09:40)
[2022-01-20] MEDS: MULTIVITAMINS (DAILY MVI) TABLET (FP) PO SCH (09:40)
[2022-01-20] MEDS: ASPIRIN COATED 81 MG TABLET.EC PO SCH (09:40)
[2022-01-20] MEDS: rOPINIRole HCL 2 MG TABLET (FP) PO SCH (09:41)
[2022-01-20] MEDS: FLUTICASONE/SALMETEROL 100 MCG/50 MCG DISKUS IH SCH (09:41)
[2022-01-20] MEDS: DIVALPROEX SODIUM 500 MG TABLET E.C. PO SCH (09:41)
[2022-01-20] MEDS: oxyCODONE HCL 5 MG TABLET PO PRN (09:41)
[2022-01-20 10:15] VITALS: BP 95/60; PULSE 72; RESP 18; TEMP 98
== END 2022-01-20 11:35 | disposition home or self-care (01) | DRG 603 ==
LOC: JER 13:37 → JERBED 15:15 → J4W 21:16
PROVIDERS: ADMIT Internal Medicine; ATTEND Internal Medicine
DX: L03.115 Cellulitis of right lower limb (principal); J90 Pleural effusion, not elsewhere classified; I24.8 Other forms of acute ischemic heart disease; J06.9 Acute upper respiratory infection, unspecified; I73.9 Peripheral vascular disease, unspecified; F41.8 Other specified anxiety disorders; R91.1 Solitary pulmonary nodule; M79.606 Pain in leg, unspecified; F17.200 Nicotine dependence, unspecified, uncomplicated; G35 Multiple sclerosis; Z79.891 Long term (current) use of opiate analgesic; R32 Unspecified urinary incontinence; E03.9 Hypothyroidism, unspecified; G89.29 Other chronic pain; J43.9 Emphysema, unspecified; L03.031 Cellulitis of right toe; M54.9 Dorsalgia, unspecified; M06.879 Other specified rheumatoid arthritis, unspecified ankle and foot; G25.81 Restless legs syndrome; K21.9 Gastro-esophageal reflux disease without esophagitis; Z88.0 Allergy status to penicillin
CPT/HCPCS: 0241U-QW; 36415; 70450-TC; 71045-TC-FY; 71250-TC; 72125-TC; 72170-TC-FY; 73502-TC-LT-FY; 73610-TC-LT-FY; 73610-TC-RT-FY; 73630-TC-LT; 73630-TC-RT-FY; 80053; 81003; 82803; 83605; 84484; 85025; 85610; 85730; 86850; 86900; 86901; 87086; 93005; 93010; 93306-TC; 97116-GP; 97161-GP; 99285-25; C9803-CS; J1644; U0003; U0005

== ENCOUNTER 2022-02-20 14:15 | Inpatient (IN) | payer OTHER ==
[2022-02-20 14:55] VITALS: BMI 18.7
[2022-02-20 15:49] LABS: BASO % 0.5 % (0-2.0); EOS % 2.9 % (0-4.5); HEMATOCRIT 31.3 % (32.4-45.2); HEMOGLOBIN 10.5 GM/dL (10.7-15.3); LYMPH % 25.4 % (8-40); MCH 32.2 pg (25.7-33.7); MCHC 33.5 g/dl (32.0-36.0); MEAN PLT VOLUME 7.8 fl (7.5-11.1); MONO % 8.2 % (3.8-10.2); PLATELET COUNT 163 10^3/uL (134-434); RBC 3.26 M/mm3 (3.60-5.2); RDW 14.1 % (11.6-15.6)
[2022-02-20 16:07] LABS: CALCIUM 8.3 mg/dL (8.5-10.1)
[2022-02-20 16:08] LABS: ALBUMIN 2.8 g/dl (3.4-5.0); BLOOD UREA NITROGEN 20.5 mg/dL (7-18)
[2022-02-20 16:11] LABS: CREATININE 0.7 mg/dL (0.55-1.3)
[2022-02-20 16:13] LABS: BILIRUBIN,TOTAL 0.5 mg/dL (0.2-1); TOT PROT 6.5 g/dl (6.4-8.2)
[2022-02-20 16:45] LABS: INR 1.1 (0.83-1.09); PROTHROMBIN TIME (PATIENT) 12.7 SEC (9.7-13.0)
[2022-02-20 16:46] LABS: ACTIVATED PTT 33.4 SECONDS (25.2-36.5)
[2022-02-20 17:45] LABS: URINE APPEARANCE CLEAR; URINE BILIRUBIN NEGATIVE (NEGATIVE); URINE COLOR YELLOW; URINE GLUCOSE (UA) NEGATIVE (NEGATIVE); URINE KETONE TRACE (NEGATIVE); URINE LEUK ESTERASE NEGATIVE (NEGATIVE); URINE NITRITE NEGATIVE (NEGATIVE); URINE PROTEIN NEGATIVE (NEGATIVE)
[2022-02-20] MEDS ORDERED: VANCOMYCIN 1 GM in D5W (PRE-DOCKED) 1,000 MG/250 ML IVPB ONE (22:01)
[2022-02-20] MEDS ORDERED: VANCOMYCIN/WATER FOR INJ (PEG) 1,000 MG/200 ML BAG IVPB ONE (22:21)
[2022-02-20] MEDS ORDERED: PATIENT'S OWN MEDICATION (NON-FORMULARY) (Oxycodone Hcl/Acetaminophen [Endocet 10-325 Mg T PO PRN (22:36)
[2022-02-20] MEDS ORDERED: ALBUTEROL SO4 HFA INHALER IH PRN (22:36)
[2022-02-20] MEDS ORDERED: POLYETHYLENE GLYCOL (HEALTHYLAX) 3350 17 GM PACKET PO PRN (22:36)
[2022-02-20] MEDS ORDERED: ACETAMINOPHEN 325 MG TABLET (FP) PO PRN (22:36)
[2022-02-21] MEDS: oxyCODONE HCL 5 MG TABLET PO PRN ×3 (05:25→18:46)
[2022-02-21] MEDS: LEVOTHYROXINE NA 125 MCG TABLET (FP) PO SCH (06:08)
[2022-02-21] MEDS: ASPIRIN COATED 81 MG TABLET.EC PO SCH (11:18)
[2022-02-21] MEDS: MULTIVITAMINS (DAILY MVI) TABLET (FP) PO SCH (11:18)
[2022-02-21] MEDS: ASCORBIC ACID 500 MG TABLET (FP) PO SCH (11:18)
[2022-02-21] MEDS: DIVALPROEX SODIUM 500 MG TABLET E.C. PO SCH ×2 (11:18→22:01)
[2022-02-21] MEDS: FAMOTIDINE 20 MG TABLET PO SCH ×2 (11:18→22:02)
[2022-02-21] MEDS: HEPARIN NA (PORCINE) 5,000 UNITS/ML 1ML VIAL SQ SCH ×2 (11:19→22:02)
[2022-02-21] MEDS: FLUTICASONE/SALMETEROL 100 MCG/50 MCG DISKUS IH SCH ×2 (11:20→22:06)
[2022-02-21] MEDS: ROPINIROLE HCL 2 MG PO SCH (15:07)
[2022-02-21] MEDS: CEFTRIAXONE 1 GM in DEXTROSE 5%-WATER 100 ML IVPB SCH (16:20)
[2022-02-21] MEDS: rOPINIRole HCL 1 MG TABLET (FP) PO SCH ×3 (16:23→22:02)
[2022-02-21] MEDS: SERTRALINE HCL 50 MG TABLET (FP) PO SCH (22:01)
[2022-02-22] MEDS: oxyCODONE HCL 5 MG TABLET PO PRN ×3 (05:40→20:58)
[2022-02-22] MEDS: ACETAMINOPHEN 325 MG TABLET (FP) PO PRN ×2 (05:41→20:57)
[2022-02-22] MEDS: LEVOTHYROXINE NA 125 MCG TABLET (FP) PO SCH (06:00)
[2022-02-22] MEDS: DIVALPROEX SODIUM 500 MG TABLET E.C. PO SCH (09:32)
[2022-02-22] MEDS: FAMOTIDINE 20 MG TABLET PO SCH (09:33)
[2022-02-22] MEDS: HEPARIN NA (PORCINE) 5,000 UNITS/ML 1ML VIAL SQ SCH (09:33)
[2022-02-22] MEDS: MULTIVITAMINS (DAILY MVI) TABLET (FP) PO SCH (09:33)
[2022-02-22] MEDS: rOPINIRole HCL 1 MG TABLET (FP) PO SCH ×3 (09:33→17:31)
[2022-02-22] MEDS: ASPIRIN COATED 81 MG TABLET.EC PO SCH (09:33)
[2022-02-22] MEDS: ASCORBIC ACID 500 MG TABLET (FP) PO SCH (09:33)
[2022-02-22] MEDS: CEFTRIAXONE 1 GM in DEXTROSE 5%-WATER 100 ML IVPB SCH (09:34)
[2022-02-22] MEDS: FLUTICASONE/SALMETEROL 100 MCG/50 MCG DISKUS IH SCH (09:38)
[2022-02-22 11:15] LABS: EOS % 3.8 % (0-4.5); HEMATOCRIT 32.6 % (32.4-45.2); LYMPH % 36.3 % (8-40); MCHC 33.7 g/dl (32.0-36.0); MEAN CELL VOLUME 94.9 fl (80-96); MEAN PLT VOLUME 7.5 fl (7.5-11.1); NEUT % 50.9 % (42.8-82.8); PLATELET COUNT 198 10^3/uL (134-434); RBC 3.44 M/mm3 (3.60-5.2); WHITE BLOOD COUNT 4.4 K/mm3 (4.0-10.0)
[2022-02-22 11:42] LABS: CALCIUM 8.5 mg/dL (8.5-10.1)
[2022-02-22 11:43] LABS: BLOOD UREA NITROGEN 12.6 mg/dL (7-18)
[2022-02-22 11:46] LABS: CREATININE 0.6 mg/dL (0.55-1.3)
[2022-02-22] MEDS: SERTRALINE HCL 50 MG TABLET (FP) PO SCH (23:59)
[2022-02-23] MEDS: oxyCODONE HCL 5 MG TABLET PO PRN ×4 (06:44→23:41)
[2022-02-23] MEDS: LEVOTHYROXINE NA 125 MCG TABLET (FP) PO SCH (06:44)
[2022-02-23] MEDS: ACETAMINOPHEN 325 MG TABLET (FP) PO PRN ×2 (06:44→23:41)
[2022-02-23] MEDS: HEPARIN NA (PORCINE) 5,000 UNITS/ML 1ML VIAL SQ SCH ×3 (11:46→21:46)
[2022-02-23] MEDS: rOPINIRole HCL 1 MG TABLET (FP) PO SCH ×5 (11:46→21:41)
[2022-02-23] MEDS: MULTIVITAMINS (DAILY MVI) TABLET (FP) PO SCH (11:46)
[2022-02-23] MEDS: ASCORBIC ACID 500 MG TABLET (FP) PO SCH (11:46)
[2022-02-23] MEDS: ASPIRIN COATED 81 MG TABLET.EC PO SCH (11:47)
[2022-02-23] MEDS: CEFTRIAXONE 1 GM in DEXTROSE 5%-WATER 100 ML IVPB SCH (11:47)
[2022-02-23] MEDS: FAMOTIDINE 20 MG TABLET PO SCH ×3 (11:47→21:41)
[2022-02-23] MEDS: DIVALPROEX SODIUM 500 MG TABLET E.C. PO SCH ×3 (11:47→21:41)
[2022-02-23] MEDS: FLUTICASONE/SALMETEROL 100 MCG/50 MCG DISKUS IH SCH ×3 (12:05→21:41)
[2022-02-23] MEDS: SERTRALINE HCL 50 MG TABLET (FP) PO SCH (21:41)
[2022-02-24] MEDS: oxyCODONE HCL 5 MG TABLET PO PRN ×2 (05:55→12:30)
[2022-02-24] MEDS: LEVOTHYROXINE NA 125 MCG TABLET (FP) PO SCH (06:00)
[2022-02-24] MEDS: ASCORBIC ACID 500 MG TABLET (FP) PO SCH (10:04)
[2022-02-24] MEDS: FAMOTIDINE 20 MG TABLET PO SCH (10:04)
[2022-02-24] MEDS: rOPINIRole HCL 1 MG TABLET (FP) PO SCH ×2 (10:04→14:00)
[2022-02-24] MEDS: ASPIRIN COATED 81 MG TABLET.EC PO SCH (10:04)
[2022-02-24] MEDS: DIVALPROEX SODIUM 500 MG TABLET E.C. PO SCH (10:04)
[2022-02-24] MEDS: HEPARIN NA (PORCINE) 5,000 UNITS/ML 1ML VIAL SQ SCH (10:05)
[2022-02-24] MEDS: MULTIVITAMINS (DAILY MVI) TABLET (FP) PO SCH (10:05)
[2022-02-24] MEDS: FLUTICASONE/SALMETEROL 100 MCG/50 MCG DISKUS IH SCH (10:05)
[2022-02-24 10:25] VITALS: RESP 16; TEMP 98.4
[2022-02-24 15:13] VITALS: BP 98/51; PULSE 75
[2022-02-24] MEDS: CEFTRIAXONE 1 GM in DEXTROSE 5%-WATER 100 ML IVPB SCH (15:29)
== END 2022-02-24 16:25 | DRG 603 ==
LOC: JER 14:15 → JERBED 21:02 → J5S 02-21 01:01
PROVIDERS: ADMIT Internal Medicine; ATTEND Internal Medicine
DX: L03.115 Cellulitis of right lower limb (principal); N39.0 Urinary tract infection, site not specified; S82.144A Nondisplaced bicondylar fracture of right tibia, initial encounter for closed fracture; L03.116 Cellulitis of left lower limb; J44.9 Chronic obstructive pulmonary disease, unspecified; G35 Multiple sclerosis; M06.9 Rheumatoid arthritis, unspecified; E03.9 Hypothyroidism, unspecified; F41.8 Other specified anxiety disorders; G25.81 Restless legs syndrome; R91.1 Solitary pulmonary nodule; K21.9 Gastro-esophageal reflux disease without esophagitis; F17.210 Nicotine dependence, cigarettes, uncomplicated; I73.9 Peripheral vascular disease, unspecified; R21 Rash and other nonspecific skin eruption; R29.6 Repeated falls; G43.909 Migraine, unspecified, not intractable, without status migrainosus; R27.0 Ataxia, unspecified; M79.661 Pain in right lower leg; B96.20 Unspecified Escherichia coli [E. coli] as the cause of diseases classified elsewhere; W05.0XXA Fall from non-moving wheelchair, initial encounter; Y92.128 Other place in nursing home as the place of occurrence of the external cause; Z99.3 Dependence on wheelchair
CPT/HCPCS: 36415; 71045-TC-FY; 73560-TC-RT-FY; 73590-TC-LT-FY; 73590-TC-RT-FY; 73700-TC-RT; 75635-TC; 80048; 80053; 81003; 85025; 85610; 85730; 87086; 87186; 93970-TC; 99285-25; C9803-CS; J1644; Q9967; U0003; U0005